=== PATIENT | male | born 1960 | race Caucasian/White ===

== ENCOUNTER → 2017-03-13 | Outpatient (CLI) | payer OTHER ==
[~2017-03-13] MED LIST: ALLO300T2 PO; AMLO-114 PO; ATOR10TA88 PO; METO25TA56 PO
--- NOTE | 2017-03-13 07:21 | DIAGNOSTIC IMAGING REPORT ---
ABD/PELVIS NO IV OR ORAL CONT CLINICAL HISTORY: 56 years-old Male presenting with HERNIA. TECHNIQUE: Multidetector CT of the abdomen and pelvis was performed without the use of intravenous contrast. IV contrast: None. A dose lowering technique was used consistent with the principles of ALARA (as low as reasonably achievable). COMPARISON: 02/22/2016. CT DOSE (mGy.cm): The estimated cumulative dose is 691.60 mGy.cm. FINDINGS: Etl Consultant topogram: Peritoneal dialysis catheter abdominal surgical clips noted. Lung bases: Minimal dependent groundglass opacity, likely atelectasis. Mild multichamber enlargement of the heart. Coronary artery and aortic valve calcification. Trace pericardial effusion. No pleural effusion. Liver: Normal morphology. Normal density. Biliary: No gross evidence of biliary ductal dilatation within the limitations of noncontrast technique. Normal gallbladder. Pancreas: Normal. Spleen: Normal. Adrenal glands: Normal. Kidneys and ureters: Right kidney surgically absent. 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 Suggestion of mild urothelial thickening, new from prior. Mild pelvocaliectasis stable to slightly more prominent in the current exam. No convincing evidence of obstruction. Other than mild urothelial thickening, the left ureter is normal. Gastrointestinal tract: Sigmoid diverticulosis. No bowel obstruction. Peritoneal cavity: Small amount of fluid throughout the abdomen and pelvis likely related to the peritoneal dialysis catheter, which terminates in the right lower quadrant. No focal fluid collection apparent at the terminus. Bladder: Mild circumferential bladder wall thickening. No perivesicular inflammatory change. Pelvic organs: Prostate and seminal vesicles normal. Vasculature: Atherosclerosis of the normal caliber abdominal aorta. Lymph nodes: Few prominent but benign-appearing inguinal lymph nodes, likely reactive. Abdominal wall: Small fluid collection immediately superior to the umbilicus along the paramedian right ventral abdominal wall containing fluid and few small foci of gas. This collection measures 3.4 x 1.5 cm in axial dimensions. No significant surrounding fat stranding. This is not associated with the peritoneal dialysis catheter. Musculoskeletal: Degenerative changes of the spine. IMPRESSION: 1. Small fluid collection in the anterior abdominal wall likely relates to a peritoneal defect. Fluid and gas within the ventral hernia most likely secondary to the presence of the peritoneal dialysis catheter. 2. Mild urothelial thickening in the left urinary collecting system with mild cervical bladder wall thickening suggestive of cystitis with upper tract involvement. Correlate with urinalysis. 3. Postsurgical changes of left nephrectomy. Expected appearance of the peritoneal dialysis catheter. Electronically signed by: Max Penn M.D. 03/13/2017 7:19 AM Dictated Date/Time: 03/13/2017 7:12 AM
== END | disposition home or self-care (01) ==
LOC: C.CTS 06:40
PROVIDERS: ATTEND Surgery
DX: K43.9 Ventral hernia without obstruction or gangrene (principal); Z90.5 Acquired absence of kidney

== ENCOUNTER → 2017-06-22 | Outpatient (CLI) | payer OTHER ==
[~2017-06-22] MED LIST changes: +ATOR10TA82 PO; -ATOR10TA88 PO
--- NOTE | 2017-06-22 08:08 | DIAGNOSTIC IMAGING REPORT ---
(CHEST) THORAX WITHOUT CT DOSE: 538.79 mGycm HISTORY: Preoperative evaluation TRANSPLANT TESTING TECHNIQUE: Multiaxial CT images of the chest were performed without contrast. A dose lowering technique was utilized adhering to the principles of ALARA. COMPARISON: None. FINDINGS: Solitary lung mass in the region of the right major fissure transaxial image 24. This measures 2.2 x 2.1 cm. It is primarily right lower lobe in position although there appears to be involvement of components of the major fissure. Lungs otherwise are clear. No additional nodular changes. There is no significant mediastinal or hilar adenopathy. Several small nodes are present measuring no more than 7 mm. Several small benign shotty appearing nodes of the axillary regions. Limited evaluation the upper abdomen shows the presence of ascites versus dialysate. IMPRESSION: 1. Solitary lung nodule right lower lobe involving the right major fissure 2. This measures 2.2 x 2.1 cm. 3. Neoplastic processes is the diagnosis of exclusion. The above report was generated using voice recognition software. It may contain grammatical, syntax or spelling errors. Electronically signed by: John Juan M.D. 06/22/2017 8:07 AM Dictated Date/Time: 06/22/2017 8:01 AM
== END | disposition home or self-care (01) ==
LOC: C.CTS 07:45
PROVIDERS: ATTEND Internal Medicine Nephrology
DX: Z01.818 Encounter for other preprocedural examination (principal); N18.6 End stage renal disease; R91.1 Solitary pulmonary nodule

== ENCOUNTER 2020-09-26 14:30 | Observation (INO) ==
[2020-09-26] MEDS ORDERED: NITROGLYCERIN SL 0.4 MG/TAB TAB SL STA (14:52)
[2020-09-26] MEDS ORDERED: NITROGLYCERIN SL 0.4 MG/TAB TAB SL PRN (14:52)
[2020-09-26 15:27] LABS: Basophils # (auto) 0.01 K/uL (0-0.2); Basophils % (auto) 0.1 %; Eosinophils # (auto) 0.09 K/uL (0-0.5); Eosinophils % (auto) 0.8 %; Hematocrit (blood only) 37.2 % (42-52); Hemoglobin 12.2 g/dL (14.0-18.0); Immature Granulocytes # (auto) 0.03 K/uL (0.00-0.02); Immature Granulocytes % (auto) 0.3 %; Lymphocytes # (auto) 0.99 K/uL (1.2-3.4); Lymphocytes % (auto) 8.5 %; Mean Corpuscular Hemoglobin 28.2 pg (25-34); Mean Corpuscular Hgb Conc 32.8 g/dL (32-36); Mean Corpuscular Volume 86.1 fL (80-100); Mean Platelet Volume 10.2 fL (7.4-10.4); Monocytes # (auto) 0.96 K/uL (0.11-0.59); Monocytes % (auto) 8.2 %; Neutrophils # (auto) 9.56 K/uL (1.4-6.5); Neutrophils % (auto) 82.1 %; Platelet Count 174 K/uL (130-400); RDW Coefficient of Variation 16.2 % (11.5-14.5); RDW Standard Deviation 51.8 fL (36.4-46.3); Red Blood Count 4.32 M/uL (4.7-6.1); White Blood Count 11.64 K/uL (4.8-10.8)
--- NOTE | 2020-09-26 15:37 | XRay Report ---
SINGLE VIEW CHEST CLINICAL HISTORY: Sepsis. FINDINGS: 2 AP, portable, upright chest radiographs are compared to study dated 11/20/2015. Correlation is made with chest CT dated 04/08/2019. The heart is markedly enlarged noting atherosclerotic calcifi cation of the thoracic aorta. The pulmonary vasculature is noncongested. There is evidence of previou s cardiac valve surgery. Postoperative change and volume loss in the right lung is consistent with pr evious surgical resection. There is pleural fluid at the right lung base. No airspace consolidation i s seen typical for pneumonia. Scarring/atelectasis is noted at both lung bases. No pneumothorax is se en. The skeletal structures are osteopenic. The bony thorax is grossly intact. IMPRESSION: 1. Cardiomegaly without radiographic evidence of congestive failure. 2. There is no airspace consolidation typical for pneumonia. 3. Postoperative change and volume loss is consistent with right-sided pulmonary resection. 4. There is a small volume of pleural fluid at the right lung base. ACT 112: Negative or not required by law. Electronically signed by: Julien Mcdonald M.D. 09/26/2020 3:36 PM
[2020-09-26 15:39] LABS: INR 1.1 (0.9-1.1); Prothrombin Time 10.9 Seconds (9.0-12.0)
[2020-09-26] MEDS ORDERED: ONDANSETRON INJ 2 MG/ML 2 ML VIAL IV STA (15:56)
[2020-09-26] MEDS ORDERED: HYDROmorphone INJ 0.5 MG/0.5 ML SYR IV PRN (15:56)
[2020-09-26 15:59] LABS: RBC Morphology Unremarkable
[2020-09-26 16:00] LABS: Albumin Globulin Ratio 0.7 (0.9-2); Albumin Level 2.9 gm/dl (3.4-5.0); BUN Creatinine Ratio 4.9 (10-20); Bilirubin,Total 0.3 mg/dl (0.2-1); C Reactive Protein 5.26 mg/dl (0-0.29); Calcium 9.1 mg/dl (8.5-10.1); Creatine Kinase MB 4.6 ng/ml (0.5-3.6); Creatinine Clr Calc Pharmacy 4.6 ml/min; Est GFR (African American) 3.4; Est GFR (Non-African American) 2.9; Ferritin 1018.9 ng/ml (8-388); Globulin 4.3 gm/dl (2.5-4.0); Magnesium 2.4 mg/dl (1.8-2.4); Potassium 4.6 mmol/L (3.5-5.1); Total Protein 7.2 gm/dl (6.4-8.2); Troponin I 0.027 ng/ml (0-0.045)
[2020-09-26] MEDS ORDERED: LEVALBUTEROL TARTRATE 15 GM HFA.AER.AD INH STA (16:03)
[2020-09-26] MEDS ORDERED: OPTIRAY 320 125ml IV ONE (17:41)
--- NOTE | 2020-09-26 18:34 | CT Scan Report ---
CT ANGIOGRAM OF THE CHEST CLINICAL HISTORY: Atypical chest pain. Dyspnea. COMPARISON STUDY: Chest x-ray dated 09/26/2020. Chest CT dated 04/08/2019 and 06/22/2017. TECHNIQUE: Following the IV administration of 117 cc of Optiray 320, CT angiogram of the chest was pe rformed from the upper abdomen to the thoracic inlet utilizing the pulmonary embolus protocol. Images are reviewed in the axial, sagittal, and coronal planes. 3-D MIPS images are created and assessed. I V contrast was administered without complication. A dose lowering technique was utilized adhering to the principles of ALARA. CT DOSE: 320.07 mGy.cm FINDINGS: Thyroid: Imaged portions of the thyroid gland are normal in size and attenuation. Thoracic aorta: There is atherosclerotic calcification of the thoracic aorta, which is normal in liv elen and demonstrates standard 3-vessel arch anatomy. No dissection is seen. Pulmonary vasculature: The pulmonary trunk is normal in caliber. There are no filling defects identif ied in main, lobar, or segmental pulmonary branches to suggest pulmonary embolus. Heart: The heart is enlarged and there is a large pericardial effusion. There is evidence of previous aortic valve surgery. The coronary arteries and mitral annulus are densely calcified. Lungs and pleural spaces: There is postoperative change and volume loss from right-sided pulmonary re section, with compensatory hyperinflation of the left lung. A small volume of pleural fluid is again seen at the right lung base, with associated right basilar scarring/atelectasis. No airspace consolid ation is identified typical for pneumonia. The trachea and central airways are clear. Mild diffuse pe ribronchial thickening is observed. A 4 mm nodule in the right upper lung seen on image #182 is new f rom previous and may be inflammatory. Mediastinum: There are numerous subcentimeter mediastinal lymph nodes. These are not pathologically e nlarged by size criteria and have decreased in size from previous. Jazmine: Clear. Axillae: There is no axillary lymphadenopathy. Upper abdomen: Reflux of contrast into the IVC and hepatic veins suggests cardiac dysfunction. There is trace perihepatic ascites. Partially visualized upper abdominal viscera is otherwise grossly unrem arkable. Skeletal structures: The skeletal structures are osteopenic. There is a subacute/healing right anteri or second rib fracture. Mild superior endplate compression deformities in the upper thoracic spine ar e unchanged. No lytic or blastic bony lesions are seen. IMPRESSION: 1. There is no evidence of pulmonary embolus in the main, lobar, or segmental pulmonary arteries. 2. Large pericardial effusion. This has significantly increased in size as compared to the 04/08/2019 examination. 3. Cardiomegaly with evidence of cardiac dysfunction. 4. Again seen is postoperative change and volume loss from right-sided pulmonary resection. 5. There is a small volume of pleural fluid at the right lung base. 6. No airspace consolidation is seen typical for pneumonia. 7. Mild diffuse peribronchial thickening suggests bronchitis/reactive airway disease. 8. A 4 mm nodule in the right upper lung is new from previous and may be on an inflammatory basis. A 3-6 month follow-up chest CT is recommended to document resolution. 9. Trace perihepatic ascites. 10. There is a subacute/healing right anterior second rib fracture. ACT 112: Positive. There are findings on this exam that require communication between the performing entity and the patient following Patient Test Result Information Act ([place] Act 112) guidelines. Electronically signed by: Julien Mcdonald M.D. 09/26/2020 6:33 PM
[2020-09-26] MEDS ORDERED: GI COCKTAIL ED USE PO ONE (18:56)
--- NOTE | 2020-09-26 19:24 | XRay Report ---
KUB CLINICAL HISTORY: Generalized abdominal pain. FINDINGS: 2 AP supine abdominal radiographs are compared to study dated 05/05/2016 and correlated with abdominal CT dated 03/13/2017.There is no bowel obstruction. A peritoneal dialysis catheter is in lisseth ce. The tip is coiled in the pelvis. No evidence of intraperitoneal free air is seen on these supine views. Surgical clips are scattered throughout the abdomen and there are bilateral iliac artery stent s. No abnormal abdominal calcifications are identified. The skeletal structures are osteopenic and ap pear intact. The cardiac silhouette is enlarged and there is evidence of previous cardiac valve surge ry. Pleural fluid is noted at the right lung base. IMPRESSION: Nonobstructed abdominal bowel gas pattern. Electronically signed by: Julien Mcdonald M.D. 09/26/2020 7:22 PM
[2020-09-26] MEDS ORDERED: POLYETHYLENE (MIRALAX) 17 GM PACK PO PRN (20:19)
[2020-09-26] MEDS ORDERED: ACETAMINOPHEN 325 MG TAB PO PRN (20:19)
--- NOTE | 2020-09-26 20:32 | History & Physical Report ---
Date of Service September 26, 2020 Assessment & Plan (1) Pericardial effusion: -Admit to telemetry -Patient presenting from home with reports of substernal/epigastric pain x 3 days -In the ED, CTA chest shows large pericardial effusion -Currently hemodynamically stable, does not appear to be infectious in nature -Case discussed with cardiology by Dr. Leach -start ibuprofen 600 mg 3 times daily, colchicine 0.6 mg twice daily, Bumex 2 mg IV x 1 -Echo (2) Pulmonary nodule: (3) History of lung cancer: -CT chest shows a new 4 mm nodule in the right upper lung -History of non-small cell lung cancer s/p lobectomy -Will need close follow-up (4) Diastolic dysfunction: -Receiving Bumex 2 mg IV x1 as above for pericardial effusion -Resume home dose of furosemide tomorrow (5) ESRD (end stage renal disease) on dialysis: (6) Peritoneal dialysis status: -Nephrology consult (7) PAD (peripheral artery disease): -S/p bilateral common iliac artery stenting -Continue aspirin, Plavix, statin (8) HTN (hypertension): -BP controlled, continue isosorbide, amlodipine, carvedilol (9) Gout: -Continue allopurinol (10) DVT prophylaxis: -SCDs for now Admission and Anticipated Discharge Date Admission Date: September 26, 2020 History of Present Illness Chief Complaint: Chest pain Primary Care Provider: Socrates Saba MD 60-year-old male with PMH gout, non-small cell lung cancer s/p lobectomy, PAD s/p bilateral common iliac artery stenting, ESRD on peritoneal dialysis, history of TAVR, 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 Patient reports that over the past 3 days, he has had a persistent substernal/epigastric pain. Reports pain is worse whenever he is completing his dwells for peritoneal dialysis. Pain is also worse whenever he lies flat. Patient reports associated shortness of breath. No radiation of the pain. He reports nausea this morning however no vomiting. Reports no difficulties with peritoneal dialysis, fluid has been clear. No abdominal pain or diarrhea. Denies fevers and chills. No lightheadedness, dizziness, diaphoresis, syncopal events. Continues to make a small amount of urine, denies dysuria. In the ED, CTA chest is negative for pulmonary embolism however shows large pericardial effusion. Labs show ESR 61, CRP 5.2, otherwise unremarkable/at patient's baseline. Patient was given sublingual nitroglycerin that did not improve his pain. He was also given IV Zofran and IV Dilaudid. Allergies Allergy/AdvReac Type Severity Reaction Status Date / Time mercury (elemental) Allergy Intermediate Rash Verified 09/26/20 16:04 NSAIDS (Non-Steroidal Allergy Intermediate not to Verified 09/26/20 16:04 Anti-Inflamma take d/t Kidney disease lisinopril AdvReac Intermediate COUGH Verified 09/26/20 16:04 Home Medications Medication Instructions Recorded Confirmed Type amlodipine 10 mg tablet 10 mg PO QAM 05/06/19 09/26/20 History dutasteride 0.5 mg capsule 0.5 mg PO QAM 05/06/19 09/26/20 History trazodone 50 mg tablet 50 mg PO HS PRN tab 05/06/19 09/26/20 History calcitriol 0.5 mcg PO QAM 06/11/20 09/26/20 History allopurinol 100 mg PO QAM 06/30/20 09/26/20 History furosemide 80 mg PO QAM 06/30/20 09/26/20 History omeprazole 40 mg PO QAM 06/30/20 09/26/20 History isosorbide mononitrate 30 mg 30 mg PO QAM #30 tab 09/07/20 09/26/20 Rx tablet,extended release 24 hr albuterol sulfate [Ventolin HFA] 2 puff INHALATION Q4 PRN 09/26/20 09/26/20 History aspirin [Aspir-Low] 81 mg PO DAILY 09/26/20 09/26/20 History atorvastatin [Lipitor] 40 mg PO DAILY 09/26/20 09/26/20 History bupropion HCl 150 mg PO DAILY 09/26/20 09/26/20 History carvedilol [Coreg] 25 mg PO BID 09/26/20 09/26/20 History clopidogrel 75 mg PO DAILY 09/26/20 09/26/20 History escitalopram oxalate 20 mg PO DAILY 09/26/20 09/26/20 History oxycodone-acetaminophen [Percocet] 1 tab PO Q8 09/26/20 09/26/20 History ropinirole [Requip] 0.25 mg PO HS 09/26/20 09/26/20 History sucroferric oxyhydroxide [Velphoro] 500 mg PO TIDM 09/26/20 09/26/20 History tamsulosin [Flomax] 0.4 mg PO QPM 09/26/20 09/26/20 History vit B,C-iron kuo-ZB-A2-zinc ox 1 tab PO DAILY 09/26/20 09/26/20 History [ProRenal] Past Med/Surg History Medical History AV fistula "L side " CAD (coronary artery disease) NONOBSTRUCTIVE Cardiac murmur HX OF TAVR SEP 2019 SECONDARY TO SEVERE Carotid artery stenosis RIGHT ICA= <50%; LEFT ICA= 50-69% Chronic kidney disease, stage IV (severe) Dialysis patient X 4 YRS-PERITONEAL DIALYSIS Q HS X 8 HRS Diastolic dysfunction with normal LV systolic function Dyslipidemia Fitting and adjustment of peritoneal dialysis catheter PLACEMENT OF-IN PLACE GERD (gastroesophageal reflux disease) Gout Hiatal hernia History of lung cancer NON SMALL CANCER RLL-07/2019 [facility] [place] HTN (hypertension) Kidney donor PAD (peripheral artery disease) Follows with vascular surgery Peritoneal dialysis status Spinal stenosis NO NECK OR BACK SURGERY Surgical History AV fistula CREATION OF IN LEFT WRIST H/O vascular surgery 04/2020 STENTS PLACED [facility] [place] BILAT LE (BILATERAL COMMON ILIAC ARTERY STENT PLACEMENT) History of colonoscopy History of lung surgery RLL 07/2019 History of nephrectomy, unilateral "Kidney donor "1992 S/P AVR (aortic valve replacement) 09/2019 [facility] [place] F/U DR BOWEN Family History Brother Family history of diabetes mellitus Brother Family history of diabetes mellitus Sister Family history of diabetes mellitus Mother Family history of diabetes mellitus Social History Smoking Status: Former smoker Second Hand Exposure: No; Do You Dip or Chew Tobacco: Yes; Tobacco Cessation Education Requested by Patient: No Hx Alcohol Use: No Hx Substance Use: No Preferred Language: Surinamese Communication Ability: Effective Supervisory Forester Required: No Beliefs That Will Affect Care: None Current Living Situation: Other Other Information That Helps Us Care for You: No Feels Safe at Home: Yes Safety Concerns: Feels Safe At This Time Assistive Devices: Denture - Upper, Denture - Lower and Glasses Review of Systems Review of Systems: ROS per HPI, all other systems reviewed and negative Physical Exam Constitutional: WD/WN, vitals as above Eyes: PERRL, conjunctivae normal, anicteric sclerae ENMT: external ear and nose normal, oropharynx normal Respiratory: normal respiratory effort, lungs clear to auscultation Cardiovascular: Rate/Rhythm: regular rate and regular rhythm Vessels: normal peripheral pulses Extremities: no edema Gastrointestinal (Abdomen): Inspection/Auscultation: normal bowel sounds; abdomen not distended Percussion/Palpation: + abdomen tender (Epigastric) and abdomen soft; no hepatosplenomegaly Peritoneal dialysis catheter in place, no surrounding redness or drainage noted Musculoskeletal: no cyanosis or clubbing, extremities motor strength 5/5 Skin: no rashes, warm and dry Neurologic: PERRL, EOMI, accommodation nl, no face palsy, no dysarthria Psychiatric: A+Ox3, euthymic affect Results & Data Results & Data ([facility]) Vital Signs (Past 12 Hours) Vital Signs Temp Pulse Pulse Resp BP BP Pulse Ox 09/26/20 20:07 36.4 C L 94 H 18 147/88 H 94 09/26/20 19:00 93 H 19 129/109 H 94 09/26/20 18:40 95 H 18 09/26/20 18:30 90 15 139/111 H 98 09/26/20 18:20 90 22 100 09/26/20 18:10 92 H 16 96 09/26/20 18:00 91 H 18 142/96 H 96 09/26/20 17:50 91 H 18 96 09/26/20 17:46 91 H 11 L 09/26/20 17:31 95 H 18 132/81 96 09/26/20 17:30 96 H 22 94 09/26/20 17:20 97 H 17 93 09/26/20 17:10 95 H 16 93 09/26/20 17:00 96 H 19 149/100 H 93 09/26/20 16:50 96 H 26 H 94 09/26/20 16:40 96 H 14 94 09/26/20 16:30 96 H 19 145/93 H 95 09/26/20 16:20 93 H 26 H 94 09/26/20 16:10 95 H 25 H 09/26/20 16:00 96 H 20 117/94 94 09/26/20 15:50 98 H 18 96 09/26/20 15:40 100 H 19 96 09/26/20 15:30 101 H 18 119/91 92 09/26/20 15:23 100 H 23 95 09/26/20 15:20 101 H 19 95 09/26/20 15:13 101 H 21 96 09/26/20 14:33 37.3 C 104 H 20 108/77 96 Laboratory Results Short CBC 09/26/20 Range/Units 15:17 WBC 11.64 H (4.8-10.8) K/uL Hgb 12.2 L (14.0-18.0) g/dL Hct 37.2 L (42-52) % Plt Count 174 (130-400) K/uL BMP 09/26/20 15:17 Sodium 133 L Potassium 4.6 Chloride 97 L Carbon Dioxide 25 BUN 76 H Creatinine 15.70 H* Glucose 92 Calcium 9.1 Cardiac Enzymes 09/26/20 Range/Units 15:17 Total Creatine Kinase 87 (39-308) U/L CK-MB (CK-2) 4.6 H (0.5-3.6) ng/ml Troponin I 0.027 (0-0.045) ng/ml Liver Function 09/26/20 Range/Units 15:17 Total Bilirubin 0.3 (0.2-1) mg/dl AST 12 L (15-37) U/L ALT 25 (12-78) U/L Alkaline Phosphatase 105 (45-117) U/L Albumin 2.9 L (3.4-5.0) gm/dl Diagnostic Findings CTA CHEST IMPRESSION: 1. There is no evidence of pulmonary embolus in the main, lobar, or segmental pulmonary arteries. 2. Large pericardial effusion. This has significantly increased in size as compared to the 04/08/2019 examination. 3. Cardiomegaly with evidence of cardiac dysfunction. 4. Again seen is postoperative change and volume loss from right-sided pulmonary resection. 5. There is a small volume of pleural fluid at the right lung base. 6. No airspace consolidation is seen typical for pneumonia. 7. Mild diffuse peribronchial thickening suggests bronchitis/reactive airway disease. 8. A 4 mm nodule in the right upper lung is new from previous and may be on an inflammatory basis. A 3-6 month follow-up chest CT is recommended to document resolution. 9. Trace perihepatic ascites. 10. There is a subacute/healing right anterior second rib fracture. Code Status & VTE Plan VTE Prophylaxis Plan VTE Prophylaxis will be ordered: Yes Supervising Physician Co-Signing Physician Notes Pt was seen and examined. Agreed with Pebbles SALEEM exam, assessment and plan. 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 Pt said that symptoms has been going on for about 3 days. He said that pain worsening with deep breathing or when lying down. He said that his symptoms worst also during peritoneal Dialysis. Received sublingual nitro with minimal improvement, now he is having a headache. CTA chest PE showed no PE but Large pericardial effusion. This has significantly increased in size as compared to the 04/08/2019 examination. Lab showed showed ESR 61, CRP 5.2. Currently denies any palpitation, dizziness and SOB. cardiology consult. case discussed with cardiology about the large pericardial effusion that recommended Motrin 600mg TID and Colchicine. Will get an echo. Vital currently stable, but will monitor in the PCU for any sign of cardiac tamponade. Will consult nephrology for PD. MD Haylee
[2020-09-26] MEDS ORDERED: TAMSULOSIN HCL 0.4 MG CAP PO SCH (21:00)
[2020-09-26] MEDS ORDERED: rOPINIRole HCL 0.25 MG TABLET PO SCH (21:00)
[2020-09-26] MEDS ORDERED: BUMETANIDE 2 MG in SYRINGE 0 ML IV ONE (21:15)
[2020-09-26] MEDS: IBUPROFEN 600 MG TAB PO SCH (21:32)
[2020-09-26] MEDS: oxyCODONE/ACETAMINOPHEN 5mg/325mg TAB PO PRN (21:32)
[2020-09-26] MEDS: DOCUSATE SODIUM 100 MG CAP PO SCH (21:32)
[2020-09-26] MEDS: COLCHICINE 0.6 MG TAB PO SCH (21:33)
[2020-09-26] MEDS: carvediloL 25 MG TAB PO SCH (21:34)
[2020-09-26] MEDS ORDERED: traMADol HCL 50 MG TABLET PO PRN (23:59)
[2020-09-27] MEDS: HYDROmorphone INJ 0.5 MG/0.5 ML SYR IV PRN ×2 (00:11→11:36)
[2020-09-27 00:43] LABS: Appearance Urine Clear (Clear); Bilirubin Urine Negative (Negative); Blood Urine 1+ (Negative); Color Urine Yellow; Epithelial Cell Urine Auto >30 /lpf (0-5); Glucose Urine UA Negative (Negative); Ketones Urine Negative (Negative); Leukocyte Esterase Urine Negative (Negative); Nitrite Urine Negative (Negative); Protein Urine 3+ (Negative); Specific Gravity Urine 1.022 (1.000-1.030); Urobilinogen Urine Negative (Negative)
[2020-09-27 01:17] LABS: Bacteria Urine Automated 1+ (Negative)
[2020-09-27 01:25] LABS: RBC Urine Automated 0-4 /hpf (0-4)
[2020-09-27] MEDS: IBUPROFEN 600 MG TAB PO SCH (05:25)
[2020-09-27 06:14] LABS: Hematocrit (blood only) 35.8 % (42-52); Hemoglobin 11.7 g/dL (14.0-18.0); Mean Corpuscular Hemoglobin 28.1 pg (25-34); Mean Corpuscular Hgb Conc 32.7 g/dL (32-36); Mean Corpuscular Volume 86.1 fL (80-100); Mean Platelet Volume 10.9 fL (7.4-10.4); Platelet Count 157 K/uL (130-400); RDW Coefficient of Variation 16.4 % (11.5-14.5); RDW Standard Deviation 52.3 fL (36.4-46.3); Red Blood Count 4.16 M/uL (4.7-6.1); White Blood Count 8.38 K/uL (4.8-10.8)
--- NOTE | 2020-09-27 06:38 | Electrocardiogram Report ---
Test Reason : Blood Pressure : / mmHG Vent. Rate : 099 BPM Atrial Rate : 099 BPM P-R Int : 188 ms QRS Dur : 092 ms QT Int : 378 ms P-R-T Axes : 048 010 081 degrees QTc Int : 485 ms Normal sinus rhythm Septal infarct (cited on or before 23-FEB-2018) Cannot rule out Inferior infarct , age undetermined T wave abnormality, consider lateral ischemia Abnormal ECG When compared with ECG of 11-JUN-2020 11:50, Vent. rate has increased BY 35 BPM Nonspecific T wave abnormality now evident in Inferior leads T wave inversion now evident in Lateral leads Confirmed by George Peace ([id number]) on 09/27/2020 6:38:51 AM Referred By: REFERRED SELF Confirmed By:George Peace
[2020-09-27 07:05] LABS: BUN Creatinine Ratio 5.4 (10-20); Calcium 9.5 mg/dl (8.5-10.1); Creatinine Clr Calc Pharmacy 4.1 ml/min; Est GFR (African American) 3.3; Est GFR (Non-African American) 2.8; Potassium 5.6 mmol/L (3.5-5.1)
[2020-09-27] MEDS ORDERED: NON-FORMULARY MEDICATION (Sucroferric Oxyhydroxide [Velphoro] 500 mg tablet,chewable) PO SCH (08:00)
[2020-09-27] MEDS ORDERED: amLODIPine BESYLATE 5 MG TAB PO SCH (09:00)
[2020-09-27] MEDS ORDERED: buPROPion XL 150 MG TABCR PO SCH (09:00)
[2020-09-27] MEDS ORDERED: ESCITALOPRAM OXALATE 20 MG TAB PO SCH (09:00)
[2020-09-27] MEDS ORDERED: ISOSORBIDE MONO EXTENDED REL 30 MG TABCR PO SCH (09:00)
[2020-09-27] MEDS ORDERED: PANTOprazole 40 MG TAB PO SCH (09:00)
[2020-09-27] MEDS ORDERED: CALCITRIOL 0.25 MCG CAPSULE PO SCH (09:00)
[2020-09-27] MEDS ORDERED: allopurinoL 100 MG TAB PO SCH (09:00)
[2020-09-27] MEDS ORDERED: ATORVASTATIN 40 MG TAB PO SCH (09:00)
[2020-09-27] MEDS ORDERED: NEPHROCAPS PO SCH (09:00)
[2020-09-27] MEDS ORDERED: FUROSEMIDE 80 MG TAB PO SCH (09:00)
[2020-09-27] MEDS: COLCHICINE 0.6 MG TAB PO SCH (09:24)
[2020-09-27] MEDS: carvediloL 25 MG TAB PO SCH (09:24)
[2020-09-27] MEDS: DOCUSATE SODIUM 100 MG CAP PO SCH (09:24)
[2020-09-27] MEDS: ASPIRIN 81 MG ECTAB PO SCH ×2 (09:25→10:26)
[2020-09-27] MEDS: CLOPIDOGREL BISULFATE 75 MG TAB PO SCH ×2 (09:28→10:26)
[2020-09-27] MEDS: oxyCODONE/ACETAMINOPHEN 5mg/325mg TAB PO PRN (09:49)
[2020-09-27] MEDS: SODIUM CHLORIDE 0.9% 1000ML 1,000 ML IV SCH ×2 (09:50→10:41)
--- NOTE | 2020-09-27 09:57 | Cardiology Consultation ---
Date of Consultation September 27, 2020 Assessment & Plan (1) Pericardial effusion: (2) Peritoneal dialysis status: (3) ESRD (end stage renal disease) on dialysis: (4) H/O vascular surgery: (5) History of lung cancer: (6) PAD (peripheral artery disease): (7) S/P TAVR (transcatheter aortic valve replacement): (8) Mitral valve mass: Large circumferential pericardial effusion is measured at 1.9 cm in the apical four-chamber view at the apex Echocardiogram does show hemodynamic compromise with compression of the right atrium and possible diastolic compression of the right ventricle. Greater than 50% respiratory variation across the tricuspid valve Luckily, the patient is hemodynamically stable without clinical features of tamponade. I have ordered normal saline wide open to be started now to support preload There is also a possible mass consistent with vegetation on the mitral valve. At this point given the above findings I recommend the patient be emergently transferred to a tertiary care center for higher level of care. I have asked the primary team to arrange transport to [facility] for likely pericardiocentesis I have discussed the above findings and treatment options with the patient at great lengths and he is in agreement with the plan. I will give him a dose of ibuprofen for his discomfort now but would avoid narcotics that may decrease his preload. History of Present Illness Reason for Consultation: Pericardial effusion/chest pain Requesting Physician: Dr. Leach Attending Physician: Yakov Leach MD History of Present Illness Mr. Hung is a very pleasant 60-year-old gentleman who routinely follows with myself as an outpatient. He presented to [facility] emergency department on 09/26/2020 with complaints of chest discomfort. He states that for the last 3 days he has been having this persistent dull achy substernal chest discomfort. He states that the discomfort is constant but worse with laying flat and improved with sitting upright leaning over. He has been completing his peritoneal dialysis as instructed. The pain progressed over the last 3 days and he came in the emergency department. Upon arrival a chest CT was performed which showed a large pericardial effusion and cardiology was consulted. Ec hocardiogram this a.m. shows tamponade physiology and he was started on normal saline solution wide open. Currently states that the chest discomfort is still present and worse with deep inhalation. But he denies any palpitations, lightheadedness or dizziness. Past medical history: 1.Severe aortic stenosisstatus post TAVR with a #26Sapien 3Tvalve 2. Nonobstructive coronary artery disease 3. Diastolic dysfunction with normal LV systolic function 4. End-stage renal failure on peritoneal dialysis 5. History of lung cancer status post lobectomy 6. Hypertension 7. Depression 8. Peripheral arterial diseasestatus post bilateral common iliac artery stent placement Allergies Allergy/AdvReac Type Severity Reaction Status Date / Time mercury (elemental) Allergy Intermediate Rash Verified 09/26/20 16:04 NSAIDS (Non-Steroidal Allergy Intermediate not to Verified 09/26/20 16:04 Anti-Inflamma take d/t Kidney disease lisinopril AdvReac Intermediate COUGH Verified 09/26/20 16:04 Home Medications Medication Instructions Recorded Confirmed Type amlodipine 10 mg tablet 10 mg PO QAM 05/06/19 09/26/20 History dutasteride 0.5 mg capsule 0.5 mg PO QAM 05/06/19 09/26/20 History trazodone 50 mg tablet 50 mg PO HS PRN tab 05/06/19 09/26/20 History calcitriol 0.5 mcg PO QAM 06/11/20 09/26/20 History allopurinol 100 mg PO QAM 06/30/20 09/26/20 History furosemide 80 mg PO QAM 06/30/20 09/26/20 History omeprazole 40 mg PO QAM 06/30/20 09/26/20 History isosorbide mononitrate 30 mg 30 mg PO QAM #30 tab 09/07/20 09/26/20 Rx tablet,extended release 24 hr ProRenal 1 tab PO DAILY 09/26/20 09/26/20 History Velphoro 500 mg PO TIDM 09/26/20 09/26/20 History albuterol sulfate [Ventolin HFA] 2 puff INHALATION Q4 PRN 09/26/20 09/26/20 History aspirin 81 mg PO DAILY 09/26/20 09/26/20 History atorvastatin [Lipitor] 40 mg PO DAILY 09/26/20 09/26/20 History bupropion HCl 150 mg PO DAILY 09/26/20 09/26/20 History carvedilol [Coreg] 25 mg PO BID 09/26/20 09/26/20 History clopidogrel 75 mg PO DAILY 09/26/20 09/26/20 History escitalopram oxalate 20 mg PO DAILY 09/26/20 09/26/20 History oxycodone-acetaminophen [Percocet] 1 tab PO Q8 09/26/20 09/26/20 History ropinirole [Requip] 0.25 mg PO HS 09/26/20 09/26/20 History tamsulosin [Flomax] 0.4 mg PO QPM 09/26/20 09/26/20 History colchicine [Colcrys] 0.6 mg PO BID #30 tab 09/27/20 Rx ibuprofen 600 mg PO Q8 #30 tab 09/27/20 Rx Patient History Medical History AV fistula "L side " CAD (coronary artery disease) NONOBSTRUCTIVE Cardiac murmur HX OF TAVR SEP 2019 SECONDARY TO SEVERE Carotid artery stenosis RIGHT ICA= <50%; LEFT ICA= 50-69% Chronic kidney disease, stage IV (severe) Dialysis patient X 4 YRS-PERITONEAL DIALYSIS Q HS X 8 HRS Diastolic dysfunction with normal LV systolic function Dyslipidemia Fitting and adjustment of peritoneal dialysis catheter PLACEMENT OF-IN PLACE GERD (gastroesophageal reflux disease) Gout Hiatal hernia History of lung cancer NON SMALL CANCER RLL-07/2019 [facility] HTN (hypertension) Kidney donor PAD (peripheral artery disease) Follows with vascular surgery Peritoneal dialysis status Spinal stenosis NO NECK OR BACK SURGERY Surgical History AV fistula CREATION OF IN LEFT WRIST H/O vascular surgery 04/2020 [facility]ENTS PLACED [facility] BILAT LE (BILATERAL COMMON ILIAC ARTERY STENT PLACEMENT) History of colonoscopy History of lung surgery RLL 07/2019 History of nephrectomy, unilateral "Kidney donor "1992 S/P AVR (aortic valve replacement) 09/2019 [facility] F/U DR GILES Family History Brother Family history of diabetes mellitus Brother Family history of diabetes mellitus Sister Family history of diabetes mellitus Mother Family history of diabetes mellitus Social History Smoking Status: Former smoker Second Hand Exposure: No; Hx Alcohol Use: No Hx Substance Use: No Preferred Language: [place] Zealander Communication Ability: Effective Board Worker Required: No Beliefs That Will Affect Care: None Current Living Situation: Other Feels Safe at Home: Yes Assistive Devices: Denture - Upper, Denture - Lower and Glasses Review of Systems Review of Systems: All systems reviewed & are unremarkable except as noted in HPI & below Physical Exam Physical Exam: General: Awake, alert and oriented x 3. No acute distress. HEENT: Normocephalic, atraumatic. Pupils equal, round and reactive to light and accommodation. Extraocular muscles are intact. Anicteric sclera. Moist mucous membranes. Neck: Significant JVD is present up to the angle of his mandible.. No bruit. Cardiovascular: Regular. But distant. Positive S-4. Normal S-1 and S-2. No S-3. 3/6 mid to late systolic ejection murmur, greatest at the right sternal border, second intercostal space with radiation to the bilateral carotids. Systolic pericardial friction rub is present Pulmonary: Clear to auscultation bilaterally. No rales, rhonchi, or wheezing. Abdomen: Bowel sounds x 4, soft. No rebound, guarding or tenderness. No organomegaly. Extremities: No clubbing, cyanosis or edema. +2 pedal pulses bilaterally. Skin: Warm and dry. Results & Data ([facility]) Vital Signs (Past 12 Hours) Vital Signs Temp Pulse Resp BP Pulse Ox 09/27/20 07:52 36.5 C 73 17 127/82 97 09/27/20 04:10 36.5 C 81 16 130/89 96 09/26/20 23:40 36.5 C 77 18 107/73 94 Laboratory Results Laboratory Results - last 24 hr 09/26/20 09/26/20 09/26/20 15:17 15:17 15:17 WBC 11.64 H RBC 4.32 L Hgb 12.2 L Hct 37.2 L MCV 86.1 MCH 28.2 MCHC 32.8 RDW Std Deviation 51.8 H RDW Coeff of Saumya 16.2 H Plt Count 174 MPV 10.2 Immature Gran % (Auto) 0.3 Neut % (Auto) 82.1 Lymph % (Auto) 8.5 Madison % (Auto) 8.2 Eos % (Auto) 0.8 Baso % (Auto) 0.1 Neut # (Auto) 9.56 H Lymph # (Auto) 0.99 L Madison # (Auto) 0.96 H Eos # (Auto) 0.09 Baso # (Auto) 0.01 Immature Gran # (Auto) 0.03 H RBC Morphology Unremarkable ESR 61 H PT 10.9 INR 1.1 APTT 26.0 PTT Ratio 1.0 Sodium Potassium Chloride Carbon Dioxide Anion Gap BUN Creatinine Est Cr Clr Drug Dosing Est GFR ( Amer) Est GFR (Non-Af Amer) BUN/Creatinine Ratio Glucose Lactate Calcium Magnesium Ferritin Total Bilirubin AST ALT Alkaline Phosphatase Lactate Dehydrogenase Total Creatine Kinase CK-MB (CK-2) CK/CKMB % Calc Troponin I C-Reactive Protein Total Protein Albumin Globulin Albumin/Globulin Ratio Lipase Procalcitonin Urine Color Urine Appearance Urine pH Ur Specific [place] Urine Protein Urine Glucose (UA) Urine Ketones Urine Blood Urine Nitrite Urine Bilirubin Urine Urobilinogen Ur Leukocyte Esterase Urine WBC (Auto) Urine RBC (Auto) U Hyaline Cast (Auto) U Epithel Cells (Auto) Urine Bacteria (Auto) Ur Renal Epithelial Cell Granular Casts Nasal Screen MRSA (PCR) COVID-19 Eval Order Hepatitis C Ab Screen SARS-CoV-2, RNA, NAAT Blood Type Antibody Screen 09/26/20 09/26/20 09/26/20 15:17 15:17 15:17 WBC RBC Hgb Hct MCV MCH MCHC RDW Std Deviation RDW Coeff of Saumya Plt Count MPV Immature Gran % (Auto) Neut % (Auto) Lymph % (Auto) Madison % (Auto) Eos % (Auto) Baso % (Auto) Neut # (Auto) Lymph # (Auto) Madison # (Auto) Eos # (Auto) Baso # (Auto) Immature Gran # (Auto) RBC Morphology ESR PT INR APTT PTT Ratio Sodium 133 L Potassium 4.6 Chloride 97 L Carbon Dioxide 25 Anion Gap 11.0 BUN 76 H Creatinine 15.70 H* Est Cr Clr Drug Dosing 4.6 Est GFR ( Amer) 3.4 Est GFR (Non-Af Amer) 2.9 BUN/Creatinine Ratio 4.9 L Glucose 92 Lactate 1.4 Calcium 9.1 Magnesium 2.4 Ferritin 1018.9 H Total Bilirubin 0.3 AST 12 L ALT 25 Alkaline Phosphatase 105 Lactate Dehydrogenase 250 H Total Creatine Kinase 87 CK-MB (CK-2) 4.6 H CK/CKMB % Calc 5.3 H Troponin I 0.027 C-Reactive Protein 5.26 H Total Protein 7.2 Albumin 2.9 L Globulin 4.3 H Albumin/Globulin Ratio 0.7 L Lipase Procalcitonin Urine Color Urine Appearance Urine pH Ur Specific [place] Urine Protein Urine Glucose (UA) Urine Ketones Urine Blood Urine Nitrite Urine Bilirubin Urine Urobilinogen Ur Leukocyte Esterase Urine WBC (Auto) Urine RBC (Auto) U Hyaline Cast (Auto) U Epithel Cells (Auto) Urine Bacteria (Auto) Ur Renal Epithelial Cell Granular Casts Nasal Screen MRSA (PCR) COVID-19 Eval Order Hepatitis C Ab Screen SARS-CoV-2, RNA, NAAT Blood Type Antibody Screen 09/26/20 09/26/20 09/26/20 15:17 15:17 15:17 WBC RBC Hgb Hct MCV MCH MCHC RDW Std Deviation RDW Coeff of Saumya Plt Count MPV Immature Gran % (Auto) Neut % (Auto) Lymph % (Auto) Madison % (Auto) Eos % (Auto) Baso % (Auto) Neut # (Auto) Lymph # (Auto) Madison # (Auto) Eos # (Auto) Baso # (Auto) Immature Gran # (Auto) RBC Morphology ESR PT INR APTT PTT Ratio Sodium Potassium Chloride Carbon Dioxide Anion Gap BUN Creatinine Est Cr Clr Drug Dosing Est GFR ( Amer) Est GFR (Non-Af Amer) BUN/Creatinine Ratio Glucose Lactate Calcium Magnesium Ferritin Total Bilirubin AST ALT Alkaline Phosphatase Lactate Dehydrogenase Total Creatine Kinase CK-MB (CK-2) CK/CKMB % Calc Troponin I C-Reactive Protein Total Protein Albumin Globulin Albumin/Globulin Ratio Lipase 146 Procalcitonin 0.39 Urine Color Urine Appearance Urine pH Ur Specific [place] Urine Protein Urine Glucose (UA) Urine Ketones Urine Blood Urine Nitrite Urine Bilirubin Urine Urobilinogen Ur Leukocyte Esterase Urine WBC (Auto) Urine RBC (Auto) U Hyaline Cast (Auto) U Epithel Cells (Auto) Urine Bacteria (Auto) Ur Renal Epithelial Cell Granular Casts Nasal Screen MRSA (PCR) COVID-19 Eval Order Hepatitis C Ab Screen Pos A SARS-CoV-2, RNA, NAAT Blood Type Antibody Screen 09/26/20 09/26/20 09/26/20 15:20 15:20 15:24 WBC RBC Hgb Hct MCV MCH MCHC RDW Std Deviation RDW Coeff of Saumya Plt Count MPV Immature Gran % (Auto) Neut % (Auto) Lymph % (Auto) Madison % (Auto) Eos % (Auto) Baso % (Auto) Neut # (Auto) Lymph # (Auto) [place] # (Auto) Eos # (Auto) Baso # (Auto) Immature Gran # (Auto) RBC Morphology ESR PT INR APTT PTT Ratio Sodium Potassium Chloride Carbon Dioxide Anion Gap BUN Creatinine Est Cr Clr Drug Dosing Est GFR ( Amer) Est GFR (Non-Af Amer) BUN/Creatinine Ratio Glucose Lactate Calcium Magnesium Ferritin Total Bilirubin AST ALT Alkaline Phosphatase Lactate Dehydrogenase Total Creatine Kinase CK-MB (CK-2) CK/CKMB % Calc Troponin I C-Reactive Protein Total Protein Albumin Globulin Albumin/Globulin Ratio Lipase Procalcitonin Urine Color Urine Appearance Urine pH Ur Specific [place] Urine Protein Urine Glucose (UA) Urine Ketones Urine Blood Urine Nitrite Urine Bilirubin Urine Urobilinogen Ur Leukocyte Esterase Urine WBC (Auto) Urine RBC (Auto) U Hyaline Cast (Auto) U Epithel Cells (Auto) Urine Bacteria (Auto) Ur Renal Epithelial Cell Granular Casts Nasal Screen MRSA (PCR) COVID-19 Eval [facility] Hep[facility] C Ab Screen SARS-CoV-2, RNA, NAAT NEGATIVE Blood Type A Positive Antibody Screen NEGATIVE 09/26/20 09/26/20 09/27/20 21:30 Unknown 00:00 WBC RBC Hgb Hct MCV MCH MCHC RDW Std Deviation RDW Coeff of Saumya Plt Count MPV Immature Gran % (Auto) Neut % (Auto) Lymph % (Auto) [place] % (Auto) Eos % (Auto) Baso % (Auto) Neut # (Auto) Lymph # (Auto) [place] # (Auto) Eos # (Auto) Baso # (Auto) Immature Gran # (Auto) RBC Morphology ESR PT INR APTT PTT Ratio Sodium Potassium Chloride Carbon Dioxide Anion Gap BUN Creatinine Est Cr Clr Drug Dosing Est GFR ( Amer) Est GFR (Non-Af Amer) BUN/Creatinine Ratio Glucose Lactate Calcium Magnesium Ferritin Total Bilirubin AST ALT Alkaline Phosphatase Lactate Dehydrogenase Total Creatine Kinase CK-MB (CK-2) CK/CKMB % Calc Troponin I 0.026 C-Reactive Protein Total Protein Albumin Globulin Albumin/Globulin Ratio Lipase Procalcitonin Urine Color Yellow Urine Appearance Clear Urine pH 6.0 Ur Specific [place] 1.022 Urine Protein 3+ H Urine Glucose (UA) Negative Urine Ketones Negative Urine Blood 1+ H Urine Nitrite Negative Urine Bilirubin Negative Urine Urobilinogen Negative Ur Leukocyte Esterase Negative Urine WBC (Auto) 10-30 H Urine RBC (Auto) 0-4 U Hyaline Cast (Auto) 1-5 U Epithel Cells (Auto) >30 H Urine Bacteria (Auto) 1+ H Ur Renal Epithelial Cell Not Reportable Granular Casts 1-5 H Nasal Screen MRSA (PCR) Negative COVID-19 Eval Order Hepatitis C Ab Screen SARS-CoV-2, RNA, NAAT Blood Type Antibody Screen 09/27/20 09/27/20 09/27/20 03:01 05:20 05:20 WBC 8.38 RBC 4.16 L Hgb 11.7 L Hct 35.8 L MCV 86.1 MCH 28.1 MCHC 32.7 RDW Std Deviation 52.3 H RDW Coeff of Saumya 16.4 H Plt Count 157 MPV 10.9 H Immature Gran % (Auto) Neut % (Auto) Lymph % (Auto) [place] % (Auto) Eos % (Auto) Baso % (Auto) Neut # (Auto) Lymph # (Auto) [place] # (Auto) Eos # (Auto) Baso # (Auto) Immature Gran # (Auto) RBC Morphology ESR PT INR APTT PTT Ratio Sodium 131 L Potassium 5.6 H D Chloride 92 L Carbon Dioxide 25 Anion Gap 13.0 H BUN 86 H Creatinine 16.10 H* D Est Cr Clr Drug Dosing 4.1 Est GFR ( Amer) 3.3 Est GFR (Non-Af Amer) 2.8 BUN/Creatinine Ratio 5.4 L Glucose 90 Lactate Calcium 9.5 Magnesium Ferritin Total Bilirubin AST ALT Alkaline Phosphatase Lactate Dehydrogenase Total Creatine Kinase CK-MB (CK-2) CK/CKMB % Calc Troponin I 0.030 C-Reactive Protein Total Protein Albumin Globulin Albumin/Globulin Ratio Lipase Procalcitonin Urine Color Urine Appearance Urine pH Ur Specific [place] Urine Protein Urine Glucose (UA) Urine Ketones Urine Blood Urine Nitrite Urine Bilirubin Urine Urobilinogen Ur Leukocyte Esterase Urine WBC (Auto) Urine RBC (Auto) U Hyaline Cast (Auto) U Epithel Cells (Auto) Urine Bacteria (Auto) Ur Renal Epithelial Cell Granular Casts Nasal Screen MRSA (PCR) COVID-19 Eval Order Hepatitis C Ab Screen SARS-CoV-2, RNA, NAAT Blood Type Antibody Screen Medications Administered Current Inpatient Medications Acetaminophen (Acetaminophen 325 Mg Tab) 650 mg PO Q4H PRN PRN Reason: Pain or Fever Stop: 10/26/20 20:18 Allopurinol (Allopurinol 100 Mg Tab) 100 mg PO QAM [facility] Stop: 10/27/20 08:59 Last Admin: 09/27/20 09:36 Dose: 100 mg Documented by: Amlodipine Besylate (Amlodipine Besylate 5 Mg Tab) 10 mg PO QAM [facility] Stop: 10/27/20 08:59 Last Admin: 09/27/20 09:25 Dose: 10 mg Documented by: Aspirin (Aspirin 81 Mg Ectab) 81 mg PO DAILY [facility] Stop: 10/27/20 08:59 Atorvastatin Calcium (Atorvastatin 40 Mg Tab) 40 mg PO DAILY [facility] Stop: 10/27/20 08:59 Last Admin: 09/27/20 09:27 Dose: 40 mg Documented by: Bupropion HCl (Bupropion Xl 150 Mg Tabcr) 150 mg PO DAILY [facility] Stop: 10/27/20 08:59 Last Admin: 09/27/20 09:29 Dose: 150 mg Documented by: Calcitriol (Calcitriol 0.25 Mcg Capsule) 0.5 mcg PO QAM [facility] Stop: 10/27/20 08:59 Last Admin: 09/27/20 09:28 Dose: 0.5 mcg Documented by: Carvedilol (Carvedilol 25 Mg Tab) 25 mg PO BID [facility] Stop: 10/26/20 20:59 Last Admin: 09/27/20 09:24 Dose: 25 mg Documented by: Clopidogrel Bisulfate (Clopidogrel Bisulfate 75 Mg Tab) 75 mg PO DAILY [facility] Stop: 10/27/20 08:59 Colchicine (Colchicine 0.6 Mg Tab) 0.6 mg PO BID [facility] Stop: 10/26/20 20:59 Last Admin: 09/27/20 09:24 Dose: 0.6 mg Documented by: Docusate Sodium (Docusate Sodium 100 Mg Cap) 100 mg PO BID [facility] Stop: 10/26/20 20:59 Last Admin: 09/27/20 09:24 Dose: 100 mg Documented by: Escitalopram Oxalate (Escitalopram Oxalate 20 Mg Tab) 20 mg PO DAILY [facility] Stop: 10/27/20 08:59 Last Admin: 09/27/20 09:27 Dose: 20 mg Documented by: Furosemide (Furosemide 80 Mg Tab) 80 mg PO QAM [facility] Stop: 10/27/20 08:59 Last Admin: 09/27/20 09:27 Dose: 80 mg Documented by: Hydromorphone HCl (Hydromorphone Inj 0.5 Mg/0.5 Ml Syr) 0.5 mg IV Q3H PRN PRN Reason: Pain Stop: 10/10/20 23:57 Last Admin: 09/27/20 00:11 Dose: 0.5 mg Documented by: Sodium Chloride (Nss 1000ml) 1,000 mls @ 999 mls/hr IV .Q1H1M [facility] Stop: 09/27/20 11:25 Last Admin: 09/27/20 09:50 Dose: 999 mls/hr Documented by: Ibuprofen (Ibuprofen 600 Mg Tab) 600 mg PO Q8 [facility] Stop: 10/26/20 21:59 Last Admin: 09/27/20 05:25 Dose: 600 mg Documented by: Isosorbide Mononitrate (Isosorbide [place] Extended Rel 30 Mg Tabcr) [facility] Stop: 10/27/20 08:59 Last Admin: 09/27/20 09:26 Dose: 30 mg Documented by: Miscellaneous (Dutasteride 0.5 Mg: Order Awaiting Action) 1 ea N/A QS [facility] Stop: 10/27/20 00:00 Last Admin: 09/27/20 09:50 Dose: Not Given Documented by: Miscellaneous (Sucroferric Oxyhydroxide [Velphoro] 500 Mg Tab,Chew: Order Awaiting Action) 1 ea N/A QS [facility] Stop: 10/27/20 00:00 Last Admin: 09/27/20 09:50 Dose: Not Given Documented by: Oxycodone/Acetaminophen (Oxycodone/Acetaminophen 5mg/325mg Tab) 1 tab PO Q8 PRN PRN Reason: pain Stop: 10/10/20 20:18 Last Admin: 09/27/20 09:49 Dose: 1 tab Documented by: Pantoprazole Sodium (Pantoprazole 40 Mg Tab) [address] [facility] Stop: 10/27/20 08:59 Last Admin: 09/27/20 09:28 Dose: 40 mg Documented by: Polyethylene Glycol (Polyethylene (Miralax) 17 Gm Pack) 17 gm PO DAILY PRN PRN Reason: Constipation Stop: 10/26/20 20:18 Last Admin: 09/27/20 05:31 Dose: 17 gm Documented by: Ropinirole HCl (Ropinirole Hcl 0.25 Mg Tablet) 0.25 mg PO HS [facility] Stop: 10/26/20 20:59 Last Admin: 09/26/20 21:34 Dose: 0.25 mg Documented by: Tamsulosin HCl (Tamsulosin Hcl 0.4 Mg Cap) 0.4 mg PO QPM [facility] Stop: 10/26/20 20:59 Last Admin: 09/26/20 21:34 Dose: 0.4 mg Documented by: Tramadol HCl (Tramadol Hcl 50 Mg Tablet) 25 - 50 mg PO Q4H PRN PRN Reason: Pain Stop: 10/26/20 23:58 Vitamin B Complex/Folic Acid (Nephrocaps) 1 cap PO DAILY [facility] Stop: 10/27/20 08:59 Last Admin: 09/27/20 09:28 Dose: 1 cap Documented by:
[2020-09-27] MEDS ORDERED: ONDANSETRON INJ 2 MG/ML 2 ML VIAL IV ONE (10:06)
--- NOTE | 2020-09-27 10:29 | Discharge Summary ---
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 Patient reports that over the past 3 days, he has had a persistent substernal/epigastric pain. Reports pain is worse whenever he is completing his dwells for peritoneal dialysis. Pain is also worse whenever he lies flat. Patient reports associated shortness of breath. No radiation of the pain. He reports nausea this morning however no vomiting. Reports no difficulties with peritoneal dialysis, fluid has been clear. No abdominal pain or diarrhea. Denies fevers and chills. No lightheadedness, dizziness, diaphoresis, syncopal events. Continues to make a small amount of urine, denies dysuria. In the ED, CTA chest is negative for pulmonary embolism however shows large pericardial effusion. Labs show ESR 61, CRP 5.2, otherwise unremarkable/at patient's baseline. Patient was given sublingual nitroglycerin that did not improve his pain. He was also given IV Zofran and IV Dilaudid. Admission Exam Per Admitting Provider Physical Exam Constitutional: WD/WN, vitals as above Eyes: PERRL, conjunctivae normal, anicteric sclerae ENMT: external ear and nose normal, oropharynx normal Respiratory: normal respiratory effort, lungs clear to auscultation Cardiovascular: Rate/Rhythm: regular rate and regular rhythm Vessels: normal peripheral pulses Extremities: no edema Gastrointestinal (Abdomen): Inspection/Auscultation: normal bowel sounds; abdomen not distended Percussion/Palpation: + abdomen tender (Epigastric) and abdomen soft; no hepatosplenomegaly Peritoneal dialysis catheter in place, no surrounding redness or drainage noted Musculoskeletal: no cyanosis or clubbing, extremities motor strength 5/5 Skin: no rashes, warm and dry Neurologic: PERRL, EOMI, accommodation nl, no face palsy, no dysarthria Psychiatric: A+Ox3, euthymic affect Principal Diagnosis Pericardial effusion with tamponade Discharge Exam Constitutional: well developed; no acute distress Eyes: no scleral abnormality and no corneal abnormality ENMT: Mouth: no oral mucosal abnormality and oral mucous membranes not dry Neck: normal visual inspection and trachea midline Respiratory: normal respiratory effort Auscultation: lungs clear to auscultation bilaterally Cardiovascular: regular rate Heart Sounds: normal S1 and normal S2 Extremities: + AV fistula; no edema Gastrointestinal:PD catheter with clean exit site Extremities: no cyanosis and no clubbing Skin: normal turgor; no lesions Neurologic: Motor/Sensory: no tremor and no asterixis Psychiatric: Orientation: alert and oriented x 3 Discharge Data Allergies Allergy/AdvReac Type Severity Reaction Status Date / Time mercury (elemental) Allergy Intermediate Rash Verified 09/26/20 16:04 NSAIDS (Non-Steroidal Allergy Intermediate not to Verified 09/26/20 16:04 Anti-Inflamma take d/t Kidney disease lisinopril AdvReac Intermediate COUGH Verified 09/26/20 16:04 Consultations Cardiology, Dr. Giles Ordered Studies CTA CHEST IMPRESSION: 1. There is no evidence of pulmonary embolus in the main, lobar, or segmental pulmonary arteries. 2. Large pericardial effusion. This has significantly increased in size as compared to the 04/08/2019 examination. 3. Cardiomegaly with evidence of cardiac dysfunction. 4. Again seen is postoperative change and volume loss from right-sided pulmonary resection. 5. There is a small volume of pleural fluid at the right lung base. 6. No airspace consolidation is seen typical for pneumonia. 7. Mild diffuse peribronchial thickening suggests bronchitis/reactive airway disease. 8. A 4 mm nodule in the right upper lung is new from previous and may be on an inflammatory basis. A 3-6 month follow-up chest CT is recommended to document resolution. 9. Trace perihepatic ascites. 10. There is a subacute/healing right anterior second rib fracture. CXR IMPRESSION: 1. Cardiomegaly without radiographic evidence of congestive failure. 2. There is no airspace consolidation typical for pneumonia. 3. Postoperative change and volume loss is consistent with right-sided pulmonary resection. 4. There is a small volume of pleural fluid at the right lung base. KUB XR IMPRESSION: Nonobstructed abdominal bowel gas pattern. Hospital Course (1) Pericardial effusion: -Patient presenting from home on 09/26 with reports of substernal/epigastric pain x 3 days, worse with laying flat -In the ED, CTA chest shows large pericardial effusion -Started on ibuprofen 600 mg 3 times daily, colchicine 0.6 mg twice daily, Bumex 2 mg IV x1 -echo demonstrated large pericardial effusion with evidence of tamponade and possible mitral valve mass/vegetation -patient remains hemodynamically stable without clinical signs of tamponade -Due to the above findings, cardiology recommending transfer to tertiary care center for further management (2) Pulmonary nodule: (3) History of lung cancer: -CT chest shows a new 4 mm nodule in the right upper lung -History of non-small cell lung cancer s/p lobectomy -Will need close follow-up (4) Diastolic dysfunction: -Receiving Bumex 2 mg IV x1 as above for pericardial effusion -On Lasix 80 mg daily (5) ESRD (end stage renal disease) on dialysis: (6) Peritoneal dialysis status: -Nephrology consult (7) PAD (peripheral artery disease): -S/p bilateral common iliac artery stenting -Continue aspirin, Plavix, statin (8) HTN (hypertension): -BP controlled, continue isosorbide, amlodipine, carvedilol (9) Gout: -Continue allopurinol Total Time Total Time Spent Total Time Spent (In Minutes): 45 Total Time Includes: Examination of the Patient, Discharge Planning, Medication Reconciliation and Communication With Other Providers Discharge Plan Discharge Items Patient Disposition: Transfer Acute Care Hospital Reason For Visit: EPIGASTRIC PAIN Discharge Diagnosis: Pericardial effusion: Cardiac tamponade Pulmonary nodule: History of lung cancer: Diastolic dysfunction: ESRD (end stage renal disease) on dialysis: Activity: Resume your previous activity Non-emergency contact: Primary Care Provider Call non-emergency contact if: you have any medication questions Follow-up/Referrals: Socrates Saba MD [Primary Care Provider] - Diet: Heart Healthy Addtl Attending Provider Instructions: Transfer to [facility] for higher level of care for management of Cardiac Tamponade Accepting Physician cardiology Dr. Teran Continue IVF en route You need to follow with your provider to repeat the CT chest to evaluate the lung nodule Continue peritoneal dialysis Pending Studies at Discharge: No Stand-Alone Forms: My [facility] [employer] Skilled Items Patient informed of condition?: Yes DNR: No Discharge Level of Care: Other Communicable Disease: No Discharge Prognosis: Stable Lines: Peripheral IV Urinary Catheter: No Medications and DC Order Prescriptions: New ibuprofen 600 mg Tablet 600 mg PO Q8 Qty: 30 RF: 0 colchicine [Colcrys] 0.6 mg Tablet 0.6 mg PO BID Qty: 30 RF: 0 Continued dutasteride 0.5 mg capsule 0.5 mg PO QAM RF: 0 amlodipine 10 mg tablet 10 mg PO QAM RF: 0 trazodone 50 mg tablet 50 mg PO HS PRN (Reason: sleep) RF: 0 isosorbide mononitrate 30 mg tablet extended release 24 hr 30 mg PO QAM Qty: 30 RF: 5 atorvastatin [Lipitor] 40 mg tablet 40 mg PO DAILY RF: 0 carvedilol [Coreg] 25 mg tablet 25 mg PO BID RF: 0 aspirin 81 mg Tablet,Delayed Release (Dr/Ec) 81 mg PO DAILY RF: 0 oxycodone-acetaminophen [Percocet] 5-325 mg tablet 1 tab PO Q8 RF: 0 tamsulosin [Flomax] 0.4 mg capsule 0.4 mg PO QPM RF: 0 ropinirole [Requip] 0.25 mg Tablet 0.25 mg PO HS RF: 0 albuterol sulfate [Ventolin HFA] 90 mcg/actuation HFA aerosol inhaler 2 puff INHALATION Q4 PRN (Reason: Shortness Of Breath Or Wheezing) RF: 0 bupropion HCl 150 mg tablet extended release 24 hr 150 mg PO DAILY RF: 0 Velphoro 500 mg tablet,chewable 500 mg PO TIDM RF: 0 escitalopram oxalate 20 mg tablet 20 mg PO DAILY RF: 0 clopidogrel 75 mg tablet 75 mg PO DAILY RF: 0 ProRenal 8 mg iron-800 mcg-1,000 unit Tablet 1 tab PO DAILY RF: 0 calcitriol 0.25 mcg capsule 0.5 mcg PO QAM RF: 0 furosemide 80 mg Tablet 80 mg PO QAM RF: 0 omeprazole 40 mg Capsule,Delayed Release(Dr/Ec) 40 mg PO QAM RF: 0 allopurinol 100 mg Tablet 100 mg PO QAM RF: 0 Discharge Orders: Discharge Order (Routine); Ordered 09/27/20 Ordered By: Yakov Leach Admission Data Admit Date/Time: 09/26/20 18:40 Attending Provider: Yakov Leach Admit Provider: Yakov Leach Primary Care Provider: Socrates Saba Other Providers: Natalio Giles Kevin C. Other Interventions: Discharge Summary Assessment (RN) Last Done: 09/27/20 10:45
--- NOTE | 2020-09-27 10:30 | Hospitalist Progress Note ---
Date of Service September 27, 2020 Assessment & Plan (1) Pericardial effusion: Present on admission with substernal chest discomfort worsening with deep breathing CTA chest showed Large pericardial effusion Echo showed large pericardial effusion that consistent with Indication for cardiac tamponade. Diastolic compression of the right atrium suggestive of cardiac tamponade. abnormal septal wall motion consistent with RV pressure overload ejection fraction 55 to 60%. severe mitral annular calcification, more pronounced on the posterior leaflet cannot exclude superimposed vegetation. cardiology on board Case discussed with Dr. Giles that recommended to transfer to tertiary care for management of the cardiac tamponade Continue Colchicine and Motrin 600mg TID for now Case discussed with cardiology Dr. Teran in [facility] that accepted the patient for transfer (2) Pulmonary nodule: (3) History of lung cancer: CT chest shows a new 4 mm nodule in the right upper lung CT result discussed with patient History of non-small cell lung cancer s/p lobectomy Will need outpatient follow up for lung nodule with repeat CT chest in 3-6 months (4) Diastolic dysfunction: Receiving Bumex 2 mg IV x1 as above for pericardial effusion Resume home dose of furosemide tomorrow (5) ESRD (end stage renal disease) on dialysis: (6) Peritoneal dialysis status: -Nephrology on board Continue PD (7) PAD (peripheral artery disease): -S/p bilateral common iliac artery stenting -Continue aspirin, Plavix, statin (8) HTN (hypertension): -BP controlled, continue isosorbide, amlodipine, carvedilol (9) Gout: -Continue allopurinol (10) DVT prophylaxis: SCDs due to pericardial effusion Disposition Will discharge to [facility] under cardiology Dr. Teran Admission and Anticipated Discharge Date Admission Date: September 26, 2020 Subjective Pt was seen and examined for follow up of chest discomfort Lying in bed with no distress continues to have epigastric discomfort Pt said that deep breath increase the pain he said that he had difficulty to breath last night Currently he said that he feels a little better Review of Systems Review of Systems: All systems reviewed & are unremarkable except as noted in Subjective Physical Exam Physical Exam: General- No acute distress Head- atraumatic Eyes- PERRL, EOMI, ENT- oropharynx clear Neck- supple, no JVD Lungs- clear to auscultation Heart- regular rhythm Abdomen- normal bowel sounds, +mid abdominal tenderness Extremities- no calf tenderness Neuro- alert, oriented x 3; PERRL, EOMI; no facial palsy; no dysarthria Skin- warm & dry Results & Data Results & Data ([facility]) Vital Signs (Past 12 Hours) Vital Signs Temp Pulse Resp BP Pulse Ox 09/27/20 10:14 154/110 H 09/27/20 07:52 36.5 C 73 17 127/82 97 09/27/20 04:10 36.5 C 81 16 130/89 96 09/26/20 23:40 36.5 C 77 18 107/73 94
[2020-09-27] MEDS ORDERED: IBUPROFEN 600 MG TAB PO STA (11:12)
--- NOTE | 2020-09-27 11:35 | Nephrology Consultation ---
Date of Consultation September 27, 2020 Assessment & Plan (1) ESRD (end stage renal disease) on dialysis: NCCP Rx 7 d/wk, 4 exchanges x 2.5 L fill w/ 2 hour dwell. No last fill. 2.5%/1.5% dextrose. John has not been using heparin with treatments recently. He does not have any history of peritonitis. Kt/V was slightly below goal in August and dwell time was increased from 1.5 to 2 hours. No complications with treatment. Recent decline in residual kidney function noted. Overall, tolerating HD well. AVF mature for use but has not been needed. BP and volume status are currently appropriate. Electrolytes controlled. Medications appropriate for kidney function. No adjustments made prior to transfer to [facility]. Please call with questions or concerns regarding dialysis. History of Present Illness Reason for Consultation: ESRD on PD Requesting Physician: Yakov Leach MD Attending Physician: Yakov Leach MD History of Present Illness Mr. John Hung is a 60-year-old male with ESRD managed with chronic maintenance NCCPD. He dialyzes under the care of Dr. Lomeli through the [facility] dialysis unit in [place]. John has been tolerating PD reasonably well. When John was last seen in the HD unit in August, clearance was slightly below goal. Weekly Kt/V had dropped from 2.0 to 1.87. There had been some loss of residual kidney function, 0.57--> 0.25. Rx was adjusted, dwell time increased from 1.5 hours to 2.0 hours. Current Rx: 7 d/wk, 4 exchanges w/ 2.5 L fill and 2 hour dwell time. No last fill. EDW 70 kg. Recent history includes some persistent weight loss and decreased appetite. This has been ongoing for several months. John presented to the hospital yesterday with chest discomfort and increasing shortness of breath. He has been completing dialysis daily but noted that several treatments have been shortened due to incr eased discomfort in his chest when on the cycler. Evaluation notable for large pericardial effusion as well as a possible mass or vegetation involving the mitral valve. Transfer to [facility] has been arranged. I discussed the plan of care with Dr. Leach and Dr. Bowen this AM. Medical history is notable for a solitary left kidney. John donated his left kidney to his sister in 1994. John has hypertension, a history of gout, notable history of chronic NSAID use, hypercholesterolemia, ROSELIA, tobacco abuse, SCCL s/p RUL + [place] [facility]02 @ [facility], hepatitis C s/p 12 weeks of Zepatier (PCR negative 2016), PVD s/pp [employer] iliac artery 05/03 [facility]. LUE RC AVF placed by Dr. Burns 4 years ago has not been used. No history of peritonitis. Allergies Allergy/AdvReac Type Severity Reaction Status Date / Time mercury (elemental) Allergy Intermediate Rash Verified 09/26/20 16:04 NSAIDS (Non-Steroidal Allergy Intermediate not to Verified 09/26/20 16:04 Anti-Inflamma take d/t Kidney disease lisinopril AdvReac Intermediate COUGH Verified 09/26/20 16:04 Home Medications Medication Instructions Recorded Confirmed Type amlodipine 10 mg tablet 10 mg PO QAM 05/06/19 09/26/20 History dutasteride 0.5 mg capsule 0.5 mg PO QAM 05/06/19 09/26/20 History trazodone 50 mg tablet 50 mg PO HS PRN tab 05/06/19 09/26/20 History calcitriol 0.5 mcg PO QAM 06/11/20 09/26/20 History allopurinol 100 mg PO QAM 06/30/20 09/26/20 History furosemide 80 mg PO QAM 06/30/20 09/26/20 History omeprazole 40 mg PO QAM 06/30/20 09/26/20 History isosorbide mononitrate 30 mg 30 mg PO QAM #30 tab 09/07/20 09/26/20 Rx tablet,extended release 24 hr ProRenal 1 tab PO DAILY 09/26/20 09/26/20 History Velphoro 500 mg PO TIDM 09/26/20 09/26/20 History albuterol sulfate [Ventolin HFA] 2 puff INHALATION Q4 PRN 09/26/20 09/26/20 Hi story aspirin 81 mg PO DAILY 09/26/20 09/26/20 History atorvastatin [Lipitor] 40 mg PO DAILY 09/26/20 09/26/20 History bupropion HCl 150 mg PO DAILY 09/26/20 09/26/20 History carvedilol [Coreg] 25 mg PO BID 09/26/20 09/26/20 History clopidogrel 75 mg PO DAILY 09/26/20 09/26/20 History escitalopram oxalate 20 mg PO DAILY 09/26/20 09/26/20 History oxycodone-acetaminophen [Percocet] 1 tab PO Q8 09/26/20 09/26/20 History ropinirole [Requip] 0.25 mg PO HS 09/26/20 09/26/20 History tamsulosin [Flomax] 0.4 mg PO QPM 09/26/20 09/26/20 History colchicine [Colcrys] 0.6 mg PO BID #30 tab 09/27/20 Rx ibuprofen 600 mg PO Q8 #30 tab 09/27/20 Rx Patient History Medical History AV fistula "L side " CAD (coronary artery disease) NONOBSTRUCTIVE Cardiac murmur HX OF TAVR SEP 2019 SECONDARY TO SEVERE Carotid artery stenosis RIGHT ICA= <50%; LEFT ICA= 50-69% Chronic kidney disease, stage IV (severe) Dialysis patient X 4 YRS-PERITONEAL DIALYSIS Q HS X 8 HRS Diastolic dysfunction with normal LV systolic function Dyslipidemia Fitting and adjustment of peritoneal dialysis catheter PLACEMENT OF-IN PLACE GERD (gastroesophageal reflux disease) Gout Hiatal hernia History of lung cancer NON SMALL CANCER [place]LL[place]07[place] [facility] [place]N (hypertension) Kidney donor PAD (peripheral artery disease) Follows with vascular surgery Peritoneal dialysis status Spinal stenosis NO NECK OR BACK SURGERY Surgical History AV fistula CREATION OF IN LEFT WRIST H/O vascular surgery 04/2020 [facility]ENTS PLACED [facility] BILAT LE (BILATERAL COMMON ILIAC ARTERY STENT PLACEMENT) History of colonoscopy History of lung surgery RLL 07/2019 History of nephrectomy, unilateral "Kidney donor "1992 S/P AVR (aortic valve replacement) 09/2019 [facility] F/U DR BOWEN Family History Brother Family history of diabetes mellitus Brother Family history of diabetes mellitus Sister Family history of diabetes mellitus Mother Family history of diabetes mellitus Social History Smoking Status: Former smoker Second Hand Exposure: No; Do You Dip or Chew Tobacco: Yes; Tobacco Cessation Education Requested by Patient: No Hx Alcohol Use: No Hx Substance Use: No Preferred Language: Mauritanian Communication Ability: Effective 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 Beliefs That Will Affect Care: None Current Living Situation: Other Other Information That Helps Us Care for You: No Feels Safe at Home: Yes Safety Concerns: Feels Safe At This Time Assistive Devices: Denture - Upper, Denture - Lower and Glasses Review of Systems Constitutional: + fatigue and + weight loss; no fever and no chills Eyes: no problem reported Ear, Nose, Mouth, Throat: no problem reported Respiratory: + dyspnea and + pain on inspiration; no cough Cardiovascular: + chest pain and + orthopnea; no palpitations, no lightheadedness, no syncope and no edema Gastrointestinal: no problem reported Genitourinary: + decreased urination; no problem reported Musculoskeletal: no problem reported Integumentary: no problem reported Neurologic: no problem reported Psychiatric: no problem reported Hematologic / Lymphatic: no problem reported Physical Exam Constitutional: well developed; no acute distress Eyes: no scleral abnormality and no corneal abnormality ENMT: Mouth: no oral mucosal abnormality and oral mucous membranes not dry Neck: normal visual inspection and trachea midline Respiratory: normal respiratory effort Auscultation: lungs clear to auscultation bilaterally Cardiovascular: Rate/Rhythm: regular rate Heart Sounds: normal S1 and normal S2 Extremities: + AV fistula; no edema Gastrointestinal (Abdomen): PD catheter with clean exit site Musculoskeletal: Extremities: no cyanosis and no clubbing Skin: normal turgor; no lesions Neurologic: Motor/Sensory: no tremor and no asterixis Psychiatric: Orientation: alert and oriented x 3 Results & Data ([facility]) Vital Signs (Past 12 Hours) Vital Signs Temp Pulse Pulse Resp BP Pulse Ox 09/27/20 10:45 36.5 C 73 17 154/110 H 97 09/27/20 10:14 154/110 H 09/27/20 08:00 78 09/27/20 07:52 36.5 C 73 17 127/82 97 09/27/20 04:10 36.5 C 81 16 130/89 96 09/26/20 23:40 36.5 C 77 18 107/73 94 Laboratory Results Laboratory Results - last 24 hr 09/26/20 09/26/20 09/26/20 15:17 15:17 15:17 WBC 11.64 H RBC 4.32 L Hgb 12.2 L Hct 37.2 L MCV 86.1 MCH 28.2 MCHC 32.8 RDW Std Deviation 51.8 H RDW Coeff of Saumya 16.2 H Plt Count 174 MPV 10.2 Immature Gran % (Auto) 0.3 Neut % (Auto) 82.1 Lymph % (Auto) 8.5 [place] % (Auto) 8.2 Eos % (Auto) 0.8 Baso % (Auto) 0.1 Neut # (Auto) 9.56 H Lymph # (Auto) 0.99 L [place] # (Auto) 0.96 H Eos # (Auto) 0.09 Baso # (Auto) 0.01 Immature Gran # (Auto) 0.03 H RBC Morphology Unremarkable ESR 61 H PT 10.9 INR 1.1 APTT 26.0 PTT Ratio 1.0 Sodium Potassium Chloride Carbon Dioxide Anion Gap BUN Creatinine Est Cr Clr Drug Dosing Est GFR ( Amer) Est GFR (Non-Af Amer) BUN/Creatinine Ratio Glucose Lactate Calcium Magnesium Ferritin Total Bilirubin AST ALT Alkaline Phosphatase Lactate Dehydrogenase Total Creatine Kinase CK-MB (CK-2) CK/CKMB % Calc Troponin I C-Reactive Protein Total Protein Albumin Globulin Albumin/Globulin Ratio Lipase Procalcitonin Urine Color Urine Appearance Urine pH Ur Specific [place] Urine Protein Urine Glucose (UA) Urine Ketones Urine Blood Urine Nitrite Urine Bilirubin Urine Urobilinogen Ur Leukocyte Esterase Urine WBC (Auto) Urine RBC (Auto) U Hyaline Cast (Auto) U Epithel Cells (Auto) Urine Bacteria (Auto) Ur Renal Epithelial Cell Granular Casts Nasal Screen MRSA (PCR) COVID-19 Eval Order Hepatitis C Ab Screen SARS-CoV-2, RNA, NAAT Blood Type Antibody Screen 09/26/20 09/26/20 09/26/20 15:17 15:17 15:17 WBC RBC Hgb Hct MCV MCH MCHC RDW Std Deviation RDW Coeff of Saumya Plt Count MPV Immature Gran % (Auto) Neut % (Auto) Lymph % (Auto) [place] % (Auto) Eos % (Auto) Baso % (Auto) Neut # (Auto) Lymph # (Auto) [place] # (Auto) Eos # (Auto) Baso # (Auto) Immature Gran # (Auto) RBC Morphology ESR PT INR APTT PTT Ratio Sodium 133 L Potassium 4.6 Chloride 97 L Carbon Dioxide 25 Anion Gap 11.0 BUN 76 H Creatinine 15.70 H* Est Cr Clr Drug Dosing 4.6 Est GFR ( Amer) 3.4 Est GFR (Non-Af Amer) 2.9 BUN/Creatinine Ratio 4.9 L Glucose 92 Lactate 1.4 Calcium 9.1 Magnesium 2.4 Ferritin 1018.9 H Total Bilirubin 0.3 AST 12 L ALT 25 Alkaline Phosphatase 105 Lactate Dehydrogenase 250 H Total Creatine Kinase 87 CK-MB (CK-2) 4.6 H CK/CKMB % Calc 5.3 H Troponin I 0.027 C-Reactive Protein 5.26 H Total Protein 7.2 Albumin 2.9 L Globulin 4.3 H Albumin/Globulin Ratio 0.7 L Lipase Procalcitonin Urine Color Urine Appearance Urine pH Ur Specific [place] Urine Protein Urine Glucose (UA) Urine Ketones Urine Blood Urine Nitrite Urine Bilirubin Urine Urobilinogen Ur Leukocyte Esterase Urine WBC (Auto) Urine RBC (Auto) U Hyaline Cast (Auto) U Epithel Cells (Auto) Urine Bacteria (Auto) Ur Renal Epithelial Cell Granular Casts Nasal Screen MRSA (PCR) COVID-19 Eval Order Hepatitis C Ab Screen SARS-CoV-2, RNA, NAAT Blood Type Antibody Screen 09/26/20 09/26/20 09/26/20 15:17 15:17 15:17 WBC RBC Hgb Hct MCV MCH MCHC RDW Std Deviation RDW Coeff of Saumya Plt Count MPV Immature Gran % (Auto) Neut % (Auto) Lymph % (Auto) [place] % (Auto) Eos % (Auto) Baso % (Auto) Neut # (Auto) Lymph # (Auto) [place] # (Auto) Eos # (Auto) Baso # (Auto) Immature Gran # (Auto) RBC Morphology ESR PT INR APTT PTT Ratio Sodium Potassium Chloride Carbon Dioxide Anion Gap BUN Creatinine Est Cr Clr Drug Dosing Est GFR ( Amer) Est GFR (Non-Af Amer) BUN/Creatinine Ratio Glucose Lactate Calcium Magnesium Ferritin Total Bilirubin AST ALT Alkaline Phosphatase Lactate Dehydrogenase Total Creatine Kinase CK-MB (CK-2) CK/CKMB % Calc Troponin I C-Reactive Protein Total Protein Albumin Globulin Albumin/Globulin Ratio Lipase 146 Procalcitonin 0.39 Urine Color Urine Appearance Urine pH Ur Specific [place] Urine Protein Urine Glucose (UA) Urine Ketones Urine Blood Urine Nitrite Urine Bilirubin Urine Urobilinogen Ur Leukocyte Esterase Urine WBC (Auto) Urine RBC (Auto) U Hyaline Cast (Auto) U Epithel Cells (Auto) Urine Bacteria (Auto) Ur Renal Epithelial Cell Granular Casts Nasal Screen MRSA (PCR) COVID-19 Eval Order Hepatitis C Ab Screen Pos A SARS-CoV-2, RNA, NAAT Blood Type Antibody Screen 09/26/20 09/26/20 09/26/20 15:20 15:20 15:24 WBC RBC Hgb Hct MCV MCH MCHC RDW Std Deviation RDW Coeff of Saumya Plt Count MPV Immature Gran % (Auto) Neut % (Auto) Lymph % (Auto) [place] % (Auto) Eos % (Auto) Baso % (Auto) Neut # (Auto) Lymph # (Auto) [place] # (Auto) Eos # (Auto) Baso # (Auto) Immature Gran # (Auto) RBC Morphology ESR PT INR APTT PTT Ratio Sodium Potassium Chloride Carbon Dioxide Anion Gap BUN Creatinine Est Cr Clr Drug Dosing Est GFR ( Amer) Est GFR (Non-Af Amer) BUN/Creatinine Ratio Glucose Lactate Calcium Magnesium Ferritin Total Bilirubin AST ALT Alkaline Phosphatase Lactate Dehydrogenase Total Creatine Kinase CK-MB (CK-2) CK/CKMB % Calc Troponin I C-Reactive Protein Total Protein Albumin Globulin Albumin/Globulin Ratio Lipase Procalcitonin Urine Color Urine Appearance Urine pH Ur Specific [place] Urine Protein Urine Glucose (UA) Urine Ketones Urine Blood Urine Nitrite Urine Bilirubin Urine Urobilinogen Ur Leukocyte Esterase Urine WBC (Auto) Urine RBC (Auto) U Hyaline Cast (Auto) U Epithel Cells (Auto) Urine Bacteria (Auto) Ur Renal Epithelial Cell Granular Casts Nasal Screen MRSA (PCR) COVID-19 Eval Order Covid19 [facility] Hepatitis C Ab Screen SARS-CoV-2, RNA, NAAT NEGATIVE Blood Type A Positive Antibody Screen NEGATIVE 09/26/20 09/26/20 09/27/20 21:30 Unknown 00:00 WBC RBC Hgb Hct MCV MCH MCHC RDW Std Deviation RDW Coeff of Saumya Plt Count MPV Immature Gran % (Auto) Neut % (Auto) Lymph % (Auto) [place] % (Auto) Eos % (Auto) Baso % (Auto) Neut # (Auto) Lymph # (Auto) [place] # (Auto) Eos # (Auto) Baso # (Auto) Immature Gran # (Auto) RBC Morphology ESR PT INR APTT PTT Ratio Sodium Potassium Chloride Carbon Dioxide Anion Gap BUN Creatinine Est Cr Clr Drug Dosing Est GFR ( Amer) Est GFR (Non-Af Amer) BUN/Creatinine Ratio Glucose Lactate Calcium Magnesium Ferritin Total Bilirubin AST ALT Alkaline Phosphatase Lactate Dehydrogenase Total Creatine Kinase CK-MB (CK-2) CK/CKMB % Calc Troponin I 0.026 C-Reactive Protein Total Protein Albumin Globulin Albumin/Globulin Ratio Lipase Procalcitonin Urine Color Yellow Urine Appearance Clear Urine pH 6.0 Ur Specific [place] 1.022 Urine Protein 3+ H Urine Glucose (UA) Negative Urine Ketones Negative Urine Blood 1+ H Urine Nitrite Negative Urine Bilirubin Negative Urine Urobilinogen Negative Ur Leukocyte Esterase Negative Urine WBC (Auto) 10-30 H Urine RBC (Auto) 0-4 U Hyaline Cast (Auto) 1-5 U Epithel Cells (Auto) >30 H Urine Bacteria (Auto) 1+ H Ur Renal Epithelial Cell Not Reportable Granular Casts 1-5 H Nasal Screen MRSA (PCR) Negative COVID-19 Eval Order Hepatitis C Ab Screen SARS-CoV-2, RNA, NAAT Blood Type Antibody Screen 09/27/20 09/27/20 09/27/20 03:01 05:20 05:20 WBC 8.38 RBC 4.16 L Hgb 11.7 L Hct 35.8 L MCV 86.1 MCH 28.1 MCHC 32.7 RDW Std Deviation 52.3 H RDW Coeff of Saumya 16.4 H Plt Count 157 MPV 10.9 H Immature Gran % (Auto) Neut % (Auto) Lymph % (Auto) [place] % (Auto) Eos % (Auto) Baso % (Auto) Neut # (Auto) Lymph # (Auto) [place] # (Auto) Eos # (Auto) Baso # (Auto) Immature Gran # (Auto) RBC Morphology ESR PT INR APTT PTT Ratio Sodium 131 L Potassium 5.6 H D Chloride 92 L Carbon Dioxide 25 Anion Gap 13.0 H BUN 86 H Creatinine 16.10 H* D Est Cr Clr Drug Dosing 4.1 Est GFR ( Amer) 3.3 Est GFR (Non-Af Amer) 2.8 BUN/Creatinine Ratio 5.4 L Glucose 90 Lactate Calcium 9.5 Magnesium Ferritin Total Bilirubin AST ALT Alkaline Phosphatase Lactate Dehydrogenase Total Creatine Kinase CK-MB (CK-2) CK/CKMB % Calc Troponin I 0.030 C-Reactive Protein Total Protein Albumin Globulin Albumin/Globulin Ratio Lipase Procalcitonin Urine Color Urine Appearance Urine pH Ur Specific [place] Urine Protein Urine Glucose (UA) Urine Ketones Urine Blood Urine Nitrite Urine Bilirubin Urine Urobilinogen Ur Leukocyte Esterase Urine WBC (Auto) Urine RBC (Auto) U Hyaline Cast (Auto) U Epithel Cells (Auto) Urine Bacteria (Auto) Ur Renal Epithelial Cell Granular Casts Nasal Screen MRSA (PCR) COVID-19 Eval Order Hepatitis C Ab Screen SARS-CoV-2, RNA, NAAT Blood Type Antibody Screen PG Care Time/CCT Total # of Minutes Spent Total Time Spent with Patient: Total time spent is greater than 50% in coordination of care (as documented) at patient's floor/unit and/or counseling patient: Coding Level of Care Code 49080 Inpt Consult Level 3 Diagnoses ESRD (end stage renal disease) on dialysis N18.6; Z99.2
--- NOTE | 2020-09-27 16:58 | Emergency Department Note ---
History of Present Illness General Chief complaint: Shortness of Breath/Dyspnea Stated complaint: SOB & CHEST PAIN Time Seen by Provider: 09/26/20 14:43 Source: patient, RN notes reviewed and old records reviewed Mode of arrival: ambulatory Limitations: no limitations History of Present Illness Provider complaint: chest pressure Onset (ago): day(s) 3 Location: chest Radiation: non-radiation Severity: moderate Pain Consistency: + intermittent Maximum Pain Intensity: 7 Current Pain Intensity: 7 Quality: + aching Relieved By: + none Exacerbated By: + other (breathing) Associated symptoms: no diaphoresis, no fever/chills, no loss of appetite, no nausea/vomiting, no shortness of breath and no weakness Treatments prior to arrival: none This is a 60-year-old male who presents emergency department complaining of chest pressure. The patient reports the chest pressure becomes much worse anytime he takes a deep breath. The patient reports laying backwards also causes the pain to get worse. He he describes the pain as a pressure sensation. Nothing seems to make it better. He denies any fevers or chills. He has not taken anything for the pain prior to arrival. Home Medications Medication Instructions Recorded Confirmed Type amlodipine 10 mg tablet 10 mg PO QAM 05/06/19 09/26/20 History dutasteride 0.5 mg capsule 0.5 mg PO QAM 05/06/19 09/26/20 History trazodone 50 mg tablet 50 mg PO HS PRN tab 05/06/19 09/26/20 History calcitriol 0.5 mcg PO QAM 06/11/20 09/26/20 History allopurinol 100 mg PO QAM 06/30/20 09/26/20 History furosemide 80 mg PO QAM 06/30/20 09/26/20 History omeprazole 40 mg PO QAM 06/30/20 09/26/20 History isosorbide mononitrate 30 mg 30 mg PO QAM #30 tab 09/07/20 09/26/20 Rx tablet,extended release 24 hr ProRenal 1 tab PO DAILY 09/26/20 09/26/20 History Velphoro 500 mg PO TIDM 09/26/20 09/26/20 History albuterol sulfate [Ventolin HFA] 2 puff INHALATION Q4 PRN 09/26/20 09/26/20 History aspirin 81 mg PO DAILY 09/26/20 09/26/20 History atorvastatin [Lipitor] 40 mg PO DAILY 09/26/20 09/26/20 History bupropion HCl 150 mg PO DAILY 09/26/20 09/26/20 History carvedilol [Coreg] 25 mg PO BID 09/26/20 09/26/20 History clopidogrel 75 mg PO DAILY 09/26/20 09/26/20 History escitalopram oxalate 20 mg PO DAILY 09/26/20 09/26/20 History oxycodone-acetaminophen [Percocet] 1 tab PO Q8 09/26/20 09/26/20 History ropinirole [Requip] 0.25 mg PO HS 09/26/20 09/26/20 History tamsulosin [Flomax] 0.4 mg PO QPM 09/26/20 09/26/20 History colchicine [Colcrys] 0.6 mg PO BID #30 tab 09/27/20 Rx ibuprofen 600 mg PO Q8 #30 tab 09/27/20 Rx Allergies Allergy/AdvReac Type Severity Reaction Status Date / Time mercury (elemental) Allergy Intermediate Rash Verified 09/26/20 16:04 NSAIDS (Non-Steroidal Allergy Intermediate not to Verified 09/26/20 16:04 Anti-Inflamma take d/t Kidney disease lisinopril AdvReac Intermediate COUGH Verified 09/26/20 16:04 Past Med/Surg History Medical History AV fistula "L side " CAD (coronary artery disease) NONOBSTRUCTIVE Cardiac murmur HX OF TAVR SEP 2019 SECONDARY TO SEVERE Carotid artery stenosis RIGHT ICA= <50%; LEFT ICA= 50-69% Chronic kidney disease, stage IV (severe) Dialysis patient X 4 YRS-PERITONEAL DIALYSIS Q HS X 8 HRS Diastolic dysfunction with normal LV systolic function Dyslipidemia Fitting and adjustment of peritoneal dialysis catheter PLACEMENT OF-IN PLACE GERD (gastroesophageal reflux disease) Gout Hiatal hernia History of lung cancer NON SMALL CANCER RLL-07/2019 [facility] [place] (hypertension) Kidney donor PAD (peripheral artery disease) Follows with vascular surgery Peritoneal dialysis status Spinal stenosis NO NECK OR BACK SURGERY Surgical History AV fistula CREATION OF IN LEFT WRIST H/O vascular surgery 04/2020 STENTS PLACED [facility] [place] BILAT LE (BILATERAL COMMON ILIAC ARTERY STENT PLACEMENT) History of colonoscopy History of lung surgery RLL 07/2019 History of nephrectomy, unilateral "Kidney donor "1992 S/P AVR (aortic valve replacement) 09/2019 [facility] [place] F/U DR BOWEN Family History Brother Family history of diabetes mellitus Brother Family history of diabetes mellitus Sister Family history of diabetes mellitus Mother Family history of diabetes mellitus Social History Smoking Status: Former smoker Second Hand Exposure: No; Hx Alcohol Use: No Hx Substance Use: No Preferred Language: Vietnamese Communication Ability: Effective Pointer Helper Required: No Beliefs That Will Affect Care: None Current Living Situation: Other Feels Safe at Home: Yes Assistive Devices: Denture - Upper, Denture - Lower and Glasses Review of Systems A total of 10 systems reviewed and were otherwise negative Physical Exam Vital Signs Vital Signs - 24 hr 09/26/20 18:10 09/26/20 18:20 09/26/20 18:30 Pulse Rate 92 H 90 90 Pulse Rate from SpO2 Sensor 93 H 91 H 90 Respiratory Rate 16 22 15 Blood Pressure 139/111 H Blood Pressure Mean 120 Pulse Oximetry 96 100 98 Oxygen Delivery Method Room Air Room Air Room Air VITAL SIGNS - Vital signs and nursing notes were reviewed. GENERAL - 60-year-old male appearing stated age who is in no acute distress. Communicates well with provider and answers questions appropriately. SKIN - Without rashes. HEAD - NC/AT. EYES - PERRL with EOMI bilaterally. Sclera anicteric. Palpebral conjunctiva pink and moist with no injection noted. EARS - No deformities of external structures noted on gross examination bilaterally. NOSE - Midline and without cyanosis. No epistaxis or purulent drainage noted. Septum midline without deviation or septal hematoma noted. MOUTH/OROPHARYNX - Without perioral cyanosis. Buccal mucosa pink and moist and without leukoplakia. Tongue midline with equal elevation of palate bilaterally. No tonsillar hypertrophy, erythema, or exudates noted. dentition noted. NECK - Neck with FROM. Supple to palpation. lymphadenopathy noted. No nuchal rigidity. LUNGS - Chest wall symmetric without accessory muscle use, intercostals retractions, or central cyanosis. Normal vesicular breath sounds CTA B/L. No wheezes, rales, or rhonchi appreciated. CARDIAC - RRR with S1/S2. No murmur, rubs, or gallops appreciated. ABDOMEN - Abdominal contour without pulsations or visible masses. BS normoactive all four quadrants. No tenderness, palpable masses, hepatosplenomegaly, or ascites noted. EXTREMITIES - No clubbing or peripheral cyanosis. No pretibial edema present. +3/5 radial, posterior tibial, and dorsalis pedis pulses palpated throughout. +5/5 strength noted in UE/LE bilaterally. NEUROLOGIC - Cranial nerves II through XII grossly intact. Sensory intact to light touch throughout. Patellar reflexes +2/4. PSYCH - A&Ox3 and cooperates fully with examiner. Pt is very pleasant and interacts well with examiner. Course Administered Medications Discontinued Medications Al Hydrox/Mg Hydrox/Simethicone (Gi Cocktail Ed Use) 1 dose PO ONE ONE Stop: 09/26/20 18:57 Last Admin: 09/26/20 19:30 Dose: 1 dose Documented by: [id number] Allopurinol (Allopurinol 100 Mg Tab) 100 mg PO QAM [facility] Stop: 10/27/20 08:59 Last Admin: 09/27/20 09:36 Dose: 100 mg Documented by: [id number] Amlodipine Besylate (Amlodipine Besylate 5 Mg Tab) 10 mg PO QAM [facility] Stop: 10/27/20 08:59 Last Admin: 09/27/20 09:25 Dose: 10 mg Documented by: [id number] Aspirin (Aspirin 81 Mg Ectab) 81 mg PO DAILY [facility] Stop: 10/27/20 08:59 Last Admin: 09/27/20 10:26 Dose: Not Given Documented by: [id number] Atorvastatin Calcium (Atorvastatin 40 Mg Tab) 40 mg PO DAILY [facility] Stop: 10/27/20 08:59 Last Admin: 09/27/20 09:27 Dose: 40 mg Documented by: [id number] Bupropion HCl (Bupropion Xl 150 Mg Tabcr) 150 mg PO DAILY [facility] Stop: 10/27/20 08:59 Last Admin: 09/27/20 09:29 Dose: 150 mg Documented by: [id number] Calcitriol (Calcitriol 0.25 Mcg Capsule) 0.5 mcg PO QAM [facility] Stop: 10/27/20 08:59 Last Admin: 09/27/20 09:28 Dose: 0.5 mcg Documented by: [id number] Carvedilol (Carvedilol 25 Mg Tab) 25 mg PO BID BENNIE Stop: 10/26/20 20:59 Last Admin: 09/27/20 09:24 Dose: 25 mg Documented by: [id number] Admin: 09/26/20 21:34 Dose: 25 mg Documented by: [id number] Clopidogrel Bisulfate (Clopidogrel Bisulfate 75 Mg Tab) 75 mg PO DAILY BENNIE Stop: 10/27/20 08:59 Last Admin: 09/27/20 10:26 Dose: Not Given Documented by: [id number] Colchicine (Colchicine 0.6 Mg Tab) 0.6 mg PO BID BENNIE Stop: 10/26/20 20:59 Last Admin: 09/27/20 09:24 Dose: 0.6 mg Documented by: [id number] Admin: 09/26/20 21:33 Dose: 0.6 mg Documented by: [id number] Docusate Sodium (Docusate Sodium 100 Mg Cap) 100 mg PO BID BENNIE Stop: 10/26/20 20:59 Last Admin: 09/27/20 09:24 Dose: 100 mg Documented by: [id number] Admin: 09/26/20 21:32 Dose: 100 mg Documented by: [id number] Escitalopram Oxalate (Escitalopram Oxalate 20 Mg Tab) 20 mg PO DAILY BENNIE Stop: 10/27/20 08:59 Last Admin: 09/27/20 09:27 Dose: 20 mg Documented by: [id number] Furosemide (Furosemide 80 Mg Tab) 80 mg PO QAM BENNIE Stop: 10/27/20 08:59 Last Admin: 09/27/20 09:27 Dose: 80 mg Documented by: [id number] Hydromorphone HCl (Hydromorphone Inj 0.5 Mg/0.5 Ml Syr) 0.5 mg IV Q15M PRN PRN Reason: Pain Stop: 10/10/20 15:55 Last Admin: 09/26/20 16:12 Dose: 0.5 mg Documented by: [id number] Hydromorphone HCl (Hydromorphone Inj 0.5 Mg/0.5 Ml Syr) 0.5 mg IV Q3H PRN PRN Reason: Pain Stop: 10/10/20 23:57 Last Admin: 09/27/20 11:36 Dose: 0.5 mg Documented by: [id number] Admin: 09/27/20 00:11 Dose: 0.5 mg Documented by: [id number] Bumetanide 2 mg/ Syringe 8 mls @ 4 mls/min IV ONE ONE Stop: 09/26/20 21:16 Last Admin: 09/26/20 21:32 Dose: 4 mls/min Documented by: [id number] Sodium Chloride (Nss 1000ml) 1,000 mls @ 999 mls/hr IV .Q1H1M BENNIE Stop: 09/27/20 11:25 Last Infusion: 09/27/20 11:58 Dose: 0 mls/hr Documented by: [id number] Admin: 09/27/20 10:41 Dose: 999 mls/hr Documented by: [id number] Infusion: 09/27/20 10:41 Dose: 999 mls/hr Documented by: [id number] Admin: 09/27/20 09:50 Dose: 999 mls/hr Documented by: [id number] Ibuprofen (Ibuprofen 600 Mg Tab) 600 mg PO Q8 BENNIE Stop: 10/26/20 21:59 Last Admin: 09/27/20 05:25 Dose: 600 mg Documented by: [id number] Admin: 09/26/20 21:32 Dose: 600 mg Documented by: [id number] Ibuprofen (Ibuprofen 600 Mg Tab) 600 mg PO NOW STA Stop: 09/27/20 11:13 Last Admin: 09/27/20 11:33 Dose: 600 mg Documented by: [id number] Ioversol (Optiray 320 125ml) 117 ml IV ONCE ONE Stop: 09/26/20 17:42 Last Admin: 09/26/20 17:41 Dose: 117 ml Documented by: [id number] Isosorbide Mononitrate (Isosorbide Barnes Extended Rel 30 Mg Tabcr) 30 mg PO QAM BENNIE Stop: 10/27/20 08:59 Last Admin: 09/27/20 09:26 Dose: 30 mg Documented by: [id number] Levalbuterol HCl (Levalbuterol Tartrate 15 Gm Hfa.Aer.Ad) 2 puffs INH NOW STA Stop: 09/26/20 16:04 Last Admin: 09/26/20 17:31 Dose: 2 puffs Documented by: [id number] Miscellaneous (Dutasteride 0.5 Mg: Order Awaiting Action) 1 ea N/A QS BENNIE Stop: 10/27/20 00:00 Last Admin: 09/27/20 09:50 Dose: Not Given Documented by: [id number] Admin: 09/26/20 23:15 Dose: Not Given Documented by: [id number] Miscellaneous (Sucroferric Oxyhydroxide [Velphoro] 500 Mg Tab,Chew: Order Awaiting Action) 1 ea N/A QS [facility] Stop: 10/27/20 00:00 Last Admin: 09/27/20 09:50 Dose: Not Given Documented by: [id number] Admin: 09/26/20 23:16 Dose: Not Given Documented by: [id number] Nitroglycerin (Nitroglycerin Sl 0.4 Mg/Tab Tab) 0.4 mg SL NOW STA Stop: 09/26/20 14:53 Last Admin: 09/26/20 15:21 Dose: 0.4 mg Documented by: [id number] Ondansetron HCl (Ondansetron Inj 2 Mg/Ml 2 Ml Vial) 4 mg IV NOW STA Stop: 09/26/20 15:57 Last Admin: 09/26/20 16:13 Dose: 4 mg Documented by: [id number] Ondansetron HCl (Ondansetron Inj 2 Mg/Ml 2 Ml Vial) 4 mg IV ONE ONE Stop: 09/27/20 10:07 Last Admin: 09/27/20 10:15 Dose: 4 mg Documented by: [id number] Oxycodone/Acetaminophen (Oxycodone/Acetaminophen 5mg/325mg Tab) 1 tab PO Q8 PRN PRN Reason: pain Stop: 10/10/20 20:18 Last Admin: 09/27/20 09:49 Dose: 1 tab Documented by: [id number] Admin: 09/26/20 21:32 Dose: 1 tab Documented by: [id number] Pantoprazole Sodium (Pantoprazole 40 Mg Tab) 40 mg PO QAM [facility] Stop: 10/27/20 08:59 Last Admin: 09/27/20 09:28 Dose: 40 mg Documented by: [id number] Polyethylene Glycol (Polyethylene (Miralax) 17 Gm Pack) 17 gm PO DAILY PRN PRN Reason: Constipation Stop: 10/26/20 20:18 Last Admin: 09/27/20 05:31 Dose: 17 gm Documented by: [id number] Ropinirole HCl (Ropinirole Hcl 0.25 Mg Tablet) 0.25 mg PO HS [facility] Stop: 10/26/20 20:59 Last Admin: 09/26/20 21:34 Dose: 0.25 mg Documented by: [id number] Tamsulosin HCl (Tamsulosin Hcl 0.4 Mg Cap) 0.4 mg PO QPM BENNIE Stop: 10/26/20 20:59 Last Admin: 09/26/20 21:34 Dose: 0.4 mg Documented by: [id number] Vitamin B Complex/Folic Acid (Nephrocaps) 1 cap PO DAILY BENNIE Stop: 10/27/20 08:59 Last Admin: 09/27/20 09:28 Dose: 1 cap Documented by: [id number] Medical Decision Making Differential Diagnosis Cardiac ischemia, aortic dissection, pulmonary embolism, pneumothorax, pneumonia, pericarditis, myocarditis, esophageal rupture, GERD, cholecystitis, pancreatitis, musculoskeletal, as well as other pathologies. Medical Records Attestation: I reviewed the patient's medical records. Home Medications Current Medication List: was personally reviewed by me Laboratory Data Attestation: I reviewed the patient's lab results. Result diagrams: 09/27/20 05:20 09/27/20 05:20 Lab Results 09/26/20 09/26/20 09/26/20 Range/Units 15:17 15:17 15:17 WBC 11.64 H (4.8-10.8) K/uL RBC 4.32 L (4.7-6.1) M/uL Hgb 12.2 L (14.0-18.0) g/dL Hct 37.2 L (42-52) % MCV 86.1 (80-100) fL MCH 28.2 (25-34) pg MCHC 32.8 (32-36) g/dL RDW Std Deviation 51.8 H (36.4-46.3) fL RDW Coeff of Saumya 16.2 H (11.5-14.5) % Plt Count 174 (130-400) K/uL MPV 10.2 (7.4-10.4) fL Immature Gran % (Auto) 0.3 % Neut % (Auto) 82.1 % Lymph % (Auto) 8.5 % Barnes % (Auto) 8.2 % Eos % (Auto) 0.8 % Baso % (Auto) 0.1 % Neut # (Auto) 9.56 H (1.4-6.5) K/uL Lymph # (Auto) 0.99 L (1.2-3.4) K/uL Barnes # (Auto) 0.96 H (0.11-0.59) K/uL Eos # (Auto) 0.09 (0-0.5) K/uL Baso # (Auto) 0.01 (0-0.2) K/uL Immature Gran # (Auto) 0.03 H (0.00-0.02) K/uL RBC Morphology Unremarkable ESR 61 H (0-14) mm/hr PT 10.9 (9.0-12.0) Seconds INR 1.1 (0.9-1.1) APTT 26.0 (21.0-31.0) Seconds PTT Ratio 1.0 Sodium (136-145) mmol/L Potassium (3.5-5.1) mmol/L Chloride (98-107) mmol/L Carbon Dioxide (21-32) mmol/L Anion Gap (3-11) BUN (7-18) mg/dl Creatinine (0.6-1.4) mg/dl Est Cr Clr Drug Dosing ml/min Est GFR ( Amer) Est GFR (Non-Af Amer) BUN/Creatinine Ratio (10-20) Glucose (70-99) mg/dl Lactate (0.4-2.0) mmol/L Calcium (8.5-10.1) mg/dl Magnesium (1.8-2.4) mg/dl Ferritin (8-388) ng/ml Total Bilirubin (0.2-1) mg/dl AST (15-37) U/L ALT (12-78) U/L Alkaline Phosphatase (45-117) U/L Lactate Dehydrogenase (87-241) U/L Total Creatine Kinase (39-308) U/L CK-MB (CK-2) (0.5-3.6) ng/ml CK/CKMB % Calc (0-3.0) Troponin I (0-0.045) ng/ml C-Reactive Protein (0-0.29) mg/dl Total Protein (6.4-8.2) gm/dl Albumin (3.4-5.0) gm/dl Globulin (2.5-4.0) gm/dl Albumin/Globulin Ratio (0.9-2) Lipase (73-393) U/L Procalcitonin (0-0.5) ng/ml COVID-19 Eval Order Hepatitis C Ab Screen (Neg) SARS-CoV-2, RNA, NAAT (NEGATIVE) Blood Type Antibody Screen 09/26/20 09/26/20 09/26/20 Range/Units 15:17 15:17 15:17 WBC (4.8-10.8) K/uL RBC (4.7-6.1) M/uL Hgb (14.0-18.0) g/dL Hct (42-52) % MCV (80-100) fL MCH (25-34) pg MCHC (32-36) g/dL RDW Std Deviation (36.4-46.3) fL RDW Coeff of Saumya (11.5-14.5) % Plt Count (130-400) K/uL MPV (7.4-10.4) fL Immature Gran % (Auto) % Neut % (Auto) % Lymph % (Auto) % Barnes % (Auto) % Eos % (Auto) % Baso % (Auto) % Neut # (Auto) (1.4-6.5) K/uL Lymph # (Auto) (1.2-3.4) K/uL Barnes # (Auto) (0.11-0.59) K/uL Eos # (Auto) (0-0.5) K/uL Baso # (Auto) (0-0.2) K/uL Immature Gran # (Auto) (0.00-0.02) K/uL RBC Morphology ESR (0-14) mm/hr PT (9.0-12.0) Seconds INR (0.9-1.1) APTT (21.0-31.0) Seconds PTT Ratio Sodium 133 L (136-145) mmol/L Potassium 4.6 (3.5-5.1) mmol/L Chloride 97 L (98-107) mmol/L Carbon Dioxide 25 (21-32) mmol/L Anion Gap 11.0 (3-11) BUN 76 H (7-18) mg/dl Creatinine 15.70 H* (0.6-1.4) mg/dl Est Cr Clr Drug Dosing 4.6 ml/min Est GFR ( Amer) 3.4 Est GFR (Non-Af Amer) 2.9 BUN/Creatinine Ratio 4.9 L (10-20) Glucose 92 (70-99) mg/dl Lactate 1.4 (0.4-2.0) mmol/L Calcium 9.1 (8.5-10.1) mg/dl Magnesium 2.4 (1.8-2.4) mg/dl Ferritin 1018.9 H (8-388) ng/ml Total Bilirubin 0.3 (0.2-1) mg/dl AST 12 L (15-37) U/L ALT 25 (12-78) U/L Alkaline Phosphatase 105 (45-117) U/L Lactate Dehydrogenase 250 H (87-241) U/L Total Creatine Kinase 87 (39-308) U/L CK-MB (CK-2) 4.6 H (0.5-3.6) ng/ml CK/CKMB % Calc 5.3 H (0-3.0) Troponin I 0.027 (0-0.045) ng/ml C-Reactive Protein 5.26 H (0-0.29) mg/dl Total Protein 7.2 (6.4-8.2) gm/dl Albumin 2.9 L (3.4-5.0) gm/dl Globulin 4.3 H (2.5-4.0) gm/dl Albumin/Globulin Ratio 0.7 L (0.9-2) Lipase (73-393) U/L Procalcitonin (0-0.5) ng/ml COVID-19 Eval Order Hepatitis C Ab Screen (Neg) SARS-CoV-2, RNA, NAAT (NEGATIVE) Blood Type Antibody Screen 09/26/20 09/26/20 09/26/20 Range/Units 15:17 15:17 15:17 WBC (4.8-10.8) K/uL RBC (4.7-6.1) M/uL Hgb (14.0-18.0) g/dL Hct (42-52) % MCV (80-100) fL MCH (25-34) pg MCHC (32-36) g/dL RDW Std Deviation (36.4-46.3) fL RDW Coeff of Saumya (11.5-14.5) % Plt Count (130-400) K/uL MPV (7.4-10.4) fL Immature Gran % (Auto) % Neut % (Auto) % Lymph % (Auto) % Barnes % (Auto) % Eos % (Auto) % Baso % (Auto) % Neut # (Auto) (1.4-6.5) K/uL Lymph # (Auto) (1.2-3.4) K/uL Barnes # (Auto) (0.11-0.59) K/uL Eos # (Auto) (0-0.5) K/uL Baso # (Auto) (0-0.2) K/uL Immature Gran # (Auto) (0.00-0.02) K/uL RBC Morphology ESR (0-14) mm/hr PT (9.0-12.0) Seconds INR (0.9-1.1) APTT (21.0-31.0) Seconds PTT Ratio Sodium (136-145) mmol/L Potassium (3.5-5.1) mmol/L Chloride (98-107) mmol/L Carbon Dioxide (21-32) mmol/L Anion Gap (3-11) BUN (7-18) mg/dl Creatinine (0.6-1.4) mg/dl Est Cr Clr Drug Dosing ml/min Est GFR ( Amer) Est GFR (Non-Af Amer) BUN/Creatinine Ratio (10-20) Glucose (70-99) mg/dl Lactate (0.4-2.0) mmol/L Calcium (8.5-10.1) mg/dl Magnesium (1.8-2.4) mg/dl Ferritin (8-388) ng/ml Total Bilirubin (0.2-1) mg/dl AST (15-37) U/L ALT (12-78) U/L Alkaline Phosphatase (45-117) U/L Lactate Dehydrogenase (87-241) U/L Total Creatine Kinase (39-308) U/L CK-MB (CK-2) (0.5-3.6) ng/ml CK/CKMB % Calc (0-3.0) Troponin I (0-0.045) ng/ml C-Reactive Protein (0-0.29) mg/dl Total Protein (6.4-8.2) gm/dl Albumin (3.4-5.0) gm/dl Globulin (2.5-4.0) gm/dl Albumin/Globulin Ratio (0.9-2) Lipase 146 (73-393) U/L Procalcitonin 0.39 (0-0.5) ng/ml COVID-19 Eval Order Hepatitis C Ab Screen Pos A (Neg) SARS-CoV-2, RNA, NAAT (NEGATIVE) Blood Type Antibody Screen 09/26/20 09/26/20 09/26/20 Range/Units 15:20 15:20 15:24 WBC (4.8-10.8) K/uL RBC (4.7-6.1) M/uL Hgb (14.0-18.0) g/dL Hct (42-52) % MCV (80-100) fL MCH (25-34) pg MCHC (32-36) g/dL RDW Std Deviation (36.4-46.3) fL RDW Coeff of Saumya (11.5-14.5) % Plt Count (130-400) K/uL MPV (7.4-10.4) fL Immature Gran % (Auto) % Neut % (Auto) % Lymph % (Auto) % Barnes % (Auto) % Eos % (Auto) % Baso % (Auto) % Neut # (Auto) (1.4-6.5) K/uL Lymph # (Auto) (1.2-3.4) K/uL Barnes # (Auto) (0.11-0.59) K/uL Eos # (Auto) (0-0.5) K/uL Baso # (Auto) (0-0.2) K/uL Immature Gran # (Auto) (0.00-0.02) K/uL RBC Morphology ESR (0-14) mm/hr PT (9.0-12.0) Seconds INR (0.9-1.1) APTT (21.0-31.0) Seconds PTT Ratio Sodium (136-145) mmol/L Potassium (3.5-5.1) mmol/L Chloride (98-107) mmol/L Carbon Dioxide (21-32) mmol/L Anion Gap (3-11) BUN (7-18) mg/dl Creatinine (0.6-1.4) mg/dl Est Cr Clr Drug Dosing ml/min Est GFR ( Amer) Est GFR (Non-Af Amer) BUN/Creatinine Ratio (10-20) Glucose (70-99) mg/dl Lactate (0.4-2.0) mmol/L Calcium (8.5-10.1) mg/dl Magnesium (1.8-2.4) mg/dl Ferritin (8-388) ng/ml Total Bilirubin (0.2-1) mg/dl AST (15-37) U/L ALT (12-78) U/L Alkaline Phosphatase (45-117) U/L Lactate Dehydrogenase (87-241) U/L Total Creatine Kinase (39-308) U/L CK-MB (CK-2) (0.5-3.6) ng/ml CK/CKMB % Calc (0-3.0) Troponin I (0-0.045) ng/ml C-Reactive Protein (0-0.29) mg/dl Total Protein (6.4-8.2) gm/dl Albumin (3.4-5.0) gm/dl Globulin (2.5-4.0) gm/dl Albumin/Globulin Ratio (0.9-2) Lipase (73-393) U/L Procalcitonin (0-0.5) ng/ml COVID-19 Eval [facility] Screen (Neg) SARS-CoV-2, RNA, NAAT NEGATIVE (NEGATIVE) Blood Type A Positive Antibody Screen NEGATIVE Imaging Data Radiologist's Impression: [place] [id number] [phone] CT Scan Report Patient: ANCA MACHADO Date: 09/26/20MR#: [id number]: [id number] VINC[address] SALAZAR RDAcct ID:[id number]: Date: 1960[facility] Zip: [place], [place] [address]Qrb: [id number]: EDSex: MRoom/Bed:Att Phy:Diagnosis: SOB & CHEST PAINPri Phy: Socrates Saba MD(SID)Service Date: 09/26/20Fam Phy:Interpreting Phy: Julien Mcdonald MDAdmit Phy: Ordering Phy: Braulio Mandujano MD cc: ~ CT ANGIOGRAM OF THE CHEST CLINICAL HISTORY: Atypical chest pain. Dyspnea. COMPARISON STUDY: Chest x-ray dated 09/26/2020. Chest CT dated 04/08/2019 and 06/22/2017. TECHNIQUE: Following the IV administration of 117 cc of Optiray 320, CT angiogram of the chest was performed from the upper abdomen to the thoracic inlet utilizing the pulmonary embolus protocol. Images are reviewed in the axial, sagittal, and coronal planes. 3-D MIPS images are created and assessed. IV contrast was administered without complication. A dose lowering technique was utilized adhering to the principles of ALARA. CT DOSE: 320.07 mGy.cm FINDINGS: Thyroid: Imaged portions of the thyroid gland are normal in size and attenuation. Thoracic aorta: There is atherosclerotic calcification of the thoracic aorta, which is normal in caliber and demonstrates standard 3-vessel arch anatomy. No dissection is seen. Pulmonary vasculature: The pulmonary trunk is normal in caliber. There are no filling defects identified in main, lobar, or segmental pulmonary branches to suggest pulmonary embolus. Heart: The heart is enlarged and there is a large pericardial effusion. There is evidence of previous aortic valve surgery. The coronary arteries and mitral annulus are densely calcified. Lungs and pleural spaces: There is postoperative change and volume loss from right-sided pulmonary resection, with compensatory hyperinflation of the left lung. A small volume of pleural fluid is again seen at the right lung base, with associated right basilar scarring/atelectasis. No airspace consolidation is identified typical for pneumonia. The trachea and central airways are clear. Mild diffuse peribronchial thickening is observed. A 4 mm nodule in the right upper lung seen on image #182 is new from previous and may be inflammatory. Mediastinum: There are numerous subcentimeter mediastinal lymph nodes. These are not pathologically enlarged by size criteria and have decreased in size from previous. Jazmine: Clear. Axillae: There is no axillary lymphadenopathy. Upper abdomen: Reflux of contrast into the IVC and hepatic veins suggests cardiac dysfunction. There is trace perihepatic ascites. Partially visualized upper abdominal viscera is otherwise grossly unremarkable. Skeletal structures: The skeletal structures are osteopenic. There is a subacute/healing right anterior second rib fracture. Mild superior endplate compression deformities in the upper thoracic spine are unchanged. No lytic or blastic bony lesions are seen. IMPRESSION: 1. There is no evidence of pulmonary embolus in the main, lobar, or segmental pulmonary arteries. 2. Large pericardial effusion. This has significantly increased in size as compared to the 04/08/2019 examination. 3. Cardiomegaly with evidence of cardiac dysfunction. 4. Again seen is postoperative change and volume loss from right-sided pulmonary resection. 5. There is a small volume of pleural fluid at the right lung base. 6. No airspace consolidation is seen typical for pneumonia. 7. Mild diffuse peribronchial thickening suggests bronchitis/reactive airway disease. 8. A 4 mm nodule in the right upper lung is new from previous and may be on an inflammatory basis. A 3-6 month follow-up chest CT is recommended to document resolution. 9. Trace perihepatic ascites. 10. There is a subacute/healing right anterior second rib fracture. ACT 112: Positive. There are findings on this exam that require communication between the performing entity and the patient following Patient Test Result Information Act ([place] Act 112) guidelines. Electronically signed by: Julien Mcdonald M.D. 09/26/2020 6:33 PM Dictated: 09/26/201822Transcribed: 09/26/201822 [facility], [id number] XRay Report Patient: ANCA MACHADO Date: 09/26/20#: [id number]: [id number] [facility]:[id number]: Date: 1960[facility] Zip: [place], [place] [address]Qcj: [id number]: EDSex: MRoom/Bed:Att Phy:Diagnosis: SOB & CHEST PAINPri Phy: Socrates Saba MD(SID)Service Date: 09/26/20Fa Phy:Interpreting Phy: Julien Mcdonald MDAdmit Phy: Ordering Phy: Braulio Mandujano MD cc: ~ SINGLE VIEW CHEST CLINICAL HISTORY: Sepsis. FINDINGS: 2 AP, portable, upright chest radiographs are compared to study dated 11/20/2015. Correlation is made with chest CT dated 04/08/2019. The heart is markedly enlarged noting atherosclerotic calcification of the thoracic aorta. The pulmonary vasculature is noncongested. There is evidence of previous cardiac valve surgery. Postoperative change and volume loss in the right lung is consistent with previous surgical resection. There is pleural fluid at the right lung base. No airspace consolidation is seen typical for pneumonia. Scar ring/atelectasis is noted at both lung bases. No pneumothorax is seen. The skeletal structures are osteopenic. The bony thorax is grossly intact. IMPRESSION: 1. Cardiomegaly without radiographic evidence of congestive failure. 2. There is no airspace consolidation typical for pneumonia. 3. Postoperative change and volume loss is consistent with right-sided pulmonary resection. 4. There is a small volume of pleural fluid at the right lung base. ACT 112: Negative or not required by law. Electronically signed by: Julien Mcdonald M.D. 09/26/2020 3:36 PM Dictated: 09/26/201533Transcribed: 09/26/201533 ECG Data Attestation: I personally reviewed and interpreted this ECG as follows: Indication: + chest pain Rate (beats per minute): 99 Rhythm: + normal sinus ECG Intervals/blocks: + Normal QT-c (485) ECG [place]: + Normal ECG ST segments: + T-wave inversions (Lateral); no ST depression and no ST elevation ECG Findings: + Q waves (Septal) Comparison ECG Date: from (06/11/2020) Change: the following changes noted (New t wave inversions) MDM Narrative This is a 60-year-old male who presents emergency department complaining of chest pain. Using shared medical decision making with the patient serial EKGs as well as serial troponins were drawn. Nitro did not seem to help the patient's chest pain therefore he was given IV Dilaudid. He was sent for CAT scan of the chest which is concerning for a large pericardial effusion. The patient has no physical signs of tamponade on my physical examination. I did discuss the case with the hospitalist service who did agree to admit the patient. Patient is in agreement the treatment plan. Patient was seen and evaluated as above in room B10. Review was performed of nursing notes and vital signs. I did review pertinent previous visits and patient history. After obtaining a thorough history and physical examination the above work up was performed. An order was placed for continuous cardiac monitoring. The monitor shows a rate of 73 with Normal SInus rhythm. The patient was evaluated during a period of high volume and high acuity while the hospital was at overcapacity during the global COVID-19 pandemic, and that diagnosis was suspected/considered upon their initial presentation. Their evaluation, treatment and testing was consistent with current guidelines for patients who present with complaints or symptoms that may be related to COVID- 19. Impression & Plan Chest pain, ESRD (end stage renal disease) on dialysis, Peritoneal dialysis status, Pericardial effusion Discharge Plan Visit Data Chief Complaint: Shortness of Breath/Dyspnea Stated Complaint: SOB & CHEST PAIN ED Provider: Braulio Mandujano Discharge Problem: Chest pain, ESRD (end stage renal disease) on dialysis, Peritoneal dialysis status, Pericardial effusion Patient Disposition: Admitted As Inpatient Discharge Instructions Interventions: ED Discharge Assessment Last Done: 09/26/20 19:36 Discharge Problem: Chest pain Qualifiers: Chest pain type: unspecified Qualified Code(s): R07.9 - Chest pain, unspecified
== END 2020-09-27 12:32 | disposition short-term general hospital (02) ==
LOC: ED 14:30 → 2S 14:30

== ENCOUNTER 2021-03-25 10:20 | Inpatient (IN) ==
[2021-03-25] MEDS ORDERED: STAT IV Infusion **Titration per Protocol STA (10:52)
[2021-03-25] MEDS ORDERED: GLUCAGON IV ONE (10:54)
[2021-03-25] MEDS ORDERED: STAT IV STA (10:54)
[2021-03-25] MEDS ORDERED: DEXTROSE 5% IV ONE (10:54)
[2021-03-25] MEDS ORDERED: DOPamine / D5W 400 MG/250 ML BAG IV SCH (11:00)
--- NOTE | 2021-03-25 11:00 | XRay Report ---
SINGLE VIEW CHEST CLINICAL HISTORY: Dysrhythmia. FINDINGS: An AP, portable, upright chest radiograph is compared to chest x-ray and chest CT dated 09/14. The patient is status post cardiac valve surgery. The heart is enlarged noting atheroscleroti c calcification of the thoracic aorta. The pulmonary vasculature is noncongested. Emphysematous myers e is noted. There is postoperative change and volume loss consistent with right-sided pulmonary resec tion. Suture material projects within the right midlung. Pleural fluid with right basilar scarring/at electasis is similar to prior studies. There is no evidence of superimposed airspace consolidation to indicate pneumonia. No pneumothorax is seen. The skeletal structures are osteopenic. The bony thorax is grossly intact. IMPRESSION: 1. Cardiomegaly and emphysema with no radiographic evidence of congestive failure. 2. There is postoperative change from right-sided pulmonary resection with chronic pleural fluid at t he right lung base. ACT 112: Negative or not required by law. Electronically signed by: Julien Mcdonald M.D. 03/25/2021 10:59 AM
--- NOTE | 2021-03-25 11:01 | Emergency Department Note ---
History of Present Illness General Chief complaint: Bradycardia Stated complaint: BRADYCARDIA,FATIGUE,CANT BREATH Time Seen by Provider: 03/25/21 10:35 Source: patient History of Present Illness Provider complaint: Fatigue and shortness of breath Onset (ago): day(s) 2 Location: chest Pain Consistency: + constant Quality: + other (Fatigue and shortness of breath) Relieved By: + none Associated symptoms: + weakness; no chest pain, no cough, no fever/chills or no nausea/vomiting This is a 61-year-old male with end-stage renal disease presenting with shortness of breath and fatigue for the past 2 days. He states that he noticed this morning at 9:30 AM his heart rate was 45. His nurse advised him to come in for evaluation. He has had no recent fever or illness, cough or cold symptoms, tick bites, chest pain, abdominal pain, vomiting or diarrhea. He makes very little urine and is on dialysis. He has peritoneal dialysis. He does state that recently he had stents placed in his legs at [facility]. He denies having any pain to his legs. He has had the Covid vaccine. Home Medications Medication Instructions Recorded Confirmed Type amlodipine 10 mg tablet 10 mg PO QAM 05/06/19 03/25/21 History dutasteride 0.5 mg capsule 0.5 mg PO QAM 05/06/19 03/25/21 History trazodone 50 mg tablet 50 mg PO HS PRN tab 05/06/19 03/25/21 History calcitriol 0.25 mcg capsule 0.5 mcg PO QAM 06/11/20 03/25/21 History allopurinol 100 mg tablet 100 mg PO QAM 06/30/20 03/25/21 History furosemide 80 mg tablet 80 mg PO QAM 06/30/20 03/25/21 History omeprazole 40 mg capsule,delayed 40 mg PO BID 06/30/20 03/25/21 History release albuterol sulfate 90 mcg/actuation 2 puff INHALATION Q4 PRN 09/26/20 03/25/21 History aerosol inhaler (Ventolin HFA) aspirin 81 mg tablet,delayed 81 mg PO QAM 09/26/20 03/25/21 History release atorvastatin 40 mg tablet (Lipitor) 40 mg PO QAM 09/26/20 03/25/21 History bupropion HCl 150 mg 24 hr tablet, 150 mg PO QAM 09/26/20 03/25/21 History extended release carvedilol 25 mg tablet (Coreg) 25 mg PO BID 09/26/20 03/25/21 History clopidogrel 75 mg tablet 75 mg PO QAM 09/26/20 03/25/21 History escitalopram oxalate 20 mg tablet 20 mg PO QAM 09/26/20 03/25/21 History oxycodone-acetaminophen 5 mg-325 1 tab PO Q8 PRN 09/26/20 03/25/21 History mg tablet (Percocet) ropinirole 0.25 mg tablet (Requip) 0.25 mg PO HS 09/26/20 03/25/21 History sucroferric oxyhydroxide 500 mg 500 mg PO TIDM 09/26/20 03/25/21 History chewable tablet (Velphoro) vit B complx, C-iron 8 mg-folic 1 tab PO QAM 09/26/20 03/25/21 History acid 800 mcg-D3 1,000 unit-zinc tablet (ProRenal) gentamicin 0.1 % topical cream 1 applic TOPICAL DAILY #30 g 03/10/21 03/25/21 Rx isosorbide mononitrate 30 mg 30 mg PO QAM #30 tab 03/22/21 03/25/21 Rx tablet,extended release 24 hr colchicine 0.6 mg tablet (Colcrys) 0.6 mg PO QAM 03/25/21 03/25/21 History Allergies Allergy/AdvReac Type Severity Reaction Status Date / Time mercury (elemental) Allergy Intermediate Rash Verified 03/25/21 12:06 NSAIDS (Non-Steroidal Allergy Intermediate not to Verified 03/25/21 12:06 Anti-Inflamma take d/t Kidney disease lisinopril AdvReac Intermediate COUGH Verified 03/25/21 12:06 Past Med/Surg History Medical History AV fistula "L side " CAD (coronary artery disease) NONOBSTRUCTIVE Cardiac murmur HX OF TAVR SEP 2019 SECONDARY TO SEVERE Carotid artery stenosis RIGHT ICA= <50%; LEFT ICA= 50-69% Chronic kidney disease, stage IV (severe) Dialysis patient X 4 YRS-PERITONEAL DIALYSIS Q HS X 8 HRS Diastolic dysfunction with normal LV systolic function Dyslipidemia Fitting and adjustment of peritoneal dialysis catheter PLACEMENT OF-IN PLACE GERD (gastroesophageal reflux disease) Gout Hiatal hernia History of lung cancer NON SMALL CANCER [place]LL[place]07/2019 [facility] [place]N (hypertension) Kidney donor PAD (peripheral artery disease) Follows with vascular surgery Pericardial effusion s/p pericardiocentesis Peritoneal dialysis status Spinal stenosis NO NECK OR BACK SURGERY Surgical History AV fistula CREATION OF IN LEFT WRIST H/O vascular surgery 04/2020 STENTS PLACED [facility] [place] BILAT LE (BILATERAL COMMON ILIAC ARTERY STENT PLACEMENT) History of colonoscopy History of lung surgery RLL 07/2019 History of nephrectomy, unilateral "Kidney donor "1992 S/P femoral-popliteal bypass surgery S/P TAVR (transcatheter aortic valve replacement) Family History Brother Family history of diabetes mellitus Brother Family history of diabetes mellitus Sister Family history of diabetes mellitus Mother Family history of diabetes mellitus Social History Smoking Status: Never smoker Tobacco Type: Smokeless Tobacco (Dip or Chew) Second Hand Exposure: No; Hx Alcohol Use: No Hx Substance Use: No Preferred Language: Tajik Communication Ability: Effective Visual Impairment: No Limitations Greenskeeper Head Required: No Beliefs That Will Affect Care: None Current Living Situation: Other Feels Safe at Home: Yes Assistive Devices: Denture - Upper, Denture - Lower and Glasses Review of Systems See HPI for pertinent positives & negatives. and A total of 10 systems reviewed and were otherwise negative Physical Exam Vital Signs Vital Signs - 24 hr 03/25/21 10:26 03/25/21 11:27 03/25/21 11:38 Temperature 36.0 C L Temperature Source Temporal Artery Scan Pulse Rate 38 L 38 L Pulse Rate [Apical] Pulse Rate from SpO2 Sensor 38 L Respiratory Rate 18 18 Respiratory Effort / Characteristics Respiratory Depth Respiratory Pattern Blood Pressure 92/48 L 127/58 L Blood Pressure [Left Arm] Blood Pressure Mean 62 81 Blood Pressure Mean [Left Arm] Blood Pressure Position [Left Arm] Pulse Oximetry 98 98 Oxygen Delivery Method Room Air Room Air Sepsis Recent Fever Within 48 Hours No Sepsis New/Unexplained Change in Mental Status N/A Sepsis Action Taken by Nursing No Action Required 03/25/21 12:01 03/25/21 12:31 03/25/21 13:01 Temperature Temperature Source Pulse Rate 39 L 36 L 49 L Pulse Rate [Apical] Pulse Rate from SpO2 Sensor 40 L 36 L Respiratory Rate 15 12 18 Respiratory Effort / Characteristics Respiratory Depth Respiratory Pattern Blood Pressure 177/72 H 117/36 L 90/47 L Blood Pressure [Left Arm] Blood Pressure Mean 107 63 61 Blood Pressure Mean [Left Arm] Blood Pressure Position [Left Arm] Pulse Oximetry 100 96 95 Oxygen Delivery Method Sepsis Recent Fever Within 48 Hours Sepsis New/Unexplained Change in Mental Status Sepsis Action Taken by Nursing 03/25/21 13:21 03/25/21 13:29 Temperature Temperature Source Pulse Rate 49 L Pulse Rate [Apical] 36 L Pulse Rate from SpO2 Sensor Respiratory Rate 18 20 Respiratory Effort / Characteristics SOB on Exertion Respiratory Depth Normal Respiratory Pattern Regular Blood Pressure 90/47 L Blood Pressure [Left Arm] 145/59 H Blood Pressure Mean Blood Pressure Mean [Left Arm] 87 Blood Pressure Position [Left Arm] Lying Pulse Oximetry 95 100 Oxygen Delivery Method Room Air Room Air Sepsis Recent Fever Within 48 Hours Sepsis New/Unexplained Change in Mental Status Sepsis Action Taken by Nursing Constitutional: Vital signs reviewed. Eyes: Pupils are equal round reactive to light. Conjunctiva are noninjected. ENT: Pharynx is clear without erythema or exudate. Mucous membranes are moist. Neck supple without meningeal signs. Respiratory: Clear to auscultation bilaterally. Breath sounds are equal bilaterally. Cardiovascular: Bradycardia. Heart rate 38. GI: Soft, nondistended and nontender. Bowel sounds are present. Musculoskeletal: No peripheral edema. No lower extremity tenderness. Integumentary: No cyanosis. or jaundice. Neurological: The patient is awake and alert. No focal deficits. Psychiatric: Normal affect. Not anxious appearing. Course Consultations Consultation #1: Dr. Giles Time: 10:51 Administered Medications Discontinued Medications Bupivacaine HCl (Bupivacaine 0.25% 30 Ml Vial) Confirm Administered Dose 30 ml .ROUTE .[employer] ONE Stop: 03/25/21 13:25 Last Admin: 03/25/21 14:19 Dose: 30 ml Documented by: [id number] Cefazolin Sodium (Cefazolin 250 Mg/Ml 1 Gm Vial) Confirm Administered Dose 2,000 mg .ROUTE .[employer] ONE Stop: 03/25/21 13:53 Last Admin: 03/25/21 14:19 Dose: 1,000 mg Documented by: [id number] Fentanyl Citrate (Fentanyl Citrate 100 Mcg/2 Ml Vial) Confirm Administered Dose 100 mcg .ROUTE .STK-MED ONE Stop: 03/25/21 13:53 Last Admin: 03/25/21 14:30 Dose: 100 mcg Documented by: [id number] Dopamine HCl/Dextrose (Dopamine / D5w) 400 mg in 250 mls @ 13.5 mls/hr IV .[id number] [facility]; Protocol Stop: 04/24/21 10:59 Last Admin: 03/25/21 12:10 Dose: Not Given Documented by: [id number] Glucagon 10 mg/ Dextrose 50 mls @ 300 mls/hr IV ONE ONE Stop: 03/25/21 11:03 Last Infusion: 03/25/21 12:10 Dose: 0 mls/hr Documented by: [id number] Admin: 03/25/21 11:47 Dose: 300 mls/hr Documented by: [id number] Sodium Chloride (Nss 1000ml) 500 mls @ 999 mls/hr IV .Q31M ONE Stop: 03/25/21 11:47 Last Infusion: 03/25/21 12:40 Dose: 0 mls/hr Documented by: [id number] Admin: 03/25/21 11:47 Dose: 999 mls/hr Documented by: [id number] Lidocaine HCl (Lidocaine 1% Local 20 Ml Vial) Confirm Administered Dose 20 ml .ROUTE .STK-MED ONE Stop: 03/25/21 13:24 Last Admin: 03/25/21 14:19 Dose: 20 ml Documented by: [id number] Midazolam HCl (Midazolam Hcl 5 Mg/Ml 1 Ml Vial) Confirm Administered Dose 5 mg .ROUTE .STK-MED ONE Stop: 03/25/21 13:53 Last Admin: 03/25/21 14:30 Dose: 5 mg Documented by: [id number] Miscellaneous (Stat Iv Infusion Titration Per Protocol) 1 ea N/A NOW STA Stop: 03/25/21 10:53 Last Admin: 03/25/21 11:47 Dose: Not Given Documented by: [id number] Ondansetron HCl (Ondansetron Inj 2 Mg/Ml 2 Ml Vial) 4 mg IV NOW STA Stop: 03/25/21 11:56 Last Admin: 03/25/21 12:00 Dose: 4 mg Documented by: [id number] Sterile Water (Water, Sterile For Inj 10 Ml Vial) Confirm Administered Dose 10 ml .ROUTE .STK-MED ONE Stop: 03/25/21 13:25 Last Admin: 03/25/21 14:19 Dose: 10 ml Documented by: [id number] Vancomycin HCl (Vancomycin Hcl 1000mg/20ml Vial) Confirm Administered Dose 50 mg .ROUTE .STK-MED ONE Stop: 03/25/21 13:25 Last Admin: 03/25/21 14:19 Dose: 50 mg Documented by: [id number] Critical Care Time Critical Care Time: Yes Total Critical Care Time: 40 I have personally spent approximately 40 minutes of critical care time in the direct management of this patient. This includes bedside care, interpretation of diagnostic studies, and testing, discussion with consultants, patient, and family members, and other required patient management activities. These minutes are in excess of all separately billable procedures. Medical Decision Making Differential Diagnosis Bradycardia, dysrhythmia, third-degree heart block, metabolic derangement, electrolyte abnormality Medical Records Attestation: I reviewed the patient's medical records. I did perform a limited focused review of portions of the patient's old chart on the electronic medical record. The patient was seen here September 27 for shortness of breath. Is found to have a pericardial effusion. He was transferred to [facility] for pericardiocentesis. Home Medications Current Medication List: was personally reviewed by me Laboratory Data Attestation: I reviewed the patient's lab results. Result diagrams: 03/25/21 11:19 03/25/21 11:19 Lab Results 03/25/21 03/25/21 03/25/21 Range/Units 10:30 10:30 11:19 WBC 11.23 H (4.8-10.8) K/uL RBC 4.07 L (4.7-6.1) M/uL Hgb 12.8 L (14.0-18.0) g/dL POC Hgb (14.0-18.0) g/dl Hct 37.9 L (42-52) % POC Hct (42-52) % MCV 93.1 (80-100) fL MCH 31.4 (25-34) pg MCHC 33.8 (32-36) g/dL RDW Std Deviation 49.5 H (36.4-46.3) fL RDW Coeff of Saumya 14.6 H (11.5-14.5) % Plt Count 137 (130-400) K/uL MPV 10.8 H (7.4-10.4) fL Immature Gran % (Auto) 0.4 % Neut % (Auto) 79.3 % Lymph % (Auto) 9.7 % Wake % (Auto) 8.5 % Eos % (Auto) 1.8 % Baso % (Auto) 0.3 % Neut # (Auto) 8.91 H (1.4-6.5) K/uL Lymph # (Auto) 1.09 L (1.2-3.4) K/uL Wake # (Auto) 0.96 H (0.11-0.59) K/uL Eos # (Auto) 0.20 (0-0.5) K/uL Baso # (Auto) 0.03 (0-0.2) K/uL Immature Gran # (Auto) 0.04 H (0.00-0.02) K/uL POC Sodium (135-144) mmol/L Sodium (136-145) mmol/L POC Potassium (3.3-5.0) mmol/L Potassium (3.5-5.1) mmol/L POC Chloride (101-112) mmol/L Chloride (98-107) mmol/L Carbon Dioxide (21-32) mmol/L POC Total CO2 (24-31) mmol/L Anion Gap (3-11) POC Anion Gap (16-25) mmol/L POC BUN (7-18) mg/dl BUN (7-18) mg/dl Creatinine (0.6-1.4) mg/dl POC Creatinine (0.6-1.3) mg/dl Est Cr Clr Drug Dosing ml/min Est GFR ( Amer) ml/min Est GFR (Non-Af Amer) ml/min BUN/Creatinine Ratio (10-20) Glucose (70-99) mg/dl POC Glucose (other) (70-99) mg/dl Calcium (8.5-10.1) mg/dl POC Ioniz Calcium Ludivina (1.12-1.32) mmol/l Magnesium (1.8-2.4) mg/dl Total Bilirubin (0.2-1) mg/dl AST (15-37) U/L ALT (12-78) U/L Alkaline Phosphatase (45-117) U/L Troponin I (0-0.045) ng/ml Total Protein (6.4-8.2) gm/dl Albumin (3.4-5.0) gm/dl Globulin (2.5-4.0) gm/dl Albumin/Globulin Ratio (0.9-2) TSH (0.300-4.500) uIu/ml Free T4 (0.8-1.6) ng/dl Adenovirus (PCR) Not Detected (NotDetected) B. pertussis DNA (PCR) Not Detected (NotDetected) B.parapertussis DNA PCR Not Detected (NotDetected) Lyme Disease IgG Ab (Negative) Lyme Disease IgM Ab (Negative) C. pneumoniae DNA (PCR) Not Detected (NotDetected) Coronavirus OC43 (PCR) Not Detected (NotDetected) Coronavirus HKU1 (PCR) Not Detected (NotDetected) Coronavirus 229E (PCR) Not Detected (NotDetected) COVID-19 Eval Order [facility]PNP at [facility] SARS-CoV-2 (PCR) Not Detected (NotDetected) Coronavirus NL63 (PCR) Not Detected (NotDetected) Human Metapneumovir PCR Not Detected (NotDetected) Influenza Type A (PCR) Not Detected (NotDetected) Influenza Type B (PCR) Not Detected (NotDetected) M. pneumoniae (PCR) Not Detected (NotDetected) Parainfluenza 1 (PCR) Not Detected (NotDetected) Parainfluenza 2 (PCR) Not Detected (NotDetected) Parainfluenza 3 (PCR) Not Detected (NotDetected) Parainfluenza 4 (PCR) Not Detected (NotDetected) RSV (PCR) Not Detected (NotDetected) Entero/Rhino (PCR) Not Detected (NotDetected) 03/25/21 03/25/21 03/25/21 Range/Units 11:19 11:19 11:26 WBC (4.8-10.8) K/uL RBC (4.7-6.1) M/uL Hgb (14.0-18.0) g/dL POC Hgb 12.2 L (14.0-18.0) g/dl Hct (42-52) % POC Hct 36 L (42-52) % MCV (80-100) fL MCH (25-34) pg MCHC (32-36) g/dL RDW Std Deviation (36.4-46.3) fL RDW Coeff of Saumya (11.5-14.5) % Plt Count (130-400) K/uL MPV (7.4-10.4) fL Immature Gran % (Auto) % Neut % (Auto) % Lymph % (Auto) % Wake % (Auto) % Eos % (Auto) % Baso % (Auto) % Neut # (Auto) (1.4-6.5) K/uL Lymph # (Auto) (1.2-3.4) K/uL Wake # (Auto) (0.11-0.59) K/uL Eos # (Auto) (0-0.5) K/uL Baso # (Auto) (0-0.2) K/uL Immature Gran # (Auto) (0.00-0.02) K/uL POC Sodium 135 (135-144) mmol/L Sodium 134 L (136-145) mmol/L POC Potassium 3.6 (3.3-5.0) mmol/L Potassium 3.6 (3.5-5.1) mmol/L POC Chloride 96 L (101-112) mmol/L Chloride 97 L (98-107) mmol/L Carbon Dioxide 22 (21-32) mmol/L POC Total CO2 23 L (24-31) mmol/L Anion Gap 15.0 H (3-11) POC Anion Gap 20.0 (16-25) mmol/L POC BUN 58 H (7-18) mg/dl BUN 62 H (7-18) mg/dl Creatinine 15.60 H* (0.6-1.4) mg/dl POC Creatinine 16.3 H* (0.6-1.3) mg/dl Est Cr Clr Drug Dosing 4.5 ml/min Est GFR ( Amer) 3.4 ml/min Est GFR (Non-Af Amer) 2.9 ml/min BUN/Creatinine Ratio 4.0 L (10-20) Glucose 99 (70-99) mg/dl POC Glucose (other) 98 (70-99) mg/dl Calcium 9.0 (8.5-10.1) mg/dl POC Ioniz Calcium Ludivina 1.13 (1.12-1.32) mmol/l Magnesium 2.3 (1.8-2.4) mg/dl Total Bilirubin 0.3 (0.2-1) mg/dl AST 19 (15-37) U/L ALT 18 (12-78) U/L Alkaline Phosphatase 141 H (45-117) U/L Troponin I 0.031 (0-0.045) ng/ml Total Protein 7.6 (6.4-8.2) gm/dl Albumin 3.0 L (3.4-5.0) gm/dl Globulin 4.6 H (2.5-4.0) gm/dl Albumin/Globulin Ratio 0.7 L (0.9-2) TSH 6.450 H (0.300-4.500) uIu/ml Free T4 0.81 (0.8-1.6) ng/dl Adenovirus (PCR) (NotDetected) B. pertussis DNA (PCR) (NotDetected) B.parapertussis DNA PCR (NotDetected) Lyme Disease IgG Ab Negative (Negative) Lyme Disease IgM Ab Negative (Negative) C. pneumoniae DNA (PCR) (NotDetected) Coronavirus OC43 (PCR) (NotDetected) Coronavirus HKU1 (PCR) (NotDetected) Coronavirus 229E (PCR) (NotDetected) COVID-19 Eval Order SARS-CoV-2 (PCR) (NotDetected) Coronavirus NL63 (PCR) (NotDetected) Human Metapneumovir PCR (NotDetected) Influenza Type A (PCR) (NotDetected) Influenza Type B (PCR) (NotDetected) M. pneumoniae (PCR) (NotDetected) Parainfluenza 1 (PCR) (NotDetected) Parainfluenza 2 (PCR) (NotDetected) Parainfluenza 3 (PCR) (NotDetected) Parainfluenza 4 (PCR) (NotDetected) RSV (PCR) (NotDetected) Entero/Rhino (PCR) (NotDetected) Imaging Data Radiologist's Impression: Chest X-Ray 08/12/21 10:41 SINGLE VIEW CHEST CLINICAL HISTORY: Dysrhythmia. FINDINGS: An AP, portable, upright chest radiograph is compared to chest x-ray and chest CT dated 09/26/2020. The patient is status post cardiac valve surgery. The heart is enlarged noting atherosclerotic calcification of the thoracic aorta. The pulmonary vasculature is noncongested. Emphysematous change is noted. There is postoperative change and volume loss consistent with right-sided pulmonary resection. Suture material projects within the right midlung. Pleural fluid with right basilar scarring/atelectasis is similar to prior studies. There is no evidence of superimposed airspace consolidation to indicate pneumonia. No pneumothorax is seen. The skeletal structures are osteopenic. The bony thorax is grossly intact. IMPRESSION: 1. Cardiomegaly and emphysema with no radiographic evidence of congestive failure. 2. 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 ACT 112: Negative or not required by law. Electronically signed by: Julien Mcdonald M.D. 03/25/2021 10:59 AM ECG Data Attestation: I personally reviewed and interpreted this ECG as follows: Indication: + SOB/dyspnea Rate (beats per minute): 38 ECG Intervals/blocks: + Complete heart block ECG [place]: + Normal ECG Findings: + LVH MDM Narrative I did evaluate the patient as noted above. He is presenting with shortness of breath and fatigue for the past 2 days. His heart rate was 45 this morning and it is now 38. Initially his blood pressure was 92/48 but recheck showed a blood pressure of 123/60. IV access was established. I did place an order for continuous cardiac monitoring. The monitor showed complete heart block with a heart rate of 38. I did order and personally review the patient's 12-lead EKG as described above. He has a third-degree heart block with LVH. Heart rate is 38. I did call Dr. Giles who is his breaker machine tender. He recommended treating him with dopamine IV and he will arrange for pacemaker placement. I did order a dopamine drip at 5. I did order and personally reviewed the images of the patient's chest x-ray as described above. There is no acute cardiopulmonary process. I did order and review the patient's blood work as noted in the electronic medical record. His white blood cell count is 11.2. Hemoglobin is 12.8. Platelet count is 137. Electrolytes are unremarkable. Creatinine is elevated 15.6. He does have end-stage renal disease. Troponin is negative. Magnesium is unremarkable. TSH is elevated but free T4 is within normal limits. Dr. Giles did come see the patient in the emergency department. A stat echo was performed. He canceled the dopamine and order glucagon instead. I did discuss the case with the hospitalist and caseworker protective services. The patient was taken to the [facility] emergently for pacemaker placement. Impression & Plan Complete heart block, ESRD (end stage renal disease) on dialysis, Bradycardia Discharge Plan Visit Data Chief Complaint: Bradycardia Stated Complaint: BRADYCARDIA,FATIGUE,CANT BREATH ED Provider: Marcial Hampton Discharge Problem: Complete heart block, ESRD (end stage renal disease) on dialysis, Bradycardia Patient Disposition: Admitted As Inpatient Discharge Instructions Interventions: ED Discharge Assessment Last Done: 03/25/21 13:21
[2021-03-25] MEDS ORDERED: SODIUM CHLORIDE 0.9% 1000ML 500 ML IV ONE (11:17)
--- NOTE | 2021-03-25 11:27 | Cardiology Consultation ---
Date of Consultation March 25, 2021 Assessment & Plan (1) Complete heart block: (2) S/P TAVR (transcatheter aortic valve replacement): (3) Diastolic dysfunction: (4) PAD (peripheral artery disease): (5) Peritoneal dialysis status: (6) ESRD (end stage renal disease) on dialysis: (7) H/O vascular surgery: (8) History of lung cancer: (9) HTN (hypertension): The patient presents in symptomatic third-degree heart block presumably for 2 days given his symptoms. The pathophysiology and treatment options for which were discussed with him and his significant other is at great lengths. He is on high-dose carvedilol but did not take his medication this morning, I will give him a bolus of glucagon for beta-tanna reversal to be on the safe side. Stat labs will also be drawn including a Lyme titer and rapid Covid test. Should no reversible cause become apparent then will proceed with dual-chamber permanent pacemaker placement and the patient is in agreement with this plan. We will give 500 mL of normal saline bolus now and continue drip May start dopamine drip if necessary to maintain blood pressure or should he become symptomatic. History of Present Illness Reason for Consultation: 3rd degree heart block Requesting Physician: Dr. Hampton Attending Physician: [facility] History of Present Illness Mr. Hung is a very pleasant yet medically complex 61-year-old gentleman who routinely follows with myself as an outpatient. He presented to [facility] emergency department on 03/25/2021 with complaints of lightheadedness, fatigue and near syncope. He states that for the last 2 days he has been feeling well. He has been significantly rundown which is unusual for him. He has been having spells of lightheadedness and while he has not lost consciousness he states he has felt close a few times. He is also been getting winded with any significant activity but denies chest pain or palpitations. He has been compliant with his medications and his nocturnal peritoneal dialysis. He spoke to his slide fasteners inspector this morning who told him not to take his a.m. meds. Upon arrival to the emergency department he was found to be in third- degree heart block initially somewhat hypotensive but his blood pressure normalized. I was notified by Dr. Hampton and I saw the patient urgently at the bedside along with his significant other. He denies any recent tick bites but does live in the [facility]. Otherwise, has been feeling well as of late. PAST MEDICAL HISTORY: 1.Severe aortic stenosisstatus post TAVR with a #26Sapien 3Tvalve 2. Nonobstructive coronary artery disease 3. Diastolic dysfunction with normal LV systolic function 4. End-stage renal failure on peritoneal dialysis 5. History of lung cancer status post lobectomy 6. Hypertension 7. Depression 8. Peripheral arterial diseasestatus post bilateral common iliac artery stent placement 9. Pericardial effusion with tamponade physiology status post pericardiocentesis September 2020 Allergies Allergy/AdvReac Type Severity Reaction Status Date / Time mercury (elemental) Allergy Intermediate Rash Verified 09/26/20 16:04 NSAIDS (Non-Steroidal Allergy Intermediate not to Verified 09/26/20 16:04 Anti-Inflamma take d/t Kidney disease lisinopril AdvReac Intermediate COUGH Verified 09/26/20 16:04 Home Medications Medication Instructions Recorded Confirmed Type amlodipine 10 mg tablet 10 mg PO QAM 05/06/19 09/26/20 History dutasteride 0.5 mg capsule 0.5 mg PO QAM 05/06/19 09/26/20 History trazodone 50 mg tablet 50 mg PO HS PRN tab 05/06/19 09/26/20 History calcitriol 0.25 mcg capsule 0.5 mcg PO QAM 06/11/20 09/26/20 History allopurinol 100 mg tablet 100 mg PO QAM 06/30/20 09/26/20 History furosemide 80 mg tablet 80 mg PO QAM 06/30/20 09/26/20 History omeprazole 40 mg capsule,delayed 40 mg PO QAM 06/30/20 09/26/20 History release albuterol sulfate 90 mcg/actuation 2 puff INHALATION Q4 PRN 09/26/20 09/26/20 History aerosol inhaler (Ventolin HFA) aspirin 81 mg tablet,delayed 81 mg PO DAILY 09/26/20 09/26/20 History release atorvastatin 40 mg tablet (Lipitor) 40 mg PO DAILY 09/26/20 09/26/20 History bupropion HCl 150 mg 24 hr tablet, 150 mg PO DAILY 09/26/20 09/26/20 History extended release carvedilol 25 mg tablet (Coreg) 25 mg PO BID 09/26/20 09/26/20 History clopidogrel 75 mg tablet 75 mg PO DAILY 09/26/20 09/26/20 History escitalopram oxalate 20 mg tablet 20 mg PO DAILY 09/26/20 09/26/20 History oxycodone-acetaminophen 5 mg-325 1 tab PO Q8 09/26/20 09/26/20 History mg tablet (Percocet) ropinirole 0.25 mg tablet (Requip) 0.25 mg PO HS 09/26/20 09/26/20 History sucroferric oxyhydroxide 500 mg 500 mg PO TIDM 09/26/20 09/26/20 History chewable tablet (Velphoro) tamsulosin 0.4 mg capsule (Flomax) 0.4 mg PO QPM 09/26/20 09/26/20 History vit B complx, C-iron 8 mg-folic 1 tab PO DAILY 09/26/20 09/26/20 History acid 800 mcg-D3 1,000 unit-zinc tablet (ProRenal) colchicine 0.6 mg tablet (Colcrys) 0.6 mg PO BID #30 tab 09/27/20 Rx ibuprofen 600 mg tablet 600 mg PO Q8 #30 tab 09/27/20 Rx gentamicin 0.1 % topical cream 1 applic TOPICAL DAILY #30 g 03/10/21 Rx isosorbide mononitrate 30 mg 30 mg PO QAM #30 tab 03/22/21 Rx tablet,extended release 24 hr Patient History Medical History (Updated 03/25/21 @ 11:31 by Natalio Giles DO) AV fistula "L side " CAD (coronary artery disease) NONOBSTRUCTIVE Cardiac murmur HX OF TAVR SEP 2019 SECONDARY TO SEVERE Carotid artery stenosis RIGHT ICA= <50%; LEFT ICA= 50-69% Chronic kidney disease, stage IV (severe) Dialysis patient X 4 YRS-PERITONEAL DIALYSIS Q HS X 8 HRS Diastolic dysfunction with normal LV systolic function Dyslipidemia Fitting and adjustment of peritoneal dialysis catheter PLACEMENT OF-IN PLACE GERD (gastroesophageal reflux disease) Gout Hiatal hernia History of lung cancer NON SMALL CANCER RLL-07/2019 [facility] [place] HTN (hypertension) Kidney donor PAD (peripheral artery disease) Follows with vascular surgery Peritoneal dialysis status Spinal stenosis NO NECK OR BACK SURGERY Surgical History AV fistula CREATION OF IN LEFT WRIST H/O vascular surgery 04/2020 ST[facility] PLACED [facility] BILAT LE (BILATERAL COMMON ILIAC ARTERY STENT PLACEMENT) History of colonoscopy History of lung surgery RLL 07/2019 History of nephrectomy, unilateral "Kidney donor "1992 S/P AVR (aortic valve replacement) 09/2019 [facility] [place]U DR GILES Family History Brother Family history of diabetes mellitus Brother Family history of diabetes mellitus Sister Family history of diabetes mellitus Mother Family history of diabetes mellitus Social History Smoking Status: Never smoker Tobacco Type: Smokeless Tobacco (Dip or Chew) Second Hand Exposure: No; Hx Alcohol Use: No Hx Substance Use: No Preferred Language: Citizen Of [place] Communication Ability: Effective Visual Impairment: No Limitations Farmworker Dairy Required: No Beliefs That Will Affect Care: None Current Living Situation: Other Feels Safe at Home: Yes Assistive Devices: Denture - Upper, Denture - Lower and Glasses Review of Systems Review of Systems: All systems reviewed & are unremarkable except as noted in HPI & below Physical Exam Physical Exam: General: Awake, alert and oriented x 3. No acute distress. HEENT: Normocephalic, atraumatic. Pupils equal, round and reactive to light and accommodation. Extraocular muscles are intact. Anicteric sclera. Moist mucous membranes. Neck: No JVD. No bruit. Cardiovascular: Regular. Positive S-4. Normal S-1 and S-2. No S-3. 3/6 mid to late systolic ejection murmur, greatest at the right sternal border, second intercostal space with radiation to the bilateral carotids. No rubs. Pulmonary: Clear to auscultation bilaterally. No rales, rhonchi, or wheezing. Abdomen: Bowel sounds x 4, soft. No rebound, guarding or tenderness. No organomegaly. Extremities: No clubbing, cyanosis or edema. +2 pedal pulses bilaterally. Skin: Warm and dry. Results & Data ([facility]) Vital Signs (Past 12 Hours) Vital Signs Temp Pulse Resp BP Pulse Ox 03/25/21 10:26 36.0 C L 38 L 18 92/48 L 98
[2021-03-25 11:33] LABS: Basophils # (auto) 0.03 K/uL (0-0.2); Basophils % (auto) 0.3 %; Eosinophils % (auto) 1.8 %; Hematocrit (blood only) 37.9 % (42-52); Hemoglobin 12.8 g/dL (14.0-18.0); Immature Granulocytes # (auto) 0.04 K/uL (0.00-0.02); Immature Granulocytes % (auto) 0.4 %; Lymphocytes # (auto) 1.09 K/uL (1.2-3.4); Lymphocytes % (auto) 9.7 %; Mean Corpuscular Hemoglobin 31.4 pg (25-34); Mean Corpuscular Hgb Conc 33.8 g/dL (32-36); Mean Corpuscular Volume 93.1 fL (80-100); Mean Platelet Volume 10.8 fL (7.4-10.4); Monocytes # (auto) 0.96 K/uL (0.11-0.59); Monocytes % (auto) 8.5 %; Neutrophils # (auto) 8.91 K/uL (1.4-6.5); Neutrophils % (auto) 79.3 %; Platelet Count 137 K/uL (130-400); RDW Coefficient of Variation 14.6 % (11.5-14.5); RDW Standard Deviation 49.5 fL (36.4-46.3); Red Blood Count 4.07 M/uL (4.7-6.1); White Blood Count 11.23 K/uL (4.8-10.8)
[2021-03-25 11:45] LABS: iSTAT Creatinine 16.3 mg/dl (0.6-1.3); iSTAT Hemoglobin 12.2 g/dl (14.0-18.0); iSTAT Ionized Calcium 1.13 mmol/l (1.12-1.32); iSTAT Potassium 3.6 mmol/L (3.3-5.0)
[2021-03-25] MEDS ORDERED: ONDANSETRON INJ 2 MG/ML 2 ML VIAL IV STA (11:55)
[2021-03-25 12:07] LABS: Adenovirus PCR Not Detected (NotDetected); Bordetella parapertussis PCR Not Detected (NotDetected); Bordetella pertussis PCR Not Detected (NotDetected); Chlamydia pneumoniae PCR Not Detected (NotDetected); Coronavirus 229E PCR Not Detected (NotDetected); Coronavirus CoV-2 (COVID19)PCR Not Detected (NotDetected); Coronavirus HKU1 PCR Not Detected (NotDetected); Coronavirus NL63 PCR Not Detected (NotDetected); Coronavirus OC43PCR Not Detected (NotDetected); Human Metapneumovirus PCR Not Detected (NotDetected); Influenza A PCR Not Detected (NotDetected); Influenza B PCR Not Detected (NotDetected); Mycoplasma pneumoniae PCR Not Detected (NotDetected); Parainfluenza Virus 1 PCR Not Detected (NotDetected); Parainfluenza Virus 2 PCR Not Detected (NotDetected); Parainfluenza Virus 3 PCR Not Detected (NotDetected); Parainfluenza Virus 4 PCR Not Detected (NotDetected); Respiratory Syncytial VirusPCR Not Detected (NotDetected); Rhinovirus/Enterovirus PCR Not Detected (NotDetected)
[2021-03-25 12:08] LABS: Albumin Globulin Ratio 0.7 (0.9-2); Bilirubin,Total 0.3 mg/dl (0.2-1); Creatinine Clr Calc Pharmacy 4.5 ml/min; Est GFR (African American) 3.4 ml/min; Est GFR (Non-African American) 2.9 ml/min; Globulin 4.6 gm/dl (2.5-4.0); Magnesium 2.3 mg/dl (1.8-2.4); Potassium 3.6 mmol/L (3.5-5.1); Thyroid Stimulating Hormone 6.45 uIu/ml (0.300-4.500); Total Protein 7.6 gm/dl (6.4-8.2); Troponin I 0.031 ng/ml (0-0.045)
--- NOTE | 2021-03-25 12:20 | History & Physical Report ---
Date of Service March 25, 2021 Assessment & Plan (1) Complete heart block: Plan: -Admit to ICU -Evaluated by cardiology in the ED -Initially borderline hypotensive which improved after IVF -Initiate dopamine if patient becomes more unstable -Received IV glucagon by cardiology for beta-tanna reversal -Plan for pacemaker if no reversible cause identified, Lyme pending (2) CAD (coronary artery disease): Plan: -Nonobstructive -Continue aspirin, Plavix, statin -Hold nitrate, beta-tanna for now (3) Diastolic dysfunction: Plan: -Hold home furosemide for now (4) HTN (hypertension): Plan: -Hold amlodipine, carvedilol, isosorbide for now (5) PAD (peripheral artery disease): Plan: -Continue aspirin, Plavix, statin (6) Peritoneal dialysis status: (7) ESRD (end stage renal disease) on dialysis: Plan: -Performs nocturnal peritoneal dialysis at home -Nephrology consult ([facility]) (8) DVT prophylaxis: Plan: -SCDs History of Present Illness Chief Complaint: Fatigue, shortness of breath Primary Care Provider: Sundar Ruiz, 61-year-old male with PMH chronic diastolic CHF, history of aortic stenosis s/p TAVR, PAD with history of bilateral common iliac artery stenting and femoropopliteal bypass, ESRD on peritoneal dialysis, history of pericardial effusion s/p pericardiocentesis, history of lung cancer s/p lobectomy, chronic diastolic CHF, and other problems listed below who presents to the ED for evaluation of fatigue and shortness of breath. Patient reports he has not been feeling well for the past 2 days. Reports increasing fatigue and shortness of breath. Has had lightheadedness and dizziness however no syncopal event. Denies chest pain and palpitations. No other recent illnesses, fevers, chills. Denies abdominal pain, nausea, vomiting, diarrhea. No urinary symptoms. Reports compliance with home peritoneal dialysis and medications. In the ED, patient is found to be in third-degree heart block. Initially was hypotensive however BP improved after IVF. Cardiology was consulted and evaluated the patient in the ED. Pending labs, patient will proceed for pacemaker placement today. Allergies Allergy/AdvReac Type Severity Reaction Status Date / Time mercury (elemental) Allergy Intermediate Rash Verified 03/25/21 12:06 NSAIDS (Non-Steroidal Allergy Intermediate not to Verified 03/25/21 12:06 Anti-Inflamma take d/t Kidney disease lisinopril AdvReac Intermediate COUGH Verified 03/25/21 12:06 Home Medications Medication Instructions Recorded Confirmed Type amlodipine 10 mg tablet 10 mg PO QAM 05/06/19 03/25/21 History dutasteride 0.5 mg capsule 0.5 mg PO QAM 05/06/19 03/25/21 History trazodone 50 mg tablet 50 mg PO HS PRN tab 05/06/19 03/25/21 History calcitriol 0.25 mcg capsule 0.5 mcg PO QAM 06/11/20 03/25/21 History allopurinol 100 mg tablet 100 mg PO QAM 06/30/20 03/25/21 History furosemide 80 mg tablet 80 mg PO QAM 06/30/20 03/25/21 History omeprazole 40 mg capsule,delayed 40 mg PO BID 06/30/20 03/25/21 History release albuterol sulfate 90 mcg/actuation 2 puff INHALATION Q4 PRN 09/26/20 03/25/21 History aerosol inhaler (Ventolin HFA) aspirin 81 mg tablet,delayed 81 mg PO QAM 09/26/20 03/25/21 History release atorvastatin 40 mg tablet (Lipitor) 40 mg PO QAM 09/26/20 03/25/21 History bupropion HCl 150 mg 24 hr tablet, 150 mg PO QAM 09/26/20 03/25/21 History extended release carvedilol 25 mg tablet (Coreg) 25 mg PO BID 09/26/20 03/25/21 History clopidogrel 75 mg tablet 75 mg PO QAM 09/26/20 03/25/21 History escitalopram oxalate 20 mg tablet 20 mg PO QAM 09/26/20 03/25/21 History oxycodone-acetaminophen 5 mg-325 1 tab PO Q8 PRN 09/26/20 03/25/21 History mg tablet (Percocet) ropinirole 0.25 mg tablet (Requip) 0.25 mg PO HS 09/26/20 03/25/21 History sucroferric oxyhydroxide 500 mg 500 mg PO TIDM 09/26/20 03/25/21 History chewable tablet (Velphoro) vit B complx, C-iron 8 mg-folic 1 tab PO QAM 09/26/20 03/25/21 History acid 800 mcg-D3 1,000 unit-zinc tablet (ProRenal) gentamicin 0.1 % topical cream 1 applic TOPICAL DAILY #30 g 03/10/21 03/25/21 Rx isosorbide mononitrate 30 mg 30 mg PO QAM #30 tab 03/22/21 03/25/21 Rx tablet,extended release 24 hr colchicine 0.6 mg tablet (Colcrys) 0.6 mg PO QAM 03/25/21 03/25/21 History Past Med/Surg History Medical History AV fistula "L side " CAD (coronary artery disease) NONOBSTRUCTIVE Cardiac murmur HX OF TAVR SEP 2019 SECONDARY TO SEVERE Carotid artery stenosis RIGHT ICA= <50%; LEFT ICA= 50-69% Chronic kidney disease, stage IV (severe) Dialysis patient X 4 YRS-PERITONEAL DIALYSIS Q HS X 8 HRS Diastolic dysfunction with normal LV systolic function Dyslipidemia Fitting and adjustment of peritoneal dialysis catheter PLACEMENT OF-IN PLACE GERD (gastroesophageal reflux disease) Gout Hiatal hernia History of lung cancer NON SMALL CANCER RLL-07/2019 [facility] [place] HTN (hypertension) Kidney donor PAD (peripheral artery disease) Follows with vascular surgery Pericardial effusion s/p pericardiocentesis Peritoneal dialysis status Spinal stenosis NO NECK OR BACK SURGERY Surgical History AV fistula CREATION OF IN LEFT WRIST H/O vascular surgery 04/2020 STENTS PL[place] [facility] [place]BILATERAL COMMON ILIAC ARTERY STENT PLACEMENT) History of colonoscopy History of lung surgery RLL 07/2019 History of nephrectomy, unilateral "Kidney donor "1992 S/P femoral-popliteal bypass surgery S/P TAVR (transcatheter aortic valve replacement) Family History Brother Family history of diabetes mellitus Brother Family history of diabetes mellitus Sister Family history of diabetes mellitus Mother Family history of diabetes mellitus Social History Smoking Status: Never smoker Tobacco Type: Smokeless Tobacco (Dip or Chew) Second Hand Exposure: No; Hx Alcohol Use: No Hx Substance Use: No Preferred Language: Italian Communication Ability: Effective Visual Impairment: No Limitations Driller Machine Required: No Beliefs That Will Affect Care: None Current Living Situation: Other Feels Safe at Home: Yes Assistive Devices: Denture - Upper, Denture - Lower and Glasses Review of Systems Review of Systems: ROS per HPI, all other systems reviewed and negative Physical Exam Constitutional: WD/WN, vitals as above Eyes: PERRL, conjunctivae normal, anicteric sclerae ENMT: external ear and nose normal, oropharynx normal Respiratory: normal respiratory effort, lungs clear to auscultation Cardiovascular: Rate/Rhythm: regular rhythm and + bradycardic Heart Sounds: + murmur (Grade 3/6 systolic) Extremities: no edema Gastrointestinal (Abdomen): normal bowel sounds, soft, nontender, no hepatosplenomegaly Musculoskeletal: no cyanosis or clubbing, extremities motor strength 5/5 Skin: no rashes, warm and dry Neurologic: PERRL, EOMI, accommodation nl, no face palsy, no dysarthria Psychiatric: A+Ox3, euthymic affect Results & Data Results & Data ([facility]) Vital Signs (Past 12 Hours) Vital Signs Temp Pulse Resp BP Pulse Ox 03/25/21 11:38 38 L 18 127/58 L 98 03/25/21 10:26 36.0 C L 38 L 18 92/48 L 98 Laboratory Results Short CBC 03/25/21 Range/Units 11:19 WBC 11.23 H (4.8-10.8) K/uL Hgb 12.8 L (14.0-18.0) g/dL Hct 37.9 L (42-52) % Plt Count 137 (130-400) K/uL BMP 03/25/21 11:19 Sodium 134 L Potassium 3.6 Chloride 97 L Carbon Dioxide 22 BUN 62 H Creatinine 15.60 H* Glucose 99 Calcium 9.0 Cardiac Enzymes 03/25/21 Range/Units 11:19 Troponin I 0.031 (0-0.045) ng/ml Liver Function 03/25/21 Range/Units 11:19 Total Bilirubin 0.3 (0.2-1) mg/dl AST 19 (15-37) U/L ALT 18 (12-78) U/L Alkaline Phosphatase 141 H (45-117) U/L Albumin 3.0 L (3.4-5.0) gm/dl Diagnostic Findings Chest X-Ray 03/25/21 10:41 SINGLE VIEW CHEST CLINICAL HISTORY: Dysrhythmia. FINDINGS: An AP, portable, upright chest radiograph is compared to chest x-ray and chest CT dated 09/26/2020. The patient is status post cardiac valve surgery. The heart is enlarged noting atherosclerotic calcification of the thoracic aorta. The pulmonary vasculature is noncongested. Emphysematous change is noted. There is postoperative change and volume loss consistent with right-sided pulmonary resection. Suture material projects within the right midlung. Pleural fluid with right basilar scarring/atelectasis is similar to prior studies. There is no evidence of superimposed airspace consolidation to indicate pneumonia. No pneumothorax is seen. The skeletal structures are osteopenic. The bony thorax is grossly intact. IMPRESSION: 1. Cardiomegaly and emphysema with no radiographic evidence of congestive failure. 2. There is postoperative change from right-sided pulmonary resection with chronic pleural fluid at the right lung base. ACT 112: Negative or not required by law. Electronically signed by: Julien Mcdonald M.D. 03/25/2021 10:59 AM Code Status & VTE Plan VTE Prophylaxis Plan VTE Prophylaxis will be ordered: Yes Supervising Physician Co-Signing Physician Notes I saw this patient with the Nurse Practitioner, I participated in the history, physical, review of systems, and physical exam. I reviewed the medications with the patient and the Nurse Practitioner and helped reconcile the medications. I helped take a detailed family and social history as well. I formulated the assessment and plan personally with the Nurse Practitioner went over it with the patient. Physical Exam Gen-AAO x 3, NAD, Afebrile Head-NCAT, EOMI, PERRLA, Anicteric Sclera, No Posterior Pharyngeal Erythema Neck-Supple, No JVD, No Thyromegaly, No Masses, No LAD, No Bruits Lungs-Clear to Auscultation Bilaterally, No Rales, No Rhonchi, No Wheezing, No Crepitus Chest-Bradycardic c 2/6 AKANKSHA, No S4, +S1, +S2, No S3, No Rubs, No Gallops Abdomen-Soft, Bowel Sounds Present, Non Tender, Non Distended, No Hepatomegaly, No Splenomegaly, No Palpable Masses, No Rebound, No Rigidity, No Guarding Musculoskeletal-Full Range of Motion Bilaterally, No CVAT Extremities-No Cyanosis, No Clubbing, No Edema Nuero-Cranial Nerves II-XII grossly intact, Motor WNL, DTRs WNL, Strength WNL, Non Focal Psych-Normal Mood
[2021-03-25 12:21] LABS: Lyme Ab IgG w/WB Rflx Negative (Negative); Lyme Ab IgM w/WB Rflx Negative (Negative)
[2021-03-25 12:31] LABS: T4 Free Thyroxine 0.81 ng/dl (0.8-1.6)
[2021-03-25] MEDS ORDERED: LIDOCAINE 1% LOCAL 20 ML VIAL ONE (13:23)
[2021-03-25] MEDS ORDERED: WATER, STERILE FOR INJ 10 ML VIAL ONE (13:24)
[2021-03-25] MEDS ORDERED: VANCOMYCIN HCL 1000MG/20ML VIAL ONE (13:24)
[2021-03-25] MEDS ORDERED: BUPIVACAINE 0.25% 30 ML VIAL ONE (13:24)
--- NOTE | 2021-03-25 13:26 | Electrocardiogram Report ---
Test Reason : Blood Pressure : / mmHG Vent. Rate : 038 BPM Atrial Rate : 038 BPM P-R Int : 000 ms QRS Dur : 128 ms QT Int : 654 ms P-R-T Axes : 058 016 094 degrees QTc Int : 519 ms Sinus rhythm with 2:1 AV conduction Left ventricular hypertrophy with QRS widening and repolarization abnormality Abnormal ECG When compared with ECG of 26-SEP-2020 15:05, QRS duration has increased Borderline criteria for Inferior infarct are no longer Present Confirmed by Ty Thomas ([id number]) on 03/25/2021 1:25:35 PM Referred By: REFERRED SELF Confirmed By:Hieu Thomas
--- NOTE | 2021-03-25 13:46 | Pre Anesthesia Assessment ---
Date of Service March 25, 2021 Pre Sedation Assessment Vital Signs Temp Pulse Pulse Resp BP BP Pulse Ox 03/25/21 13:29 36 L 20 145/59 H 100 03/25/21 13:21 49 L 18 90/47 L 95 03/25/21 13:01 49 L 18 90/47 L 95 03/25/21 12:31 36 L 12 117/36 L 96 03/25/21 12:01 39 L 15 177/72 H 100 03/25/21 11:38 38 L 18 127/58 L 98 03/25/21 10:26 36.0 C L 38 L 18 92/48 L 98 Cardiovascular + bradycardic Respiratory + respiratory effort normal Pre-Sedation Airway Assessment Smoking Status: Never smoker Hx Sleep Apnea: No Hx Difficult Intubation: No Short, Thick Neck: No Thyromental Distance: > or= 3.5 Finger Breadths Oral Cavity: + Dentures Mallampati Class: I ASA: ASA3 NPO Status Date of Last Intake of Fluids: 03/25/21 Time of Last Intake of Fluids: 07:00 Date of Last Intake of Solid Food: 03/24/21 Time of Last Intake of Solid Foods: 18:00 Procedure Planning Contraindications for Sedation: none Current Medications Reviewed: Yes Notes The planned sedation has been discussed with the patient. Informed Consent was obtained. I have identified the patient, determined the appropriateness of se dation and have assessed the patient immediately prior to the procedure. All medicine(s) and interventions are by my order.
[2021-03-25] MEDS ORDERED: fentaNYL citrate 100 MCG/2 ML VIAL ONE (13:52)
[2021-03-25] MEDS ORDERED: MIDAZOLAM HCL 5 MG/ML 1 ML VIAL ONE (13:52)
[2021-03-25] MEDS ORDERED: ACETAMINOPHEN 325 MG TAB PO PRN (14:50)
--- NOTE | 2021-03-25 14:50 | Electrophysiology Report ---
Date of Service March 25, 2021 Electrophysiology Procedure Electrophysiology Procedure Report Procedure performed: Implantation of dual-chamber permanent pacemaker Staff community outreach advocate: Ty Thomas MD Indication: The patient is a 61-year-old gentleman with a history of cardiac d isease having previously undergone a transaortic valve replacement. He presented today with symptoms of exercise intolerance and fatigue and was discovered to have third-degree heart block. He was felt be a good candidate for a dual-chamber pacemaker due to symptomatic nonreversible AV node dysfunction. Dual-chamber device was selected as he is currently in sinus rhythm and wished to maintain AV synchrony. Procedure in detail: The patient was informed of the risks benefits and alternatives to the intended procedure and she wished to proceed. He was taken to the electrophysiology suite in a fasting state. A preoperative antibiotic had been administered. The patient was monitored electrocardiographically throughout today's procedure and conscious sedation was administered per protocol. The right upper pectoral area is prepped and draped in usual sterile fashion. This area was anesthetized using subcutaneous administration of a xylocaine solution. An incision was made at this site and carried down to the prepectoralis fascia using sharp dissection. Electrocautery was also employed for dissection as well as for hemostasis. A device pocket was fashioned tissues above the pectoralis muscle. Subsequent to this maneuver the left axillary vein was accessed using modified Seldinger technique. Sheaths were placed over guidewires at this site and used to facilitate passage of the pacing leads to the respective chambers under fluoroscopic guidance. This included right atrial and right ventricular leads. Adequate sensing and threshold parameters were obtained prior to Active fixation of the leads to the endocardial surface. The proximal portion leads were then sutured the prepectoral fascia using nonabsorbable suture. The device pocket was irrigated with antibiotic solution. The leads were then attached to the device. The device and leads were then placed in the pocket and pocket was closed in 3 layers of absorbable suture. Steri-Strips and sterile dressing were applied. The device was tested noninvasively prior to conclusion the procedure. The patient tolerated procedure well there no immediate complications. Equipment used: New pulse generator: [employer]. Model number: [id number] serial number [id number] Right atrial lead: [employer]. Model number: 5076 serial number [id number] Right ventricular lead: [employer]. Model number: 5076 serial number [id number] Measured data: Right atrial lead: P waves measure 1.3 mV. Pacing threshold was 0.7 V at 0.4 ms with a pacing impedance of 380 ohms Right ventricular lead: No intrinsic R waves are measured. Pacing threshold was 0.7 V at 0.4 ms with a pacing impedance of 741 ohms Impression: Successful implantation of right sided dual-chamber pacemaker MNPG Electrophysiology codes Pacing Procedure 1: Pacin Insert/Replace Pacer A & V PG Moderate Sedation Codes Moderate Sedation Codes Procedure 1: Sedation/Anesthesia: 92776 Mod Sedation by the same physician;Init15 Min Child Age 5 & Up Procedure 2: Sedation/Anesthesia: 12894 Mod Sedation by the same physician; Ea [id number] Minutes
--- NOTE | 2021-03-25 16:01 | Nephrology Consultation ---
Date of Consultation March 25, 2021 Assessment & Plan (1) ESRD (end stage renal disease) on dialysis: * Will provide PD tonight according to chronic outpatient orders. Orders have been entered into EMR and PD RN notified * Recommend HD diet * Continue nephrovite one daily * Post sign to protect L arm AVF (2) Complete heart block: * s/p pacemaker 03/25/21 (3) S/P TAVR (transcatheter aortic valve replacement): (4) PAD (peripheral artery disease): (5) History of lung cancer: History of Present Illness Reason for Consultation: ESRD Attending Physician: HARPER Santoyo History of Present Illness Mr. Hung is a 61 year old white male [facility] Medical records in the EMR were reviewed today and are summarized as follows: Mr. Hung has ESRD due to hypertensive nephrosclerosis. In 1994 he donated his R kidney to his sister. In 12/27 he progressed to ESRD and was started on NCCPD. His current dialysis regimen consists of NCCPD 5 exchanges/night, 2.5L fill volume, 1.5% dextrose, 90 min dwell. LBO 2L fill, 4 hour dwell. EDW is 70kg. This morning Mr. Hung felt fatigued. He noted that his resting HR was only 45 bpm. EMD evaluation revealed 3rd degree heart block. Beta tanna therapy was not affected by glucagon. Mr. Hung required emergency pacemaker placement. He is now evaluated in the post cath recovery room. He reports that his breathing is improved. He denies fever, angina or uremic symptoms. 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 Presumed viral # PVD - bilateral iliac artery stenosis s/p OUTREACH REP 05/03 [facility] [place] # Lyme disease 05/31 # Hep C s/p 12 weeks Zepatier therapy. Post treatment PCR negative 2016 # HTN # Gout # ROSELIA # RLS Allergies Allergy/AdvReac Type Severity Reaction Status Date / Time mercury (elemental) Allergy Intermediate Rash Verified 03/25/21 12:06 NSAIDS (Non-Steroidal Allergy Intermediate not to Verified 03/25/21 12:06 Anti-Inflamma take d/t Kidney disease lisinopril AdvReac Intermediate COUGH Verified 03/25/21 12:06 Home Medications Medication Instructions Recorded Confirmed Type amlodipine 10 mg tablet 10 mg PO QAM 05/06/19 03/25/21 History dutasteride 0.5 mg capsule 0.5 mg PO QAM 05/06/19 03/25/21 History trazodone 50 mg tablet 50 mg PO HS PRN tab 05/06/19 03/25/21 History calcitriol 0.25 mcg capsule 0.5 mcg PO QAM 06/11/20 03/25/21 History allopurinol 100 mg tablet 100 mg PO QAM 06/30/20 03/25/21 History furosemide 80 mg tablet 80 mg PO QAM 06/30/20 03/25/21 History omeprazole 40 mg capsule,delayed 40 mg PO BID 06/30/20 03/25/21 History release albuterol sulfate 90 mcg/actuation 2 puff INHALATION Q4 PRN 09/26/20 03/25/21 History aerosol inhaler (Ventolin HFA) aspirin 81 mg tablet,delayed 81 mg PO QAM 09/26/20 03/25/21 History release atorvastatin 40 mg tablet (Lipitor) 40 mg PO QAM 09/26/20 03/25/21 History bupropion HCl 150 mg 24 hr tablet, 150 mg PO QAM 09/26/20 03/25/21 History extended release carvedilol 25 mg tablet (Coreg) 25 mg PO BID 09/26/20 03/25/21 History clopidogrel 75 mg tablet 75 mg PO QAM 09/26/20 03/25/21 History escitalopram oxalate 20 mg tablet 20 mg PO QAM 09/26/20 03/25/21 History oxycodone-acetaminophen 5 mg-325 1 tab PO Q8 PRN 09/26/20 03/25/21 History mg tablet (Percocet) ropinirole 0.25 mg tablet (Requip) 0.25 mg PO HS 09/26/20 03/25/21 History sucroferric oxyhydroxide 500 mg 500 mg PO TIDM 09/26/20 03/25/21 History chewable tablet (Velphoro) vit B complx, C-iron 8 mg-folic 1 tab PO QAM 09/26/20 03/25/21 History acid 800 mcg-D3 1,000 unit-zinc tablet (ProRenal) gentamicin 0.1 % topical cream 1 applic TOPICAL DAILY #30 g 03/10/21 03/25/21 Rx isosorbide mononitrate 30 mg 30 mg PO QAM #30 tab 03/22/21 03/25/21 Rx tablet,extended release 24 hr colchicine 0.6 mg tablet (Colcrys) 0.6 mg PO QAM 03/25/21 03/25/21 History Patient History Medical History AV fistula "L side " CAD (coronary artery disease) NONOBSTRUCTIVE Cardiac murmur HX OF TAVR SEP 2019 SECONDARY TO SEVERE Carotid artery stenosis RIGHT ICA= <50%; LEFT ICA= 50-69% Chronic kidney disease, stage IV (severe) Dialysis patient X 4 YRS-PERITONEAL DIALYSIS Q HS X 8 HRS Diastolic dysfunction with normal LV systolic function Dyslipidemia Fitting and adjustment of peritoneal dialysis catheter PLACEMENT OF-IN PLACE GERD (gastroesophageal reflux disease) Gout Hiatal hernia History of lung cancer NON SMALL CANCER RLL-07/2019 [facility] [place] HTN (hypertension) Kidney donor PAD (peripheral artery disease) Follows with vascular surgery Pericardial effusion s/p pericardiocentesis Peritoneal dialysis status Spinal stenosis NO NECK OR BACK SURGERY Surgical History AV fistula CREATION OF IN LEFT WRIST H/O vascular surgery 04/2020 STENTS PLACED [facility] [place] BILAT LE (BILATERAL COMMON ILIAC ARTERY STENT PLACEMENT) History of colonoscopy History of lung surgery [facility] 07/2019 History of nephrectomy, unilateral "Kidney donor "1992 S/P femoral-popliteal bypass surgery S/P TAVR (transcatheter aortic valve replacement) Family History Brother Family history of diabetes mellitus Brother Family history of diabetes mellitus Sister Family history of diabetes mellitus Mother Family history of diabetes mellitus Social History Smoking Status: Never smoker Tobacco Type: Smokeless Tobacco (Dip or Chew) Second Hand Exposure: No; Hx Alcohol Use: No Hx Substance Use: No Preferred Language: [place] Communication Ability: Effective Visual Impairment: No Limitations Box Storage Worker Required: No Beliefs That Will Affect Care: None Current Living Situation: Other Feels Safe at Home: Yes Assistive Devices: Denture - Upper, Denture - Lower and Glasses Review of Systems Constitutional: + weakness; no fever Eyes: no problem reported Ear, Nose, Mouth, Throat: no problem reported Respiratory: no cough and no dyspnea Cardiovascular: no chest pain, no palpitations and no edema Gastrointestinal: no abdominal pain, no nausea, no vomiting and no diarrhea/loose stools Genitourinary: no dysuria, no urinary hesitancy or no hematuria Musculoskeletal: no back pain Integumentary: no rash Neurologic: no falls, no dizziness and no confusion Physical Exam Physical Exam: Telemetry reveals paced rhythm Constitutional: not in distress Eyes: PERRL, conjunctivae normal, anicteric sclerae ENMT: external ear and nose normal, oropharynx normal Neck: trachea midline, no thyromegaly Respiratory: normal respiratory effort, lungs clear to auscultation Cardiovascular: Rate/Rhythm: regular rate Heart Sounds: + murmur Gastrointestinal (Abdomen): normal bowel sounds, soft, nontender, no hepatosplenomegaly PD catheter exit site without erythema or drainage Neurologic: awake (oriented x3, follows commands) Results & Data ([facility]) Vital Signs (Past 12 Hours) Vital Signs Temp Pulse Pulse Resp BP BP Pulse Ox 03/25/21 15:30 62 16 110/61 96 03/25/21 15:00 65 16 112/62 96 03/25/21 14:50 65 16 116/66 96 03/25/21 13:29 36 L 20 145/59 H 100 03/25/21 13:21 49 L 18 90/47 L 95 03/25/21 13:01 49 L 18 90/47 L 95 03/25/21 12:31 36 L 12 117/36 L 96 03/25/21 12:01 39 L 15 177/72 H 100 03/25/21 11:38 38 L 18 127/58 L 98 03/25/21 10:26 36.0 C L 38 L 18 92/48 L 98 Laboratory Results Laboratory Results - last 24 hr 03/25/21 03/25/21 03/25/21 10:30 10:30 11:19 WBC 11.23 H RBC 4.07 L Hgb 12.8 L POC Hgb Hct 37.9 L POC Hct MCV 93.1 MCH 31.4 MCHC 33.8 RDW Std Deviation 49.5 H RDW Coeff of Saumya 14.6 H Plt Count 137 MPV 10.8 H Immature Gran % (Auto) 0.4 Neut % (Auto) 79.3 Lymph % (Auto) 9.7 Radford % (Auto) 8.5 Eos % (Auto) 1.8 Baso % (Auto) 0.3 Neut # (Auto) 8.91 H Lymph # (Auto) 1.09 L Radford # (Auto) 0.96 H Eos # (Auto) 0.20 Baso # (Auto) 0.03 Immature Gran # (Auto) 0.04 H POC Sodium Sodium POC Potassium Potassium POC Chloride Chloride Carbon Dioxide POC Total CO2 Anion Gap POC Anion Gap POC BUN BUN Creatinine POC Creatinine Est Cr Clr Drug Dosing Est GFR ( Amer) Est GFR (Non-Af Amer) BUN/Creatinine Ratio Glucose POC Glucose (other) Calcium POC Ioniz Calcium Ludivina Magnesium Total Bilirubin AST ALT Alkaline Phosphatase Troponin I Total Protein Albumin Globulin Albumin/Globulin Ratio TSH Free T4 Adenovirus (PCR) Not Detected B. pertussis DNA (PCR) Not Detected B.parapertussis DNA PCR Not Detected Lyme Disease IgG Ab Lyme Disease IgM Ab C. pneumoniae DNA (PCR) Not Detected Coronavirus OC43 (PCR) Not Detected Coronavirus HKU1 (PCR) Not Detected Coronavirus 229E (PCR) Not Detected COVID-19 Eval Order RESPNP at [facility] SARS-CoV-2 (PCR) Not Detected Coronavirus NL63 (PCR) Not Detected Human Metapneumovir PCR Not Detected Influenza Type A (PCR) Not Detected Influenza Type B (PCR) Not Detected M. pneumoniae (PCR) Not Detected Parainfluenza 1 (PCR) Not Detected Parainfluenza 2 (PCR) Not Detected Parainfluenza 3 (PCR) Not Detected Parainfluenza 4 (PCR) Not Detected RSV (PCR) Not Detected Entero/Rhino (PCR) Not Detected 03/25/21 03/25/21 03/25/21 11:19 11:19 11:26 WBC RBC Hgb POC Hgb 12.2 L Hct POC Hct 36 L MCV MCH MCHC RDW Std Deviation RDW Coeff of Saumya Plt Count MPV Immature Gran % (Auto) Neut % (Auto) Lymph % (Auto) [place] % (Auto) Eos % (Auto) Baso % (Auto) Neut # (Auto) Lymph # (Auto) [place] # (Auto) Eos # (Auto) Baso # (Auto) Immature Gran # (Auto) POC Sodium 135 Sodium 134 L POC Potassium 3.6 Potassium 3.6 POC Chloride 96 L Chloride 97 L Carbon Dioxide 22 POC Total CO2 23 L Anion Gap 15.0 H POC Anion Gap 20.0 POC BUN 58 H BUN 62 H Creatinine 15.60 H* POC Creatinine 16.3 H* Est Cr Clr Drug Dosing 4.5 Est GFR ( Amer) 3.4 Est GFR (Non-Af Amer) 2.9 BUN/Creatinine Ratio 4.0 L Glucose 99 POC Glucose (other) 98 Calcium 9.0 POC Ioniz Calcium Ludivina 1.13 Magnesium 2.3 Total Bilirubin 0.3 AST 19 ALT 18 Alkaline Phosphatase 141 H Troponin I 0.031 Total Protein 7.6 Albumin 3.0 L Globulin 4.6 H Albumin/Globulin Ratio 0.7 L TSH 6.450 H Free T4 0.81 Adenovirus (PCR) B. pertussis DNA (PCR) B.parapertussis DNA PCR Lyme Disease IgG Ab Negative Lyme Disease IgM Ab Negative C. pneumoniae DNA (PCR) Coronavirus OC43 (PCR) Coronavirus HKU1 (PCR) Coronavirus 229E (PCR) COVID-19 Eval Order SARS-CoV-2 (PCR) Coronavirus NL63 (PCR) Human Metapneumovir PCR Influenza Type A (PCR) Influenza Type B (PCR) M. pneumoniae (PCR) Parainfluenza 1 (PCR) Parainfluenza 2 (PCR) Parainfluenza 3 (PCR) Parainfluenza 4 (PCR) RSV (PCR) Entero/Rhino (PCR) PG Care Time/CCT Total # of Minutes Spent Total Time Spent with Patient: Total time spent is greater than 50% in coordination of care (as documented) at patient's floor/unit and/or counseling patient: Coding Level of Care Code 46782 Inpt Consult Level 5 Diagnoses ESRD (end stage renal disease) on dialysis N18.6; Z99.2 Complete heart block I44.2 S/P TAVR (transcatheter aortic valve replacement) Z95.2 PAD (peripheral artery disease) I73.9 History of lung cancer Z85.118
[2021-03-25] MEDS ORDERED: ICU PROTOCOL FOR HYPERGLYCEMIA PRN (16:10)
[2021-03-25] MEDS: oxyCODONE HCL IR 5 MG TAB (IMMEDIATE RELEASE) PO PRN ×2 (16:11→20:57)
[2021-03-25] MEDS: PANTOprazole 40 MG TAB PO SCH (19:33)
[2021-03-25] MEDS: rOPINIRole HCL 0.25 MG TABLET PO SCH (19:33)
[2021-03-25] MEDS: TAMSULOSIN HCL 0.4 MG CAP PO SCH (19:34)
[2021-03-25] MEDS: oxyCODONE/ACETAMINOPHEN 5mg/325mg TAB PO PRN (19:34)
[2021-03-25] MEDS: traZODone HCL 50 MG TAB PO PRN (20:53)
[2021-03-26] MEDS ORDERED: ceFAZolin 1000MG 1,000 MG/7.5 ML SYR IV ONE (02:00)
[2021-03-26] MEDS: oxyCODONE HCL IR 5 MG TAB (IMMEDIATE RELEASE) PO PRN ×5 (02:43→22:35)
[2021-03-26 07:00] LABS: Hematocrit (blood only) 32.2 % (42-52); Hemoglobin 10.8 g/dL (14.0-18.0); Mean Corpuscular Hemoglobin 30.9 pg (25-34); Mean Corpuscular Hgb Conc 33.5 g/dL (32-36); Mean Corpuscular Volume 92.3 fL (80-100); Mean Platelet Volume 10.4 fL (7.4-10.4); Platelet Count 131 K/uL (130-400); RDW Coefficient of Variation 14.5 % (11.5-14.5); Red Blood Count 3.49 M/uL (4.7-6.1); White Blood Count 9.26 K/uL (4.8-10.8)
[2021-03-26] MEDS: ATORVASTATIN 40 MG TAB PO SCH (07:58)
[2021-03-26] MEDS: PANTOprazole 40 MG TAB PO SCH ×2 (07:58→20:29)
[2021-03-26] MEDS: buPROPion XL 150 MG TABCR PO SCH (07:59)
[2021-03-26] MEDS: ESCITALOPRAM OXALATE 20 MG TAB PO SCH (07:59)
[2021-03-26] MEDS: NEPHROCAPS PO SCH (07:59)
[2021-03-26] MEDS: CALCITRIOL 0.25 MCG CAPSULE PO SCH (07:59)
[2021-03-26] MEDS: allopurinoL 100 MG TAB PO SCH (07:59)
[2021-03-26] MEDS: ASPIRIN 81 MG ECTAB PO SCH (07:59)
[2021-03-26] MEDS: CLOPIDOGREL BISULFATE 75 MG TAB PO SCH (07:59)
[2021-03-26] MEDS: COLCHICINE 0.6 MG TAB PO SCH (07:59)
[2021-03-26 08:11] LABS: BUN Creatinine Ratio 4.2 (10-20); Creatinine Clr Calc Pharmacy 4.5 ml/min; Est GFR (African American) 3.4 ml/min; Est GFR (Non-African American) 2.9 ml/min; Magnesium 2.2 mg/dl (1.8-2.4)
[2021-03-26 09:09] LABS: Hepatitis B Surface Ab Quant 250.87 mIU/mL (>or=10mIU/mL Immune); Hepatitis B Surface Antibody Immune
[2021-03-26 09:20] LABS: Hepatitis B Surf Ag Rflx Conf Neg (Neg)
[2021-03-26] MEDS ORDERED: WATER, STERILE FOR INJ 10 ML VIAL ONE (09:27)
[2021-03-26] MEDS ORDERED: LIDOCAINE 1% LOCAL 20 ML VIAL ONE (09:27)
[2021-03-26] MEDS ORDERED: VANCOMYCIN HCL 1000MG/20ML VIAL ONE (09:28)
[2021-03-26] MEDS ORDERED: BUPIVACAINE 0.25% 30 ML VIAL ONE (09:28)
[2021-03-26] MEDS ORDERED: MIDAZOLAM HCL 5 MG/ML 1 ML VIAL ONE (09:53)
[2021-03-26] MEDS ORDERED: fentaNYL citrate 100 MCG/2 ML VIAL ONE (09:53)
--- NOTE | 2021-03-26 10:35 | XRay Report ---
XR chest 1V portable CLINICAL HISTORY: post pacer placement COMPARISON STUDY: March 25, 2021 FINDINGS: No pneumothorax. No pleural effusion. Hazy opacity at the right lower lung are again seen . Volume loss and postsurgical changes within th e right lung are again seen. Mild interval prominence of diffuse reticular opacities, mostly on the left. Cardiomediastinal silhouette is stable. Pulmonary vasculature is poorly seen.. Previously seen prosthetic cardiac valve is not visualized whi ch could be due to underpenetration. Osseous structures: Visualized osseous structures are unremarkable. Vertebral bodies are not seen. Interval placement of right-sided dual-lead cardiac pacemaker with battery pack partially obscuring r ight lung parenchyma. IMPRESSION: 1. Interval placement of right-sided dual-lead pacemaker with battery pack partially obscuring right lung parenchyma. No evidence of pneumothorax. 2. Stable opacities at the right lower lung. 3. Possible pulmonary edema. ACT 112: Negative or not required by law. The above report was generated using voice recognition software. It may contain grammatical, syntax o r spelling errors. Electronically signed by: Layla Narayan DO 03/26/2021 10:34 AM
--- NOTE | 2021-03-26 10:46 | Electrophysiology Report ---
Date of Service March 26, 2021 Electrophysiology Procedure Electrophysiology Procedure Report Procedure performed: Lead revision for dual-chamber permanent pacemaker Staff shipwright helper: Ty Thomas MD Indication: The patient is a 61-year-old gentleman who underwent implantation of a dual-chamber permanent pacemaker yesterday for evidence of complete heart block and symptomatic bradycardia. Overnight there was some evidence of noncapture on the ventricular lead and the patient was brought back to the electrophysiology suite for evaluation. Procedure in detail: The patient was informed of the risks benefits and alternatives to the intended procedure and he wished to proceed. He was taken to the electrophysiology suite in a fasting state. A preoperative antibiotic had been administered. The patient was monitored electrocardiographically throughout today's procedure and conscious sedation was administered per protocol. The left upper pectoral area is prepped and draped in usual sterile fashion. The area over the previously implanted device was anesthetized using subcutaneous ministration of a lidocaine solution. An incision was made at the site and carried down to the previously implanted device using sharp dissection. Electrocautery was also used for dissection as well as for hemostasis. The previously implanted device and leads were then removed from the pocket. The leads were detached from the pulse generator. The right ventricular lead was repositioned. Adequate sensing and threshold parameters were obtained prior to active-fixation of this lead to the endocardial surface. The proximal portion of lead was then sutured to the prepectoral spot using nonabsorbable suture. Additional redundancy was added to the right atrial lead. The pocket was irrigated with an antibiotic solution. The leads were then attached to the device. An antibiotic impregnated mesh was added to the pocket around the device. The device and leads were then placed in the pocket and pocket was closed in 3 layers of absorbable suture. Steri-Strips and sterile dressing were applied. The device was tested noninvasively prior to conclusion the procedure. The patient tolerated procedure well there no immediate complications. Equipment used: Retained pulse generator: Mail Processing Equipment Mechanic [employer]. Model number: [id number] serial number [id number] Right atrial lead: Mail Processing Equipment Mechanic [employer]. Model number: 5076 serial number [id number] Right ventricular lead: Mail Processing Equipment Mechanic [employer]. Model number: 5076 serial number [id number] Measured data: Right atrial lead: P waves measure 1.3 mV. Pacing threshold 1.5 V at 0.4 ms with a pacing impedance of 380 ohms Right ventricular lead: R waves measured 10.5 mV. Pacing threshold was 0.5 V 0.4 ms with a pacing impedance of 551 ohms Impression: Successful revision of right ventricular pacing lead for dual-chamber permanent pacemaker MNPG Electrophysiology codes Pacing Procedure 1: Pacin Reposition Pacer/ICD electrode PG Moderate Sedation Codes Moderate Sedation Codes Procedure 2: Sedation/Anesthesia: 91101 Mod Sedation by the same physician; Ea [id number] Minutes Procedure 1: Sedation/Anesthesia: 72144 Mod Sedation by the same physician;Init15 Min Child Age 5 & Up
--- NOTE | 2021-03-26 10:46 | Pre Anesthesia Assessment ---
Date of Service March 26, 2021 Pre Sedation Assessment Vital Signs Temp Pulse Pulse Resp BP BP BP 03/26/21 09:28 74 20 179/76 H 03/26/21 08:45 36.9 C 71 18 03/26/21 04:59 36.9 C 69 20 03/25/21 23:55 36.8 C 58 L 16 03/25/21 19:41 36.7 C 57 L 16 03/25/21 19:16 36.8 C 78 18 134/74 03/25/21 17:05 78 18 153/89 H 03/25/21 16:45 77 18 160/93 H 03/25/21 16:18 66 03/25/21 16:15 72 18 162/86 H 03/25/21 16:00 36.8 C 65 16 154/91 H 03/25/21 15:30 62 16 110/61 03/25/21 15:00 65 16 112/62 03/25/21 14:50 65 16 116/66 03/25/21 13:29 36 L 20 145/59 H 03/25/21 13:21 49 L 18 90/47 L 03/25/21 13:01 49 L 18 90/47 L 03/25/21 12:31 36 L 12 117/36 L 03/25/21 12:01 39 L 15 177/72 H 03/25/21 11:38 38 L 18 127/58 L BP Pulse Ox 03/26/21 09:28 96 03/26/21 08:45 03/26/21 04:59 126/69 96 03/25/21 23:55 127/72 96 03/25/21 19:41 158/92 H 98 03/25/21 19:16 03/25/21 17:05 91 03/25/21 16:45 98 03/25/21 16:18 03/25/21 16:15 97 03/25/21 16:00 96 03/25/21 15:30 96 03/25/21 15:00 96 03/25/21 14:50 96 03/25/21 13:29 100 03/25/21 13:21 95 03/25/21 13:01 95 03/25/21 12:31 96 03/25/21 12:01 100 03/25/21 11:38 98 Cardiovascular + regular rate Respiratory + respiratory effort normal Pre-Sedation Airway Assessment Smoking Status: Former smoker Hx Sleep Apnea: No Hx Difficult Intubation: No Short, Thick Neck: No Thyromental Distance: > or= 3.5 Finger Breadths Oral Cavity: + Dentures Mallampati Class: II ASA: ASA3 NPO Status Date of Last Intake of Fluids: 03/26/21 Time of Last Intake of Fluids: 08:00 Date of Last Intake of Solid Food: 03/25/21 Time of Last Intake of Solid Foods: 18:00 Procedure Planning Contraindications for Sedation: none Current Medications Reviewed: Yes Notes The planned sedation has been discussed with the patient. Informed Consent was obtained. I have identified the patient, determined the appropriateness of sedation and have assessed the patient immediately prior to the procedure. All medicine(s) and interventions are by my order.
--- NOTE | 2021-03-26 11:40 | Post Anesthesia Assessment ---
Date of Service March 26, 2021 Post Sedation Assessment Vital Signs Temp Pulse Pulse Resp BP BP BP 03/26/21 11:23 36.5 C 69 17 03/26/21 11:05 68 20 121/69 03/26/21 10:50 71 20 122/87 03/26/21 09:28 74 20 179/76 H 03/26/21 08:45 36.9 C 71 18 03/26/21 04:59 36.9 C 69 20 03/25/21 23:55 36.8 C 58 L 16 03/25/21 19:41 36.7 C 57 L 16 03/25/21 19:16 36.8 C 78 18 134/74 03/25/21 17:05 78 18 153/89 H 03/25/21 16:45 77 18 160/93 H 03/25/21 16:18 66 03/25/21 16:15 72 18 162/86 H 03/25/21 16:00 36.8 C 65 16 154/91 H 03/25/21 15:30 62 16 110/61 03/25/21 15:00 65 16 112/62 03/25/21 14:50 65 16 116/66 03/25/21 13:29 36 L 20 145/59 H 03/25/21 13:21 49 L 18 90/47 L 03/25/21 13:01 49 L 18 90/47 L 03/25/21 12:31 36 L 12 117/36 L 03/25/21 12:01 39 L 15 177/72 H BP Pulse Ox 03/26/21 11:23 128/77 95 03/26/21 11:05 94 03/26/21 10:50 96 03/26/21 09:28 96 03/26/21 08:45 03/26/21 04:59 126/69 96 03/25/21 23:55 127/72 96 03/25/21 19:41 158/92 H 98 03/25/21 19:16 03/25/21 17:05 91 03/25/21 16:45 98 03/25/21 16:18 03/25/21 16:15 97 03/25/21 16:00 96 03/25/21 15:30 96 03/25/21 15:00 96 03/25/21 14:50 96 03/25/21 13:29 100 03/25/21 13:21 95 03/25/21 13:01 95 03/25/21 12:31 96 03/25/21 12:01 100 Recovery Score Activity: Moves 4 extremities Respiration: Deep Breath/Cough Circulation: +/-20% PreAnes Value Consciousness: Fully Awake Oxygen Saturation: > 92% On Room Air Post Anesthesia Score: 10 Discharge Sedation Level of Care: Fast Track Phase II Post Sedation Plan On clinical assessment, the patient appears to have tolerated the sedation without complications. Patient is recovering as anticipated. Patient will continue to be monitored by nursing and may be discharged when sedation discharge criteria are met per below protocol. Upon Completions of procedure up to 15 minutes continue every 5 minute vital signs and the P.A.R. score; then discharge to a Phase I or Fast Track to Phase II per the following guidelines: * Discharge Patient to appropriate Phase II area if PAR is 8 or greater or return to pre- procedure baseline. The post - procedure orders will be as directed. * If PAR score is less than 8 or not return to pre-procedure baseline then patient will follow Phase I monitoring till PAR is reached for Phase II. The Phase I may be done in procedure room or may call to secure a Phase I area. * If naloxone or flumazenil are used for reversal, hold in Phase I for continued monitoring from when last reversal dose was given for a minimum of 60 minutes or longer pending the nurse and/or physician discretion of patient condition before discharge to Phase II. Please call the Sedation Physician to re-evaluate and complete post-note for discharge to Phase II area. Do NOT discharge from procedure sedation or Phase 1 until post- sedation evaluation note is complete by procedure /sedation MD Sedation Discharge Instructions to be given to the patient at discharge to home.
--- NOTE | 2021-03-26 11:55 | Nephrology Progress Note ---
Date of Service March 26, 2021 Assessment & Plan (1) ESRD (end stage renal disease) on dialysis: Plan: * NCCPD 7 nights/week: 4 exchanges/night, 10 min fill/90 min dwell/20 min drain, 1.5% Delflex, 2.5L fill volume + LBO with 2L fill, dwell 4 hours. EDW is 70 kg. * Will provide PD tonight according to chronic outpatient orders. Orders have been entered into EMR and PD RN notified * Recommend HD diet * Continue Nephrovite one daily * Post sign to protect L arm AVF (2) Complete heart block: Plan: * s/p pacemaker 03/25/21 (3) S/P TAVR (transcatheter aortic valve replacement): (4) PAD (peripheral artery disease): (5) History of lung cancer: Admission and Anticipated Discharge Date Admission Date: March 25, 2021 Subjective Mr. Hung was seen & examined in the PCU this morning. Pacemaker did not reliably capture overnight w/ HR dipping into the 30's. He has just returned from lead revision. He currently denies angina, dyspnea or uremic symptoms. NCCPD was performed last evening without complication. 600 cc UF obtained. Review of Systems Constitutional: + weakness; no fever Eyes: no problem reported Ear, Nose, Mouth, Throat: no problem reported Respiratory: no cough and no dyspnea Cardiovascular: no chest pain, no palpitations and no edema Gastrointestinal: no abdominal pain, no nausea, no vomiting and no diarrhea/loose stools Genitourinary: no dysuria, no urinary hesitancy or no hematuria Musculoskeletal: no back pain Integumentary: no rash Neurologic: no falls, no dizziness and no confusion Physical Exam Physical Exam: Telemetry reveals paced rhythm Constitutional: not in distress Eyes: PERRL, conjunctivae normal, anicteric sclerae ENMT: external ear and nose normal, oropharynx normal Neck: trachea midline, no thyromegaly Respiratory: normal respiratory effort, lungs clear to auscultation Cardiovascular: Rate/Rhythm: regular rate Heart Sounds: + murmur L arm AVF + bruit Gastrointestinal (Abdomen): normal bowel sounds, soft, nontender, no hepatosplenomegaly PD exit site without erythema or drainage Neurologic: awake (oriented x3, follows commands) Results & Data ([facility]) Vital Signs (Past 12 Hours) Vital Signs Temp Pulse Resp BP BP Pulse Ox 08/13/21 11:23 36.5 C 69 17 128/77 95 03/26/21 11:05 68 20 121/69 94 03/26/21 10:50 71 20 122/87 96 03/26/21 09:28 74 20 179/76 H 96 03/26/21 08:45 36.9 C 71 18 03/26/21 04:59 36.9 C 69 20 126/69 96 03/25/21 23:55 36.8 C 58 L 16 127/72 96 Laboratory Results Laboratory Tests 03/26/21 03/26/21 06:44 06:44 WBC 9.26 Hgb 10.8 L Hct 32.2 L Plt Count 131 Sodium 131 L Potassium 4.0 Chloride 95 L Carbon Dioxide 23 BUN 66 H Creatinine 15.60 H* Glucose 94 Calcium 9.0 Magnesium 2.2 PG Care Time/CCT Total # of Minutes Spent Total Time Spent with Patient: Total time spent is greater than 50% in coordination of care (as documented) at patient's floor/unit and/or counseling patient: Coding Level of Care Code 87827 Subseq Hosp Care Lvl 3 Diagnoses ESRD (end stage renal disease) on dialysis N18.6; Z99.2 Complete heart block I44.2 S/P TAVR (transcatheter aortic valve replacement) Z95.2 PAD (peripheral artery disease) I73.9 History of lung cancer Z85.118
[2021-03-26] MEDS: bisacodyL 5 MG TABEC PO PRN ×2 (15:03→20:29)
[2021-03-26] MEDS: oxyCODONE/ACETAMINOPHEN 5mg/325mg TAB PO PRN (15:03)
--- NOTE | 2021-03-26 16:01 | Cardiology Progress Note ---
Date of Service March 26, 2021 Assessment & Plan (1) Complete heart block: (2) S/P TAVR (transcatheter aortic valve replacement): (3) Diastolic dysfunction: (4) PAD (peripheral artery disease): (5) Peritoneal dialysis status: (6) ESRD (end stage renal disease) on dialysis: (7) H/O vascular surgery: (8) History of lung cancer: (9) HTN (hypertension): Plan: s/p dual chamber placement that, unfortunately, lost capture lead repositioned feels well will likely d/c in AM cont outpatient medical regimen Admission and Anticipated Discharge Date Admission Date: March 25, 2021 Subjective Pt seen and examined, chart reviewed. Unfortunately, device lost capture this AM. Lead already repositioned, functioning well now. A little sore at pocket site but otherwise he states he feels much, much better. Review of Systems Review of Systems: All systems reviewed & are unremarkable except as noted in HPI & below Physical Exam Physical Exam: General: Awake, alert and oriented x 3. No acute distress. HEENT: Normocephalic, atraumatic. Pupils equal, round and reactive to light and accommodation. Extraocular muscles are intact. Anicteric sclera. Moist mucous membranes. Neck: No JVD. No bruit. Cardiovascular: Regular. Positive S-4. Normal S-1 and S-2. No S-3. 3/6 mid to late systolic ejection murmur, greatest at the right sternal border, second intercostal space with radiation to the bilateral carotids. No rubs. Pulmonary: Clear to auscultation bilaterally. No rales, rhonchi, or wheezing. Abdomen: Bowel sounds x 4, soft. No rebound, guarding or tenderness. No organomegaly. Extremities: No clubbing, cyanosis or edema. +2 pedal pulses bilaterally. Skin: Warm and dry. Results & Data ([facility]) Vital Signs (Past 12 Hours) Vital Signs Temp Pulse Resp BP BP BP Pulse Ox 03/26/21 12:12 36.8 C 67 18 136/78 96 03/26/21 11:42 37.0 C 82 16 126/79 99 03/26/21 11:27 36.9 C 67 18 130/72 96 03/26/21 11:23 36.5 C 69 17 128/77 95 03/26/21 11:12 36.8 C 68 18 126/76 96 03/26/21 11:05 68 20 121/69 94 03/26/21 10:57 36.9 C 67 18 134/68 98 03/26/21 10:50 71 20 122/87 96 03/26/21 09:28 74 20 179/76 H 96 03/26/21 08:45 36.9 C 71 18 03/26/21 04:59 36.9 C 69 20 126/69 96
--- NOTE | 2021-03-26 17:40 | Electrocardiogram Report ---
Test Reason : Blood Pressure : / mmHG Vent. Rate : 069 BPM Atrial Rate : 069 BPM P-R Int : 198 ms QRS Dur : 220 ms QT Int : 554 ms P-R-T Axes : 047 -54 101 degrees QTc Int : 593 ms Atrial-sensed ventricular-paced rhythm Abnormal ECG When compared with ECG of 25-MAR-2021 10:39, There is now ventricular pacing Confirmed by Ty Thomas ([id number] on 03/26/2021 5:39:50 PM Referred By: REFERRED SELF Confirmed By:Hieu Thomas
[2021-03-26] MEDS: ceFAZolin 1000MG 1,000 MG/7.5 ML SYR IV SCH (18:06)
[2021-03-26] MEDS: TAMSULOSIN HCL 0.4 MG CAP PO SCH (20:29)
[2021-03-26] MEDS: traZODone HCL 50 MG TAB PO PRN (20:29)
[2021-03-26] MEDS: rOPINIRole HCL 0.25 MG TABLET PO SCH (20:29)
--- NOTE | 2021-03-26 20:53 | Hospitalist Progress Note ---
Date of Service March 26, 2021 Assessment & Plan (1) Complete heart block: Plan: Present on admission with fatigue, shortness of breath and lightheadedness EKG showed complete third-degree AV block Lyme titer negative Received IV glucagon by cardiology for beta-tanna reversal on admission Status post successful right-sided dual-chamber permanent pacemaker placement placed on 03/26 Pacemaker did not function properly, lost capture and lead repositioned this mo rning Cardiology on board Patient improved significantly Continue monitor closely possible discharge in a.m if Stable (2) CAD (coronary artery disease): Plan: Nonobstructive Continue aspirin, Plavix, statin Stable (3) Diastolic dysfunction: Plan: Continue to hold home furosemide for now (4) HTN (hypertension): Plan: BP stable Will resume amlodipine continue to hold carvedilol and isosorbide continue monitor BP (5) PAD (peripheral artery disease): Plan: Continue aspirin, Plavix, statin (6) Peritoneal dialysis status: (7) ESRD (end stage renal disease) on dialysis: Plan: Performs nocturnal peritoneal dialysis at home Nephrology on board Last hemodialysis was done last night (8) DVT prophylaxis: Plan: -SCDs Admission and Anticipated Discharge Date Admission Date: March 25, 2021 Subjective Patient was seen and evaluated for follow-up of shortness of breath, fatigue and lightheadedness Lying in bed with no acute distress He had a pacemaker placed last night for complete He said that he is feeling better today Denies any chest pain, palpitation, dizziness, shortness of breath. Physical Exam Physical Exam: General- No acute distress Head- atraumatic Eyes- PERRL, EOMI, ENT- oropharynx clear Neck- supple, no JVD Lungs- clear to auscultation Heart- regular rhythm; +systolic murmur Abdomen- normal bowel sounds, soft, nontender Extremities- no calf tenderness Neuro- alert, oriented x 3; PERRL, EOMI; no facial palsy; no dysarthria Skin- warm & dry Results & Data Results & Data ([facility]) Vital Signs (Past 12 Hours) Vital Signs Temp Pulse Resp BP BP BP Pulse Ox 03/26/21 19:51 37.0 C 76 16 178/103 H 97 03/26/21 19:00 36.5 C 66 16 126/80 03/26/21 18:21 36.6 C 67 18 120/76 98 03/26/21 12:12 36.8 C 67 18 136/78 96 03/26/21 11:42 37.0 C 82 16 126/79 99 03/26/21 11:27 36.9 C 67 18 130/72 96 03/26/21 11:23 36.5 C 69 17 128/77 95 03/26/21 11:12 36.8 C 68 18 126/76 96 03/26/21 11:05 68 20 121/69 94 03/26/21 10:57 36.9 C 67 18 134/68 98 03/26/21 10:50 71 20 122/87 96 03/26/21 09:28 74 20 179/76 H 96
[2021-03-26] MEDS ORDERED: oxyCODONE HCL IR 5 MG TAB (IMMEDIATE RELEASE) PO PRN (23:45)
[2021-03-27] MEDS: HYDROmorphone INJ 0.5 MG/0.5 ML SYR IV PRN ×3 (00:14→08:32)
[2021-03-27] MEDS: ceFAZolin 1000MG 1,000 MG/7.5 ML SYR IV SCH ×2 (02:04→09:47)
[2021-03-27 06:25] LABS: Hematocrit (blood only) 32.9 % (42-52); Hemoglobin 11.1 g/dL (14.0-18.0); Mean Corpuscular Hemoglobin 30.7 pg (25-34); Mean Corpuscular Hgb Conc 33.7 g/dL (32-36); Mean Corpuscular Volume 90.9 fL (80-100); Mean Platelet Volume 10.5 fL (7.4-10.4); Platelet Count 124 K/uL (130-400); RDW Coefficient of Variation 14.1 % (11.5-14.5); RDW Standard Deviation 46.7 fL (36.4-46.3); Red Blood Count 3.62 M/uL (4.7-6.1); White Blood Count 9.79 K/uL (4.8-10.8)
[2021-03-27 07:13] LABS: Albumin Level 2.7 gm/dl (3.4-5.0); BUN Creatinine Ratio 4.4 (10-20); Calcium 8.8 mg/dl (8.5-10.1); Creatinine Clr Calc Pharmacy 4.5 ml/min; Est GFR (African American) 3.4 ml/min; Est GFR (Non-African American) 2.9 ml/min; Potassium 3.8 mmol/L (3.5-5.1)
--- NOTE | 2021-03-27 08:17 | Cardiology Progress Note ---
Date of Service March 27, 2021 Assessment & Plan (1) Complete heart block: Plan: Pacemaker appears to be working properly. Unfortunately, he has significant discomfort at the implant site which is probably a function of going through 2 procedures in the past 2 days. There is no current evidence of infection at the implant site. He has received several doses of antibiotics over the past 48 hours and has an antibiotic impregnated pouch around the device itself. I think he is safe for discharge. I did prescribe him some narcotics for home use. He should monitor himself for worsening pain, swelling at the implant site or fevers. The main concern would be infection. He should refrain from lifting the right arm above the shoulder or behind the neck for 6 weeks and he needs to keep the wound itself dry in the [employer] intact until he can be seen by a nurse To check the wound in the [facility] next week. Admission and Anticipated Discharge Date Admission Date: March 25, 2021 Subjective this morning the patient complains of significant discomfort at the device implant site. He stated that this pain was quite severe over the course of the evening. Attempts and pain control have been unsuccessful. Physical Exam Physical Exam: Evaluation of the implant site reveals ecchymosis but no hematoma or erythema. It is tender to palpation. Results & Data ([facility]) Vital Signs (Past 12 Hours) Vital Signs Temp Pulse Resp BP Pulse Ox 03/27/21 04:22 36.6 C 85 18 155/86 H 96 03/26/21 23:39 36.9 C 78 18 166/98 H 98 Diagnostic Findings Device interrogation revealed good function on both the atrial and ventricular leads.
[2021-03-27] MEDS: CLOPIDOGREL BISULFATE 75 MG TAB PO SCH (08:26)
[2021-03-27] MEDS: buPROPion XL 150 MG TABCR PO SCH (08:26)
[2021-03-27] MEDS: ASPIRIN 81 MG ECTAB PO SCH (08:26)
[2021-03-27] MEDS: COLCHICINE 0.6 MG TAB PO SCH (08:26)
[2021-03-27] MEDS: NEPHROCAPS PO SCH (08:27)
[2021-03-27] MEDS: PANTOprazole 40 MG TAB PO SCH (08:27)
[2021-03-27] MEDS: ESCITALOPRAM OXALATE 20 MG TAB PO SCH (08:27)
[2021-03-27] MEDS: ATORVASTATIN 40 MG TAB PO SCH (08:27)
[2021-03-27] MEDS: CALCITRIOL 0.25 MCG CAPSULE PO SCH (08:27)
[2021-03-27] MEDS: allopurinoL 100 MG TAB PO SCH (08:27)
[2021-03-27] MEDS: bisacodyL 5 MG TABEC PO PRN (08:40)
--- NOTE | 2021-03-27 09:54 | XRay Report ---
XR chest 2V PA/lateral HISTORY: Pacemaker placement. Follow-up. COMPARISON: Chest 03/26/2021. FINDINGS: There is again noted a right-sided dual-chamber pacemaker. The leads appear intact. No pneu mothorax. No change in the volume loss, trace right pleural effusion, and right basilar scarlike dens ities. An aortic valve stent is noted. The left lung is clear. The heart remains mildly enlarged. IMPRESSION: Stable chronic changes within the right lung with a trace right pleural effusion. No pneumothorax. ACT 112: Negative or not required by law. Electronically signed by: Mesfin Deluca M.D. 03/27/2021 9:53 AM
--- NOTE | 2021-03-27 11:57 | Electrocardiogram Report ---
Test Reason : Blood Pressure : / mmHG Vent. Rate : 090 BPM Atrial Rate : 090 BPM P-R Int : 174 ms QRS Dur : 194 ms QT Int : 476 ms P-R-T Axes : 023 -69 094 degrees QTc Int : 582 ms Atrial-sensed ventricular-paced rhythm Abnormal ECG When compared with ECG of 26-MAR-2021 06:18, Vent. rate has increased BY 21 BPM Confirmed by Arthur Cordero ([id number] on 03/27/2021 11:57:27 AM Referred By: REFERRED SELF Confirmed By:Arthur Cordero
--- NOTE | 2021-03-27 12:28 | Nephrology Progress Note ---
Date of Service March 27, 2021 Assessment & Plan (1) ESRD (end stage renal disease) on dialysis: Plan: ESRD on peritoneal dialysis admitted to the hospital with symptomatic bradycardia and eventually turned into complete heart block, status post pacemaker placement on 04/04/2021. Currently otherwise doing well except to have pain at the pacemaker site. has been doing PD with his regular home prescription, uneventful. -- Okay to be discharged from Nephrology standpoint, he can continue his regular prescription when at home. However, with his significant pain in right upper chest and shoulder, it would be advisable to have someone drive him home. Will follow while in patient. (2) Complete heart block: Plan: * s/p pacemaker 03/25/21 Admission and Anticipated Discharge Date Admission Date: March 25, 2021 Subjective John has been having pain in right shoulder and chest area where pacemaker was placed. Otherwise has been feeling well, had peritoneal dialysis last night, uneventful, had 700 cc of UF. electrolyte has been acceptable. He is eagerly waiting to go home. Review of Systems Review of Systems: Detailed review of system was otherwise unremarkable. Physical Exam Constitutional: well developed and well nourished; no acute distress Respiratory: normal respiratory effort, lungs clear to auscultation Cardiovascular: RRR, no murmur, no edema Chest (Breasts): Additional Comments: Right upper chest area swollen, tender Neurologic: moves all extremities and awake; not confused Psychiatric: A+Ox3, euthymic affect Results & Data ([facility]) Vital Signs (Past 12 Hours) Vital Signs Temp Pulse Resp BP Pulse Ox 03/27/21 09:00 36.8 C 86 16 03/27/21 08:00 36.8 C 86 16 145/96 H 98 03/27/21 04:22 36.6 C 85 18 155/86 H 96 PG Care Time/CCT Total # of Minutes Spent Total Time Spent with Patient: Total time spent is greater than 50% in coordination of care (as documented) at patient's floor/unit and/or counseling patient: Coding Level of Care Code 89414 Subseq Hosp Care Lvl 2 Diagnoses ESRD (end stage renal disease) on dialysis N18.6; Z99.2 Complete heart block I44.2
--- NOTE | 2021-03-27 13:02 | Cardiology Progress Note ---
Date of Service March 27, 2021 Assessment & Plan (1) Complete heart block: (2) S/P TAVR (transcatheter aortic valve replacement): (3) Diastolic dysfunction: (4) PAD (peripheral artery disease): (5) Peritoneal dialysis status: (6) ESRD (end stage renal disease) on dialysis: (7) H/O vascular surgery: (8) History of lung cancer: (9) HTN (hypertension): Plan: s/p dual chamber placement that, unfortunately, lost capture lead repositioned feels well other than pocket discomfort I believe this pain is understandable given the need for lead repositioning, he will be provided with pain control meds upon discharge. Continue outpatient medical regimen. Okay to DC to home. My office will call to arrange pocket site evaluation and establish with our device clinic this week. Admission and Anticipated Discharge Date Admission Date: March 25, 2021 Subjective Patient seen and examined, chart reviewed. States he is having a significant amount of pain at the pocket site but otherwise feels well. Denies shortness of breath, palpitations, lightheadedness, dizziness or syncope. Telemetry reviewed: AV sequential pacing Review of Systems Review of Systems: All systems reviewed & are unremarkable except as noted in HPI & below Physical Exam Physical Exam: General: Awake, alert and oriented x 3. No acute distress. HEENT: Normocephalic, atraumatic. Pupils equal, round and reactive to light and accommodation. Extraocular muscles are intact. Anicteric sclera. Moist mucous membranes. Neck: No JVD. No bruit. Cardiovascular: Regular. Positive S-4. Normal S-1 and S-2. No S-3. 3/6 mid to late systolic ejection murmur, greatest at the right sternal border, second intercostal space with radiation to the bilateral carotids. No rubs. Pulmonary: Clear to auscultation bilaterally. No rales, rhonchi, or wheezing. Abdomen: Bowel sounds x 4, soft. No rebound, guarding or tenderness. No organomegaly. Extremities: No clubbing, cyanosis or edema. +2 pedal pulses bilaterally. Skin: Warm and dry. Large hematoma at right pocket site without erythema. Tender to palpation. Results & Data ([facility]) Vital Signs (Past 12 Hours) Vital Signs Temp Pulse Resp BP Pulse Ox 03/27/21 09:00 36.8 C 86 16 03/27/21 08:00 36.8 C 104 H 18 163/90 H 97 03/27/21 04:22 36.6 C 85 18 155/86 H 96
--- NOTE | 2021-03-27 13:23 | Hospitalist Progress Note ---
Date of Service March 27, 2021 Assessment & Plan (1) Complete heart block: Plan: Present on admission with fatigue, shortness of breath and lightheadedness EKG showed complete third-degree AV block Lyme titer negative Received IV glucagon by cardiology for beta-tanna reversal on admission Status post successful right-sided dual-chamber permanent pacemaker placement placed on 03/25 Pacemaker did not function properly, lost capture and lead repositioned on 03/26 Cardiology on board Case discussed with cardiology that recommended to resume metoprolol and the isosorbide mononitrate Pacemaker appears to be working properly as per cardiology Continue pain control Pt was advised to monitor for sign of infection such as fever, worsening pain and redness to look for medical attention Follow up with cardiology office next week to check pacemaker site wound Ok from cardiology standpoint to discharge home (2) CAD (coronary artery disease): Plan: Nonobstructive Continue aspirin, Plavix, statin Metoprolol and Isosorbide nitrate resume on discharge Stable (3) Diastolic dysfunction: Plan: Home Lasix resumed (4) HTN (hypertension): Plan: BP stable Will resume Continue carvedilol and isosorbide continue monitor BP (5) PAD (peripheral artery disease): Plan: Continue aspirin, Plavix, statin (6) Peritoneal dialysis status: (7) ESRD (end stage renal disease) on dialysis: Plan: Performs nocturnal peritoneal dialysis at home Nephrology on board Last hemodialysis was done last night (8) DVT prophylaxis: Plan: -SCDs Admission and Anticipated Discharge Date Admission Date: March 25, 2021 Subjective Pt was seen and examined for follow up of of pacemaker placement Lying in bed with no distress. Pt said that he feels fine He said that he is sore in his right shoulder from the surgery x2 He said that he is ready to go home and he is planning to resume HD tonight Denies any chest pain, palpitation, dizziness and SOB Physical Exam Physical Exam: General- No acute distress Head- atraumatic Eyes- PERRL, EOMI, ENT- oropharynx clear Neck- supple, no JVD Lungs- clear to auscultation Heart- regular rhythm; +systolic murmur Abdomen- normal bowel sounds, soft, nontender Extremities- no calf tenderness, right shoulder pain Neuro- alert, oriented x 3; PERRL, EOMI; no facial palsy; no dysarthria Skin- warm & dry, ecchymosis around the pacemaker area implant but no hematoma or erythema Results & Data Results & Data ([facility]) Vital Signs (Past 12 Hours) Vital Signs Temp Pulse Resp BP Pulse Ox 03/27/21 09:00 36.8 C 86 16 03/27/21 08:00 36.8 C 104 H 18 163/90 H 97 03/27/21 04:22 36.6 C 85 18 155/86 H 96
--- NOTE | 2021-03-27 13:50 | Discharge Summary ---
Date of Service March 27, 2021 Admission HPI Per Admitting Provider 61-year-old male with PMH chronic diastolic CHF, history of aortic stenosis s/p TAVR, PAD with history of bilateral common iliac artery stenting and femoropopliteal bypass, ESRD on peritoneal dialysis, history of pericardial effusion s/p pericardiocentesis, history of lung cancer s/p lobectomy, chronic diastolic CHF, and other problems listed below who presents to the ED for evaluation of fatigue and shortness of breath. Patient reports he has not been feeling well for the past 2 days. Reports increasing fatigue and shortness of breath. Has had lightheadedness and dizziness however no syncopal event. Denies chest pain and palpitations. No other recent illnesses, fevers, chills. Denies abdominal pain, nausea, vomiting, diarrhea. No urinary symptoms. Reports compliance with home peritoneal dialysis and medications. In the ED, patient is found to be in third-degree heart block. Initially was hypotensive however BP improved after IVF. Cardiology was consulted and evaluated the patient in the ED. Pending labs, patient will proceed for pacemaker placement today. Admission Exam Per Admitting Provider Constitutional: WD/WN, vitals as above Eyes: PERRL, conjunctivae normal, anicteric sclerae ENMT: external ear and nose normal, oropharynx normal Respiratory: normal respiratory effort, lungs clear to auscultation Cardiovascular: regular rhythm and + bradycardic Heart Sounds: + murmur (Grade 3/6 systolic) Extremities: no edema Gastrointestinal:normal bowel sounds, soft, nontender, no hepatosplenomegaly Musculoskeletal: no cyanosis or clubbing, extremities motor strength 5/5 Skin: no rashes, warm and dry Neurologic: PERRL, EOMI, accommodation nl, no face palsy, no dysarthria Psychiatric: A+Ox3, euthymic affect Principal Diagnosis Complete heart block: CAD (coronary artery disease): Diastolic dysfunction: HTN (hypertension): PAD (peripheral artery disease): ESRD on Peritoneal dialysis status: Discharge Exam General- No acute distress Head- atraumatic Eyes- PERRL, EOMI, ENT- oropharynx clear Neck- supple, no JVD Lungs- clear to auscultation Heart- regular rhythm; +systolic murmur Abdomen- normal bowel sounds, soft, nontender Extremities- no calf tenderness, right shoulder pain Neuro- alert, oriented x 3; PERRL, EOMI; no facial palsy; no dysarthria Skin- warm & dry, ecchymosis around the pacemaker area implant but no hematoma or erythema Discharge Data Allergies Allergy/AdvReac Type Severity Reaction Status Date / Time mercury (elemental) Allergy Intermediate Rash Verified 03/28/21 17:02 NSAIDS (Non-Steroidal Allergy Intermediate not to Verified 03/28/21 17:02 Anti-Inflamma take d/t Kidney disease lisinopril AdvReac Intermediate COUGH Verified 03/28/21 17:02 Consultations 03/25/21 11:18 ED Decision to Admit Stat 03/25/21 11:47 Consult Cardiology Routine 03/25/21 16:10 Consult Nephrology Routine Procedures Performed Operation Date: 03/25/21 13:10 Actual Procedures p Pacer with A/V Leads (Dual) - Kishore Thomas MD Operation Date: 03/26/21 09:30 Actual Procedures p Lead Reposition RA/RV - Kishore Thomas MD Ordered Studies 03/25/21 13:34 CL Cath Imgs for PACS use only Stat 03/26/21 10:00 EP Lab Images for PACS ONCE XR chest 2V PA/lateral HISTORY: Pacemaker placement. Follow-up. COMPARISON: Chest 03/26/2021. FINDINGS: There is again noted a right-sided dual-chamber pacemaker. The leads appear intact. No pneumothorax. No change in the volume loss, trace right pleural effusion, and right basilar scarlike densities. An aortic valve stent is noted. The left lung is clear. The heart remains mildly enlarged. IMPRESSION: Stable chronic changes within the right lung with a trace right pleural effusion. No pneumothorax. ACT 112: Negative or not required by law. Electronically signed by: Mesfin Deluca M.D. 03/27/2021 9:53 AM Dictated: 03/27/21 0950Transcribed: 03/27/21 0950 XR chest 1V portable CLINICAL HISTORY: post pacer placement COMPARISON STUDY: March 25, 2021 FINDINGS: No pneumothorax. No pleural effusion. Hazy opacity at the right lower lung are again seen . Volume loss and postsurgical changes within the right lung are again seen. Mild interval prominence of diffuse reticular opacities, mostly on the left. Cardiomediastinal silhouette is stable. Pulmonary vasculature is poorly seen.. Previously seen prosthetic cardiac valve is not visualized which could be due to underpenetration. Osseous structures: Visualized osseous structures are unremarkable. Vertebral bodies are not seen. Interval placement of right-sided dual-lead cardiac pacemaker with battery pack partially obscuring right lung parenchyma. IMPRESSION: 1. Interval placement of right-sided dual-lead pacemaker with battery pack partially obscuring right lung parenchyma. No evidence of pneumothorax. 2. Stable opacities at the right lower lung. 3. Possible pulmonary edema. ACT 112: Negative or not required by law. The above report was generated using voice recognition software. It may contain grammatical, syntax or spelling errors. Electronically signed by: Layla Narayan DO 03/26/2021 10:34 AM Dictated: 03/26/21 1028Transcribed: 03/26/21 1028 SINGLE VIEW CHEST CLINICAL HISTORY: Dysrhythmia. FINDINGS: An AP, portable, upright chest radiograph is compared to chest x-ray and chest CT dated 09/26/2020. The patient is status post cardiac valve surgery. The heart is enlarged noting atherosclerotic calcification of the thoracic aorta. The pulmonary vasculature is noncongested. Emphysematous change is noted. There is postoperative change and volume loss consistent with right-sided pulmonary resection. Suture material projects within the right midlung. Pleural fluid with right basilar scarring/atelectasis is similar to prior studies. There is no evidence of superimposed airspace consolidation to indicate pneumonia. No pneumothorax is seen. The skeletal structures are osteopenic. The bony thorax is grossly intact. IMPRESSION: 1. Cardiomegaly and emphysema with no radiographic evidence of congestive failure. 2. There is postoperative change from right-sided pulmonary resection with chronic pleural fluid at the right lung base. ACT 112: Negative or not required by law. Electronically signed by: Julien Mcdonald M.D. 03/25/2021 10:59 AM Dictated: 03/25/21 1057Transcribed: 03/25/21 1057 Hospital Course (1) Complete heart block: Present on admission with fatigue, shortness of breath and lightheadedness EKG showed complete third-degree AV block Lyme titer negative Received IV glucagon by cardiology for beta-tanna reversal on admission Status post successful right-sided dual-chamber permanent pacemaker placement placed on 03/25 Pacemaker did not function properly, lost capture and lead repositioned on 03/26 Cardiology on board Case discussed with cardiology that recommended to resume metoprolol and the isosorbide mononitrate Pacemaker appears to be working properly as per cardiology Continue pain control Pt was advised to monitor for sign of infection such as fever, worsening pain and redness to look for medical attention Follow up with cardiology office next week to check pacemaker site wound Ok from cardiology standpoint to discharge home (2) CAD (coronary artery disease): Nonobstructive Continue aspirin, Plavix, statin Metoprolol and Isosorbide nitrate resume on discharge Stable (3) Diastolic dysfunction: Home Lasix resumed (4) HTN (hypertension): BP stable Will resume Continue carvedilol and isosorbide continue monitor BP (5) PAD (peripheral artery disease): Continue aspirin, Plavix, statin (6) Peritoneal dialysis status: (7) ESRD (end stage renal disease) on dialysis: Performs nocturnal peritoneal dialysis at home Nephrology on board Last hemodialysis was done last night (8) DVT prophylaxis: -SCDs Total Time Total Time Spent Total Time Spent (In Minutes): 40 minutes Discharge Plan Discharge Items Patient Disposition: Home - Self-Care Reason For Visit: BRADYCARDIA,FATIGUE,CANT BREATH Discharge Diagnosis: Complete heart block CAD (coronary artery disease) Diastolic dysfunction Activity: Resume your previous activity Non-emergency contact: Primary Care Provider and Panel[employer]ater Call non-emergency contact if: you have any medication questions Follow-up/Referrals: Sundar Ruiz DO [Primary Care Provider] - (Date & Time 04/05/2021 11:00 AM Provider Sundar Ruiz DO Department [facility] [place] ) Diet: Dialysis Renal and Heart Healthy Addtl Attending Provider Instructions: Follow up with your primary care provider Dr. Ruiz on 04/05/2021 at 11:00 AM at the [facility] [place] Follow up with cardiology office for pacemaker wound check resume your dialysis tonight Fall precaution Seek medical attention if you develop any fever, chills. Do not drive or operate any machine after taking Oxycodone due to drowsiness Please hold next dose of Oxycodone if you become drowsy and lethargy Don't drive until your doctor says it's OK. OK to shower tomorrow Do not lift the right elbow over the right shoulder for 6 weeks (or right arm above the shoulder or behind the neck) Do not lift no more than 10 lbs for 1 week Do not stretch your arm behind your back for as long as directed by your doctor. Keep incision area clean and dry Check your incision area for signs of infection (redness, swelling, drainage, or warmth). Before you receive any treatment, tell all healthcare providers (including your dentist) that you have a pacemaker. Keep your cell phone away from your pacemaker. Don't carry the phone in your shirt pocket overlying the pacemaker, even when it's turned off. Avoid strong magnets If you order for an MRI in the future, please inform that you have a pacemaker Pending Studies at Discharge: No Stand-Alone Forms: My [facility], Smoking Cessation Medications and DC Order Prescriptions: New bisacodyl [Gentle Laxative (bisacodyl)] 5 mg Tablet,Delayed Release (Dr/Ec) 5 mg PO DAILY PRN (Reason: constipation) Qty: 30 RF: 0 oxycodone-acetaminophen 5-325 mg tablet 1 tab PO Q8H PRN (Reason: pain) Qty: 12 RF: 0 Continued dutasteride 0.5 mg capsule 0.5 mg PO QAM RF: 0 amlodipine 10 mg tablet 10 mg PO QAM RF: 0 trazodone 50 mg tablet 100 mg PO HS PRN (Reason: sleep) RF: 0 gentamicin 0.1 % cream 1 applic topical DAILY Qty: 30 RF: 1 isosorbide mononitrate 30 mg tablet extended release 24 hr 30 mg PO QAM Qty: 30 RF: 11 atorvastatin [Lipitor] 40 mg tablet 40 mg PO QAM RF: 0 carvedilol [Coreg] 25 mg tablet 25 mg PO BID RF: 0 aspirin 81 mg Tablet,Delayed Release (Dr/Ec) 81 mg PO QAM RF: 0 ropinirole [Requip] 0.25 mg Tablet 0.25 mg PO HS RF: 0 albuterol sulfate [Ventolin HFA] 90 mcg/actuation HFA aerosol inhaler 2 puff INHALATION Q4 PRN (Reason: Shortness Of Breath Or Wheezing) RF: 0 bupropion HCl 150 mg tablet extended release 24 hr 150 mg PO QAM RF: 0 Velphoro 500 mg tablet,chewable 1,000 mg PO TIDM RF: 0 escitalopram oxalate 20 mg tablet 20 mg PO QAM RF: 0 clopidogrel 75 mg tablet 75 mg PO QAM RF: 0 ProRenal 8 mg iron-800 mcg-1,000 unit Tablet 1 tab PO QAM RF: 0 calcitriol 0.25 mcg capsule 0.5 mcg PO QAM RF: 0 furosemide 80 mg Tablet 80 mg PO QAM RF: 0 omeprazole 40 mg Capsule,Delayed Release(Dr/Ec) 40 mg PO BID RF: 0 allopurinol 100 mg Tablet 100 mg PO QAM RF: 0 Discontinued oxycodone-acetaminophen [Percocet] 5-325 mg tablet 1 tab PO Q8 PRN (Reason: Pain) RF: 0 No Action tamsulosin 0.4 mg capsule 0.4 mg PO DAILY RF: 0 Discharge Orders: Discharge Order (Routine); Ordered 03/27/21 Ordered By: Yakov Harrington/Other Patient Handouts: Living with a Pacemaker, Discharge Instructions for ... Admission Data Admit Date/Time: 03/25/21 11:40 Attending Provider: Yakov Leach Admit Provider: Tomi Caballero Primary Care Provider: Sundar Ruiz Other Providers: Natalio Giles ; Tomi Caballero ; Anibal Lomeli Other Interventions: Discharge Summary Assessment (RN) Last Done: 03/27/21 13:24
== END 2021-03-27 14:10 | disposition home or self-care (01) | DRG 242 ==
LOC: ED 10:20 → CC 13:36 → 2E 13:37 → SUATTDRO 13:37

== ENCOUNTER 2021-03-28 16:05 | Observation (INO) ==
--- NOTE | 2021-03-28 16:20 | Emergency Department Note ---
History of Present Illness General Chief complaint: Dizziness Time Seen by Provider: 03/28/21 16:11 History of Present Illness Provider complaint: Dizziness Onset (ago): day(s) 1 Maximum Pain Intensity: 7 Current Pain Intensity: 0 Relieved By: + none Exacerbated By: + none Associated symptoms: + weakness; no confusion, no chest pain, no cough, no headaches, no nausea/vomiting, no seizure, no shortness of breath or no syncope 7-year-old male presents emergency department dizziness. Patient states his symptoms began today. Patient states he checked his blood pressure and his blood pressure was 70/30. He states he called EMS. He stated EMS gave him IV fluids which made him feel better. Patient denies any fall. Denies any head trauma. Denies any chest pain or difficulty breathing. Denies any hemoptysis. Patient is on peritoneal dialysis and did state that he did a full session last night. Patient recently discharged from the hospital after pacemaker placement. Home Medications Medication Instructions Recorded Confirmed Type amlodipine 10 mg tablet 10 mg PO QAM 05/06/19 03/28/21 History dutasteride 0.5 mg capsule 0.5 mg PO QAM 05/06/19 03/28/21 History trazodone 50 mg tablet 100 mg PO HS PRN tab 05/06/19 03/28/21 History calcitriol 0.25 mcg capsule 0.5 mcg PO QAM 06/11/20 03/28/21 History allopurinol 100 mg tablet 100 mg PO QAM 06/30/20 03/28/21 History furosemide 80 mg tablet 80 mg PO QAM 06/30/20 03/28/21 History omeprazole 40 mg capsule,delayed 40 mg PO BID 06/30/20 03/28/21 History release albuterol sulfate 90 mcg/actuation 2 puff INHALATION Q4 PRN 09/26/20 03/28/21 History aerosol inhaler (Ventolin HFA) aspirin 81 mg tablet,delayed 81 mg PO QAM 09/26/20 03/28/21 History release atorvastatin 40 mg tablet (Lipitor) 40 mg PO QAM 09/26/20 03/28/21 History bupropion HCl 150 mg 24 hr tablet, 150 mg PO QAM 09/26/20 03/28/21 History extended release carvedilol 25 mg tablet (Coreg) 25 mg PO BID 09/26/20 03/28/21 History clopidogrel 75 mg tablet 75 mg PO QAM 09/26/20 03/28/21 History escitalopram oxalate 20 mg tablet 20 mg PO QAM 09/26/20 03/28/21 History ropinirole 0.25 mg tablet (Requip) 0.25 mg PO HS 09/26/20 03/28/21 History sucroferric oxyhydroxide 500 mg 1,000 mg PO TIDM 09/26/20 03/28/21 History chewable tablet (Velphoro) vit B complx, C-iron 8 mg-folic 1 tab PO QAM 09/26/20 03/28/21 History acid 800 mcg-D3 1,000 unit-zinc tablet (ProRenal) gentamicin 0.1 % topical cream 1 applic TOPICAL DAILY #30 g 03/10/21 03/28/21 Rx isosorbide mononitrate 30 mg 30 mg PO QAM #30 tab 03/22/21 03/28/21 Rx tablet,extended release 24 hr bisacodyl 5 mg tablet,delayed 5 mg PO DAILY PRN #30 tab 03/27/21 03/28/21 Rx release (Gentle Laxative (bisacodyl)) oxycodone-acetaminophen 5 mg-325 1 tab PO Q8H PRN #12 tab 03/27/21 03/28/21 Rx mg tablet tamsulosin 0.4 mg capsule 0.4 mg PO DAILY 03/28/21 03/28/21 History Allergies Allergy/AdvReac Type Severity Reaction Status Date / Time mercury (elemental) Allergy Intermediate Rash Verified 03/28/21 17:02 NSAIDS (Non-Steroidal Allergy Intermediate not to Verified 03/28/21 17:02 Anti-Inflamma take d/t Kidney disease lisinopril AdvReac Intermediate COUGH Verified 03/28/21 17:02 Past Med/Surg History Medical History AV fistula "L side " Bradycardia Cardiac murmur HX OF TAVR SEP 2019 SECONDARY TO SEVERE Carotid artery stenosis RIGHT ICA= <50%; LEFT ICA= 50-69% Chronic kidney disease, stage IV (severe) Complete heart block Dialysis patient X 4 YRS-PERITONEAL DIALYSIS Q HS X 8 HRS Dyslipidemia ESRD (end stage renal disease) on dialysis Fitting and adjustment of peritoneal dialysis catheter PLACEMENT OF-IN PLACE GERD (gastroesophageal reflux disease) Gout Hiatal hernia History of lung cancer NON SMALL CANCER [place] [facility] [place] ([place]ension) Kidney donor Pericardial effusion s/p pericardiocentesis Peritoneal dialysis status Spinal stenosis NO NECK OR BACK SURGERY Surgical History AV fistula CREATION OF IN LEFT WRIST History of colonoscopy History of lung surgery RLL 07/2019 History of nephrectomy, unilateral "Kidney donor "1992 S/P femoral-popliteal bypass surgery S/P TAVR (transcatheter aortic valve replacement) Family History Brother Family history of diabetes mellitus Brother Family history of diabetes mellitus Sister Family history of diabetes mellitus Mother Family history of diabetes mellitus Social History Smoking Status: Never smoker Tobacco Type: Smokeless Tobacco (Dip or Chew) Second Hand Exposure: No; Hx Alcohol Use: No Hx Substance Use: Yes Last Used Substance: Days (ago) Preferred Language: Hebrew Communication Ability: Effective Visual Impairment: No Limitations Postdoctoral Research Fellow Required: No Beliefs That Will Affect Care: None Current Living Situation: Significant Other Feels Safe at Home: Yes Assistive Devices: None Review of Systems A total of 10 systems reviewed and were otherwise negative Physical Exam Vital Signs Vital Signs - 24 hr 03/28/21 16:08 03/28/21 16:14 03/28/21 16:30 Temperature 36.8 C Temperature Source Oral Pulse Rate 80 78 76 Pulse Rate from SpO2 Sensor 80 76 Respiratory Rate 21 18 15 Blood Pressure 116/72 116/72 114/69 Blood Pressure Mean 86 86 84 Pulse Oximetry 99 97 97 Oxygen Delivery Method Room Air Sepsis Recent Fever Within 48 Hours No Sepsis New/Unexplained Change in Mental Status No Sepsis Action Taken by Nursing No Action Required 03/28/21 17:00 03/28/21 17:30 03/28/21 18:00 Temperature Temperature Source Pulse Rate 72 78 Pulse Rate from SpO2 Sensor 75 71 77 Respiratory Rate 18 20 Blood Pressure 140/79 120/81 134/84 Blood Pressure Mean 99 94 100 Pulse Oximetry 96 97 97 Oxygen Delivery Method Sepsis Recent Fever Within 48 Hours Sepsis New/Unexplained Change in Mental Status Sepsis Action Taken by Nursing 03/28/21 18:39 03/28/21 19:00 Temperature Temperature Source Pulse Rate 75 76 Pulse Rate from SpO2 Sensor 75 Respiratory Rate 21 14 Blood Pressure 138/83 127/79 Blood Pressure Mean 101 95 Pulse Oximetry 97 Oxygen Delivery Method Sepsis Recent Fever Within 48 Hours Sepsis New/Unexplained Change in Mental Status Sepsis Action Taken by Nursing Physical Exam GENERAL: He is oriented to person, place, and time. He appears well-developed and well-nourished. He does not appear distressed. HENT: Exam performed. - Head: Normocephalic and atraumatic. - Right Ear: External ear normal. No mastoid tenderness. - Left Ear: External ear normal. No mastoid tenderness. - Mouth/Throat: The oropharynx is clear and moist. No trismus in the jaw. No dental abscesses or uvula swelling. No oropharyngeal exudate or tonsillar abscesses. EYES: Conjunctivae and EOM are normal. Pupils are equal, round, and reactive to light. Right eye exhibits no discharge. Left eye exhibits no discharge. No scleral icterus. NECK: Normal range of motion. Neck supple. No JVD present. No spinous process tenderness present. No carotid bruit present. No rigidity. No tracheal deviation and normal range of motion present. No Brudzinski's sign and no Kernig's sign noted. CV: Normal rate, regular rhythm, normal heart sounds and intact distal pulses. There is no peripheral edema. Palpable radial pulses bue. PULM/CHEST: Effort normal and breath sounds normal. No respiratory distress. No stridor. He has no wheezes. He has no rales. - Chest Wall: Ecchymosis over the right chest. No discharge or bleeding from place maker insertion site. ABD: The abdomen is soft. No tenderness to palpation. Peritoneal dialysis cath eter in place with no surrounding erythema or discharge. MUSC/SKEL: Normal range of motion. There is no peripheral edema, tenderness or deformity. LYMPH: No cervical adenopathy. NEURO: He is alert and oriented to person, place, and time. He has normal strength. No cranial nerve deficit or sensory deficit. GCS eye subscore is 4. GCS verbal subscore is 5. GCS motor subscore is 6. Cerebellar tests wnl. PSYCH: He has a normal mood and affect. Behavior is normal. Judgment and thought content normal. Course Course 1611: The patient was evaluated in room C1. A complete history and physical exam was performed Cardiac monitoring: An order was placed for continuous cardiac monitoring. The monitor shows a rate of 80 with paced rhythm EMR reviewed. Patient was admitted to the hospital from March 25 to March 27, 2021, he was discharged yesterday. On March 25, 2021 the patient was admitted for 1/3 degree heart block. Patient had a pacemaker placed. Initially the pacemaker was working however then it failed to capture. Leads were readjusted and then the pacemaker started capturing again.Patient was cleared by cardiology yesterday prior to discharge.Per note by Dr. Cline the patient had no signs of infection around his pacemaker yesterday and he does have an antibiotic impregnated pouch around the device itself and he was cleared for discharge.Patient was cleared for discharge by nephrology yesterday also. Patient had an echo done which showed no pericardial effusion on March 25, 2021, 3 days ago. His ejection fraction was 65 to 70%. 1720: From [place] came interrogate the patient's pacemaker. He states pacemaker is working. He states he increase the threshold 0.5. He states patient was having similar episodes what happened to him the other night when his pacemaker is failed to capture. He states he increased the output on his right ventricle also. Awaiting labs and imaging. 1899: CTA of the head and neck are within normal limits. CT of the head does show 1.5 cm hyperdense lesion in the roof of the third ventricle consistent with a colloid cyst. Radiology did recommend an urgent neurosurgical consultation. No hydrocephalus. I did call [facility] and spoke with Dr. Jeff bobby who stated there is no need for urgent or emergent neurosurgical intervention and that the patient should follow-up outpatient for the colloid cyst. 1908: Vital signs stable. Labs within normal limits with the exception of a troponin of 0.08. Creatinine at baseline of 16.5. Spoke with Dr. Chan baum who is very familiar with the patient's case. He recommends that the patient be admitted to telemetry overnight and he will evaluate the patient in the morning. He recommends cutting the patient's carvedilol dose in half. 1926: [facility]. Administered Medications Discontinued Medications Ioversol (Optiray 320 125ml) 119 ml IV ONCE ONE Stop: 03/28/21 16:50 Last Admin: 03/28/21 16:49 Dose: 119 ml Documented by: [id number] Medical Decision Making Laboratory Data Result diagrams: 03/28/21 16:20 03/28/21 17:54 Lab Results 03/28/21 03/28/21 03/28/21 Range/Units 16:20 16:20 16:20 WBC 9.23 (4.8-10.8) K/uL RBC 3.07 L (4.7-6.1) M/uL Hgb 9.6 L (14.0-18.0) g/dL POC Hgb (14.0-18.0) g/dl Hct 28.0 L (42-52) % POC Hct (42-52) % MCV 91.2 (80-100) fL MCH 31.3 (25-34) pg MCHC 34.3 (32-36) g/dL RDW Std Deviation 47.3 H (36.4-46.3) fL RDW Coeff of Saum[place] 14.3 (11.5-14.5) % Plt Count 141 (130-400) K/uL MPV 11.1 H (7.4-10.4) fL Immature Gran % (Auto) 0.2 % Neut % (Auto) 77.2 % Lymph % (Auto) 7.6 % [place] % (Auto) 13.2 % Eos % (Auto) 1.7 % Baso % (Auto) 0.1 % Neut # (Auto) 7.12 H (1.4-6.5) K/uL Lymph # (Auto) 0.70 L (1.2-3.4) K/uL [place] # (Auto) 1.22 H (0.11-0.59) K/uL Eos # (Auto) 0.16 (0-0.5) K/uL Baso # (Auto) 0.01 (0-0.2) K/uL Immature Gran # (Auto) 0.02 (0.00-0.02) K/uL PT 11.1 (9.0-12.0) Seconds INR 1.1 (0.9-1.1) APTT 26.2 (21.0-31.0) Seconds PTT Ratio 1.0 POC Sodium (135-144) mmol/L Sodium 135 L (136-145) mmol/L POC Potassium (3.3-5.0) mmol/L Potassium (3.5-5.1) mmol/L POC Chloride (101-112) mmol/L Chloride 99 (98-107) mmol/L Carbon Dioxide 21 (21-32) mmol/L POC Total CO2 (24-31) mmol/L Anion Gap 14.0 H (3-11) POC Anion Gap (16-25) mmol/L POC BUN (7-18) mg/dl BUN 79 H (7-18) mg/dl Creatinine 16.50 H* D (0.6-1.4) mg/dl POC Creatinine (0.6-1.3) mg/dl Est Cr Clr Drug Dosing 4.4 ml/min Est GFR ( Amer) 3.2 ml/min Est GFR (Non-Af Amer) 2.7 ml/min BUN/Creatinine Ratio 4.8 L (10-20) Glucose 99 (70-99) mg/dl POC Glucose (other) (70-99) mg/dl Calcium 8.7 (8.5-10.1) mg/dl POC Ioniz Calcium Ludivina (1.12-1.32) mmol/l Magnesium (1.8-2.4) mg/dl Troponin I 0.080 H* (0-0.045) ng/ml 03/28/21 03/28/21 Range/Units 16:25 17:54 WBC (4.8-10.8) K/uL RBC (4.7-6.1) M/uL Hgb (14.0-18.0) g/dL POC Hgb 8.8 L (14.0-18.0) g/dl Hct (42-52) % POC Hct 26 L (42-52) % MCV (80-100) fL MCH (25-34) pg MCHC (32-36) g/dL RDW Std Deviation (36.4-46.3) fL RDW Coeff of Saumya (11.5-14.5) % Plt Count (130-400) K/uL MPV (7.4-10.4) fL Immature Gran % (Auto) % Neut % (Auto) % Lymph % (Auto) % Ro[place] % (Auto) % Eos % (Auto) % Baso % (Auto) % Neut # (Auto) (1.4-6.5) K/uL Lymph # (Auto) (1.2-3.4) K/uL Roane # (Auto) (0.11-0.59) K/uL Eos # (Auto) (0-0.5) K/uL Baso # (Auto) (0-0.2) K/uL Immature Gran # (Auto) (0.00-0.02) K/uL PT (9.0-12.0) Seconds INR (0.9-1.1) APTT (21.0-31.0) Seconds PTT Ratio POC Sodium 134 L (135-144) mmol/L Sodium (136-145) mmol/L POC Potassium 4.4 (3.3-5.0) mmol/L Potassium 4.2 (3.5-5.1) mmol/L POC Chloride 97 L (101-112) mmol/L Chloride (98-107) mmol/L Carbon Dioxide (21-32) mmol/L POC Total CO2 25 (24-31) mmol/L Anion Gap (3-11) POC Anion Gap 18.0 (16-25) mmol/L POC BUN 90 H (7-18) mg/dl BUN (7-18) mg/dl Creatinine (0.6-1.4) mg/dl POC Creatinine 17.4 H* (0.6-1.3) mg/dl Est Cr Clr Drug Dosing ml/min Est GFR ( Amer) ml/min Est GFR (Non-Af Amer) ml/min BUN/Creatinine Ratio (10-20) Glucose (70-99) mg/dl POC Glucose (other) 97 (70-99) mg/dl Calcium (8.5-10.1) mg/dl POC Ioniz Calcium Ludivina 1.11 L (1.12-1.32) mmol/l Magnesium 2.6 H (1.8-2.4) mg/dl Troponin I (0-0.045) ng/ml Imaging Data Radiologist's Impression: Chest X-Ray 03/28/21 16:11 XR chest 1V portable HISTORY: dizziness COMPARISON: Chest 03/27/2021. FINDINGS: The cardiac silhouette is mildly enlarged. A cardiac valve stent is again noted. There is a right-sided dual-chamber pacemaker. There is progressive interstitial/vascular thickening suggestive of mild pulmonary vascular congestion. Right basilar scarlike densities and a trace right pleural effusion persists. No pneumothorax. IMPRESSION: Mild pulmonary vascular congestion without overt edema. A trace right pleural effusion persists. ACT 112: Negative or not required by law. Electronically signed by: Mesfin Deluca M.D. 03/28/2021 7:28 PM Head CTA 03/28/21 16:18 HEAD & NECK CTA HISTORY: dizziness TECHNIQUE: Multiaxial CT images of the head were performed following the intravenous administration of contrast to evaluate the major cerebral vessels. Multiaxial CT images of the neck were also performed following the intravenous administration of contrast to evaluate the major cervical vessels. Maximum intensity projection images were also obtained. A dose lowering technique was ut ilized adhering to the principles of ALARA. COMPARISON: None. FINDINGS: Redemonstration of the 1.5 cm hyperdense lesion within the third ventricle consistent with a colloid cyst. Mild calcified plaque within the bilateral carotid siphons within the distal vertebral arteries. This results in mild focal narrowing within the distal right vertebral artery as well as the cavernous segment of the right internal carotid artery. The basilar artery is widely patent. There is no significant stenosis, occlusion, or aneurysm seen within the bilateral ACAs, MCAs, or messenger office. The major dural venous sinuses appear patent. The aortic arch and proximal great vessels are widely patent. The bilateral common carotid arteries and vertebral arteries are widely patent. There is moderate right and mild left carotid bifurcation calcification. There is mild narrowing of approximately 30% within the proximal bilateral internal carotid arteries. No dissection or aneurysm identified. IMPRESSION: 1. No significant stenosis, occlusion, or aneurysm within the [place]. 2. No significant stenosis, occlusion, or dissection identified within the bila teral common carotid or cervical vertebral arteries. There is mild narrowing within the cavernous portion of the right internal carotid artery and intracranial portion of the distal right vertebral artery. 3. There is mild stenosis within the proximal bilateral internal carotid arteries due to the calcified plaque. 4. Redemonstration of the 1.5 cm hyperdense lesion within the third ventricle consistent with a colloid cyst. ACT 112: Negative or not required by law. Electronically signed by: Mesfin Deluca M.D. 03/28/2021 5:50 PM Neck CTA 03/28/21 16:18 HEAD & NECK CTA HISTORY: dizziness TECHNIQUE: Multiaxial CT images of the head were performed following the intravenous administration of contrast to evaluate the major cerebral vessels. Multiaxial CT images of the neck were also performed following the intravenous administration of contrast to evaluate the major cervical vessels. Maximum intensity projection images were also obtained. A dose lowering technique was utilized adhering to the principles of ALARA. COMPARISON: None. FINDINGS: Redemonstration of the 1.5 cm hyperdense lesion within the third ventricle consistent with a colloid cyst. Mild calcified plaque within the bilateral carotid siphons within the distal vertebral arteries. This results in mild focal narrowing within the distal right vertebral artery as well as the cavernous segment of the right internal carotid artery. The basilar artery is widely patent. There is no significant stenosis, occlusion, or aneurysm seen within the bilateral ACAs, MCAs, or messenger office. The major dural venous sinuses appear patent. The aortic arch and proximal great vessels are widely patent. The bilateral common carotid arteries and vertebral arteries are widely patent. There is moderate right and mild left carotid bifurcation calcification. There is mild narrowing of approximately 30% within the proximal bilateral internal carotid arteries. No dissection or aneurysm identified. IMPRESSION: 1. No significant stenosis, occlusion, or aneurysm within the [place]. 2. No significant stenosis, occlusion, or dissection identified within the bilateral common carotid or cervical vertebral arteries. There is mild narrowing within the cavernous portion of the right internal carotid artery and intracranial portion of the distal right vertebral artery. 3. There is mild stenosis within the proximal bilateral internal carotid arteries due to the calcified plaque. 4. Redemonstration of the 1.5 cm hyperdense lesion within the third ventricle consistent with a colloid cyst. ACT 112: Negative or not required by law. Electronically signed by: Mesfin Deluca M.D. 03/28/2021 5:[address] 03/28/21 16:[address] DOSE: 1140.96 mGy.cm HISTORY: dizziness TECHNIQUE: Multiaxial CT images of the head were performed without the use of intravenous contrast. Automated exposure control was utilized for this study. A dose lowering technique was utilized adhering to the principles of ALARA. Comparison: None. Findings: The paranasal sinuses and mastoid air cells are clear. The calvarium and skull base are intact. Peritoneal White matter hypodensity is nonspecific but favors mild microvascular ischemic change. There is no hematoma, midline shift, acute infarct. There is 1.5 cm hyperdense lesion at the roof of the third ventricle. This is consistent with a colloid cyst. No evidence for hydrocephalus at this time. Impression: 1. No acute infarct or intracranial hemorrhage. 2. A 1.5 cm hyperdense lesion within the roof of the third ventricle. This is consistent with a colloid cyst. There is no hydrocephalus at this time. However, urgent neurosurgical consultation recommended. ACT 112: Negative or not required by law. Electronically signed by: Mesfin Deluca M.D. 03/28/2021 5:43 PM ECG Data Additional Comments: Paced rhythm with a rate of 76. AL 192 QRS 192 QTC 603. MDM Narrative 1611: The patient was evaluated in room C1. A complete history and physical exam was performed Cardiac monitoring: An order was placed for continuous cardiac monitoring. The monitor shows a rate of 80 with paced rhythm EMR reviewed. Patient was admitted to the hospital from March 25 to March 27, 2021, he was discharged yesterday. On March 25, 2021 the patient was admitted for 1/3 degree heart block. Patient had a pacemaker placed. Initially the pacemaker was working however then it failed to capture. Leads were readjusted and then the pacemaker started capturing again.Patient was cleared by cardiology yesterday prior to discharge.Per note by Dr. Cline the patient had no signs of infection around his pacemaker yesterday and he does have an antibiotic impregnated pouch around the device itself and he was cleared for discharge.Patient was cleared for discharge by nephrology yesterday also. Patient had an echo done which showed no pericardial effusion on March 25, 2021, 3 days ago. His ejection fraction was 65 to 70%. 1721: From [place] came interrogate the patient's pacemaker. He states pacemaker is working. He states he increase the threshold 0.5. He states patient was having similar episodes what happened to him the other night when his pacemaker is failed to capture. He states he increased the output on his right ventricle also. Awaiting labs and imaging. 1900: CTA of the head and neck are within normal limits. CT of the head does show 1.5 cm hyperdense lesion in the roof of the third ventricle consistent with a colloid cyst. Radiology did recommend an urgent neurosurgical consultation. No hydrocephalus. I did call [facility] and spoke with Dr. Jeff bobby who stated there is no need for urgent or emergent neurosurgical intervention and that the patient should follow-up outpatient for the colloid cyst. 190: Vital signs stable. Labs within normal limits with the exception of a troponin of 0.08. Creatinine at baseline of 16.5. Spoke with Dr. Giles cardiology who is very familiar with the patient's case. He recommends that the patient be admitted to telemetry overnight and he will evaluate the patient in the morning. He recommends cutting the patient's carvedilol dose in half. 1926: Discussed case with Dr. Ana Caruso hospitalist who admit the patient to his service. Impression & Plan Near syncope, Elevated troponin Discharge Plan Visit Data Chief Complaint: Dizziness ED Provider: Marcel Donohue Discharge Problem: Near syncope, Elevated troponin Patient Disposition: Admitted As Inpatient Forms Stand Alone Forms: [facility] Prescriptions Prescriptions: No Action dutasteride 0.5 mg capsule 0.5 mg PO QAM RF: 0 amlodipine 10 mg tablet 10 mg PO QAM RF: 0 trazodone 50 mg tablet 100 mg PO HS PRN (Reason: sleep) RF: 0 gentamicin 0.1 % cream 1 applic topical DAILY Qty: 30 RF: 1 isosorbide mononitrate 30 mg tablet extended release 24 hr 30 mg PO QAM Qty: 30 RF: 11 atorvastatin [Lipitor] 40 mg tablet 40 mg PO QAM RF: 0 carvedilol [Coreg] 25 mg tablet 25 mg PO BID RF: 0 aspirin 81 mg Tablet,Delayed Release (Dr/Ec) 81 mg PO QAM RF: 0 ropinirole [Requip] 0.25 mg Tablet 0.25 mg PO HS RF: 0 albuterol sulfate [Ventolin HFA] 90 mcg/actuation HFA aerosol inhaler 2 puff INHALATION Q4 PRN (Reason: Shortness Of Breath Or Wheezing) RF: 0 bupropion HCl 150 mg tablet extended release 24 hr 150 mg PO QAM RF: 0 Velphoro 500 mg tablet,chewable 1,000 mg PO TIDM RF: 0 escitalopram oxalate 20 mg tablet 20 mg PO QAM RF: 0 clopidogrel 75 mg tablet 75 mg PO QAM RF: 0 ProRenal 8 mg iron-800 mcg-1,000 unit Tablet 1 tab PO QAM RF: 0 calcitriol 0.25 mcg capsule 0.5 mcg PO QAM RF: 0 furosemide 80 mg Tablet 80 mg PO QAM RF: 0 omeprazole 40 mg Capsule,Delayed Release(Dr/Ec) 40 mg PO BID RF: 0 allopurinol 100 mg Tablet 100 mg PO QAM RF: 0 bisacodyl [Gentle Laxative (bisacodyl)] 5 mg Tablet,Delayed Release (Dr/Ec) 5 mg PO DAILY PRN (Reason: constipation) Qty: 30 RF: 0 oxycodone-acetaminophen 5-325 mg tablet 1 tab PO Q8H PRN (Reason: pain) Qty: 12 RF: 0 tamsulosin 0.4 mg capsule 0.4 mg PO DAILY RF: 0 Referrals Referrals: Sundar Ruiz DO [Primary Care Provider] -
[2021-03-28 16:29] LABS: Basophils # (auto) 0.01 K/uL (0-0.2); Basophils % (auto) 0.1 %; Eosinophils # (auto) 0.16 K/uL (0-0.5); Eosinophils % (auto) 1.7 %; Hemoglobin 9.6 g/dL (14.0-18.0); Immature Granulocytes # (auto) 0.02 K/uL (0.00-0.02); Immature Granulocytes % (auto) 0.2 %; Lymphocytes % (auto) 7.6 %; Mean Corpuscular Hemoglobin 31.3 pg (25-34); Mean Corpuscular Hgb Conc 34.3 g/dL (32-36); Mean Corpuscular Volume 91.2 fL (80-100); Mean Platelet Volume 11.1 fL (7.4-10.4); Monocytes # (auto) 1.22 K/uL (0.11-0.59); Monocytes % (auto) 13.2 %; Neutrophils # (auto) 7.12 K/uL (1.4-6.5); Neutrophils % (auto) 77.2 %; Platelet Count 141 K/uL (130-400); RDW Coefficient of Variation 14.3 % (11.5-14.5); RDW Standard Deviation 47.3 fL (36.4-46.3); Red Blood Count 3.07 M/uL (4.7-6.1); White Blood Count 9.23 K/uL (4.8-10.8)
[2021-03-28 16:40] LABS: iSTAT Creatinine 17.4 mg/dl (0.6-1.3); iSTAT Hemoglobin 8.8 g/dl (14.0-18.0); iSTAT Ionized Calcium 1.11 mmol/l (1.12-1.32); iSTAT Potassium 4.4 mmol/L (3.3-5.0)
[2021-03-28] MEDS ORDERED: OPTIRAY 320 125ml IV ONE (16:49)
[2021-03-28 16:55] LABS: INR 1.1 (0.9-1.1); Partial Thromboplastin Time 26.2 Seconds (21.0-31.0); Prothrombin Time 11.1 Seconds (9.0-12.0)
--- NOTE | 2021-03-28 17:44 | CT Scan Report ---
HEAD CT NONCONTRAST CT DOSE: 1140.96 mGy.cm HISTORY: dizziness TECHNIQUE: Multiaxial CT images of the head were performed without the use of intravenous contrast. A utomated exposure control was utilized for this study. A dose lowering technique was utilized adheri ng to the principles of ALARA. Comparison: None. Findings: The paranasal sinuses and mastoid air cells are clear. The calvarium and skull base are int act. Peritoneal White matter hypodensity is nonspecific but favors mild microvascular ischemic change . There is no hematoma, midline shift, acute infarct. There is 1.5 cm hyperdense lesion at the roof o f the third ventricle. This is consistent with a colloid cyst. No evidence for hydrocephalus at this time. Impression: 1. No acute infarct or intracranial hemorrhage. 2. A 1.5 cm hyperdense lesion within the roof of the third ventricle. This is consistent with a collo id cyst. There is no hydrocephalus at this time. However, urgent neurosurgical consultation recommend ed. ACT 112: Negative or not required by law. Electronically signed by: Mesfin Deluca M.D. 03/28/2021 5:43 PM
[2021-03-28 17:47] LABS: BUN Creatinine Ratio 4.8 (10-20); Calcium 8.7 mg/dl (8.5-10.1); Creatinine Clr Calc Pharmacy 4.4 ml/min; Est GFR (African American) 3.2 ml/min; Est GFR (Non-African American) 2.7 ml/min
[2021-03-28 17:49] LABS: Troponin I 0.08 ng/ml (0-0.045)
[2021-03-28 18:18] LABS: Potassium 4.2 mmol/L (3.5-5.1)
[2021-03-28 18:19] LABS: Magnesium 2.6 mg/dl (1.8-2.4)
--- NOTE | 2021-03-28 18:44 | CT Scan Report ---
HEAD & NECK CTA HISTORY: dizziness TECHNIQUE: Multiaxial CT images of the head were performed following the intravenous administration o f contrast to evaluate the major cerebral vessels. Multiaxial CT images of the neck were also perform ed following the intravenous administration of contrast to evaluate the major cervical vessels. Maxim um intensity projection images were also obtained. A dose lowering technique was utilized adhering to the principles of ALARA. COMPARISON: None. FINDINGS: Redemonstration of the 1.5 cm hyperdense lesion within the third ventricle consistent with a colloid cyst. Mild calcified plaque within the bilateral carotid siphons within the distal vertebral arteries . This results in mild focal narrowing within the distal right vertebral artery as well as the cavern ous segment of the right internal carotid artery. The basilar artery is widely patent. There is no si gnificant stenosis, occlusion, or aneurysm seen within the bilateral ACAs, MCAs, or suspender maker. The major d ural venous sinuses appear patent. The aortic arch and proximal great vessels are widely patent. The bilateral common carotid arteries and vertebral arteries are widely patent. There is moderate right and mild left carotid bifurcation calcification. There is mild narrowing of approximately 30% within the proximal bilateral internal ca rotid arteries. No dissection or aneurysm identified. IMPRESSION: 1. No significant stenosis, occlusion, or aneurysm within the [place] of [place]. 2. No significant stenosis, occlusion, or dissection identified within the bilateral common carotid o r cervical vertebral arteries. There is mild narrowing within the cavernous portion of the right inte rnal carotid artery and intracranial portion of the distal right vertebral artery. 3. There is mild stenosis within the proximal bilateral internal carotid arteries due to the calcifie d plaque. 4. Redemonstration of the 1.5 cm hyperdense lesion within the third ventricle consistent with a collo id cyst. ACT 112: Negative or not required by law. Electronically signed by: Mesfin Deluca M.D. 03/28/2021 5:50 PM
--- NOTE | 2021-03-28 18:44 | CT Scan Report ---
HEAD & NECK CTA HISTORY: dizziness TECHNIQUE: Multiaxial CT images of the head were performed following the intravenous administration o f contrast to evaluate the major cerebral vessels. Multiaxial CT images of the neck were also perform ed following the intravenous administration of contrast to evaluate the major cervical vessels. Maxim um intensity projection images were also obtained. A dose lowering technique was utilized adhering to the principles of ALARA. COMPARISON: None. FINDINGS: Redemonstration of the 1.5 cm hyperdense lesion within the third ventricle consistent with a colloid cyst. Mild calcified plaque within the bilateral carotid siphons within the distal vertebral arteries . This results in mild focal narrowing within the distal right vertebral artery as well as the cavern ous segment of the right internal carotid artery. The basilar artery is widely patent. There is no si gnificant stenosis, occlusion, or aneurysm seen within the bilateral ACAs, MCAs, or land appraiser. The major d ural venous sinuses appear patent. The aortic arch and proximal great vessels are widely patent. The bilateral common carotid arteries and vertebral arteries are widely patent. There is moderate right and mild left carotid bifurcation calcification. There is mild narrowing of approximately 30% within the proximal bilateral internal ca rotid arteries. No dissection or aneurysm identified. IMPRESSION: 1. No significant stenosis, occlusion, or aneurysm within the [place]. 2. No significant stenosis, occlusion, or dissection identified within the bilateral common carotid o r cervical vertebral arteries. There is mild narrowing within the cavernous portion of the right inte rnal carotid artery and intracranial portion of the distal right vertebral artery. 3. There is mild stenosis within the proximal bilateral internal carotid arteries due to the calcifie d plaque. 4. Redemonstration of the 1.5 cm hyperdense lesion within the third ventricle consistent with a collo id cyst. ACT 112: Negative or not required by law. Electronically signed by: Mesfin Deluca M.D. 03/28/2021 5:50 PM
--- NOTE | 2021-03-28 19:30 | XRay Report ---
XR chest 1V portable HISTORY: dizziness COMPARISON: Chest 03/27/2021. FINDINGS: The cardiac silhouette is mildly enlarged. A cardiac valve stent is again noted. There is a right-sided dual-chamber pacemaker. There is progressive interstitial/vascular thickening suggestive of mild pulmonary vascular congestion. Right basilar scarlike densities and a trace right pleural ef fusion persists. No pneumothorax. IMPRESSION: Mild pulmonary vascular congestion without overt edema. A trace right pleural effusion persists. ACT 112: Negative or not required by law. Electronically signed by: Mesfin Deluca M.D. 03/28/2021 7:28 PM
[2021-03-28 19:56] LABS: Hematocrit (blood only) 29.2 % (42-52); Hemoglobin 10.1 g/dL (14.0-18.0); Reticulocyte % 1.4 % (0.5-2.0); Reticulocytes # 0.04 10^6/uL (0.02-0.10)
[2021-03-28 20:32] LABS: Ferritin 1269.8 ng/ml (8-388); Troponin I 0.078 ng/ml (0-0.045)
[2021-03-28] MEDS ORDERED: oxyCODONE HCL IR 5 MG TAB (IMMEDIATE RELEASE) PO STA (20:35)
--- NOTE | 2021-03-28 20:36 | History & Physical Report ---
Date of Service March 28, 2021 Assessment & Plan (1) Dizziness, nonspecific: Plan: Possibly from multiple BP medications Rule out pacemaker dysfunction, recent PPM placement for complete heart block Rule out orthostasis/hypovolemia from progressive hemoglobin drop since PPM placement with note of right chest wall ecchymosis chronic diastolic heart failure (EF 65 to 70%, TTE 2020), euvolemic with some congestion on x-ray hx aortic stenosis status post TAVR history nonobstructive CAD/ PAD status post surgery hypertension, BP stable at the ER hyperlipidemia on statin Rx ESRD on PD NSCLC status post surgery Incidental finding of intracranial colloid cyst past tobacco abuse OBS PCU Cardiology consult Re: Dizziness, recent PPM placement (ER provider already in touch with Dr. Giles who recommends pacemaker interrogation and halving current Coreg dose at 25 mg twice daily) Check orthostatic vitals Trend H&H, anemia work-up, transfuse PRBC if hemoglobin less than 8 and or for symptomatic anemia May need to hold antiplatelet Rx if with progressive hemoglobin drop. Nephrology consult Re: Dialysis management Outpatient Neurosurgical consultation for incidental finding of intracranial colloid cyst as per [facility] specialist recommendation as per discussion with ER provider. DVT prophylaxis. TEDS RE right chest wall ecchymosis, SCDs contraindicated with history PAD Full code Text document was generated using [email or web address] voice recognition software. It may contain grammatical or spelling errors. Kindly contact undersigned for clarification of any documentation item in question. History of Present Illness Chief Complaint: Dizziness Primary Care Provider: Sundar Ruiz, History obtained from patient, family, and records. Medical history is significant for chronic diastolic heart failure (EF 65 to 70%, TTE 2020), bicuspid aortic valve, aortic stenosis status post TAVR, complete heart block status post recent PPM, history nonobstructive CAD, PAD status post surgery, hypertension, hyperlipidemia, ESRD on PD, NSCLC status post surgery, chronic anemia (baseline hemoglobin of 12), past tobacco abuse. Recent confinement March 25-2020 for complete heart block status post PPM. Patient was washing dishes at home today when he noted dizziness described as lightheadedness. No headache, no S OB. Usual achy chest pain/bruising from right pacemaker site. [place] like he was going to pass out. SBP noted to be 70/30 at home. Patient compliant with home medications. Thinks he "may have taken out more water than he should have" during peritoneal dialysis session at home last night. Patient brought to the ER for evaluation. MEDICAL HISTORY: As above. SURGICAL HISTORY: PPM, nephrectomy for donor renal transplant, vascular procedures, liver biopsy, TAVR, peritoneal dialysis catheter placement, lipoma removal left neck FAMILY HISTORY: Diabetes, hypertension. PERSONAL AND SOCIAL HISTORY: Past tobacco use. No chronic intake of alcoholic beverages. Prior road construction work. Allergies Allergy/AdvReac Type Severity Reaction Status Date / Time mercury (elemental) Allergy Intermediate Rash Verified 03/28/21 17:02 NSAIDS (Non-Steroidal Allergy Intermediate not to Verified 03/28/21 17:02 Anti-Inflamma take d/t Kidney disease lisinopril AdvReac Intermediate COUGH Verified 03/28/21 17:02 Home Medications Medication Instructions Recorded Confirmed Type amlodipine 10 mg tablet 10 mg PO QAM 05/06/19 03/28/21 History dutasteride 0.5 mg capsule 0.5 mg PO QAM 05/06/19 03/28/21 History trazodone 50 mg tablet 100 mg PO HS PRN tab 05/06/19 03/28/21 History calcitriol 0.25 mcg capsule 0.5 mcg PO QAM 06/11/20 03/28/21 History allopurinol 100 mg tablet 100 mg PO QAM 06/30/20 03/28/21 History furosemide 80 mg tablet 80 mg PO QAM 06/30/20 03/28/21 History omeprazole 40 mg capsule,delayed 40 mg PO BID 06/30/20 03/28/21 History release albuterol sulfate 90 mcg/actuation 2 puff INHALATION Q4 PRN 09/26/20 03/28/21 History aerosol inhaler (Ventolin HFA) aspirin 81 mg tablet,delayed 81 mg PO QAM 09/26/20 03/28/21 History release atorvastatin 40 mg tablet (Lipitor) 40 mg PO QAM 09/26/20 03/28/21 History bupropion HCl 150 mg 24 hr tablet, 150 mg PO QAM 09/26/20 03/28/21 History extended release carvedilol 25 mg tablet (Coreg) 25 mg PO BID 09/26/20 03/28/21 History clopidogrel 75 mg tablet 75 mg PO QAM 09/26/20 03/28/21 History escitalopram oxalate 20 mg tablet 20 mg PO QAM 09/26/20 03/28/21 History ropinirole 0.25 mg tablet (Requip) 0.25 mg PO HS 09/26/20 03/28/21 History sucroferric oxyhydroxide 500 mg 1,000 mg PO TIDM 09/26/20 03/28/21 History chewable tablet (Velphoro) vit B complx, C-iron 8 mg-folic 1 tab PO QAM 09/26/20 03/28/21 History acid 800 mcg-D3 1,000 unit-zinc tablet (ProRenal) gentamicin 0.1 % topical cream 1 applic TOPICAL DAILY #30 g 03/10/21 03/28/21 Rx isosorbide mononitrate 30 mg 30 mg PO QAM #30 tab 03/22/21 03/28/21 Rx tablet,extended release 24 hr bisacodyl 5 mg tablet,delayed 5 mg PO DAILY PRN #30 tab 03/27/21 03/28/21 Rx release (Gentle Laxative (bisacodyl)) oxycodone-acetaminophen 5 mg-325 1 tab PO Q8H PRN #12 tab 03/27/21 03/28/21 Rx mg tablet tamsulosin 0.4 mg capsule 0.4 mg PO DAILY 03/28/21 03/28/21 History Past Med/Surg History Medical History AV fistula "L side " Bradycardia Cardiac murmur HX OF TAVR SEP 2019 SECONDARY TO SEVERE Carotid artery stenosis RIGHT ICA= <50%; LEFT ICA= 50-69% Chronic kidney disease, stage IV (severe) Complete heart block Dialysis patient X 4 YRS-PERITONEAL DIALYSIS Q HS X 8 HRS Dyslipidemia ESRD (end stage renal disease) on dialysis Fitting and adjustment of peritoneal dialysis catheter PLACEMENT OF-IN PLACE GERD (gastroesophageal reflux disease) Gout Hiatal hernia History of lung cancer NON SMALL CANCER RLL-07/2019 [facility] HTN (hypertension) Kidney donor Pericardial effusion s/p pericardiocentesis Peritoneal dialysis status Spinal stenosis NO NECK OR BACK SURGERY Surgical History AV fistula CREATION OF IN LEFT WRIST History of colonoscopy History of lung surgery RLL 07/2019 History of nephrectomy, unilateral "Kidney donor "1992 S/P femoral-popliteal bypass surgery S/P TAVR (transcatheter aortic valve replacement) Family History Brother Family history of diabetes mellitus Brother Family history of diabetes mellitus Sister Family history of diabetes mellitus Mother Family history of diabetes mellitus Social History Smoking Status: Former smoker Tobacco Type: Smokeless Tobacco (Dip or Chew) Smoking End Date: 2018; Second Hand Exposure: No; Do You Dip or Chew Tobacco: Yes; Hx Alcohol Use: No Hx Substance Use: Yes Last Used Substance: Days (ago) Preferred Language: [place] Communication Ability: Effective Visual Impairment: No Limitations Visitor Services Technician Required: No Beliefs That Will Affect Care: None Current Living Situation: Significant Other Other Information That Helps Us Care for You: No Feels Safe at Home: Yes Safety Concerns: Feels Safe At This Time Assistive Devices: None Review of Systems Review of Systems: As per HPI, all 10 systems reviewed, all other ROS negative Physical Exam Physical Exam: GENERAL: Slightly uncomfortable, pleasant, no respiratory distress SKIN: Pallor , warm HEENT: Alopecia, pale palpebral conjunctivae, no ptosis, moist buccal mucosa NECK : Supple, no tenderness CHEST : Decreased breath sounds, tender ecchymosis over right anterior chest HEART : RRR, no obvious murmurs ABDOMEN: Some distention, nontender RECTAL : Intact sphincter, brown stool (FOBT negative) EXTREMITIES : No LE swelling/tenderness, no other conspicuous deformities noted NEUROLOGIC : Coherent, no facial asymmetry, no other gross focality Results & Data Results & Data ([facility]) Vital Signs (Past 12 Hours) Vital Signs Temp Pulse Resp BP Pulse Ox 03/28/21 19:00 76 14 127/79 97 03/28/21 18:39 75 21 138/83 03/28/21 18:00 78 20 134/84 97 03/28/21 17:30 72 18 120/81 97 03/28/21 17:00 140/79 96 03/28/21 16:30 76 15 114/69 97 03/28/21 16:14 36.8 C 78 18 116/72 97 03/28/21 16:08 80 21 116/72 99 Laboratory Results Laboratory Results WBC 9.23 K/uL (4.8-10.8) 03/28/21 16:20 RBC 3.07 M/uL (4.7-6.1) L 03/28/21 16:20 Hgb 10.1 g/dL (14.0-18.0) L 03/28/21 19:47 POC Hgb 8.8 g/dl (14.0-18.0) L 03/28/21 16:25 Hct 29.2 % (42-52) L 03/28/21 19:47 POC Hct 26 % (42-52) L 03/28/21 16:25 MCV 91.2 fL (80-100) 03/28/21 16:20 MCH 31.3 pg (25-34) 03/28/21 16:20 MCHC 34.3 g/dL (32-36) 03/28/21 16:20 RDW Std Deviation 47.3 fL (36.4-46.3) H 03/28/21 16:20 RDW Coeff of [place] 14.3 % (11.5-14.5) 03/28/21 16:20 Plt Count 141 K/uL (130-400) 03/28/21 16:20 MPV 11.1 fL (7.4-10.4) H 03/28/21 16:20 Immature Gran % (Auto) 0.2 % 03/28/21 16:20 Neut % (Auto) 77.2 % 03/28/21 16:20 Lymph % (Auto) 7.6 % 03/28/21 16:20 [place] % (Auto) 13.2 % 03/28/21 16:20 Eos % (Auto) 1.7 % 03/28/21 16:20 Baso % (Auto) 0.1 % 03/28/21 16:20 Reticulocyte % (Auto) 1.4 % (0.5-2.0) 03/28/21 19:47 Neut # (Auto) 7.12 K/uL (1.4-6.5) H 03/28/21 16:20 Lymph # (Auto) 0.70 K/uL (1.2-3.4) L 03/28/21 16:20 [place] # (Auto) 1.22 K/uL (0.11-0.59) H 03/28/21 16:20 Eos # (Auto) 0.16 K/uL (0-0.5) 03/28/21 16:20 Baso # (Auto) 0.01 K/uL (0-0.2) 03/28/21 16:20 Reticulocyte # 0.04 10^6/uL (0.02-0.10) 03/28/21 19:47 Immature Gran # (Auto) 0.02 K/uL (0.00-0.02) 03/28/21 16:20 PT 11.1 Seconds (9.0-12.0) 03/28/21 16:20 INR 1.1 (0.9-1.1) 03/28/21 16:20 APTT 26.2 Seconds (21.0-31.0) 03/28/21 16:20 PTT Ratio 1.0 03/28/21 16:20 POC Sodium 134 mmol/L (135-144) L 03/28/21 16:25 Sodium 135 mmol/L (136-145) L 03/28/21 16:20 POC Potassium 4.4 mmol/L (3.3-5.0) 03/28/21 16:25 Potassium 4.2 mmol/L (3.5-5.1) 03/28/21 17:54 POC Chloride 97 mmol/L (101-112) L 03/28/21 16:25 Chloride 99 mmol/L (98-107) 03/28/21 16:20 Carbon Dioxide 21 mmol/L (21-32) 03/28/21 16:20 POC Total CO2 25 mmol/L (24-31) 03/28/21 16:25 Anion Gap 14.0 (3-11) H 03/28/21 16:20 POC Anion Gap 18.0 mmol/L (16-25) 03/28/21 16:25 POC BUN 90 mg/dl (7-18) H 03/28/21 16:25 BUN 79 mg/dl (7-18) H 03/28/21 16:20 Creatinine 16.50 mg/dl (0.6-1.4) H* D 03/28/21 16:20 POC Creatinine 17.4 mg/dl (0.6-1.3) H* 03/28/21 16:25 Est Cr Clr Drug Dosing 4.4 ml/min 03/28/21 16:20 Est GFR ( Amer) 3.2 ml/min 03/28/21 16:20 Est GFR (Non-Af Amer) 2.7 ml/min 03/28/21 16:20 BUN/Creatinine Ratio 4.8 (10-20) L 03/28/21 16:20 Glucose 99 mg/dl (70-99) 03/28/21 16:20 POC Glucose (other) 97 mg/dl (70-99) 03/28/21 16:25 Calcium 8.7 mg/dl (8.5-10.1) 03/28/21 16:20 POC Ioniz Calcium [place] 1.11 mmol/l (1.12-1.32) L 03/28/21 16:25 Magnesium 2.6 mg/dl (1.8-2.4) H 03/28/21 17:54 Iron 97 mcg/dl (35-175) 03/28/21 19:47 TIBC 289 mcg/dl (250-450) 03/28/21 19:47 Transferrin 166 mg/dl (200-360) L 03/28/21 19:47 Ferritin 1269.8 ng/ml (8-388) H 03/28/21 19:47 Troponin I 0.078 ng/ml (0-0.045) H* 03/28/21 19:47 COVID-19 Eval Order Covid19 at [facility] 03/28/21 19:30 SARS-CoV-2 (PCR) NEGATIVE (Negative) 03/28/21 19:30 Impressions Chest X-Ray 03/28/21 16:11 XR chest 1V portable HISTORY: dizziness COMPARISON: Chest 03/27/2021. FINDINGS: The cardiac silhouette is mildly enlarged. A cardiac valve stent is again noted. There is a right-sided dual-chamber pacemaker. There is progressive interstitial/vascular thickening suggestive of mild pulmonary vascular congestion. Right basilar scarlike densities and a trace right pleural effusion persists. No pneumothorax. IMPRESSION: Mild pulmonary vascular congestion without overt edema. A trace right pleural effusion persists. ACT 112: Negative or not required by law. Electronically signed by: Mesfin Deluca M.D. 03/28/2021 7:28 PM Head CTA 03/28/21 16:18 HEAD & NECK CTA HISTORY: dizziness TECHNIQUE: Multiaxial CT images of the head were performed following the intravenous administration of contrast to evaluate the major cerebral vessels. Multiaxial CT images of the neck were also performed following the intravenous administration of contrast to evaluate the major cervical vessels. Maximum intensity projection images were also obtained. A dose lowering technique was utilized adhering to the principles of ALARA. COMPARISON: None. FINDINGS: Redemonstration of the 1.5 cm hyperdense lesion within the third ventricle consistent with a colloid cyst. Mild calcified plaque within the bilateral carotid siphons within the distal vertebral arteries. This results in mild focal narrowing within the distal right vertebral artery as well as the cavernous segment of the right internal carotid artery. The basilar artery is widely patent. There is no significant stenosis, occlusion, or aneurysm seen within the bilateral ACAs, MCAs, or buttonhole maker. The major dural venous sinuses appear patent. The aortic arch and proximal great vessels are widely patent. The bilateral common carotid arteries and vertebral arteries are widely patent. There is moderate right and mild left carotid bifurcation calcification. There is mild narrowing of approximately 30% within the proximal bilateral internal carotid arteries. No dissection or aneurysm identified. IMPRESSION: 1. No significant stenosis, occlusion, or aneurysm within the [place] of [place]. 2. No significant stenosis, occlusion, or dissection identified within the bilateral common carotid or cervical vertebral arteries. There is mild narrowing within the cavernous portion of the right internal carotid artery and intracranial portion of the distal right vertebral artery. 3. There is mild stenosis within the proximal bilateral internal carotid arteries due to the calcified plaque. 4. Redemonstration of the 1.5 cm hyperdense lesion within the third ventricle consistent with a colloid cyst. ACT 112: Negative or not required by law. Electronically signed by: Mesfin Deluca M.D. 03/28/2021 5:50 PM Neck CTA 03/28/21 16:18 HEAD & NECK CTA HISTORY: dizziness TECHNIQUE: Multiaxial CT images of the head were performed following the intravenous administration of contrast to evaluate the major cerebral vessels. Multiaxial CT images of the neck were also performed following the intravenous administration of contrast to evaluate the major cervical vessels. Maximum intensity projection images were also obtained. A dose lowering technique was utilized adhering to the principles of ALARA. COMPARISON: None. FINDINGS: Redemonstration of the 1.5 cm hyperdense lesion within the third ventricle consistent with a colloid cyst. Mild calcified plaque within the bilateral carotid siphons within the distal vertebral arteries. This results in mild focal narrowing within the distal right vertebral artery as well as the cavernous segment of the right internal carotid artery. The basilar artery is widely patent. There is no significant stenosis, occlusion, or aneurysm seen within the bilateral ACAs, MCAs, or buttonhole maker. The major dural venous sinuses appear patent. The aortic arch and proximal great vessels are widely patent. The bilateral common carotid arteries and vertebral arteries are widely patent. There is moderate right and mild left carotid bifurcation calcification. There is mild narrowing of approximately 30% within the proximal bilateral internal carotid arteries. No dissection or aneurysm identified. IMPRESSION: 1. No significant stenosis, occlusion, or aneurysm within the [place] of [place]. 2. No significant stenosis, occlusion, or dissection identified within the bilateral common carotid or cervical vertebral arteries. There is mild narrowing within the cavernous portion of the right internal carotid artery and intracranial portion of the distal right vertebral artery. 3. There is mild stenosis within the proximal bilateral internal carotid arteries due to the calcified plaque. 4. Redemonstration of the 1.5 cm hyperdense lesion within the third ventricle consistent with a colloid cyst. ACT 112: Negative or not required by law. Electronically signed by: Mesfin Deluca M.D. 03/28/2021 5:[address] 03/28/21 16:[address] DOSE: 1140.96 mGy.cm HISTORY: dizziness TECHNIQUE: Multiaxial CT images of the head were performed without the use of intravenous contrast. Automated exposure control was utilized for this study. A dose lowering technique was utilized adhering to the principles of ALARA. Comparison: None. Findings: The paranasal sinuses and mastoid air cells are clear. The calvarium and skull base are intact. Peritoneal White matter hypodensity is nonspecific but favors mild microvascular ischemic change. There is no hematoma, midline shift, acute infarct. There is 1.5 cm hyperdense lesion at the roof of the third ventricle. This is consistent with a colloid cyst. No evidence for hydrocephalus at this time. Impression: 1. No acute infarct or intracranial hemorrhage. 2. A 1.5 cm hyperdense lesion within the roof of the third ventricle. This is consistent with a colloid cyst. There is no hydrocephalus at this time. However, urgent neurosurgical consultation recommended. ACT 112: Negative or not required by law. Electronically signed by: Mesfin Deluca M.D. 03/28/2021 5:43 PM Diagnostic Findings EKG as per my interpretation: Rate 75, paced rhythm
[2021-03-28] MEDS ORDERED: PROMETHAZINE HCL 12.5 MG in SODIUM CHLORIDE 0.9% 50 ML IV PRN (20:42)
[2021-03-28] MEDS ORDERED: ACETAMINOPHEN 325 MG TAB PO PRN (20:42)
[2021-03-28] MEDS ORDERED: HYDROmorphone INJ 0.5 MG/0.5 ML SYR IV PRN (20:42)
[2021-03-28 21:26] LABS: Folate (Folic Acid) > 20.00 ng/ml (>5.38); Vitamin B12 1190 pg/ml (193-986)
[2021-03-28] MEDS ORDERED: traZODone HCL 100 MG TAB PO PRN (23:50)
[2021-03-28] MEDS ORDERED: bisacodyL 5 MG TABEC PO PRN (23:50)
[2021-03-28] MEDS ORDERED: NITROGLYCERIN SL 0.4 MG/TAB TAB SL PRN (23:50)
[2021-03-29] MEDS: oxyCODONE HCL IR 5 MG TAB (IMMEDIATE RELEASE) PO PRN ×2 (01:45→08:44)
[2021-03-29 06:27] LABS: Basophils # (auto) 0.01 K/uL (0-0.2); Basophils % (auto) 0.1 %; Eosinophils # (auto) 0.26 K/uL (0-0.5); Eosinophils % (auto) 2.9 %; Hematocrit (blood only) 28.6 % (42-52); Hemoglobin 9.7 g/dL (14.0-18.0); Immature Granulocytes # (auto) 0.02 K/uL (0.00-0.02); Immature Granulocytes % (auto) 0.2 %; Lymphocytes # (auto) 1.16 K/uL (1.2-3.4); Mean Corpuscular Hemoglobin 30.8 pg (25-34); Mean Corpuscular Hgb Conc 33.9 g/dL (32-36); Mean Corpuscular Volume 90.8 fL (80-100); Mean Platelet Volume 10.4 fL (7.4-10.4); Monocytes # (auto) 1.45 K/uL (0.11-0.59); Monocytes % (auto) 16.3 %; Neutrophils # (auto) 6.01 K/uL (1.4-6.5); Neutrophils % (auto) 67.5 %; Platelet Count 116 K/uL (130-400); RDW Coefficient of Variation 14.6 % (11.5-14.5); Red Blood Count 3.15 M/uL (4.7-6.1); White Blood Count 8.91 K/uL (4.8-10.8)
[2021-03-29 07:12] LABS: Calcium 8.8 mg/dl (8.5-10.1); Creatinine Clr Calc Pharmacy 4.1 ml/min; Est GFR (Non-African American) 2.6 ml/min; Potassium 3.9 mmol/L (3.5-5.1)
[2021-03-29] MEDS ORDERED: TAMSULOSIN HCL 0.4 MG CAP PO SCH (09:00)
[2021-03-29] MEDS ORDERED: PANTOprazole 40 MG TAB PO SCH (09:00)
[2021-03-29] MEDS ORDERED: ISOSORBIDE MONO EXTENDED REL 30 MG TABCR PO SCH (09:00)
[2021-03-29] MEDS ORDERED: NEPHROCAPS PO SCH (09:00)
[2021-03-29] MEDS ORDERED: allopurinoL 100 MG TAB PO SCH (09:00)
[2021-03-29] MEDS ORDERED: amLODIPine BESYLATE 5 MG TAB PO SCH (09:00)
[2021-03-29] MEDS ORDERED: ASPIRIN 81 MG ECTAB PO SCH (09:00)
[2021-03-29] MEDS ORDERED: CALCITRIOL 0.25 MCG CAPSULE PO SCH (09:00)
[2021-03-29] MEDS ORDERED: carvediloL 12.5 MG TAB PO SCH (09:00)
[2021-03-29] MEDS ORDERED: ATORVASTATIN 40 MG TAB PO SCH (09:00)
[2021-03-29] MEDS ORDERED: FUROSEMIDE 80 MG TAB PO SCH (09:00)
[2021-03-29] MEDS ORDERED: ESCITALOPRAM OXALATE 20 MG TAB PO SCH (09:00)
[2021-03-29] MEDS ORDERED: buPROPion XL 150 MG TABCR PO SCH (09:00)
[2021-03-29] MEDS ORDERED: CLOPIDOGREL BISULFATE 75 MG TAB PO SCH (09:00)
--- NOTE | 2021-03-29 09:53 | CT Scan Report ---
CT chest diagnostic wo con CT DOSE: 434.31 mGy.cm CLINICAL HISTORY: 61 years-old Male with R chest wall bruising, anemia. Acute chest pain with chest wall bruising TECHNIQUE: Multiaxial CT images of the chest were performed without contrast. A dose lowering techni que was utilized adhering to the principles of ALARA. COMPARISON: CTA chest 09/26/2020, chest radiographs 03/27/2021 FINDINGS: Unremarkable thyroid. Moderate cardiomegaly. There is mild diffuse pericardial thickening w ith resolution of the previously described large effusion. Trace residual effusion on today's study. Aortic valvular endograft. Battery pack of the right chest wall. Infiltration with trace fluid and sm all amount of air surrounds the battery pack with subcutaneous emphysema extending along the right pe ctoralis musculature. The visualized pacer leads appear intact. Extensive atherosclerosis of the thoracic aorta with unchanged mild dilation of the ascending segment measuring 4.0 x 4.0 cm. Subcarinal adenopathy measures up to 2.2 x 1.5 cm. Right paratracheal adenop athy measures up to 1.2 cm in short axis, unchanged. Chronic volume loss with prior pulmonary resection of the right lung. Unchanged small right pleural e ffusion with right-sided pleural thickening. Unchanged 4 mm solid nodule within the right upper lobe on image 71 series 4. There is mild bilateral intralobular septal thickening. No pneumothorax. There are several scattered solid nodules within the left greater than right lungs measuring up to 5 mm (pl ease see bookmarks). Several of these are new from comparison. Small volume pneumoperitoneum. No acute fracture. Mild upper and midthoracic compression deformities are unchanged. IMPRESSION: 1. Small volume of pneumoperitoneum. Correlate with patient history to exclude recent abdominal surge ry versus perforated viscus. 2. Status post placement of a right subclavian pacer. There is infiltration of the right chest wall w ith small amount of fluid and deep tissue air surrounding the battery pack and adjacent soft tissues of the chest wall which may be an expected post procedural finding. Findings should be correlated cli nically to exclude superimposed infection. 3. No pneumothorax. 4. Chronic postoperative changes of the right lung with unchanged small right pleural effusion and pl eural thickening. 5. Cardiomegaly with mild diffuse pericardial thickening. Findings should be correlated clinically to exclude pericarditis. 6. Mild intralobular septal thickening suspicious for pulmonary edema. 7. Low suspicion scattered bilateral solid pulmonary nodules measure up to 5 mm. Follow-up guidelines provided below. Please refer to below summary of Fleischner criteria recommendations for follow-up of incidental CT n odules (Leonie Burris, Guidelines for management of small pulmonary nodules detected on CT scans: A sta tement from the Fleischner Society, Radiology 237: [id number].) SOLID NODULES Multiple nodules size: <6 mm * Low risk patients: no routine follow-up * high risk patients: optional CT at 12 months Note: newly detected indeterminate nodule in persons 35 years of age or older. * Low risk patients: minimal or absent history of smoking and/or other known risk factors * high risk patients: history of smoking or of other known risk factors (e.g. first degree relative with lung cancer, or exposure to asbestos, radon, uranium) * if a nodule up to 8 mm is partly solid or is ground glass further follow-up is required after 24 m onths to exclude possible slow growing adenocarcinoma (DARIEN) ACT 112: Negative or not required by law. Electronically signed by: Bryson Duarte M.D. 03/29/2021 9:52 AM
--- NOTE | 2021-03-29 10:44 | Nephrology Consultation ---
Date of Consultation March 29, 2021 Assessment & Plan (1) Dizziness, nonspecific: Symptoms improved. Repeat orthostatic vitals. Plan of care reviewed with cardiology. Suspect some degree of volume depletion due to dialysis. (2) ESRD (end stage renal disease) on dialysis: CCPD nightly. Rx 5 exchanges x 2.5 L with 90 min dwell. Last fill 2 L. 1.5% dextrose to be used. Volume status acceptable. Rx reviewed with home dialysis nurse. Clearance acceptable. Electrolytes controlled. If discharged home, resume home Rx as discussed with patient this AM. (3) Anemia: Chronic, relatively stable. Slightly lower. Maintained on Micera as outpatient. Iron stores acceptable. History of Present Illness Reason for Consultation: ESRD on PD Requesting Physician: Yakov Leach MD Attending Physician: Yakov Leach MD History of Present Illness Mr. Hung is a 61 year male with ESRD due to hypertensive nephrosclerosis. In 1994 he donated his R kidney to his sister. In 12/27 he progressed to ESRD and was started on NCCPD. His current dialysis regimen consists of NCCPD 5 exchanges/night, 2.5L fill volume, 90 min dwell. LBO 2L fill, 4 hour dwell. EDW is 70kg. Mr. Hung was recently admitted to [facility] with heart block requiring pacemaker placement. He was discharged home and returned to the hospital with dizziness. Pacemaker interrogated. I discussed the plan of care with Dr. Weinstein this AM. John's symptoms have improved. He feels that he may have developed orthostasis due to aggressive UF with HD. No PD performed overnight last night. Note that in February amlodipine was reduced by Dr. Lomeli due to hypotension. 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 Presumed viral # PVD - bilateral iliac artery stenosis s/p CARTOGRAPHIC DRAFTER 05/03 [facility] [place] # Lyme disease 05/31 # Hep C s/p 12 weeks Zepatier therapy. Post treatment PCR negative 2016 # HTN # Gout # ROSELIA # RLS Allergies Allergy/AdvReac Type Severity Reaction Status Date / Time mercury (elemental) Allergy Intermediate Rash Verified 03/28/21 17:02 NSAIDS (Non-Steroidal Allergy Intermediate not to Verified 03/28/21 17:02 Anti-Inflamma take d/t Kidney disease lisinopril AdvReac Intermediate COUGH Verified 03/28/21 17:02 Home Medications Medication Instructions Recorded Confirmed Type amlodipine 10 mg tablet 10 mg PO QAM 05/06/19 03/28/21 History dutasteride 0.5 mg capsule 0.5 mg PO QAM 05/06/19 03/28/21 History trazodone 50 mg tablet 100 mg PO HS PRN tab 05/06/19 03/28/21 History calcitriol 0.25 mcg capsule 0.5 mcg PO QAM 06/11/20 03/28/21 History allopurinol 100 mg tablet 100 mg PO QAM 06/30/20 03/28/21 History furosemide 80 mg tablet 80 mg PO QAM 06/30/20 03/28/21 History omeprazole 40 mg capsule,delayed 40 mg PO BID 06/30/20 03/28/21 History release albuterol sulfate 90 mcg/actuation 2 puff INHALATION Q4 PRN 09/26/20 03/28/21 History aerosol inhaler (Ventolin HFA) aspirin 81 mg tablet,delayed 81 mg PO QAM 09/26/20 03/28/21 History release atorvastatin 40 mg tablet (Lipitor) 40 mg PO QAM 09/26/20 03/28/21 History bupropion HCl 150 mg 24 hr tablet, 150 mg PO QAM 09/26/20 03/28/21 History extended release carvedilol 25 mg tablet (Coreg) 25 mg PO BID 09/26/20 03/28/21 History clopidogrel 75 mg tablet 75 mg PO QAM 09/26/20 03/28/21 History escitalopram oxalate 20 mg tablet 20 mg PO QAM 09/26/20 03/28/21 History ropinirole 0.25 mg tablet (Requip) 0.25 mg PO HS 09/26/20 03/28/21 History sucroferric oxyhydroxide 500 mg 1,000 mg PO TIDM 09/26/20 03/28/21 History chewable tablet (Velphoro) vit B complx, C-iron 8 mg-folic 1 tab PO QAM 09/26/20 03/28/21 History acid 800 mcg-D3 1,000 unit-zinc tablet (ProRenal) gentamicin 0.1 % topical cream 1 applic TOPICAL DAILY #30 g 03/10/21 03/28/21 Rx isosorbide mononitrate 30 mg 30 mg PO QAM #30 tab 03/22/21 03/28/21 Rx tablet,extended release 24 hr bisacodyl 5 mg tablet,delayed 5 mg PO DAILY PRN #30 tab 03/27/21 03/28/21 Rx release (Gentle Laxative (bisacodyl)) oxycodone-acetaminophen 5 mg-325 1 tab PO Q8H PRN #12 tab 03/27/21 03/28/21 Rx mg tablet tamsulosin 0.4 mg capsule 0.4 mg PO DAILY 03/28/21 03/28/21 History Patient History Medical History AV fistula "L side " Bradycardia Cardiac murmur HX OF TAVR SEP 2019 SECONDARY TO SEVERE Carotid artery stenosis RIGHT ICA= <50%; LEFT ICA= 50-69% Chronic kidney disease, stage IV (severe) Complete heart block Dialysis patient X 4 YRS-PERITONEAL DIALYSIS Q HS X 8 HRS Dyslipidemia ESRD (end stage renal disease) on dialysis Fitting and adjustment of peritoneal dialysis catheter PLACEMENT OF-IN PLACE GERD (gastroesophageal reflux disease) Gout Hiatal hernia History of lung cancer NON SMALL CANCER RLL-07/2019 [facility] [place] HTN (hypertension) Kidney donor Pericardial effusion s/p pericardiocentesis Peritoneal dialysis status Spinal stenosis NO NECK OR BACK SURGERY Surgical History AV fistula CREATION OF IN LEFT WRIST History of colonoscopy History of lung surgery RLL 07/2019 History of nephrectomy, unilateral "Kidney donor "1992 S/P femoral-popliteal bypass surgery S/P TAVR (transcatheter aortic valve replacement) Family History Brother Family history of diabetes mellitus Brother Family history of diabetes mellitus Sister Family history of diabetes mellitus Mother Family history of diabetes mellitus Social History Smoking Status: Former smoker Tobacco Type: Smokeless Tobacco (Dip or Chew) Smoking End Date: 2018; Second Hand Exposure: No; Do You Dip or Chew Tobacco: Yes; Hx Alcohol Use: No Hx Substance Use: Yes Last Used Substance: Days (ago) Preferred Language: Macedonian Communication Ability: Effective Visual Impairment: No Limitations Fire Alarm Operator Required: No Beliefs That Will Affect Care: None Current Living Situation: Significant Other Other Information That Helps Us Care for You: No Feels Safe at Home: Yes Safety Concerns: Feels Safe At This Time Assistive Devices: None Review of Systems Constitutional: no weight loss, no weight gain and no problem reported Eyes: no problem reported Ear, Nose, Mouth, Throat: no problem reported Respiratory: no problem reported Cardiovascular: no problem reported Gastrointestinal: no problem reported Musculoskeletal: no problem reported Integumentary: no problem reported Neurologic: no problem reported Psychiatric: no problem reported Endocrine: no problem reported Hematologic / Lymphatic: no problem reported Physical Exam Constitutional: well developed; no acute distress Eyes: no scleral abnormality and no corneal abnormality ENMT: Mouth: no oral mucosal abnormality and oral mucous membranes not dry Neck: normal visual inspection and trachea midline Respiratory: normal respiratory effort Auscultation: lungs clear to auscultation bilaterally Cardiovascular: Rate/Rhythm: regular rate Heart Sounds: normal S1, normal S2 and + murmur Extremities: + AV fistula; no edema Chest (Breasts): Additional Comments: Pacemaker with some bruising and hematoma. Incusion CDI Gastrointestinal (Abdomen): Inspection/Auscultation: + abdomen distended PD catheter with clean exit site Musculoskeletal: Extremities: no cyanosis and no clubbing Skin: normal turgor; no lesions Neurologic: Motor/Sensory: no tremor and no asterixis Psychiatric: Orientation: alert and oriented x 3 Results & Data ([facility]) Vital Signs (Past 12 Hours) Vital Signs Temp Pulse Pulse Resp BP BP BP 03/29/21 08:54 36.5 C 75 18 137/76 03/29/21 03:11 36.6 C 79 18 150/77 H 03/28/21 23:50 36.5 C 78 16 146/72 H 03/28/21 23:00 78 17 127/70 Pulse Ox 03/29/21 08:54 97 03/29/21 03:11 93 03/28/21 23:50 96 03/28/21 23:00 97 Laboratory Results Laboratory Results - last 24 hr 03/28/21 03/28/21 03/28/21 16:20 16:20 16:20 WBC 9.23 RBC 3.07 L Hgb 9.6 L POC Hgb Hct 28.0 L POC Hct MCV 91.2 MCH 31.3 MCHC 34.3 RDW Std Deviation 47.3 H RDW Coeff of Saumya 14.3 Plt Count 141 MPV 11.1 H Immature Gran % (Auto) 0.2 Neut % (Auto) 77.2 Lymph % (Auto) 7.6 [place] % (Auto) 13.2 Eos % (Auto) 1.7 Baso % (Auto) 0.1 Reticulocyte % (Auto) Neut # (Auto) 7.12 H Lymph # (Auto) 0.70 L [place] # (Auto) 1.22 H Eos # (Auto) 0.16 Baso # (Auto) 0.01 Reticulocyte # Immature Gran # (Auto) 0.02 PT 11.1 INR 1.1 APTT 26.2 PTT Ratio 1.0 POC Sodium Sodium 135 L POC Potassium Potassium POC Chloride Chloride 99 Carbon Dioxide 21 POC Total CO2 Anion Gap 14.0 H POC Anion Gap POC BUN BUN 79 H Creatinine 16.50 H* D POC Creatinine Est Cr Clr Drug Dosing 4.4 Est GFR ( Amer) 3.2 Est GFR (Non-Af Amer) 2.7 BUN/Creatinine Ratio 4.8 L Glucose 99 POC Glucose (other) Calcium 8.7 POC Ioniz Calcium Ludivina Magnesium Iron TIBC Transferrin Ferritin Troponin I 0.080 H* Vitamin B12 Folate Nasal Screen MRSA (PCR) COVID-19 Eval Order SARS-CoV-2 (PCR) Blood Type Antibody Screen 03/28/21 03/28/21 03/28/21 16:25 17:54 19:30 WBC RBC Hgb POC Hgb 8.8 L Hct POC Hct 26 L MCV MCH MCHC RDW Std Deviation RDW Coeff of Saumya Plt Count MPV Immature Gran % (Auto) Neut % (Auto) Lymph % (Auto) [place] % (Auto) Eos % (Auto) Baso % (Auto) Reticulocyte % (Auto) Neut # (Auto) Lymph # (Auto) [place] # (Auto) Eos # (Auto) Baso # (Auto) Reticulocyte # Immature Gran # (Auto) PT INR APTT PTT Ratio POC Sodium 134 L Sodium POC Potassium 4.4 Potassium 4.2 POC Chloride 97 L Chloride Carbon Dioxide POC Total CO2 25 Anion Gap POC Anion Gap 18.0 POC BUN 90 H BUN Creatinine POC Creatinine 17.4 H* Est Cr Clr Drug Dosing Est GFR ( Amer) Est GFR (Non-Af Amer) BUN/Creatinine Ratio Glucose POC Glucose (other) 97 Calcium POC Ioniz Calcium Ludivina 1.11 L Magnesium 2.6 H Iron TIBC Transferrin Ferritin Troponin I Vitamin B12 Folate Nasal Screen MRSA (PCR) COVID-19 Eval Order Covid19 at [facility] SARS-CoV-2 (PCR) Blood Type Antibody Screen 03/28/21 03/28/21 03/28/21 19:30 19:47 19:47 WBC RBC Hgb 10.1 L POC Hgb Hct 29.2 L POC Hct MCV MCH MCHC RDW Std Deviation RDW Coeff of Saumya Plt Count MPV Immature Gran % (Auto) Neut % (Auto) Lymph % (Auto) [place] % (Auto) Eos % (Auto) Baso % (Auto) Reticulocyte % (Auto) 1.4 Neut # (Auto) Lymph # (Auto) [place] # (Auto) Eos # (Auto) Baso # (Auto) Reticulocyte # 0.04 Immature Gran # (Auto) PT INR APTT PTT Ratio POC Sodium Sodium POC Potassium Potassium POC Chloride Chloride Carbon Dioxide POC Total CO2 Anion Gap POC Anion Gap POC BUN BUN Creatinine POC Creatinine Est Cr Clr Drug Dosing Est GFR ( Amer) Est GFR (Non-Af Amer) BUN/Creatinine Ratio Glucose POC Glucose (other) Calcium POC Ioniz Calcium Ludivina Magnesium Iron TIBC Transferrin Ferritin Troponin I Vitamin B12 Folate Nasal Screen MRSA (PCR) COVID-19 Eval Order SARS-CoV-2 (PCR) NEGATIVE Blood Type A Positive Antibody Screen NEGATIVE 03/28/21 03/28/21 03/29/21 19:47 19:57 00:00 WBC RBC Hgb POC Hgb Hct POC Hct MCV MCH MCHC RDW Std Deviation RDW Coeff of Saumya Plt Count MPV Immature Gran % (Auto) Neut % (Auto) Lymph % (Auto) [place] % (Auto) Eos % (Auto) Baso % (Auto) Reticulocyte % (Auto) Neut # (Auto) Lymph # (Auto) [place] # (Auto) Eos # (Auto) Baso # (Auto) Reticulocyte # Immature Gran # (Auto) PT INR APTT PTT Ratio POC Sodium Sodium POC Potassium Potassium POC Chloride Chloride Carbon Dioxide POC Total CO2 Anion Gap POC Anion Gap POC BUN BUN Creatinine POC Creatinine Est Cr Clr Drug Dosing Est GFR ( Amer) Est GFR (Non-Af Amer) BUN/Creatinine Ratio Glucose POC Glucose (other) Calcium POC Ioniz Calcium Ludivina Magnesium Iron 97 TIBC 289 Transferrin 166 L Ferritin 1269.8 H Troponin I 0.078 H* Vitamin B12 1190 H Folate > 20.00 Nasal Screen MRSA (PCR) Negative COVID-19 Eval Order SARS-CoV-2 (PCR) Blood Type Antibody Screen 03/29/21 03/29/21 06:09 06:09 WBC 8.91 RBC 3.15 L Hgb 9.7 L POC Hgb Hct 28.6 L POC Hct MCV 90.8 MCH 30.8 MCHC 33.9 RDW Std Deviation 48.0 H RDW Coeff of Saumya 14.6 H Plt Count 116 L MPV 10.4 Immature Gran % (Auto) 0.2 Neut % (Auto) 67.5 Lymph % (Auto) 13.0 [place] % (Auto) 16.3 Eos % (Auto) 2.9 Baso % (Auto) 0.1 Reticulocyte % (Auto) Neut # (Auto) 6.01 Lymph # (Auto) 1.16 L [place] # (Auto) 1.45 H Eos # (Auto) 0.26 Baso # (Auto) 0.01 Reticulocyte # Immature Gran # (Auto) 0.02 PT INR APTT PTT Ratio POC Sodium Sodium 132 L POC Potassium Potassium 3.9 POC Chloride Chloride 99 Carbon Dioxide 21 POC Total CO2 Anion Gap 12.0 H POC Anion Gap POC BUN BUN 85 H Creatinine 17.20 H* D POC Creatinine Est Cr Clr Drug Dosing 4.1 Est GFR ( Amer) 3.0 Est GFR (Non-Af Amer) 2.6 BUN/Creatinine Ratio 5.0 L Glucose 87 POC Glucose (other) Calcium 8.8 POC Ioniz Calcium Ludivina Magnesium Iron TIBC Transferrin Ferritin Troponin I Vitamin B12 Folate Nasal Screen MRSA (PCR) COVID-19 Eval Order SARS-CoV-2 (PCR) Blood Type Antibody Screen PG Care Time/CCT Total # of Minutes Spent Total Time Spent with Patient: Total time spent is greater than 50% in coordination of care (as documented) at patient's floor/unit and/or counseling patient: Coding Level of Care Code 64483 Inpt Consult Level 4 Diagnoses Dizziness, nonspecific R42 Anemia D64.9 ESRD (end stage renal disease) on dialysis N18.6; Z99.2
--- NOTE | 2021-03-29 11:01 | Cardiology Consultation ---
Date of Consultation March 29, 2021 Assessment & Plan (1) Near syncope: 61-year-old male with past medical history as outlined including past TAVR, end-stage renal disease with solitary kidney, for which he performs home hemodialysis, presents with near syncope having recently undergone permanent pacemaker for findings of symptomatic third-degree AV block, which required right ventricular lead revision. Blood pressure is stable. Pacemaker has been interrogated upon his arrival to the emergency room last night with normal function. No events on telemetry noted last night. The right ventricular lead output was increased for the purpose of completeness, and will be followed as an outpatient. A transthoracic echocardiogram was performed excluding post procedure pericardial effusion this morning, with normal biventricular systolic function. Physical exam and CT of the chest findings consistent with mild pocket hematoma, which had been noted on the most recent EP follow-up notes, it was felt to be due to mild post procedure operative changes after having had both procedures and a short course of time with underlying treatment including aspirin and clopidogrel. Patient does have an antibiotic pouch in his pacemaker pocket as well and completed necessary post procedure course of antibiotics. No clinical findings to suggest pacemaker pocket infection at present. Patient states that the pocket actually looks better than what it did several days ago. Not certain if his transient dizziness was in part vasovagal due to ongoing mild discomfort at his pocket site, perhaps a little volume depletion, and related to his antihypertensive treatment therapy. He has not had any symptoms suggestive of orthostasis overnight, and his blood pressures are well controlled with most recent measurements of 150/77 and 137/76 having received his typical blood pressure medications with noted reduction in his carvedilol dose from 25 mg twice daily to 12.5 mg twice daily. Per cardiology perspective, I would resume his aspirin and clopidogrel. Reduce carvedilol to 12.5 mg twice daily. Keep device clinic appointment as outpatient as scheduled: 04/05/2021 1:00 PM [facility] With regards to the pneumoperitoneum finding on CT of the chest, I will discuss this with the hospitalist team. Patient has no abdominal symptoms. Has not had recent abdominal surgery. History of Present Illness Attending Physician: Yakov Leach MD History of Present Illness Mr Hung is a 61 year old male seen in cardiology consultation per the request of Dr. Landa for the evaluation of dizziness and near syncope. The patient had recently been admitted from 03/25/2021 until 03/27/2021 having presented with symptomatic third-degree AV block. He underwent implantation of a dual-chamber permanent pacemaker the afternoon of 03/25/2021. That night however there was an intermittent problem with capture of the right ventricular leadThis prompted lead revision as performed by Dr Thomas on 03/26/2021. He was discharged the next day, 03/27. Patient went home and had some transient lightheadedness. Reportedly took his blood pressure at home with his home cuff with measurement of 70/30 mm Hg, however during his time in the hospital, his blood pressure has been normal to mildly elevated. Patient states he feels well with the exception of mild ongoing tenderness over his pocket site. AST MEDICAL HISTORY: 1. Severe aortic stenosis status post TAVR with a #26 Brian 3T valve 2. Nonobstructive coronary artery disease 3. Diastolic dysfunction with normal LV systolic function 4. End-stage renal failure on peritoneal dialysis (history of solitary kidney having donated a kidney to his sister) 5. History of lung cancer status post lobectomy 6. Hypertension 7. Depression 8. Peripheral arterial disease status post bilateral common iliac artery stent placement 9. Pericardial effusion with tamponade physiology status post pericardiocentesis September 2020 10. Symptomatic third-degree AV block, status post dual-chamber [employer] permanent pacemaker 03/25/2021, RV lead revision 03/26/2021. Allergies Allergy/AdvReac Type Severity Reaction Status Date / Time mercury (elemental) Allergy Intermediate Rash Verified 03/28/21 17:02 NSAIDS (Non-Steroidal Allergy Intermediate not to Verified 03/28/21 17:02 Anti-Inflamma take d/t Kidney disease lisinopril AdvReac Intermediate COUGH Verified 03/28/21 17:02 Home Medications Medication Instructions Recorded Confirmed Type amlodipine 10 mg tablet 10 mg PO QAM 05/06/19 03/28/21 History dutasteride 0.5 mg capsule 0.5 mg PO QAM 05/06/19 03/28/21 History trazodone 50 mg tablet 100 mg PO HS PRN tab 05/06/19 03/28/21 History calcitriol 0.25 mcg capsule 0.5 mcg PO QAM 06/11/20 03/28/21 History allopurinol 100 mg tablet 100 mg PO QAM 06/30/20 03/28/21 History furosemide 80 mg tablet 80 mg PO QAM 06/30/20 03/28/21 History omeprazole 40 mg capsule,delayed 40 mg PO BID 06/30/20 03/28/21 History release albuterol sulfate 90 mcg/actuation 2 puff INHALATION Q4 PRN 09/26/20 03/28/21 History aerosol inhaler (Ventolin HFA) aspirin 81 mg tablet,delayed 81 mg PO QAM 09/26/20 03/28/21 History release atorvastatin 40 mg tablet (Lipitor) 40 mg PO QAM 09/26/20 03/28/21 History bupropion HCl 150 mg 24 hr tablet, 150 mg PO QAM 09/26/20 03/28/21 History extended release carvedilol 25 mg tablet (Coreg) 25 mg PO BID 09/26/20 03/28/21 History clopidogrel 75 mg tablet 75 mg PO QAM 09/26/20 03/28/21 History escitalopram oxalate 20 mg tablet 20 mg PO QAM 09/26/20 03/28/21 History ropinirole 0.25 mg tablet (Requip) 0.25 mg PO HS 09/26/20 03/28/21 History sucroferric oxyhydroxide 500 mg 1,000 mg PO TIDM 09/26/20 03/28/21 History chewable tablet (Velphoro) vit B complx, C-iron 8 mg-folic 1 tab PO QAM 09/26/20 03/28/21 History acid 800 mcg-D3 1,000 unit-zinc tablet (ProRenal) gentamicin 0.1 % topical cream 1 applic TOPICAL DAILY #30 g 03/10/21 03/28/21 Rx isosorbide mononitrate 30 mg 30 mg PO QAM #30 tab 03/22/21 03/28/21 Rx tablet,extended release 24 hr bisacodyl 5 mg tablet,delayed 5 mg PO DAILY PRN #30 tab 03/27/21 03/28/21 Rx release (Gentle Laxative (bisacodyl)) oxycodone-acetaminophen 5 mg-325 1 tab PO Q8H PRN #12 tab 03/27/21 03/28/21 Rx mg tablet tamsulosin 0.4 mg capsule 0.4 mg PO DAILY 03/28/21 03/28/21 History Patient History Medical History AV fistula "L side " Bradycardia Cardiac murmur HX OF TAVR SEP 2019 SECONDARY TO SEVERE Carotid artery stenosis RIGHT ICA= <50%; LEFT ICA= 50-69% Chronic kidney disease, stage IV (severe) Complete heart block Dialysis patient X 4 YRS-PERITONEAL DIALYSIS Q HS X 8 HRS Dyslipidemia ESRD (end stage renal disease) on dialysis Fitting and adjustment of peritoneal dialysis catheter PLACEMENT OF-IN PLACE GERD (gastroesophageal reflux disease) Gout Hiatal hernia History of lung cancer NON SMALL CANCER RLL-07/2019 [facility] [place] HTN (hypertension) Kidney donor Pericardial effusion s/p pericardiocentesis Peritoneal dialysis status Spinal stenosis NO NECK OR BACK SURGERY Surgical History AV fistula CREATION OF IN LEFT WRIST History of colonoscopy History of lung surgery RLL 07/2019 History of nephrectomy, unilateral "Kidney donor "1992 S/P femoral-popliteal bypass surgery S/P TAVR (transcatheter aortic valve replacement) Family History Brother Family history of diabetes mellitus Brother Family history of diabetes mellitus Sister Family history of diabetes mellitus Mother Family history of diabetes mellitus Social History Smoking Status: Former smoker Tobacco Type: Smokeless Tobacco (Dip or Chew) Smoking End Date: 2018; Second Hand Exposure: No; Do You Dip or Chew Tobacco: Yes; Hx Alcohol Use: No Hx Substance Use: Yes Last Used Substance: Days (ago) Preferred Language: Faroese Communication Ability: Effective Visual Impairment: No Limitations Barrel Bander Required: No Beliefs That Will Affect Care: None Current Living Situation: Significant Other Other Information That Helps Us Care for You: No Feels Safe at Home: Yes Safety Concerns: Feels Safe At This Time Assistive Devices: None Review of Systems Review of Systems: All systems reviewed & are unremarkable except as noted in HPI & below Physical Exam Physical Exam: Temp Pulse Resp BP Pulse Ox 36.5 C 75 18 137/76 97 03/29/21 08:54 03/29/21 08:54 03/29/21 08:54 03/29/21 08:54 03/29/21 08:54 Constitutional: WD/WN, vitals as above Respiratory: normal respiratory effort, lungs clear to auscultation Cardiovascular: RRR, no murmur, no edema Chest (Breasts): Additional Comments: Right infraclavicular pacemaker pocket with noted Steri-Strip, mild ecchymosis, mild hematoma, patient states the peripocket hematoma size has improved compared to 2 days ago. Gastrointestinal (Abdomen): normal bowel sounds, soft, nontender, no hepatosplenomegaly Neurologic: PERRL, EOMI, accommodation nl, no face palsy, no dysarthria Results & Data ([facility]) Vital Signs (Past 12 Hours) Vital Signs Temp Pulse Pulse Resp BP BP BP 03/29/21 08:54 36.5 C 75 18 137/76 03/29/21 03:11 36.6 C 79 18 150/77 H 03/28/21 23:50 36.5 C 78 16 146/72 H 03/28/21 23:00 78 17 127/70 Pulse Ox 03/29/21 08:54 97 03/29/21 03:11 93 03/28/21 23:50 96 03/28/21 23:00 97 Laboratory Results Cardiac Enzymes 03/28/21 03/28/21 Range/Units 16:20 19:47 Troponin I 0.080 H* 0.078 H* (0-0.045) ng/ml Coagulation 03/28/21 Range/Units 16:20 PT 11.1 (9.0-12.0) Seconds APTT 26.2 (21.0-31.0) Seconds CBC 03/28/21 03/28/21 03/29/21 Range/Units 16:20 19:47 06:09 WBC 9.23 8.91 (4.8-10.8) K/uL RBC 3.07 L 3.15 L (4.7-6.1) M/uL Hgb 9.6 L 10.1 L 9.7 L (14.0-18.0) g/dL Hct 28.0 L 29.2 L 28.6 L (42-52) % Plt Count 141 116 L (130-400) K/uL Neut # (Auto) 7.12 H 6.01 (1.4-6.5) K/uL Lymph # (Auto) 0.70 L 1.16 L (1.2-3.4) K/uL [place] # (Auto) 1.22 H 1.45 H (0.11-0.59) K/uL Eos # (Auto) 0.16 0.26 (0-0.5) K/uL Baso # (Auto) 0.01 0.01 (0-0.2) K/uL Comprehensive Metabolic Panel 03/28/21 03/28/21 03/29/21 Range/Units 16:20 17:54 06:09 Sodium 135 L 132 L (136-145) mmol/L Potassium 4.2 3.9 (3.5-5.1) mmol/L Chloride 99 99 (98-107) mmol/L Carbon Dioxide 21 21 (21-32) mmol/L BUN 79 H 85 H (7-18) mg/dl Creatinine 16.50 H* D 17.20 H* D (0.6-1.4) mg/dl Glucose 99 87 (70-99) mg/dl Calcium 8.7 8.8 (8.5-10.1) mg/dl Intake and Output 03/28/21 03/29/21 03/29/21 22:59 06:59 14:59 Intake Total 100 / 100 Balance 100 / 100 Intake: IV 100 / 100 Right Antecubital 100 / 100 Other: # Unmeasured Voids 1 Weight 74.5 kg 71.8 kg Weight Measurement Method Standing Scale Diagnostic Findings EKG performed 03/28/2021 revealed sinus rhythm with atrial pacing and ventricular paced QRS complexes. CT of the chest with noted findings of peripocket fluid consistent with hematoma. Small volume pneumoperitoneum noted, significance uncertain.
--- NOTE | 2021-03-29 13:54 | Discharge Summary ---
Date of Service March 29, 2021 Admission HPI Per Admitting Provider History obtained from patient, family, and records. Medical history is significant for chronic diastolic heart failure (EF 65 to 70%, TTE 2020), bicuspid aortic valve, aortic stenosis status post TAVR, complete heart block status post recent PPM, history nonobstructive CAD, PAD status post surgery, hypertension, hyperlipidemia, ESRD on PD, NSCLC status post surgery, chronic anemia (baseline hemoglobin of 12), past tobacco abuse. Recent confinement March 25-2020 for complete heart block status post PPM. Patient was washing dishes at home today when he noted dizziness described as lightheadedness. No headache, no S OB. Usual achy chest pain/bruising from right pacemaker site. Lewis like he was going to pass out. SBP noted to be 70/30 at home. Patient compliant with home medications. Thinks he "may have taken out more water than he should have" during peritoneal dialysis session at home last night. Patient brought to the ER for evaluation. MEDICAL HISTORY: As above. SURGICAL HISTORY: PPM, nephrectomy for donor renal transplant, vascular procedures, liver biopsy, TAVR, peritoneal dialysis catheter placement, lipoma removal left neck FAMILY HISTORY: Diabetes, hypertension. PERSONAL AND SOCIAL HISTORY: Past tobacco use. No chronic intake of alcoholic beverages. Prior road construction work. Principal Diagnosis Dizziness Complete heart block: CAD (coronary artery disease): Diastolic dysfunction: HTN (hypertension): PAD (peripheral artery disease): ESRD on Peritoneal dialysis status: Discharge Exam General- No acute distress Head- atraumatic Eyes- PERRL, EOMI, ENT- oropharynx clear Neck- supple, no JVD Lungs- clear to auscultation Heart- regular rhythm; +systolic murmur Abdomen- normal bowel sounds, soft, nontender Extremities- no calf tenderness, right shoulder pain Neuro- alert, oriented x 3; PERRL, EOMI; no facial palsy; no dysarthria Skin- warm & dry, ecchymosis around the pacemaker area implant, +tender Discharge Data Allergies Allergy/AdvReac Type Severity Reaction Status Date / Time mercury (elemental) Allergy Intermediate Rash Verified 03/31/21 15:04 NSAIDS (Non-Steroidal Allergy Intermediate not to Verified 03/31/21 15:04 Anti-Inflamma take d/t Kidney disease lisinopril AdvReac Intermediate COUGH Verified 08/18/21 15:04 Consultations 03/28/21 19:11 ED Decision to Admit Stat 03/28/21 23:50 Consult Cardiology Routine Consult Nephrology Routine Ordered Studies 03/28/21 16:18 CT angio head w con Stat CT angio neck with con Stat 03/28/21 16:19 CT head/brain wo con Stat 03/28/21 20:36 CT chest diagnostic wo con Stat CT chest diagnostic wo con CT DOSE: 434.31 mGy.cm CLINICAL HISTORY: 61 years-old Male with R chest wall bruising, anemia. Acute chest pain with chest wall bruising TECHNIQUE: Multiaxial CT images of the chest were performed without contrast. A dose lowering technique was utilized adhering to the principles of ALARA. COMPARISON: CTA chest 09/26/2020, chest radiographs 03/27/2021 FINDINGS: Unremarkable thyroid. Moderate cardiomegaly. There is mild diffuse pericardial thickening with resolution of the previously described large effusion. Trace residual effusion on today's study. Aortic valvular endograft. Battery pack of the right chest wall. Infiltration with trace fluid and small amount of air surrounds the battery pack with subcutaneous emphysema extending along the right pectoralis musculature. The visualized pacer leads appear intact. Extensive atherosclerosis of the thoracic aorta with unchanged mild dilation of the ascending segment measuring 4.0 x 4.0 cm. Subcarinal adenopathy measures up to 2.2 x 1.5 cm. Right paratracheal adenopathy measures up to 1.2 cm in short axis, unchanged. Chronic volume loss with prior pulmonary resection of the right lung. Unchanged small right pleural effusion with right-sided pleural thickening. Unchanged 4 mm solid nodule within the right upper lobe on image 71 series 4. There is mild bilateral intralobular septal thickening. No pneumothorax. There are several scattered solid nodules within the left greater than right lungs measuring up to 5 mm (please see bookmarks). Several of these are new from comparison. Small volume pneumoperitoneum. No acute fracture. Mild upper and midthoracic compression deformities are unchanged. IMPRESSION: 1. Small volume of pneumoperitoneum. Correlate with patient history to exclude recent abdominal surgery versus perforated viscus. 2. Status post placement of a right subclavian pacer. There is infiltration of the right chest wall with small amount of fluid and deep tissue air surrounding the battery pack and adjacent soft tissues of the chest wall which may be an expected post procedural finding. Findings should be correlated clinically to exclude superimposed infection. 3. No pneumothorax. 4. Chronic postoperative changes of the right lung with unchanged small right pleural effusion and pleural thickening. 5. Cardiomegaly with mild diffuse pericardial thickening. Findings should be correlated clinically to exclude pericarditis. 6. Mild intralobular septal thickening suspicious for pulmonary edema. 7. Low suspicion scattered bilateral solid pulmonary nodules measure up to 5 mm. Follow-up guidelines provided below. Please refer to below summary of Fleischner criteria recommendations for follow- up of incidental CT nodules (Leonie Burris, Guidelines for management of small pulmonary nodules detected on CT scans: A statement from the Fleischner Society, Radiology 237: [phone].) SOLID NODULES Multiple nodules size: <6 mm * Low risk patients: no routine follow-up * high risk patients: optional CT at 12 months Note: newly detected indeterminate nodule in persons 35 years of age or older. * Low risk patients: minimal or absent history of smoking and/or other known risk factors * high risk patients: history of smoking or of other known risk factors (e.g. first degree relative with lung cancer, or exposure to asbestos, radon, uranium) * if a nodule up to 8 mm is partly solid or is ground glass further follow-up is required after 24 months to exclude possible slow growing adenocarcinoma (DARIEN) ACT 112: Negative or not required by law. Electronically signed by: Bryson Duarte M.D. 03/29/2021 9:52 AM Dictated: 03/29/21 0939Transcribed: 03/29/[address]CONTRAST CT DOSE: 1140.96 mGy.cm HISTORY: dizziness TECHNIQUE: Multiaxial CT images of the head were performed without the use of intravenous contrast. Automated exposure control was utilized for this study. A dose lowering technique was utilized adhering to the principles of ALARA. Comparison: None. Findings: The paranasal sinuses and mastoid air cells are clear. The calvarium and skull base are intact. Peritoneal White matter hypodensity is nonspecific but favors mild microvascular ischemic change. There is no hematoma, midline shift, acute infarct. There is 1.5 cm hyperdense lesion at the roof of the third ventricle. This is consistent with a colloid cyst. No evidence for hydrocephalus at this time. Impression: 1. No acute infarct or intracranial hemorrhage. 2. A 1.5 cm hyperdense lesion within the roof of the third ventricle. This is consistent with a colloid cyst. There is no hydrocephalus at this time. However, urgent neurosurgical consultation recommended. ACT 112: Negative or not required by law. Electronically signed by: Mesfin Deluca M.D. 03/28/2021 5:43 PM Dictated: 03/28/211739Transcribed: 03/28/211739 HEAD & NECK CTA HISTORY: dizziness TECHNIQUE: Multiaxial CT images of the head were performed following the intravenous administration of contrast to evaluate the major cerebral vessels. Multiaxial CT images of the neck were also performed following the intravenous administration of contrast to evaluate the major cervical vessels. Maximum intensity projection images were also obtained. A dose lowering technique was utilized adhering to the principles of ALARA. COMPARISON: None. FINDINGS: Redemonstration of the 1.5 cm hyperdense lesion within the third ventricle consistent with a colloid cyst. Mild calcified plaque within the bilateral carotid siphons within the distal vertebral arteries. This results in mild focal narrowing within the distal right vertebral artery as well as the cavernous segment of the right internal carotid artery. The basilar artery is widely patent. There is no significant stenosis, occlusion, or aneurysm seen within the bilateral ACAs, MCAs, or red hat open stack administrator. The major dural venous sinuses appear patent. The aortic arch and proximal great vessels are widely patent. The bilateral common carotid arteries and vertebral arteries are widely patent. There is moderate right and mild left carotid bifurcation calcification. There is mild narrowing of approximately 30% within the proximal bilateral internal carotid arteries. No dissection or aneurysm identified. IMPRESSION: 1. No significant stenosis, occlusion, or aneurysm within the eagle of [place]. 2. No significant stenosis, occlusion, or dissection identified within the bilateral common carotid or cervical vertebral arteries. There is mild narrowing within the cavernous portion of the right internal carotid artery and intracranial portion of the distal right vertebral artery. 3. There is mild stenosis within the proximal bilateral internal carotid arteries due to the calcified plaque. 4. Redemonstration of the 1.5 cm hyperdense lesion within the third ventricle consistent with a colloid cyst. ACT 112: Negative or not required by law. Electronically signed by: Mesfin Deluca M.D. 03/28/2021 5:50 PM Dictated: 03/28/211742Transcribed: 03/28/211745 HEAD & NECK CTA HISTORY: dizziness TECHNIQUE: Multiaxial CT images of the head were performed following the intravenous administration of contrast to evaluate the major cerebral vessels. Multiaxial CT images of the neck were also performed following the intravenous administration of contrast to evaluate the major cervical vessels. Maximum intensity projection images were also obtained. A dose lowering technique was utilized adhering to the principles of ALARA. COMPARISON: None. FINDINGS: Redemonstration of the 1.5 cm hyperdense lesion within the third ventricle consistent with a colloid cyst. Mild calcified plaque within the bilateral carotid siphons within the distal vertebral arteries. This results in mild focal narrowing within the distal right vertebral artery as well as the cavernous segment of the right internal carotid artery. The basilar artery is widely patent. There is no significant stenosis, occlusion, or aneurysm seen within the bilateral ACAs, MCAs, or red hat open stack administrator. The major dural venous sinuses appear patent. The aortic arch and proximal great vessels are widely patent. The bilateral common carotid arteries and vertebral arteries are widely patent. There is moderate right and mild left carotid bifurcation calcification. There is mild narrowing of approximately 30% within the proximal bilateral internal carotid arteries. No dissection or aneurysm identified. IMPRESSION: 1. No significant stenosis, occlusion, or aneurysm within the eagle of [place]. 2. No significant stenosis, occlusion, or dissection identified within the bilateral common carotid or cervical vertebral arteries. There is mild narrowing within the cavernous portion of the right internal carotid artery and intracranial portion of the distal right vertebral artery. 3. There is mild stenosis within the proximal bilateral internal carotid arteries due to the calcified plaque. 4. Redemonstration of the 1.5 cm hyperdense lesion within the third ventricle consistent with a colloid cyst. ACT 112: Negative or not required by law. Electronically signed by: Mesfin Deluca M.D. 03/28/2021 5:50 PM Dictated: 03/28/211742Transcribed: 03/28/211745 XR chest 1V portable HISTORY: dizziness COMPARISON: Chest 03/27/2021. FINDINGS: The cardiac silhouette is mildly enlarged. A cardiac valve stent is again noted. There is a right-sided dual-chamber pacemaker. There is progressive interstitial/vascular thickening suggestive of mild pulmonary vascular congestion. Right basilar scarlike densities and a trace right pleural effusion persists. No pneumothorax. IMPRESSION: Mild pulmonary vascular congestion without overt edema. A trace right pleural effusion persists. ACT 112: Negative or not required by law. Electronically signed by: Mesfin Deluca M.D. 03/28/2021 7:28 PM Dictated: 03/28/211923Transcribed: 03/28/211923 Hospital Course (1) Dizziness, nonspecific: Recently discharged after pacemaker placement for complete heart block Possibly from related to BP med vs hypovolemia from PD Cardiology on board Pacemaker has been interrogated upon his arrival to the emergency room last night with normal function. No arrhythmia on telemonitor Limited Echo showed showed no pericardial effusion with EF 60-65 % CT chest showed 2 s/p placement of a right subclavian pacer. There is infiltration of the right chest wall with small amount of fluid and deep tissue air surrounding the battery pack and adjacent soft tissues of the chest wall which may be an expected post procedural finding. Case discussed with cardiology an ok to continue Aspirin and plavix on discharge Metoprolol decreased by half as per cardiology Ok from cardiology standpoint to discharge home Complete heart block: Status post successful right-sided dual-chamber permanent pacemaker placement placed on 03/25 Pacemaker did not function properly, lost capture and lead repositioned on 03/26 Pacemaker appears to be working properly as per cardiology Continue pain control Pt was advised to monitor for sign of infection such as fever, worsening pain and redness to look for medical attention Follow up with cardiology office next week to check pacemaker site wound Pneumoperitoneum Asymptomatic Incidental finding on CT, Small volume of pneumoperitoneum. Imaging reviewed with radiology that said that this is new compare to the CT back in September Case discussed with surgery team dr. Esquivel (No official consult placed) that said nothing to do since pt is asymptomatic Pt got upset and furious because he thought that i was tried to get him to have surgery He said that he came to the hospital for dizziness and low BP, and now that i am saying that i need to talk to surgery to review the image I tried to explain it to him that I wanted to review the imaging with surgery team to make sure there is nothing Pt put his clothes on and said that he does not want to see me again in this hospital. He said that if I don't discharge him now, that he would walk out. CAD (coronary artery disease): Nonobstructive Continue aspirin, Plavix, statin Metoprolol decreased to half BID and Isosorbide nitrate Diastolic dysfunction: Home Lasix resumed HTN (hypertension): BP stable PAD (peripheral artery disease): Continue aspirin, Plavix, statin Peritoneal dialysis status: ESRD (end stage renal disease) on dialysis: Performs nocturnal peritoneal dialysis at home Nephrology on board Last hemodialysis was done last night DVT prophylaxis: SCDs Total Time Total Time Spent Total Time Spent (In Minutes): 35 minutes Discharge Plan Discharge Items Patient Disposition: Home - Self-Care Reason For Visit: DIZZINESS Discharge Diagnosis: Dizziness Activity: Resume your previous activity Non-emergency contact: Primary Care Provider and Director Patient Call non-emergency contact if: you have any medication questions Follow-up/Referrals: Sundar Ruiz, [Primary Care Provider] - Diet: Dialysis Renal Addtl Attending Provider Instructions: Follow up with your primary care provider Dr. Ruiz on 04/05/2021 at 11:00 AM at the [facility] Follow up with cardiology office for pacemaker wound check resume your dialysis tonight Fall precaution Seek medical attention if you develop any fever, chills. Keep device clinic appointment as outpatient as scheduled: 04/05/2021 1:00 PM Pacer Clinic [facility] Pending Studies at Discharge: No Stand-Alone Forms: My [facility] get2play, Smoking Cessation Medications and DC Order Prescriptions: New carvedilol 12.5 mg Tablet 12.5 mg PO BID 30 Days Qty: 60 RF: 0 Continued amlodipine 10 mg tablet 10 mg PO QAM RF: 0 trazodone 50 mg tablet 100 mg PO HS PRN (Reason: sleep) RF: 0 gentamicin 0.1 % cream 1 applic topical DAILY Qty: 30 RF: 1 isosorbide mononitrate 30 mg tablet extended release 24 hr 30 mg PO QAM Qty: 30 RF: 11 atorvastatin [Lipitor] 40 mg tablet 40 mg PO QAM RF: 0 aspirin 81 mg Tablet,Delayed Release (Dr/Ec) 81 mg PO QAM RF: 0 albuterol sulfate [Ventolin HFA] 90 mcg/actuation HFA aerosol inhaler 2 puff INHALATION Q4 PRN (Reason: Shortness Of Breath Or Wheezing) RF: 0 bupropion HCl 150 mg tablet extended release 24 hr 150 mg PO QAM RF: 0 escitalopram oxalate 20 mg tablet 20 mg PO QAM RF: 0 clopidogrel 75 mg tablet 75 mg PO QAM RF: 0 ProRenal 8 mg iron-800 mcg-1,000 unit Tablet 1 tab PO QAM RF: 0 calcitriol 0.25 mcg capsule 0.5 mcg PO QAM RF: 0 furosemide 80 mg Tablet 80 mg PO QAM RF: 0 omeprazole 40 mg Capsule,Delayed Release(Dr/Ec) 40 mg PO BID RF: 0 allopurinol 100 mg Tablet 100 mg PO QAM RF: 0 bisacodyl [Gentle Laxative (bisacodyl)] 5 mg Tablet,Delayed Release (Dr/Ec) 5 mg PO DAILY PRN (Reason: constipation) Qty: 30 RF: 0 oxycodone-acetaminophen 5-325 mg tablet 1 tab PO Q8H PRN (Reason: pain) Qty: 12 RF: 0 tamsulosin 0.4 mg capsule 0.4 mg PO DAILY RF: 0 Discontinued carvedilol [Coreg] 25 mg tablet 25 mg PO BID RF: 0 No Action ropinirole 0.25 mg tablet 0.25 mg PO HS RF: 0 Discharge Orders: Discharge Order (Routine); Ordered 03/29/21 Ordered By: Yakov Leach Admission Data Admit Date/Time: 03/28/21 22:35 Attending Provider: Yakov Leach Admit Provider: Eduardo Landa Primary Care Provider: Sundar Ruiz Other Providers: Zack Weinstein Kevin C. Other Interventions: Discharge Summary Assessment (RN) Last Done: 03/29/21 13:51
--- NOTE | 2021-03-29 16:13 | Electrocardiogram Report ---
Test Reason : Blood Pressure : / mmHG Vent. Rate : 076 BPM Atrial Rate : 076 BPM P-R Int : 192 ms QRS Dur : 192 ms QT Int : 536 ms P-R-T Axes : 032 -70 093 degrees QTc Int : 603 ms Atrial-sensed ventricular-paced rhythm Abnormal ECG When compared with ECG of 27-MAR-2021 05:36, Vent. rate has decreased BY 14 BPM Confirmed by Addy Ang ([id number]) on 03/29/2021 4:13:09 PM Referred By: REFERRED SELF Confirmed By:Addy Ang
[2021-03-29] MEDS ORDERED: rOPINIRole HCL 0.25 MG TABLET PO SCH (21:00)
== END 2021-03-29 14:13 | disposition home or self-care (01) ==
LOC: 2S 16:05 → ED 16:05 → 2S 23:07

== ENCOUNTER 2021-03-31 12:39 | Inpatient (IN) ==
[2021-03-31 13:46] LABS: Basophils # (auto) 0.02 K/uL (0-0.2); Basophils % (auto) 0.1 %; Eosinophils # (auto) 0.02 K/uL (0-0.5); Eosinophils % (auto) 0.1 %; Hematocrit (blood only) 26.6 % (42-52); Hemoglobin 9.1 g/dL (14.0-18.0); Immature Granulocytes # (auto) 0.06 K/uL (0.00-0.02); Immature Granulocytes % (auto) 0.4 %; Lymphocytes # (auto) 0.89 K/uL (1.2-3.4); Mean Corpuscular Hemoglobin 30.6 pg (25-34); Mean Corpuscular Hgb Conc 34.2 g/dL (32-36); Mean Corpuscular Volume 89.6 fL (80-100); Mean Platelet Volume 11.6 fL (7.4-10.4); Monocytes # (auto) 1.04 K/uL (0.11-0.59); Neutrophils # (auto) 12.89 K/uL (1.4-6.5); Neutrophils % (auto) 86.4 %; Platelet Count 129 K/uL (130-400); RDW Coefficient of Variation 14.8 % (11.5-14.5); RDW Standard Deviation 48.7 fL (36.4-46.3); Red Blood Count 2.97 M/uL (4.7-6.1); White Blood Count 14.92 K/uL (4.8-10.8)
--- NOTE | 2021-03-31 13:46 | Emergency Department Note ---
History of Present Illness General Chief complaint: Shortness of Breath/Dyspnea Stated complaint: Hypoxia Time Seen by Provider: 03/31/21 13:24 Source: patient History of Present Illness Provider complaint: Shortness of breath Onset (ago): day(s) 2 Location: chest Pain Consistency: + constant Quality: + other (Short of breath) Relieved By: + other (Oxygen) Associated symptoms: + chest pain, + cough and + shortness of breath; no f ever/chills, no headaches or no nausea/vomiting This is a 61-year-old male with a history of end-stage renal disease on peritoneal dialysis with recent pacemaker placement for complete heart block presenting with hypoxia. The patient was seen at his doctor's office today and sent here by ambulance due to an O2 saturation in the 60s on room air. He did improve significantly with oxygen. He states he has been short of breath since he was discharged from the hospital 2 days ago. He is admitted for lightheadedness and hypotension. He states his chest does not hurt but his lungs are hurting him. He describes it as a constant burning sensation throughout his lungs. He is not on oxygen normally. He states his shortness of breath feels better now that he is on oxygen. He has been coughing since yesterday which is nonproductive. He did have 2 recent negative Covid tests. He denies any fever, abdominal pain, vomiting, diarrhea or change in his urination. He states his legs feel somewhat swollen as he has not had a full dialysis treatment since Monday although he did dialyze himself 1 bag this morning. He states he was short of breath and did not want to fill his abdomen with fluid. He denies any leg pain. He denies any history of PE or DVT. He does state that he has not really eaten or drank anything yesterday or much the day before. Home Medications Medication Instructions Recorded Confirmed Type amlodipine 10 mg tablet 10 mg PO QAM 05/06/19 03/31/21 History trazodone 50 mg tablet 100 mg PO HS PRN tab 05/06/19 03/31/21 History calcitriol 0.25 mcg capsule 0.5 mcg PO QAM 06/11/20 03/31/21 History allopurinol 100 mg tablet 100 mg PO QAM 06/30/20 03/31/21 History furosemide 80 mg tablet 80 mg PO QAM 06/30/20 03/31/21 History omeprazole 40 mg capsule,delayed 40 mg PO BID 06/30/20 03/31/21 History release albuterol sulfate 90 mcg/actuation 2 puff INHALATION Q4 PRN 09/26/20 03/31/21 History aerosol inhaler (Ventolin HFA) aspirin 81 mg tablet,delayed 81 mg PO QAM 09/26/20 03/31/21 History release atorvastatin 40 mg tablet (Lipitor) 40 mg PO QAM 09/26/20 03/31/21 History bupropion HCl 150 mg 24 hr tablet, 150 mg PO QAM 09/26/20 03/31/21 History extended release clopidogrel 75 mg tablet 75 mg PO QAM 09/26/20 03/31/21 History escitalopram oxalate 20 mg tablet 20 mg PO QAM 09/26/20 03/31/21 History vit B complx, C-iron 8 mg-folic 1 tab PO QAM 09/26/20 03/31/21 History acid 800 mcg-D3 1,000 unit-zinc tablet (ProRenal) gentamicin 0.1 % topical cream 1 applic TOPICAL DAILY #30 g 03/10/21 03/31/21 Rx isosorbide mononitrate 30 mg 30 mg PO QAM #30 tab 03/22/21 03/31/21 Rx tablet,extended release 24 hr bisacodyl 5 mg tablet,delayed 5 mg PO DAILY PRN #30 tab 03/27/21 03/31/21 Rx release (Gentle Laxative (bisacodyl)) oxycodone-acetaminophen 5 mg-325 1 tab PO Q8H PRN #12 tab 03/27/21 03/31/21 Rx mg tablet tamsulosin 0.4 mg capsule 0.4 mg PO DAILY 03/28/21 03/31/21 History carvedilol 12.5 mg tablet 12.5 mg PO BID 30 Days #60 tab 03/29/21 03/31/21 Rx ropinirole 0.25 mg tablet 0.25 mg PO HS 03/31/21 03/31/21 History Allergies Allergy/AdvReac Type Severity Reaction Status Date / Time mercury (elemental) Allergy Intermediate Rash Verified 03/31/21 15:04 NSAIDS (Non-Steroidal Allergy Intermediate not to Verified 03/31/21 15:04 Anti-Inflamma take d/t Kidney disease lisinopril AdvReac Intermediate COUGH Verified 03/31/21 15:04 Past Med/Surg History Medical History (Updated 03/31/21 @ 19:14 by Marcial Hampton MD) Anemia AV fistula "L side " Bradycardia Cardiac murmur HX OF TAVR SEP 2019 SECONDARY TO SEVERE Carotid artery stenosis RIGHT ICA= <50%; LEFT ICA= 50-69% Complete heart block Dialysis patient X 4 YRS-PERITONEAL DIALYSIS Q HS X 8 HRS Dyslipidemia Elevated troponin ESRD (end stage renal disease) on dialysis Fitting and adjustment of peritoneal dialysis catheter PLACEMENT OF-IN PLACE GERD (gastroesophageal reflux disease) Gout Hiatal hernia History of lung cancer NON SMALL CANC[place] [facility] [place]) Kidney donor Near syncope Pericardial effusion s/p pericardiocentesis Peritoneal dialysis status Spinal stenosis NO NECK OR BACK SURGERY Surgical History AV fistula CREATION OF IN LEFT WRIST History of colonoscopy History of lung surgery RLL 07/2019 History of nephrectomy, unilateral "Kidney donor "1992 S/P femoral-popliteal bypass surgery S/P TAVR (transcatheter aortic valve replacement) Family History Brother Family history of diabetes mellitus Brother Family history of diabetes mellitus Sister Family history of diabetes mellitus Mother Family history of diabetes mellitus Social History Smoking Status: Former smoker Tobacco Type: Smokeless Tobacco (Dip or Chew) Second Hand Exposure: No; Hx Alcohol Use: No Hx Substance Use: Yes Last Used Substance: Days (ago) Preferred Language: Vincentian Communication Ability: Effective Visual Impairment: No Limitations Undercollar Baster Required: No Beliefs That Will Affect Care: None Current Living Situation: Significant Other Feels Safe at Home: Yes Assistive Devices: Denture - Upper, Denture - Lower and Glasses Review of Systems See HPI for pertinent positives & negatives. and A total of 10 systems reviewed and were otherwise negative Physical Exam Vital Signs Vital Signs - 24 hr 03/31/21 12:50 03/31/21 13:20 03/31/21 13:30 Temperature 36.8 C Temperature Source Oral Pulse Rate 89 90 88 Pulse Rate from SpO2 Sensor 89 89 Respiratory Rate 23 26 H 33 H Respiratory Effort / Characteristics Non-Labored Respiratory Depth Normal Blood Pressure 123/68 123/68 108/70 Blood Pressure Mean 86 86 82 Blood Pressure Position Lying Pulse Oximetry 88 L 89 L Oxygen Delivery Method Fraction of Inspired Oxygen Sepsis Recent Fever Within 48 Hours No Sepsis New/Unexplained Change in Mental Status N/A Sepsis Action Taken by Nursing No Action Required Fraction of Inspired Oxygen - Titration Pulse Oximetry Post Tiitration 03/31/21 14:00 03/31/21 14:21 03/31/21 14:30 Temperature Temperature Source Pulse Rate 88 87 89 Pulse Rate from SpO2 Sensor 93 H 89 Respiratory Rate 21 23 24 Respiratory Effort / Characteristics Spontaneous Labored Respiratory Depth Blood Pressure 108/69 128/80 Blood Pressure Mean 82 96 Blood Pressure Position Pulse Oximetry 86 L 99 92 Oxygen Delivery Method Fraction of Inspired Oxygen 50 Sepsis Recent Fever Within 48 Hours Sepsis New/Unexplained Change in Mental Status Sepsis Action Taken by Nursing Fraction of Inspired Oxygen - Titration Pulse Oximetry Post Tiitration 03/31/21 15:00 03/31/21 15:01 03/31/21 15:11 Temperature Temperature Source Pulse Rate 88 Pulse Rate from SpO2 Sensor 94 H Respiratory Rate 24 Respiratory Effort / Characteristics Respiratory Depth Blood Pressure 126/76 Blood Pressure Mean 92 Blood Pressure Position Pulse Oximetry 88 L 95 Oxygen Delivery Method Oxymask Fraction of Inspired Oxygen 40 Sepsis Recent Fever Within 48 Hours Sepsis New/Unexplained Change in Mental Status Sepsis Action Taken by Nursing Fraction of Inspired Oxygen - Titration 50 Pulse Oximetry Post Tiitration 94 03/31/21 15:20 Temperature Temperature Source Pulse Rate 89 Pulse Rate from SpO2 Sensor Respiratory Rate Respiratory Effort / Characteristics Respiratory Depth Blood Pressure Blood Pressure Mean Blood Pressure Position Pulse Oximetry 96 Oxygen Delivery Method Fraction of Inspired Oxygen 50 Sepsis Recent Fever Within 48 Hours Sepsis New/Unexplained Change in Mental Status Sepsis Action Taken by Nursing Fraction of Inspired Oxygen - Titration Pulse Oximetry Post Tiitration Constitutional: Vital signs reviewed. Hypoxic. Eyes: Pupils are equal round reactive to light. Conjunctiva are noninjected. ENT: Pharynx is clear without erythema or exudate. Mucous membranes are dry. Neck supple without meningeal signs. Respiratory: Crackles throughout both lung fischer. Breath sounds are equal bilaterally. Cardiovascular: Regular rate and rhythm. No rubs or gallops. GI: Soft, nondistended and nontender. Bowel sounds are present. Peritoneal dialysis catheter left lower abdomen. No drainage. No evidence of infection to stoma. Musculoskeletal: No peripheral edema. No lower extremity tenderness. Integumentary: No cyanosis. or jaundice. Neurological: The patient is awake and alert. No focal deficits. Psychiatric: Normal affect. Not anxious appearing. Course Administered Medications Discontinued Medications Furosemide (Furosemide 40 Mg/4 Ml Vial) 40 mg IV NOW STA Stop: 03/31/21 15:23 Last Admin: 03/31/21 16:12 Dose: 40 mg Documented by: [id number] Piperacillin Sod/Tazobactam Sod (Zosyn) 4.5 gm in 120 mls @ 240 mls/hr IV NOW ONE Stop: 03/31/21 14:37 Last Infusion: 03/31/21 16:45 Dose: 0 mls/hr Documented by: [id number] Admin: 03/31/21 15:31 Dose: 240 mls/hr Documented by: [id number] Ondansetron HCl (Ondansetron Inj 2 Mg/Ml 2 Ml Vial) Confirm Administered Dose 4 mg .ROUTE .STK-MED ONE Stop: 03/31/21 18:26 Last Admin: 03/31/21 18:29 Dose: 4 mg Documented by: [id number] Critical Care Time Critical Care Time: Yes Total Critical Care Time: 45 I have personally spent approximately 45 minutes of critical care time in the direct management of this patient. This includes bedside care, interpretation of diagnostic studies, and testing, discussion with consultants, patient, and family members, and other required patient management activities. These minutes are in excess of all separately billable procedures. Medical Decision Making Differential Diagnosis Pneumonia, pleural effusion, pulmonary edema, pulmonary embolism, heart failure, electrolyte abnormality Medical Records Attestation: I reviewed the patient's medical records. I did perform a limited focused review of portions of the patient's old chart on the electronic medical record. The patient was just discharged from the hospital 2 days ago. He is admitted for lightheadedness and an episode of hypotension. He has had noncontrast CT of his chest which showed thickening of the pericardium without pericardial effusion. He had a right pleural effusion. He had evidence of pulmonary edema. Home Medications Current Medication List: was personally reviewed by me Laboratory Data Attestation: I reviewed the patient's lab results. Result diagrams: 03/31/21 13:00 03/31/21 13:00 Lab Results 03/31/21 03/31/21 03/31/21 Range/Units 13:00 13:00 13:00 WBC 14.92 H (4.8-10.8) K/uL RBC 2.97 L (4.7-6.1) M/uL Hgb 9.1 L (14.0-18.0) g/dL POC Hgb (14.0-18.0) g/dl Hct 26.6 L (42-52) % POC Hct (42-52) % MCV 89.6 (80-100) fL MCH 30.6 (25-34) pg MCHC 34.2 (32-36) g/dL RDW Std Deviation 48.7 H (36.4-46.3) fL RDW Coeff of Saumya 14.8 H (11.5-14.5) % Plt Count 129 L (130-400) K/uL MPV 11.6 H (7.4-10.4) fL Immature Gran % (Auto) 0.4 % Neut % (Auto) 86.4 % Lymph % (Auto) 6.0 % Dorado % (Auto) 7.0 % Eos % (Auto) 0.1 % Baso % (Auto) 0.1 % Neut # (Auto) 12.89 H (1.4-6.5) K/uL Lymph # (Auto) 0.89 L (1.2-3.4) K/uL [place] # (Auto) 1.04 H (0.11-0.59) K/uL Eos # (Auto) 0.02 (0-0.5) K/uL Baso # (Auto) 0.02 (0-0.2) K/uL Immature Gran # (Auto) 0.06 H (0.00-0.02) K/uL D-Dimer 1270 H* (0-500) ug/L FEU ABG pH ABG pCO2 ABG pO2 ABG HCO3 ABG O2 Saturation ABG Base Excess Guille Test Barometric Pressure Oxygen Given POC Sodium (135-144) mmol/L Sodium 129 L (136-145) mmol/L POC Potassium (3.3-5.0) mmol/L Potassium 4.3 (3.5-5.1) mmol/L POC Chloride (101-112) mmol/L Chloride 96 L (98-107) mmol/L Carbon Dioxide 22 (21-32) mmol/L POC Total CO2 (24-31) mmol/L Anion Gap 11.0 (3-11) POC Anion Gap (16-25) mmol/L POC BUN (7-18) mg/dl BUN 100 H (7-18) mg/dl Creatinine 17.10 H* (0.6-1.4) mg/dl POC Creatinine (0.6-1.3) mg/dl Est Cr Clr Drug Dosing 3.8 ml/min Est GFR ( Amer) 3.0 ml/min Est GFR (Non-Af Amer) 2.6 ml/min BUN/Creatinine Ratio 5.8 L (10-20) Glucose 76 (70-99) mg/dl POC Glucose (other) (70-99) mg/dl Lactate (0.4-2.0) mmol/L Calcium 9.0 (8.5-10.1) mg/dl POC Ioniz Calcium Ludivina (1.12-1.32) mmol/l Total Bilirubin 0.5 (0.2-1) mg/dl AST 22 (15-37) U/L ALT < 6 L (12-78) U/L Alkaline Phosphatase 126 H (45-117) U/L Troponin I (0-0.045) ng/ml C-Reactive Protein (0-0.29) mg/dl NT-Pro-B Natriuret Pep > 01760 H (0-900) pg/ml Total Protein 6.7 (6.4-8.2) gm/dl Albumin 2.5 L (3.4-5.0) gm/dl Globulin 4.2 H (2.5-4.0) gm/dl Albumin/Globulin Ratio 0.6 L (0.9-2) Adenovirus (PCR) (NotDetected) B. pertussis DNA (PCR) (NotDetected) B.parapertussis DNA PCR (NotDetected) C. pneumoniae DNA (PCR) (NotDetected) Coronavirus OC43 (PCR) (NotDetected) Coronavirus HKU1 (PCR) (NotDetected) Coronavirus 229E (PCR) (NotDetected) COVID-19 Eval Order SARS-CoV-2 (PCR) (NotDetected) Coronavirus NL63 (PCR) (NotDetected) Human Metapneumovir PCR (NotDetected) Influenza Type A (PCR) (NotDetected) Influenza Type B (PCR) (NotDetected) M. pneumoniae (PCR) (NotDetected) Parainfluenza 1 (PCR) (NotDetected) Parainfluenza 2 (PCR) (NotDetected) Parainfluenza 3 (PCR) (NotDetected) Parainfluenza 4 (PCR) (NotDetected) RSV (PCR) (NotDetected) Entero/Rhino (PCR) (NotDetected) 03/31/21 03/31/21 03/31/21 Range/Units 13:00 13:56 14:08 WBC (4.8-10.8) K/uL RBC (4.7-6.1) M/uL Hgb (14.0-18.0) g/dL POC Hgb 8.5 L (14.0-18.0) g/dl Hct (42-52) % POC Hct 25 L (42-52) % MCV (80-100) fL MCH (25-34) pg MCHC (32-36) g/dL RDW Std Deviation (36.4-46.3) fL RDW Coeff of Saumya (11.5-14.5) % Plt Count (130-400) K/uL MPV (7.4-10.4) fL Immature Gran % (Auto) % Neut % (Auto) % Lymph % (Auto) % Dorado % (Auto) % Eos % (Auto) % Baso % (Auto) % Neut # (Auto) (1.4-6.5) K/uL Lymph # (Auto) (1.2-3.4) K/uL Dorado # (Auto) (0.11-0.59) K/uL Eos # (Auto) (0-0.5) K/uL Baso # (Auto) (0-0.2) K/uL Immature Gran # (Auto) (0.00-0.02) K/uL D-Dimer (0-500) ug/L FEU ABG pH Cancelled ABG pCO2 Cancelled ABG pO2 Cancelled ABG HCO3 Cancelled ABG O2 Saturation Cancelled ABG Base Excess Cancelled Guille Test Cancelled Barometric Pressure Cancelled Oxygen Given Cancelled POC Sodium 131 L (135-144) mmol/L Sodium (136-145) mmol/L POC Potassium 4.4 (3.3-5.0) mmol/L Potassium (3.5-5.1) mmol/L POC Chloride 95 L (101-112) mmol/L Chloride (98-107) mmol/L Carbon Dioxide (21-32) mmol/L POC Total CO2 22 L (24-31) mmol/L Anion Gap (3-11) POC Anion Gap 19.0 (16-25) mmol/L POC BUN 116 H* (7-18) mg/dl BUN (7-18) mg/dl Creatinine (0.6-1.4) mg/dl POC Creatinine 19.8 H* (0.6-1.3) mg/dl Est Cr Clr Drug Dosing ml/min Est GFR ( Amer) ml/min Est GFR (Non-Af Amer) ml/min BUN/Creatinine Ratio (10-20) Glucose (70-99) mg/dl POC Glucose (other) 67 L* (70-99) mg/dl Lactate (0.4-2.0) mmol/L Calcium (8.5-10.1) mg/dl POC Ioniz Calcium Ludivina 1.13 (1.12-1.32) mmol/l Total Bilirubin (0.2-1) mg/dl AST (15-37) U/L ALT (12-78) U/L Alkaline Phosphatase (45-117) U/L Troponin I 0.101 H* (0-0.045) ng/ml C-Reactive Protein 22.60 H (0-0.29) mg/dl NT-Pro-B Natriuret Pep (0-900) pg/ml Total Protein (6.4-8.2) gm/dl Albumin (3.4-5.0) gm/dl Globulin (2.5-4.0) gm/dl Albumin/Globulin Ratio (0.9-2) Adenovirus (PCR) (NotDetected) B. pertussis DNA (PCR) (NotDetected) B.parapertussis DNA PCR (NotDetected) C. pneumoniae DNA (PCR) (NotDetected) Coronavirus OC43 (PCR) (NotDetected) Coronavirus HKU1 (PCR) (NotDetected) Coronavirus 229E (PCR) (NotDetected) COVID-19 Eval Order SARS-CoV-2 (PCR) (NotDetected) Coronavirus NL63 (PCR) (NotDetected) Human Metapneumovir PCR (NotDetected) Influenza Type A (PCR) (NotDetected) Influenza Type B (PCR) (NotDetected) M. pneumoniae (PCR) (NotDetected) Parainfluenza 1 (PCR) (NotDetected) Parainfluenza 2 (PCR) (NotDetected) Parainfluenza 3 (PCR) (NotDetected) Parainfluenza 4 (PCR) (NotDetected) RSV (PCR) (NotDetected) Entero/Rhino (PCR) (NotDetected) 03/31/21 03/31/21 03/31/21 Range/Units 14:16 14:59 14:59 WBC (4.8-10.8) K/uL RBC (4.7-6.1) M/uL Hgb (14.0-18.0) g/dL POC Hgb (14.0-18.0) g/dl Hct (42-52) % POC Hct (42-52) % MCV (80-100) fL MCH (25-34) pg MCHC (32-36) g/dL RDW Std Deviation (36.4-46.3) fL RDW Coeff of Saumya (11.5-14.5) % Plt Count (130-400) K/uL MPV (7.4-10.4) fL Immature Gran % (Auto) % Neut % (Auto) % Lymph % (Auto) % Dorado % (Auto) % Eos % (Auto) % Baso % (Auto) % Neut # (Auto) (1.4-6.5) K/uL Lymph # (Auto) (1.2-3.4) K/uL Dorado # (Auto) (0.11-0.59) K/uL Eos # (Auto) (0-0.5) K/uL Baso # (Auto) (0-0.2) K/uL Immature Gran # (Auto) (0.00-0.02) K/uL D-Dimer (0-500) ug/L FEU ABG pH ABG pCO2 ABG pO2 ABG HCO3 ABG O2 Saturation ABG Base Excess Guille Test Barometric Pressure Oxygen Given POC Sodium (135-144) mmol/L Sodium (136-145) mmol/L POC Potassium (3.3-5.0) mmol/L Potassium (3.5-5.1) mmol/L POC Chloride (101-112) mmol/L Chloride (98-107) mmol/L Carbon Dioxide (21-32) mmol/L POC Total CO2 (24-31) mmol/L Anion Gap (3-11) POC Anion Gap (16-25) mmol/L POC BUN (7-18) mg/dl BUN (7-18) mg/dl Creatinine (0.6-1.4) mg/dl POC Creatinine (0.6-1.3) mg/dl Est Cr Clr Drug Dosing ml/min Est GFR ( Amer) ml/min Est GFR (Non-Af Amer) ml/min BUN/Creatinine Ratio (10-20) Glucose (70-99) mg/dl POC Glucose (other) (70-99) mg/dl Lactate 1.0 (0.4-2.0) mmol/L Calcium (8.5-10.1) mg/dl POC Ioniz Calcium Ludivina (1.12-1.32) mmol/l Total Bilirubin (0.2-1) mg/dl AST (15-37) U/L ALT (12-78) U/L Alkaline Phosphatase (45-117) U/L Troponin I (0-0.045) ng/ml C-Reactive Protein (0-0.29) mg/dl NT-Pro-B Natriuret Pep (0-900) pg/ml Total Protein (6.4-8.2) gm/dl Albumin (3.4-5.0) gm/dl Globulin (2.5-4.0) gm/dl Albumin/Globulin Ratio (0.9-2) Adenovirus (PCR) Not Detected (NotDetected) B. pertussis DNA (PCR) Not Detected (NotDetected) B.parapertussis DNA PCR Not Detected (NotDetected) C. pneumoniae DNA (PCR) Not Detected (NotDetected) Coronavirus OC43 (PCR) Not Detected (NotDetected) Coronavirus HKU1 (PCR) Not Detected (NotDetected) Coronavirus 229E (PCR) Not Detected (NotDetected) COVID-19 Eval Order RESPNP at [facility], [place] SARS-CoV-2 (PCR) Not Detected (NotDetected) Coronavirus NL63 (PCR) Not Detected (NotDetected) Human Metapneumovir PCR Not Detected (NotDetected) Influenza Type A (PCR) Not Detected (NotDetected) Influenza Type B (PCR) Not Detected (NotDetected) M. pneumoniae (PCR) Not Detected (NotDetected) Parainfluenza 1 (PCR) Not Detected (NotDetected) Parainfluenza 2 (PCR) Not Detected (NotDetected) Parainfluenza 3 (PCR) Not Detected (NotDetected) Parainfluenza 4 (PCR) Not Detected (NotDetected) RSV (PCR) Not Detected (NotDetected) Entero/Rhino (PCR) Not Detected (NotDetected) Imaging Data Radiologist's Impression: Chest X-Ray 03/31/21 13:35 XR chest 1V portable CLINICAL HISTORY: Dyspnea COMPARISON STUDY: March 28, 2021 FINDINGS: No pneumothorax. Redemonstration of minimal right pleural effusion. Interval worsening of diffuse bilateral reticular opacities with interval development of prominent airspace component mostly affecting left lung region likely representing multifocal pneumonia or/and pulmonary edema. Cardiomediastinal silhouette is mildly enlarged. Aorta is calcified. Vasculature is obscured.. Osseous structures: unremarkable vertebral bodies are not well seen. Stable position of right-sided dual-lead pacemaker with battery pack seen at the anatomical region of the right axilla. Prosthetic aortic valve seen. IMPRESSION: 1. Interval worsening of opacities throughout bilateral lungs likely representing multifocal pneumonia or/and pulmonary edema. 2. Redemonstration of mild cardiomegaly and minimal right pleural effusion. ACT 112: Negative or not required by law. The above report was generated using voice recognition software. It may contain grammatical, syntax or spelling errors. Electronically signed by: Layla Narayan DO 03/31/2021 2:07 PM ECG Data Attestation: I personally reviewed and interpreted this ECG as follows: Indication: + chest pain and + SOB/dyspnea Rate (beats per minute): 88 Rhythm: + other (Atrial sensed ventricular paced rhythm) ECG Findings: + Other (QRS 1 9 4 ms); no PACs or no PVCs Comparison ECG Date: from (March 28, 2021) Change: no significant change MDM Narrative I did evaluate the patient as noted above. The patient is presenting with shortness of breath over the past 2 days. He also developed a cough yesterday. He denies any fevers. He had a negative Covid test twice over the past week. He is fully vaccinated. IV access was established. He is hypoxemic and was placed on supplemental oxygen via oxygen mask. I did place an order for continuous cardiac monitoring. The monitor showed a paced rhythm at a rate of 88 bpm. I did order and personally review the patient's 12-lead EKG as described above. He has a paced rhythm without ectopy. I did order and personally reviewed the images of the patient's chest x-ray as described above. Chest x-ray shows pulmonary edema with a multifocal pneumonia. Blood cultures were obtained. I did treat the patient with Zosyn IV. He was placed in respiratory isolation and a bio Naytev Covid test was obtained. This came back negative. His breathing was not improving and so I did place him on BiPAP. ABG demonstrated a pH of 7.36. PaCO2 was 36.2 and PaO2 was 72. I did order a urine analysis. I did order and review the patient's blood work as noted in the electronic medical record. His white blood cell count is 15,000. Hemoglobin is 9. Platelet count is 129. His D-dimer is elevated at 1200. Sodium is 129 with a chloride of 96. Creatinine is elevated at 17. He states he has not been doing his dialysis regularly at home. Troponin is elevated at 0.101. C- reactive protein is 22.6. I did reassess the patient multiple times. His breathing is much improved and he feels better subjectively. I did recommend hospitalization. I did order Doppler ultrasounds of the lower extremities to evaluate for DVT given his hypoxia and recent hospitalization. He denies having any leg pain and has no swelling on exam. Given his x-ray he does have a good reason to be hypoxic. Given his COVID-19 test is negative I did defer to medicine as to whether or not they wanted to do a CT angiogram of the chest. I did talk to Dr. Kilgore of nephrology who stated that we could do so if indicated. Medicine did wish to hold off at this moment on the CT angiogram. Impression & Plan Acute hypoxemic respiratory failure, ESRD (end stage renal disease) on dialysis, Multifocal pneumonia, Acute pulmonary edema, Hyponatremia, Anemia, Thrombocytopenia Discharge Plan Visit Data Chief Complaint: Shortness of Breath/Dyspnea Stated Complaint: Hypoxia ED Provider: Marcial Hampton Discharge Problem: Acute hypoxemic respiratory failure, ESRD (end stage renal disease) on dial ysis, Multifocal pneumonia, Acute pulmonary edema, Hyponatremia, Anemia, Thrombocytopenia Patient Disposition: Admitted As Inpatient Discharge Instructions Interventions: ED Discharge Assessment Last Done: 03/31/21 18:42
[2021-03-31 14:04] LABS: D Dimer 1270 ug/L FEU (0-500)
[2021-03-31] MEDS ORDERED: PIPERACILLIN/TAZOBACTAM 4.5 GM/120 ML BAG IV ONE (14:08)
[2021-03-31] MEDS ORDERED: PIPERACILL/TAZOBAC CONSULT ACTIVE PRN (14:08)
--- NOTE | 2021-03-31 14:08 | XRay Report ---
XR chest 1V portable CLINICAL HISTORY: Dyspnea COMPARISON STUDY: March 28, 2021 FINDINGS: No pneumothorax. Redemonstration of minimal right pleural effusion. Interval worsening of diffuse bilateral reticular opacities with interval development of prominent ai rspace component mostly affecting left lung region likely representing multifocal pneumonia or/and pu lmonary edema. Cardiomediastinal silhouette is mildly enlarged. Aorta is calcified. Vasculature is obscured.. Osseous structures: unremarkable vertebral bodies are not well seen. Stable position of right-sided dual-lead pacemaker with battery pack seen at the anatomical region of the right axilla. Prosthetic aortic valve seen. IMPRESSION: 1. Interval worsening of opacities throughout bilateral lungs likely representing multifocal pneumon ia or/and pulmonary edema. 2. Redemonstration of mild cardiomegaly and minimal right pleural effusion. ACT 112: Negative or not required by law. The above report was generated using voice recognition software. It may contain grammatical, syntax o r spelling errors. Electronically signed by: Layla Narayan DO 03/31/2021 2:07 PM
[2021-03-31 14:10] LABS: Alanine Aminotransferase < 6 U/L (12-78); Albumin Globulin Ratio 0.6 (0.9-2); Albumin Level 2.5 gm/dl (3.4-5.0); Alkaline Phosphatase 126 U/L (45-117); Aspartate Aminotransferase 22 U/L (15-37); BUN Creatinine Ratio 5.8 (10-20); Bilirubin,Total 0.5 mg/dl (0.2-1); Blood Urea Nitrogen 100 mg/dl (7-18); Carbon Dioxide 22 mmol/L (21-32); Chloride 96 mmol/L (98-107); Creatinine Clr Calc Pharmacy 3.8 ml/min; Est GFR (Non-African American) 2.6 ml/min; Globulin 4.2 gm/dl (2.5-4.0); Glucose 76 mg/dl (70-99); NT Pro B Type Natriuretic Pept > 35000 pg/ml (0-900); Potassium 4.3 mmol/L (3.5-5.1); Sodium 129 mmol/L (136-145); Total Protein 6.7 gm/dl (6.4-8.2)
--- NOTE | 2021-03-31 14:40 | History & Physical Report ---
Date of Service March 31, 2021 Assessment & Plan (1) Volume overload: Plan: -Admit to PCU -Consult nephrology, Dr. Kilgore, for assistance with diuresis -Give Lasix 40 mg IV now, insert Hdz for strict I's and O's, continue peritoneal dialysis per nephrology -CXR reviewed showing diffuse pulmonary edema with possible multifocal pneumonia -possible infectious source with multifocal pneumonia --given IV Zosyn in ER, checking procalcitonin and if elevated and/or develops sputum production/other infectious symptoms, then will continue on IV antibiotics. -Follow blood cultures, urine culture (2) Multifocal pneumonia: Plan: - Possible in the setting of multiple hospitalizations recently, HCAP ? - Follow lactate and procal, sputum culture if pt begins to produce sputum however currently has dry cough which is likely more so due to volume overload. - CXR reviewed - Continue IV zosyn for now - Requiring Bipap but does not require supplemental O2 at baseline (3) ESRD (end stage renal disease) on dialysis: Plan: -History of solitary kidney s/p kidney donor in 1992, on peritoneal dialysis x5 years, routinely performs PD at home nightly with 2500 mL out. Missed session last night due to increased fatigue and lethargy, but completed 2000 mL PD this morning. -Nephrology consulted as above -IV diuresis as above (4) Complete heart block: Plan: -History of such, status post pacemaker insertion for third-degree AV block which required right ventricular lead revision. -EKG reviewed, does not appear to have pacemaker malfunction, previously followed with Dr. Da Silva here in the hospital -Last echo completed on 03/25 showing preserved EF, as well as excluded post procedure pericardial effusion and normal biventricular systolic function. CT of the chest consistent with mild pocket hematoma-on aspirin and Plavix. Completed postprocedural course of antibiotics. -Continue carvedilol 12.5 twice daily -Next device follow-up on 04/05 at [facility] -Consider cardiology consult if no improvement with diuresis and next 24 hours. (5) Hx of cardiac pacemaker: Plan: -As above (6) Dyslipidemia: Plan: -Continue statin therapy (7) History of nephrectomy, unilateral: Plan: -As above DVT PPx: - teds, scds, Plavix and aspirin CODE: DNR/DNI Dispo: From home, likely to remain in the hospital x 1-2 days History of Present Illness Primary Care Provider: Sundar Ruiz, This is a 61 yo M with PMHx of chronic diastolic heart failure (EF 65 to 70%, TTE 2020), bicuspid aortic valve, aortic stenosis status post TAVR, complete heart block status post recent PPM, history nonobstructive CAD, PAD status post surgery, hypertension, hyperlipidemia, ESRD on PD with solitary kidney, NSCLC status post surgery 2 years ago, chronic anemia (baseline hemoglobin of 12), past tobacco abuse. He was recently admitted here from March 252020 for complete heart block status post PPM, then again from March 28 for lightheaded and dizziness for orthostasis due to volume depletion from peritoneal dialsysis, and suspected over medication with antihypertensive medications. Coreg was reduced in half from 25 mg BID. Pt represents today with worsening shortness of breath which started yesterday. He typically does his own peritoneal dialysis at night with 2500 mL bags, but was unable to do this last night due to worsening fatigue, generalized malaise. This morning he felt worse and completed PD with 2000 mL off. He went to see his PCP, during this visit found to be hypoxic with O2 sats in the 62 to 65%. Patient was placed on 2 L in the ER with sats improved into the high 80s and sent to the ER. Here in ER with sats in the 90s, BiPAP has been ordered by ER provider and pt is much improved on this. He is awake and alert and able to answer all my questions, follow commands, sitting up at the side of bed. He is tolerating BiPAP without any difficulty. He lives at home with significant other, and grandson. Chest x-ray is concerning for volume overload and possible multifocal pneumonia. BNP = 3500, D-dimer elevated 1270, WBC = 14.92, lactate is pending and will add on a procalcitonin. Creatinine of 17.1, BUN of 100, will consult nephrology for recommendations. Allergies Allergy/AdvReac Type Severity Reaction Status Date / Time mercury (elemental) Allergy Intermediate Rash Verified 03/31/21 15:04 NSAIDS (Non-Steroidal Allergy Intermediate not to Verified 03/31/21 15:04 Anti-Inflamma take d/t Kidney disease lisinopril AdvReac Intermediate COUGH Verified 03/31/21 15:04 Home Medications Medication Instructions Recorded Confirmed Type amlodipine 10 mg tablet 10 mg PO QAM 05/06/19 03/31/21 History trazodone 50 mg tablet 100 mg PO HS PRN tab 05/06/19 03/31/21 History calcitriol 0.25 mcg capsule 0.5 mcg PO QAM 06/11/20 03/31/21 History allopurinol 100 mg tablet 100 mg PO QAM 06/30/20 03/31/21 History furosemide 80 mg tablet 80 mg PO QAM 06/30/20 03/31/21 History omeprazole 40 mg capsule,delayed 40 mg PO BID 06/30/20 03/31/21 History release albuterol sulfate 90 mcg/actuation 2 puff INHALATION Q4 PRN 09/26/20 03/31/21 History aerosol inhaler (Ventolin HFA) aspirin 81 mg tablet,delayed 81 mg PO QAM 09/26/20 03/31/21 History release atorvastatin 40 mg tablet (Lipitor) 40 mg PO QAM 09/26/20 03/31/21 History bupropion HCl 150 mg 24 hr tablet, 150 mg PO QAM 09/26/20 03/31/21 History extended release clopidogrel 75 mg tablet 75 mg PO QAM 09/26/20 03/31/21 History escitalopram oxalate 20 mg tablet 20 mg PO QAM 09/26/20 03/31/21 History vit B complx, C-iron 8 mg-folic 1 tab PO QAM 09/26/20 03/31/21 History acid 800 mcg-D3 1,000 unit-zinc tablet (ProRenal) gentamicin 0.1 % topical cream 1 applic TOPICAL DAILY #30 g 03/10/21 03/31/21 Rx isosorbide mononitrate 30 mg 30 mg PO QAM #30 tab 03/22/21 03/31/21 Rx tablet,extended release 24 hr bisacodyl 5 mg tablet,delayed 5 mg PO DAILY PRN #30 tab 03/27/21 03/31/21 Rx release (Gentle Laxative (bisacodyl)) oxycodone-acetaminophen 5 mg-325 1 tab PO Q8H PRN #12 tab 03/27/21 03/31/21 Rx mg tablet tamsulosin 0.4 mg capsule 0.4 mg PO DAILY 03/28/21 03/31/21 History carvedilol 12.5 mg tablet 12.5 mg PO BID 30 Days #60 tab 03/29/21 03/31/21 Rx ropinirole 0.25 mg tablet 0.25 mg PO HS 03/31/21 03/31/21 History Past Med/Surg History Medical History (Updated 03/31/21 @ 19:14 by Marcial Hampton MD) Anemia AV fistula "L side " Bradycardia Cardiac murmur HX OF TAVR SEP 2019 SECONDARY TO SEVERE Carotid artery stenosis RIGHT ICA= <50%; LEFT ICA= 50-69% Complete heart block Dialysis patient X 4 YRS-PERITONEAL DIALYSIS Q HS X 8 HRS Dyslipidemia Elevated troponin ESRD (end stage renal disease) on dialysis Fitting and adjustment of peritoneal dialysis catheter PLACEMENT OF-IN PLACE GERD (gastroesophageal reflux disease) Gout Hiatal hernia History of lung cancer NON SMALL CANCER RLL-07/2019 [facility] [place] HTN (hypertension) Kidney donor Near syncope Pericardial effusion s/p pericardiocentesis Peritoneal dialysis status Spinal stenosis NO NECK OR BACK SURGERY Surgical History AV fistula CREATION OF IN LEFT WRIST History of colonoscopy History of lung surgery RLL 07/2019 History of nephrectomy, unilateral "Kidney donor "1992 S/P femoral-popliteal bypass surgery S/P TAVR (transcatheter aortic valve replacement) Family History Brother Family history of diabetes mellitus Brother Family history of diabetes mellitus Sister Family history of diabetes mellitus Mother Family history of diabetes mellitus Social History Smoking Status: Former smoker Tobacco Type: Smokeless Tobacco (Dip or Chew) Second Hand Exposure: No; Hx Alcohol Use: No Hx Substance Use: Yes Last Used Substance: Days (ago) Preferred Language: Croatian Communication Ability: Effective Visual Impairment: No Limitations Rn Dermatology Required: No Beliefs That Will Affect Care: None Current Living Situation: Significant Other Feels Safe at Home: Yes Assistive Devices: Denture - Upper, Denture - Lower and Glasses Review of Systems Review of Systems: Constitutional: No fever, sweats or chills Eyes: No diplopia, no worsening or blurred vision ENT: normal hearing, no trouble swallowing Respiratory: + Shortness of breath, + nonproductive cough, dyspnea at rest and on exertion, currently requiring BiPAP Cardiovascular: + Burning chest pain with deep breaths, no substernal pain, no radiation, no pain surrounding previous pacemaker insertion site in the right chest wall, no tightness or palpitations Abdomen: No pain, nausea, vomiting, diarrhea or constipation Musculoskeletal: No joint pain, calf pain, swelling Neurologic: No weakness, numbness/tingling, or balance problems Psychiatric: No anxiety or depression Skin: No rash or itch Physical Exam Physical Exam: General: awake, alert, appears ill but tolerating BiPAP without difficulty, sitting up at side of the bed. Head: Normocephalic, atraumatic ENT: PERRL, EOMI, no pharyngeal exudate, mucous membranes moist Chest:Diminished breath sounds throughout, +crackles, on bipap, + dry cough with deep breaths, no wheeze or rales Cardiac: Regular rate and rhythm, + paced on monitor, no murmur, no JVD, normal peripheral pulses, good capillary refill Abdominal: NABS x 4 quadrants, soft, + PD catheter present, no surrounding erythema, nondistended, nontender to palpation, no rebound or guarding Extremities: Normal inspection, no peripheral edema or erythema, calfs nontender to palpation Psych: Normal mood and affect Neuro: AAO x 3, strength intact bilaterally and rated 5/5, no motor deficits, speech is clear, no peripheral sensory deficits Results & Data Results & Data ([facility]) Vital Signs (Past 12 Hours) Vital Signs Temp Pulse Resp BP Pulse Ox 03/31/21 14:21 87 23 99 03/31/21 13:20 36.8 C 90 26 H 123/68 Diagnostic Findings Chest X-Ray 03/31/21 13:35 XR chest 1V portable CLINICAL HISTORY: Dyspnea COMPARISON STUDY: March 28, 2021 FINDINGS: No pneumothorax. Redemonstration of minimal right pleural effusion. Interval worsening of diffuse bilateral reticular opacities with interval development of prominent airspace component mostly affecting left lung region likely representing multifocal pneumonia or/and pulmonary edema. Cardiomediastinal silhouette is mildly enlarged. Aorta is calcified. Vasculature is obscured.. Osseous structures: unremarkable vertebral bodies are not well seen. Stable position of right-sided dual-lead pacemaker with battery pack seen at the anatomical region of the right axilla. Prosthetic aortic valve seen. IMPRESSION: 1. Interval worsening of opacities throughout bilateral lungs likely representing multifocal pneumonia or/and pulmonary edema. 2. Redemonstration of mild cardiomegaly and minimal right pleural effusion. ACT 112: Negative or not required by law. The above report was generated using voice recognition software. It may contain grammatical, syntax or spelling errors. Electronically signed by: Layla Narayan DO 03/31/2021 2:07 PM ECG Additional Comments: 31-MAR-2021 13:47:20 [facility]-EDSTAT ROUTINE RETRIEVAL Atrial-sensed ventricular-paced rhythm Abnormal ECG When compared with ECG of 28-MAR-2021 16:23, Vent. rate has increased BY 12 BPM 25mm/s 10mm/mV 150Hz 9.0.9 12SL 241 CARMELLA: 16 Referred by: REFERRED SELF Unconfirmed Vent. rate 88 BPM OH interval 176 ms QRS duration 194 ms QT/QTc 474/573 ms Code Status & VTE Plan Code Status DNR/DNI - discussed with the patient at bedside Supervising Physician Co-Signing Physician Notes I have seen and examined the patient and have discussed the case with the provider above. I agree with the assessment and plan as stated with the following exceptions. Mr Hung is a dialysis-dependent patient who presents with acute respiratory failure. Workup reveals pulmonary edema vs multifocal pneumonia with a possible developing sepsis picture. He was on BIPAP in the ER when examined and was feeling well, however, when he was taken off BIPAP 10/5 at 50% he dropped within 2-3 minutes to 77%. He responds very well to BIPAP therapy and is fine with intubation if needed for treatment of respiratory failure. He recently had issues with home PD as above, which may be contributing to fluid overload. HE doesn't make much urine per his report. I spoke with his rampman, and it is unclear how effective his PD is at this point. He is being set up for hemodialysis tonight with UF goal of 2-3L off. He received Lasix 40mg IV in the ER without any urine output for 4 hours. Zosyn started for empiric sepsis coverage and treatment of ?CAP. PE also considered but currently he is too unstable to go to CT and needs urgent dialysis which he is getting. ICU was consulted to evaluate with his current tenuous respiratory status. I contacted his girlfriend-selfdescribed mPOAIzabel, and updated her on his status. She verbalized understanding and appreciates any updates as things evolve. On exam he is tachypneic with BIPAP mask in place 10/5 at 100% FiO2. Lungs are relatively clear to auscultation with some good airflow. Cardiac auscultation reveals S1/2 wo m/g/r. Abdomen is soft, NTND and PD cath site looks good-no d rainage or erythema. No peripheral edema noted and he is mentating clearly. Agree with plan above for urgent HD with goal UF 2-3 L off . Lasix with consideration for more per nephro guidance. Also consider CTA to rule out PE. Currently too unstable to send but ok with nephro to give needed contrast in order to diagnose. Also of note, he did have CTA studies just a couple of days ago. This may be contributing to his worsened renal failure. Cont Zosyn for possible pneumonia. Although procalcitonin elevated, he may have a developing sepsis or pneumonia, however, a false positive also possible in renal disease. Cont other therapies as above. DO Sebastien
[2021-03-31 15:18] LABS: C Reactive Protein 22.6 mg/dl (0-0.29); Troponin I 0.101 ng/ml (0-0.045)
[2021-03-31] MEDS ORDERED: FUROSEMIDE 40 MG/4 ML VIAL IV STA (15:22)
[2021-03-31 15:57] LABS: Adenovirus PCR Not Detected (NotDetected); Bordetella parapertussis PCR Not Detected (NotDetected); Bordetella pertussis PCR Not Detected (NotDetected); Chlamydia pneumoniae PCR Not Detected (NotDetected); Coronavirus 229E PCR Not Detected (NotDetected); Coronavirus CoV-2 (COVID19)PCR Not Detected (NotDetected); Coronavirus HKU1 PCR Not Detected (NotDetected); Coronavirus NL63 PCR Not Detected (NotDetected); Coronavirus OC43PCR Not Detected (NotDetected); Human Metapneumovirus PCR Not Detected (NotDetected); Influenza A PCR Not Detected (NotDetected); Influenza B PCR Not Detected (NotDetected); Mycoplasma pneumoniae PCR Not Detected (NotDetected); Parainfluenza Virus 1 PCR Not Detected (NotDetected); Parainfluenza Virus 2 PCR Not Detected (NotDetected); Parainfluenza Virus 3 PCR Not Detected (NotDetected); Parainfluenza Virus 4 PCR Not Detected (NotDetected); Respiratory Syncytial VirusPCR Not Detected (NotDetected); Rhinovirus/Enterovirus PCR Not Detected (NotDetected)
--- NOTE | 2021-03-31 17:09 | Electrocardiogram Report ---
Test Reason : Blood Pressure : / mmHG Vent. Rate : 088 BPM Atrial Rate : 088 BPM P-R Int : 176 ms QRS Dur : 194 ms QT Int : 474 ms P-R-T Axes : 025 -68 106 degrees QTc Int : 573 ms Atrial-sensed ventricular-paced rhythm Abnormal ECG When compared with ECG of 28-MAR-2021 16:23, Vent. rate has increased BY 12 BPM Confirmed by Addy Ang ([id number]) on 03/31/2021 5:09:00 PM Referred By: REFERRED SELF Confirmed By:Addy Ang
[2021-03-31 17:30] LABS: iSTAT Creatinine 19.8 mg/dl (0.6-1.3); iSTAT Hemoglobin 8.5 g/dl (14.0-18.0); iSTAT Ionized Calcium 1.13 mmol/l (1.12-1.32); iSTAT Potassium 4.4 mmol/L (3.3-5.0)
--- NOTE | 2021-03-31 18:09 | Nephrology Consultation ---
Date of Consultation March 31, 2021 Assessment & Plan (1) ESRD (end stage renal disease) on dialysis: John was seen and evaluated emergently in the ER this evening. He is oxygenating at ~90% on BIPAP FIO2 50%. RR elevated. Interstitial edema noted. Diuretics provided in the ED to encourage urine output. I discussed options for dialysis with John. He was not 100% confident that he would be able to tolerate PD. Emergent HD was coordinated. I discussed the plan of care with the ER team and hospitalist service. The patient was seen with the hemodialysis nurse and orders were reviewed. AVF mature for use with good thrill and bruit but never used previously for HD. Will provide 2 hours of HD tonight with a UF goal of 2 L. Qb 300 goal. 16 g needles. Repeat labs tomorrow AM. Document I/O's. Medications are appropriately dosed for kidney function. (2) Multifocal pneumonia: Management per primary team. COVID negative. Zosyn renally dosed. (3) Volume overload: Furosemide 40 mg IV provided. Emergent HD coordinated. (4) Anemia: Chronic, stable. Maintained on Micera and venofer as outpatient. History of Present Illness Reason for Consultation: ESRD on dialysis History of Present Illness Mr. John Hung presented to the ER today with dyspnea and fatigue. Symptoms started fairly suddenly last evening. John presented to the ER at [facility] today with noted progressive worsening. He did not perform PD last night because he could not tolerate a fill or dwell. He did a single 2 L exchange this AM with 1.5% dextrose but did not measure UF. John was found to be notably hypoxic in the ER. COVID negative. CXR demonstrating Interval worsening of opacities throughout bilateral lungs likely representing multifocal pneumonia or/and pulmonary edema. John completed his scheduled dialysis treatment on Monday evening after being discharged home from the hospital. Minimal UF reported with 1.5% dextrose. John is a 61 year male with ESRD due to hypertensive nephrosclerosis. In 1994 he donated his R kidney to his sister. In 12/27 he progressed to ESRD and was started on NCCPD. His current dialysis regimen consists of NCCPD 5 exchanges/night, 2.5L fill volume, 90 min dwell. LBO 2L fill, 4 hour dwell. EDW is 70kg. Mr. Hung was recently admitted to [facility] with heart block requiring pacemaker placement. He was discharged home and returned to the hospital with dizziness. Pacemaker interrogated. The device was functioning well. John was found to be slightly volume depleted. He feels that he may have developed orthostasis due to aggressive UF with HD. John had been admitted March 25- with symptomatic third-degree AV block. Dual-chamber permanent pacemaker was placed on March 25. There was an intermittent problem with capture of the right ventricular lead which prompted lead revision in POD #1. He was discharged the next day, 03/27. Within 24 hours of returning home, he experienced transient lightheadedness. John found his BP to be notably low at 70/30 mm Hg. However during his subsequent admission, blood pressure was normal. A limited echocardiogram was obtained demonstrating normal LV size and function and no pericardial effusion. CT chest showed a small hematoma in the pacer pocket. A small pneumoperitoneum was appreciated. John was discharged within 24 hours at his request after cardiology consultation. 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 Presumed viral # PVD - bilateral iliac artery stenosis s/p CRACKER SPRAYER 05/03 [facility] [place] # Lyme disease 05/31 # Hep C s/p 12 weeks Zepatier therapy. Post treatment PCR negative 2016 # HTN # Gout # ROSELIA # RLS Allergies Allergy/AdvReac Type Severity Reaction Status Date / Time mercury (elemental) Allergy Intermediate Rash Verified 03/31/21 15:04 NSAIDS (Non-Steroidal Allergy Intermediate not to Verified 03/31/21 15:04 Anti-Inflamma take d/t Kidney disease lisinopril AdvReac Intermediate COUGH Verified 03/31/21 15:04 Home Medications Medication Instructions Recorded Confirmed Type amlodipine 10 mg tablet 10 mg PO QAM 05/06/19 03/31/21 History trazodone 50 mg tablet 100 mg PO HS PRN tab 05/06/19 03/31/21 History calcitriol 0.25 mcg capsule 0.5 mcg PO QAM 06/11/20 03/31/21 History allopurinol 100 mg tablet 100 mg PO QAM 06/30/20 03/31/21 History furosemide 80 mg tablet 80 mg PO QAM 06/30/20 03/31/21 History omeprazole 40 mg capsule,delayed 40 mg PO BID 06/30/20 03/31/21 History release albuterol sulfate 90 mcg/actuation 2 puff INHALATION Q4 PRN 09/26/20 03/31/21 History aerosol inhaler (Ventolin HFA) aspirin 81 mg tablet,delayed 81 mg PO QAM 09/26/20 03/31/21 History release atorvastatin 40 mg tablet (Lipitor) 40 mg PO QAM 09/26/20 03/31/21 History bupropion HCl 150 mg 24 hr tablet, 150 mg PO QAM 09/26/20 03/31/21 History extended release clopidogrel 75 mg tablet 75 mg PO QAM 09/26/20 03/31/21 History escitalopram oxalate 20 mg tablet 20 mg PO QAM 09/26/20 03/31/21 History vit B complx, C-iron 8 mg-folic 1 tab PO QAM 09/26/20 03/31/21 History acid 800 mcg-D3 1,000 unit-zinc tablet (ProRenal) gentamicin 0.1 % topical cream 1 applic TOPICAL DAILY #30 g 03/10/21 03/31/21 Rx isosorbide mononitrate 30 mg 30 mg PO QAM #30 tab 03/22/21 03/31/21 Rx tablet,extended release 24 hr bisacodyl 5 mg tablet,delayed 5 mg PO DAILY PRN #30 tab 03/27/21 03/31/21 Rx release (Gentle Laxative (bisacodyl)) oxycodone-acetaminophen 5 mg-325 1 tab PO Q8H PRN #12 tab 03/27/21 03/31/21 Rx mg tablet tamsulosin 0.4 mg capsule 0.4 mg PO DAILY 03/28/21 03/31/21 History carvedilol 12.5 mg tablet 12.5 mg PO BID 30 Days #60 tab 03/29/21 03/31/21 Rx ropinirole 0.25 mg tablet 0.25 mg PO HS 03/31/21 03/31/21 History Patient History Medical History (Updated 03/31/21 @ 18:38 by Braulio Kilgore DO) Anemia AV fistula "L side " Bradycardia Cardiac murmur HX OF TAVR SEP 2019 SECONDARY TO SEVERE Carotid artery stenosis RIGHT ICA= <50%; LEFT ICA= 50-69% Complete heart block Dialysis patient X 4 YRS-PERITONEAL DIALYSIS Q HS X 8 HRS Dyslipidemia Elevated troponin ESRD (end stage renal disease) on dialysis Fitting and adjustment of peritoneal dialysis catheter PLACEMENT OF-IN PLACE GERD (gastroesophageal reflux disease) Gout Hiatal hernia History of lung cancer NON SMALL CANCER RLL-07/2019 [facility] [place] HTN (hypertension) Kidney donor Near syncope Pericardial effusion s/p pericardiocentesis Peritoneal dialysis status Spinal stenosis NO NECK OR BACK SURGERY Surgical History AV fistula CREATION OF IN LEFT WRIST History of colonoscopy History of lung surgery RLL 07/2019 History of nephrectomy, unilateral "Kidney donor "1992 S/P femoral-popliteal bypass surgery S/P TAVR (transcatheter aortic valve replacement) Family History Brother Family history of diabetes mellitus Brother Family history of diabetes mellitus Sister Family history of diabetes mellitus Mother Family history of diabetes mellitus Social History Smoking Status: Unknown if ever smoked Tobacco Type: Smokeless Tobacco (Dip or Chew) Second Hand Exposure: No; Hx Alcohol Use: No Hx Substance Use: Yes Last Used Substance: Days (ago) Preferred Language: Macanese Communication Ability: Effective Visual Impairment: No Limitations Auto Crane Driver Required: No Beliefs That Will Affect Care: None Current Living Situation: Significant Other Feels Safe at Home: Yes Assistive Devices: None Review of Systems Constitutional: no problem reported Eyes: no problem reported Ear, Nose, Mouth, Throat: no problem reported Respiratory: no problem reported Cardiovascular: no problem reported Gastrointestinal: no problem reported Musculoskeletal: no problem reported Integumentary: no problem reported Neurologic: no problem reported Psychiatric: no problem reported Endocrine: no problem reported Hematologic / Lymphatic: no problem reported Physical Exam Constitutional: well developed and + ill appearing; no acute distress Eyes: no scleral abnormality and no corneal abnormality ENMT: NIPPV Neck: normal visual inspection and trachea midline Respiratory: + respiratory distress; no audible wheezes Auscultation: + rales and + rhonchi Cardiovascular: Rate/Rhythm: regular rate Heart Sounds: normal S1, normal S2 and + murmur Extremities: + AV fistula; no edema Gastrointestinal (Abdomen): Inspection/Auscultation: + abdomen distended Percussion/Palpation: abdomen soft; abdomen nontender PD cathter with clean exit site Musculoskeletal: Extremities: no cyanosis and no clubbing Skin: normal turgor; no lesions Neurologic: Motor/Sensory: no tremor and no asterixis Psychiatric: Orientation: alert and oriented x 3 Results & Data ([facility]) Vital Signs (Past 12 Hours) Vital Signs Temp Pulse Resp BP Pulse Ox 03/31/21 18:00 82 22 114/73 96 03/31/21 17:41 85 36 H 91 03/31/21 17:31 86 24 103/61 92 03/31/21 17:00 81 23 99/64 L 91 03/31/21 16:30 82 24 111/70 94 03/31/21 16:00 83 24 114/74 91 03/31/21 15:54 92 03/31/21 15:53 78 L 03/31/21 15:34 86 22 122/61 98 03/31/21 15:20 89 96 03/31/21 15:01 88 24 126/76 95 03/31/21 15:00 88 L 03/31/21 14:30 89 24 128/80 92 03/31/21 14:21 87 23 99 03/31/21 14:00 88 21 108/69 86 L 03/31/21 13:30 88 33 H 108/70 89 L 03/31/21 13:20 36.8 C 90 26 H 123/68 03/31/21 12:50 89 23 123/68 88 L Laboratory Results Laboratory Results - last 24 hr 03/31/21 03/31/21 03/31/21 13:00 13:00 13:00 WBC 14.92 H RBC 2.97 L Hgb 9.1 L POC Hgb Hct 26.6 L POC Hct MCV 89.6 MCH 30.6 MCHC 34.2 RDW Std Deviation 48.7 H RDW Coeff of Saumya 14.8 H Plt Count 129 L MPV 11.6 H Immature Gran % (Auto) 0.4 Neut % (Auto) 86.4 Lymph % (Auto) 6.0 [place] % (Auto) 7.0 Eos % (Auto) 0.1 Baso % (Auto) 0.1 Neut # (Auto) 12.89 H Lymph # (Auto) 0.89 L [place] # (Auto) 1.04 H Eos # (Auto) 0.02 Baso # (Auto) 0.02 Immature Gran # (Auto) 0.06 H D-Dimer 1270 H* ABG pH ABG pCO2 ABG pO2 ABG HCO3 ABG O2 Saturation ABG Base Excess Guille Test Barometric Pressure Oxygen Given POC Sodium Sodium 129 L POC Potassium Potassium 4.3 POC Chloride Chloride 96 L Carbon Dioxide 22 POC Total CO2 Anion Gap 11.0 POC Anion Gap POC BUN BUN 100 H Creatinine 17.10 H* POC Creatinine Est Cr Clr Drug Dosing 3.8 Est GFR ( Amer) 3.0 Est GFR (Non-Af Amer) 2.6 BUN/Creatinine Ratio 5.8 L Glucose 76 POC Glucose (other) Lactate Calcium 9.0 POC Ioniz Calcium Ludivina Total Bilirubin 0.5 AST 22 ALT < 6 L Alkaline Phosphatase 126 H Troponin I C-Reactive Protein NT-Pro-B Natriuret Pep > 72796 H Total Protein 6.7 Albumin 2.5 L Globulin 4.2 H Albumin/Globulin Ratio 0.6 L Procalcitonin Adenovirus (PCR) B. pertussis DNA (PCR) B.parapertussis DNA PCR C. pneumoniae DNA (PCR) Coronavirus OC43 (PCR) Coronavirus HKU1 (PCR) Coronavirus 229E (PCR) COVID-19 Eval Order SARS-CoV-2 (PCR) Coronavirus NL63 (PCR) Human Metapneumovir PCR Influenza Type A (PCR) Influenza Type B (PCR) M. pneumoniae (PCR) Parainfluenza 1 (PCR) Parainfluenza 2 (PCR) Parainfluenza 3 (PCR) Parainfluenza 4 (PCR) RSV (PCR) Entero/Rhino (PCR) 03/31/21 03/31/21 03/31/21 13:00 13:56 14:08 WBC RBC Hgb POC Hgb 8.5 L Hct POC Hct 25 L MCV MCH MCHC RDW Std Deviation RDW Coeff of Saumya Plt Count MPV Immature Gran % (Auto) Neut % (Auto) Lymph % (Auto) [place] % (Auto) Eos % (Auto) Baso % (Auto) Neut # (Auto) Lymph # (Auto) [place] # (Auto) Eos # (Auto) Baso # (Auto) Immature Gran # (Auto) D-Dimer ABG pH Cancelled ABG pCO2 Cancelled ABG pO2 Cancelled ABG HCO3 Cancelled ABG O2 Saturation Cancelled ABG Base Excess Cancelled Guille Test Cancelled Barometric Pressure Cancelled Oxygen Given Cancelled POC Sodium 131 L Sodium POC Potassium 4.4 Potassium POC Chloride 95 L Chloride Carbon Dioxide POC Total CO2 22 L Anion Gap POC Anion Gap 19.0 POC BUN 116 H* BUN Creatinine POC Creatinine 19.8 H* Est Cr Clr Drug Dosing Est GFR ( Amer) Est GFR (Non-Af Amer) BUN/Creatinine Ratio Glucose POC Glucose (other) 67 L* Lactate Calcium POC Ioniz Calcium Ludivina 1.13 Total Bilirubin AST ALT Alkaline Phosphatase Troponin I 0.101 H* C-Reactive Protein 22.60 H NT-Pro-B Natriuret Pep Total Protein Albumin Globulin Albumin/Globulin Ratio Procalcitonin Adenovirus (PCR) B. pertussis DNA (PCR) B.parapertussis DNA PCR C. pneumoniae DNA (PCR) Coronavirus OC43 (PCR) Coronavirus HKU1 (PCR) Coronavirus 229E (PCR) COVID-19 Eval Order SARS-CoV-2 (PCR) Coronavirus NL63 (PCR) Human Metapneumovir PCR Influenza Type A (PCR) Influenza Type B (PCR) M. pneumoniae (PCR) Parainfluenza 1 (PCR) Parainfluenza 2 (PCR) Parainfluenza 3 (PCR) Parainfluenza 4 (PCR) RSV (PCR) Entero/Rhino (PCR) 03/31/21 03/31/21 03/31/21 14:16 14:59 14:59 WBC RBC Hgb POC Hgb Hct POC Hct MCV MCH MCHC RDW Std Deviation RDW Coeff of Saumya Plt Count MPV Immature Gran % (Auto) Neut % (Auto) Lymph % (Auto) [place] % (Auto) Eos % (Auto) Baso % (Auto) Neut # (Auto) Lymph # (Auto) [place] # (Auto) Eos # (Auto) Baso # (Auto) Immature Gran # (Auto) D-Dimer ABG pH ABG pCO2 ABG pO2 ABG HCO3 ABG O2 Saturation ABG Base Excess Guille Test Barometric Pressure Oxygen Given POC Sodium Sodium POC Potassium Potassium POC Chloride Chloride Carbon Dioxide POC Total CO2 Anion Gap POC Anion Gap POC BUN BUN Creatinine POC Creatinine Est Cr Clr Drug Dosing Est GFR ( Amer) Est GFR (Non-Af Amer) BUN/Creatinine Ratio Glucose POC Glucose (other) Lactate 1.0 Calcium POC Ioniz Calcium Ludivina Total Bilirubin AST ALT Alkaline Phosphatase Troponin I C-Reactive Protein NT-Pro-B Natriuret Pep Total Protein Albumin Globulin Albumin/Globulin Ratio Procalcitonin Adenovirus (PCR) Not Detected B. pertussis DNA (PCR) Not Detected B.parapertussis DNA PCR Not Detected C. pneumoniae DNA (PCR) Not Detected Coronavirus OC43 (PCR) Not Detected Coronavirus HKU1 (PCR) Not Detected Coronavirus 229E (PCR) Not Detected COVID-19 Eval Order RESPNP at [facility] SARS-CoV-2 (PCR) Not Detected Coronavirus NL63 (PCR) Not Detected Human Metapneumovir PCR Not Detected Influenza Type A (PCR) Not Detected Influenza Type B (PCR) Not Detected M. pneumoniae (PCR) Not Detected Parainfluenza 1 (PCR) Not Detected Parainfluenza 2 (PCR) Not Detected Parainfluenza 3 (PCR) Not Detected Parainfluenza 4 (PCR) Not Detected RSV (PCR) Not Detected Entero/Rhino (PCR) Not Detected 03/31/21 17:07 WBC RBC Hgb POC Hgb Hct POC Hct MCV MCH MCHC RDW Std Deviation RDW Coeff of Saumya Plt Count MPV Immature Gran % (Auto) Neut % (Auto) Lymph % (Auto) [place] % (Auto) Eos % (Auto) Baso % (Auto) Neut # (Auto) Lymph # (Auto) [place] # (Auto) Eos # (Auto) Baso # (Auto) Immature Gran # (Auto) D-Dimer ABG pH ABG pCO2 ABG pO2 ABG HCO3 ABG O2 Saturation ABG Base Excess Guille Test Barometric Pressure Oxygen Given POC Sodium Sodium POC Potassium Potassium POC Chloride Chloride Carbon Dioxide POC Total CO2 Anion Gap POC Anion Gap POC BUN BUN Creatinine POC Creatinine Est Cr Clr Drug Dosing Est GFR ( Amer) Est GFR (Non-Af Amer) BUN/Creatinine Ratio Glucose POC Glucose (other) Lactate Calcium POC Ioniz Calcium Ludivina Total Bilirubin AST ALT Alkaline Phosphatase Troponin I C-Reactive Protein NT-Pro-B Natriuret Pep Total Protein Albumin Globulin Albumin/Globulin Ratio Procalcitonin 5.58 H Adenovirus (PCR) B. pertussis DNA (PCR) B.parapertussis DNA PCR C. pneumoniae DNA (PCR) Coronavirus OC43 (PCR) Coronavirus HKU1 (PCR) Coronavirus 229E (PCR) COVID-19 Eval Order SARS-CoV-2 (PCR) Coronavirus NL63 (PCR) Human Metapneumovir PCR Influenza Type A (PCR) Influenza Type B (PCR) M. pneumoniae (PCR) Parainfluenza 1 (PCR) Parainfluenza 2 (PCR) Parainfluenza 3 (PCR) Parainfluenza 4 (PCR) RSV (PCR) Entero/Rhino (PCR) PG Care Time/CCT Total # of Minutes Spent Total Time Spent with Patient: Total time spent is greater than 50% in coordination of care (as documented) at patient's floor/unit and/or counseling patient: Coding Level of Care Code 52086 Inpt Consult Level 5 Diagnoses ESRD (end stage renal disease) on dialysis N18.6; Z99.2 Multifocal pneumonia J18.9 Volume overload E87.70 Anemia D64.9
[2021-03-31] MEDS ORDERED: ONDANSETRON INJ 2 MG/ML 2 ML VIAL ONE (18:25)
[2021-03-31] MEDS ORDERED: ONDANSETRON INJ 2 MG/ML 2 ML VIAL IV PRN (18:47)
[2021-03-31] MEDS ORDERED: ACETAMINOPHEN 325 MG TAB PO PRN (18:47)
[2021-03-31] MEDS ORDERED: DEXTROSE 50% 50 ML SYRINGE IV ONE (21:19)
[2021-03-31] MEDS ORDERED: ICU PROTOCOL FOR HYPERGLYCEMIA PRN (22:05)
[2021-03-31] MEDS ORDERED: GLUCAGON FOR INJ 1 MG VIAL SQ PRN (22:05)
[2021-03-31] MEDS ORDERED: GLUCOSE 10 TABS/TUBE PO PRN (22:05)
[2021-03-31] MEDS ORDERED: CARBOHYDRATES FOR HYPOGLYCEMIA PO PRN (22:05)
[2021-03-31] MEDS ORDERED: DEXTROSE 50% 50 ML SYRINGE IV PRN (22:05)
[2021-03-31] MEDS ORDERED: GLUCOSE 40% GEL 15 GM TUBE PO PRN (22:05)
--- NOTE | 2021-03-31 22:08 | Critical Care Consultation ---
Date of Consultation March 31, 2021 Assessment & Plan (1) Admitted to intensive care unit: Reason Critically Ill: 61-year-old male with acute hypoxic respiratory failure in the setting of pulmonary edema with possible concerns for multifocal pneumonia requiring close monitoring for possible need for airway intervention if patient were to fail noninvasive techniques. NEURO - * CAM ICU: NEGATIVE CARDIAC/VASCULAR - * CHF exacerbation: * Chest x-ray favors substantial pulmonary edema. Patient is showing great improvement with noninvasives as well as volume removal via hemodialysis. * BMP markedly elevated. * Patient will benefit from hemodialysis with fluid removal. Blood pressure does not allow for the administration of nitrates. * NTEMI: * Likely demand in the setting of CHF and respiratory failure. * Previous troponins have been slightly elevated, however there has been a slight bump today. * Will trend troponins. * Patient without chest pain at this time. * EKG shows paced rhythm. * Monitor on telemetry. RESPIRATORY - * Acute hypoxic respiratory failure: * In the setting of pulmonary edema with possible multifocal pneumonia. * Favors predominance of pulmonary edema as patient has improved with noninvasives and hemodialysis. * Titrate down BiPAP settings as tolerated. * Low threshold for intubation if he were to fail noninvasives. * Repeat a.m. chest x-ray status post overnight BiPAP/hemodialysis. * Agree with broad-spectrum antibiotic coverage given elevated white count and procalcitonin with recent hospitalization and the chest x-ray with possible infiltrative changes. GI/NUTRITION - * N.p.o. overnight well utilizing BiPAP. RENAL/LYTES - * End-stage renal disease: * Patient unable to perform peritoneal dialysis last night. * Now requiring hemodialysis. * Will defer to nephrology for ongoing management. - * Patient appears to be anuric ENDO - * No history of diabetes or thyroid disease. * BSGs per unit protocol. ISS --> gtt per unit policy. HEME - * Anemia of chronic disease: * Stable H&H today * Thrombocytopenia: * Appears consistent with prior admissions. ID - * ?? Multifocal pneumonia: * Agree with broad-spectrum antibiotic coverage in the recently hospitalized patient. * Repeat chest x-ray after hemodialysis and fluid removal to assess for ongoing infiltrative changes. * Patient with elevated procalcitonin. * Blood cultures pending. LINES/IV ACCESS - * PIVs x1 DVT PROPHYLAXIS - * SCDs CODE STATUS - * Patient agreeable to intubation if necessary. * Otherwise declines chest compressions, defibrillation, or ACLS medications. I have personally spent 32 minutes of critical care time in the direct management of this patient. This is a life/limb threatening event. This includes time spent evaluating patient, direct bedside care, chart review, placing orders, interpretation of diagnostic studies, discussion with consultants, patient, and family members, as well as other required patient management activities. This time is exclusive of all separately billable procedures, and teaching time and separate from and in addition to any other critical care service time. Thank you for allowing us to participate in the care of this patient. Please refer to my attending physician's documentation for any further recommendations. (2) Acute hypoxemic respiratory failure: (3) Multifocal pneumonia: (4) Acute pulmonary edema: (5) Thrombocytopenia: (6) Anemia: (7) ESRD (end stage renal disease) on dialysis: History of Present Illness Attending Physician: Rosina Crowe, History of Present Illness Patient is a 61-year-old male with a significant past medical history of severe aortic stenosis status post TAVR, coronary artery disease, diastolic heart failure, end-stage renal disease on peritoneal dialysis nightly, history of lung CA status post lobectomy, hypertension, hyperlipidemia, peripheral arterial disease, recent pacemaker placement on 03/25, with recent presentations to the emergency department with near syncope events. Patient developed shortness of breath shortly after the time of discharge from this institution during recent hospitalization. The patient actually reports that he was so short of breath last night that he was unable to perform his regularly scheduled peritoneal dialysis. He did attempt dialysis this morning but was unsuccessful. Upon evaluation in the emergency department, the patient was noted to have infiltrative changes on his chest x-ray concerning for pulmonary edema versus multifocal pneumonia. He was started on broad-spectrum antibiotics and placed on BiPAP. Patient is currently receiving hemodialysis for the first time through his mature fistula to the LEFT upper extremity. Apparently, the patient has required increasing noninvasive positive pressure ventilatory techniques with settings of 12/7 and 100%. Received a call from hospitalist VERITO with concerns for progression towards possible need for intubation if respiratory status were to decline further. Upon assessment at bedside, the patient is awake, alert, and oriented. He has recently completed hemodialysis. He states that he was having pain in his lungs, but reports that that has been ongoing for the last few days. He states that he feels much better than his initial presentation to the emergency department. He states that the BiPAP is uncomfortable, however he does admit that it helps him breathe more comfortably. He does complain of some shortness of breath, but reports that this has improved since presentation. He was previously having pain at the pocket site of his RIGHT chest pacemaker site. He reports that is improved. He denies any redness or warmth to touch this area. He denies any redness, warmth, or discharge in his peritoneal site. Patient currently denies any headaches, dizziness, lightheadedness, palpitations, hemoptysis, nausea, vomiting, or abdominal discomfort. Patient does complain of some posterior neck pain which she reports he is experienced previously with his history of spinal stenosis. Allergies Allergy/AdvReac Type Severity Reaction Status Date / Time mercury (elemental) Allergy Intermediate Rash Verified 03/31/21 15:04 NSAIDS (Non-Steroidal Allergy Intermediate not to Verified 03/31/21 15:04 Anti-Inflamma take d/t Kidney disease lisinopril AdvReac Intermediate COUGH Verified 03/31/21 15:04 Home Medications Medication Instructions Recorded Confirmed Type amlodipine 10 mg tablet 10 mg PO QAM 05/06/19 03/31/21 History trazodone 50 mg tablet 100 mg PO HS PRN tab 05/06/19 03/31/21 History calcitriol 0.25 mcg capsule 0.5 mcg PO QAM 06/11/20 03/31/21 History allopurinol 100 mg tablet 100 mg PO QAM 06/30/20 03/31/21 History furosemide 80 mg tablet 80 mg PO QAM 06/30/20 03/31/21 History omeprazole 40 mg capsule,delayed 40 mg PO BID 06/30/20 03/31/21 History release albuterol sulfate 90 mcg/actuation 2 puff INHALATION Q4 PRN 09/26/20 03/31/21 History aerosol inhaler (Ventolin HFA) aspirin 81 mg tablet,delayed 81 mg PO QAM 09/26/20 03/31/21 History release atorvastatin 40 mg tablet (Lipitor) 40 mg PO QAM 09/26/20 03/31/21 History bupropion HCl 150 mg 24 hr tablet, 150 mg PO QAM 09/26/20 03/31/21 History extended release clopidogrel 75 mg tablet 75 mg PO QAM 09/26/20 03/31/21 History escitalopram oxalate 20 mg tablet 20 mg PO QAM 09/26/20 03/31/21 History vit B complx, C-iron 8 mg-folic 1 tab PO QAM 09/26/20 03/31/21 History acid 800 mcg-D3 1,000 unit-zinc tablet (ProRenal) gentamicin 0.1 % topical cream 1 applic TOPICAL DAILY #30 g 03/10/21 03/31/21 Rx isosorbide mononitrate 30 mg 30 mg PO QAM #30 tab 03/22/21 03/31/21 Rx tablet,extended release 24 hr bisacodyl 5 mg tablet,delayed 5 mg PO DAILY PRN #30 tab 03/27/21 03/31/21 Rx release (Gentle Laxative (bisacodyl)) oxycodone-acetaminophen 5 mg-325 1 tab PO Q8H PRN #12 tab 03/27/21 03/31/21 Rx mg tablet tamsulosin 0.4 mg capsule 0.4 mg PO DAILY 03/28/21 03/31/21 History carvedilol 12.5 mg tablet 12.5 mg PO BID 30 Days #60 tab 03/29/21 03/31/21 Rx ropinirole 0.25 mg tablet 0.25 mg PO HS 03/31/21 03/31/21 History Patient History Medical History Anemia AV fistula "L side " Bradycardia Cardiac murmur HX OF TAVR SEP 2019 SECONDARY TO SEVERE Carotid artery stenosis RIGHT ICA= <50%; LEFT ICA= 50-69% Complete heart block Dialysis patient X 4 YRS-PERITONEAL DIALYSIS Q HS X 8 HRS Dyslipidemia Elevated troponin ESRD (end stage renal disease) on dialysis Fitting and adjustment of peritoneal dialysis catheter PLACEMENT OF-IN PLACE GERD (gastroesophageal reflux disease) Gout Hiatal hernia History of lung cancer NON SMALL CANCER RLL-07/2019 [facility] [place] HTN (hypertension) Kidney donor Near syncope Pericardial effusion s/p pericardiocentesis Peritoneal dialysis status Spinal stenosis NO NECK OR BACK SURGERY Surgical History AV fistula CREATION OF IN LEFT WRIST History of colonoscopy History of lung surgery RLL 07/2019 History of nephrectomy, unilateral "Kidney donor "1992 S/P femoral-popliteal bypass surgery S/P TAVR (transcatheter aortic valve replacement) Family History Brother Family history of diabetes mellitus Brother Family history of diabetes mellitus Sister Family history of diabetes mellitus Mother Family history of diabetes mellitus Social History Smoking Status: Former smoker Tobacco Type: Smokeless Tobacco (Dip or Chew) Second Hand Exposure: No; Hx Alcohol Use: No Hx Substance Use: Yes Last Used Substance: Days (ago) Preferred Language: Turkmen Communication Ability: Effective Visual Impairment: No Limitations Forester Aide Required: No Beliefs That Will Affect Care: None Current Living Situation: Significant Other Feels Safe at Home: Yes Assistive Devices: Denture - Upper, Denture - Lower and Glasses Review of Systems Review of Systems: A complete 10 point review of systems was reviewed with the patient with pertinent positives and negatives as per history of present illness. All else were negative. Physical Exam Physical Exam: VITAL SIGNS - Vital signs and nursing notes were reviewed. GENERAL - 61-year-old male appearing his stated age who is in no acute distress. Communicates well with provider and answers questions appropriately. HEAD - NC/AT. EYES - PERRL with EOMI bilaterally. Sclera anicteric. EARS - No deformities of external structures noted on gross examination bilaterally. NOSE - Midline and without cyanosis. No epistaxis or purulent drainage noted. MOUTH/OROPHARYNX - Without perioral cyanosis. BiPAP mask in place. NECK - Neck with FROM. LUNGS - Ecchymosis noted to the RIGHT sided chest wall surrounding the site of recent PPM. Chest wall symmetric without accessory muscle use, intercostals retractions, or central cyanosis. Slight tachypnea. Bibasilar rales noted. CARDIAC - RRR with S1/S2. No murmur, rubs, or gallops appreciated. No reproducible tenderness to palpation appreciated over the anterior chest wall. ABDOMEN - Abdominal contour flat without pulsations or visible masses. BS normoactive all four quadrants. No tenderness, palpable masses, hepatosplenomegaly, or ascites noted. PD site clean, dry, and intact without erythema, warmth, or TTP. EXTREMITIES - No clubbing or peripheral cyanosis. No pretibial edema present. +3/5 radial and dorsalis pedis pulses palpated throughout. +5/5 strength noted in UE/LE bilaterally. NEUROLOGIC - Cranial nerves II through XII grossly intact. PSYCH - A&Ox3 and cooperates fully with examiner. Pt is very pleasant and interacts well with examiner. Results & Data Results & Data ([facility]) Vital Signs (Past 12 Hours) Vital Signs Temp Pulse Pulse Resp BP BP Pulse Ox 03/31/21 21:30 37.2 C 86 124/76 03/31/21 21:00 86 101/72 03/31/21 20:45 86 95/69 L 03/31/21 20:30 85 106/68 03/31/21 20:15 84 121/76 03/31/21 20:00 83 132/71 03/31/21 19:45 82 121/61 03/31/21 19:40 81 35 H 100 03/31/21 19:30 81 124/77 03/31/21 19:15 82 117/71 03/31/21 18:54 36.8 C 83 40 H 111/66 98 03/31/21 18:45 36.8 C 84 03/31/21 18:44 88 33 H 90 03/31/21 18:42 87 24 114/86 03/31/21 18:00 82 22 114/73 96 03/31/21 17:41 85 36 H 91 03/31/21 17:31 86 24 103/61 92 03/31/21 17:00 81 23 99/64 L 91 03/31/21 16:30 82 24 111/70 94 03/31/21 16:00 83 24 114/74 91 03/31/21 15:54 92 03/31/21 15:53 78 L 03/31/21 15:34 86 22 122/61 98 03/31/21 15:20 89 96 03/31/21 15:01 88 24 126/76 95 03/31/21 15:00 88 L 03/31/21 14:30 89 24 128/80 92 03/31/21 14:21 87 23 99 03/31/21 14:00 88 21 108/69 86 L 03/31/21 13:30 88 33 H 108/70 89 L 03/31/21 13:20 36.8 C 90 26 H 123/68 03/31/21 12:50 89 23 123/68 88 L Coding Level of Care Code Critical Care 1st 30-74 mins Diagnoses Admitted to intensive care unit Z78.9 Acute hypoxemic respiratory failure J96.01 Multifocal pneumonia J18.9 Acute pulmonary edema J81.0 Thrombocytopenia D69.6 Anemia D64.9 Anemia type: unspecified type ESRD (end stage renal disease) on dialysis N18.6; Z99.2 Time Spent (min) 32 (1) Anemia Anemia type: unspecified type Qualified Code(s): D64.9 - Anemia, unspecified
[2021-04-01] MEDS: guaiFENesin 600 MG TABCR PO SCH ×3 (00:22→20:20)
[2021-04-01] MEDS ORDERED: PIPERACILLIN/TAZOBACTAM 4.5 GM in DEXTROSE 5% 100 ML IV SCH (03:00)
[2021-04-01] MEDS ORDERED: ALBUTEROL HFA 8 GM INHALER INH PRN (04:59)
[2021-04-01 05:00] LABS: Hematocrit (blood only) 26.9 % (42-52); Hemoglobin 9.1 g/dL (14.0-18.0); Mean Corpuscular Hemoglobin 31.1 pg (25-34); Mean Corpuscular Hgb Conc 33.8 g/dL (32-36); Mean Corpuscular Volume 91.8 fL (80-100); Mean Platelet Volume 10.1 fL (7.4-10.4); Platelet Count 119 K/uL (130-400); RDW Coefficient of Variation 14.9 % (11.5-14.5); RDW Standard Deviation 50.7 fL (36.4-46.3); Red Blood Count 2.93 M/uL (4.7-6.1); White Blood Count 9.77 K/uL (4.8-10.8)
[2021-04-01] MEDS: oxyCODONE/ACETAMINOPHEN 5mg/325mg TAB PO PRN ×3 (05:29→22:23)
[2021-04-01 05:41] LABS: Alanine Aminotransferase < 6 U/L (12-78); Albumin Globulin Ratio 0.5 (0.9-2); Albumin Level 2.4 gm/dl (3.4-5.0); Alkaline Phosphatase 137 U/L (45-117); Aspartate Aminotransferase 20 U/L (15-37); BUN Creatinine Ratio 5.4 (10-20); Bilirubin,Total 0.5 mg/dl (0.2-1); Blood Urea Nitrogen 70 mg/dl (7-18); Carbon Dioxide 25 mmol/L (21-32); Chloride 101 mmol/L (98-107); Est GFR (African American) 4.2 ml/min; Est GFR (Non-African American) 3.6 ml/min; Globulin 4.5 gm/dl (2.5-4.0); Glucose 70 mg/dl (70-99); Magnesium 2.3 mg/dl (1.8-2.4); Phosphorus 8.5 mg/dl (2.5-4.9); Potassium 4.5 mmol/L (3.5-5.1); Sodium 134 mmol/L (136-145); Total Protein 6.9 gm/dl (6.4-8.2); Troponin I 0.098 ng/ml (0-0.045)
--- NOTE | 2021-04-01 06:55 | Ultrasound Report ---
ULTRASOUND BILATERAL LOWER EXTREMITY VENOUS CLINICAL HISTORY: Hypoxia. Clinical concern for deep venous thrombosis. COMPARISON STUDY: No priors. TECHNIQUE: Portable real-time, grayscale, and color Doppler sonography of the deep veins of the right and left lower extremity was performed from the inguinal crease to the calf. Compression and augment ation were utilized. FINDINGS: There is no sonographic evidence of deep venous thrombosis identified in the right or left lower extremity. The common femoral, superficial femoral, and popliteal veins are patent and normally compressible bilaterally. The greater saphenous vein and the profunda femoris vein at the junction w ith the common femoral vein are clear in both legs. The visualized calf veins are patent bilaterally. IMPRESSION: There is no sonographic evidence of deep venous thrombosis identified in the right or lef t lower extremity. ACT 112: Negative or not required by law. Electronically signed by: Julien Mcdonald M.D. 04/01/2021 6:54 AM
[2021-04-01] MEDS: ASPIRIN 81 MG ECTAB PO SCH (08:35)
[2021-04-01] MEDS: PANTOprazole 40 MG TAB PO SCH ×2 (08:35→20:21)
[2021-04-01] MEDS: ATORVASTATIN 40 MG TAB PO SCH (08:35)
[2021-04-01] MEDS: buPROPion XL 150 MG TABCR PO SCH (08:35)
[2021-04-01] MEDS: CLOPIDOGREL BISULFATE 75 MG TAB PO SCH (08:35)
[2021-04-01] MEDS: ESCITALOPRAM OXALATE 20 MG TAB PO SCH (08:35)
[2021-04-01] MEDS: CALCITRIOL 0.25 MCG CAPSULE PO SCH (08:35)
--- NOTE | 2021-04-01 08:39 | XRay Report ---
SINGLE VIEW CHEST CLINICAL HISTORY: Hypoxia. FINDINGS: An AP, portable, upright chest radiograph is compared to study dated 03/31/2021 and correlat ed with chest CT dated 03/28/2021. A 2-lead cardiac pacemaker is unchanged in position. The heart is e nlarged noting atherosclerotic calcification of the thoracic aorta. There is evidence of previous car diac valve surgery. The pulmonary vasculature is congested. Diffuse bilateral airspace opacities are seen throughout both lungs. This has modestly cleared from yesterday. There is a small right pleural effusion. No pneumothorax is seen. The skeletal structures are osteopenic. The bony thorax is grossly intact. A surgical clip is noted in the upper abdomen. IMPRESSION: 1. Cardiomegaly and cardiac pacemaker with evidence of congestive failure. 2. Diffuse bilateral airspace opacities could represent pulmonary edema and/or multifocal pneumonia. This appears modestly cleared from yesterday. 3. Small right pleural effusion with associated basilar consolidation ACT 112: Negative or not required by law. Electronically signed by: Julien Mcdonald M.D. 04/01/2021 8:38 AM
--- NOTE | 2021-04-01 08:58 | Critical Care Progress Note ---
Date of Service April 01, 2021 Assessment & Plan (1) Admitted to intensive care unit: Plan: Reason Critically Ill: 61-year-old male with acute hypoxic respiratory failure in the setting of pulmonary edema with possible concerns for multifocal pneumonia requiring close monitoring for possible need for airway intervention if patient were to fail noninvasive techniques. NEURO - * CAM ICU: NEGATIVE CARDIAC/VASCULAR - * CHF exacerbation: Responding well to dialysis. Oxygen demands improved substantially after receiving HD last night. RESPIRATORY - * Acute hypoxic respiratory failure: Secondary to pulmonary edema. Infection difficult to rule out. Continue empiric broad-spectrum antibiotics. Chest x- ray appears improved post dialysis. GI/NUTRITION -advance diet as tolerated. RENAL/LYTES - * End-stage renal disease: * Patient unable to perform peritoneal dialysis last night. * Now requiring hemodialysis. * Will defer to nephrology for ongoing management. - * Patient appears to be anuric ENDO - * No history of diabetes or thyroid disease. * BSGs per unit protocol. ISS --> gtt per unit policy. HEME - * Anemia of chronic disease: * Stable H&H today * Thrombocytopenia: * Appears consistent with prior admissions. ID -blood cultures pending. Continue broad-spectrum antibiotic at this time. LINES/IV ACCESS - * PIVs x1 DVT PROPHYLAXIS - * SCDs CODE STATUS -okay for intubation. Patient is stable for downgrade out of the ICU. (2) Acute hypoxemic respiratory failure: (3) Multifocal pneumonia: (4) Acute pulmonary edema: (5) Thrombocytopenia: (6) Anemia: (7) ESRD (end stage renal disease) on dialysis: Admission and Anticipated Discharge Date Admission Date: March 31, 2021 Subjective Patient seen and examined this morning. Underwent HD yesterday. Feeling much less short of breath. Denies chest pain. No coughing. Review of Systems Review of Systems: All systems reviewed & are unremarkable except as noted in HPI & below Physical Exam Physical Exam: VITAL SIGNS - Vital signs and nursing notes were reviewed. GENERAL - 61-year-old male appearing his stated age who is in no acute distress. Communicates well with provider and answers questions appropriately. HEAD - NC/AT. EYES - PERRL with EOMI bilaterally. Sclera anicteric. EARS - No deformities of external structures noted on gross examination bilaterally. NOSE - Midline and without cyanosis. No epistaxis or purulent drainage noted. MOUTH/OROPHARYNX - Without perioral cyanosis. BiPAP mask in place. NECK - Neck with FROM. LUNGS - Ecchymosis noted to the RIGHT sided chest wall surrounding the site of recent PPM. Chest wall symmetric without accessory muscle use, intercostals retractions, or central cyanosis. Slight tachypnea. Bibasilar rales noted. CARDIAC - RRR with S1/S2. No murmur, rubs, or gallops appreciated. No reproducible tenderness to palpation appreciated over the anterior chest wall. ABDOMEN - Abdominal contour flat without pulsations or visible masses. BS normoa ctive all four quadrants. No tenderness, palpable masses, hepatosplenomegaly, or ascites noted. PD site clean, dry, and intact without erythema, warmth, or TTP. EXTREMITIES - No clubbing or peripheral cyanosis. No pretibial edema present. +3/5 radial and dorsalis pedis pulses palpated throughout. +5/5 strength noted in UE/LE bilaterally. NEUROLOGIC - Cranial nerves II through XII grossly intact. PSYCH - A&Ox3 and cooperates fully with examiner. Pt is very pleasant and interacts well with examiner. Results & Data Results & Data ([facility]) Vital Signs (Past 12 Hours) Vital Signs Temp Pulse Pulse Resp BP BP Pulse Ox 04/01/21 06:07 84 23 111/71 91 04/01/21 04:59 82 29 H 105/60 92 04/01/21 04:00 98.4 F 04/01/21 02:59 82 23 111/67 93 04/01/21 02:28 84 22 104/65 95 04/01/21 01:58 84 25 H 110/64 99 04/01/21 01:29 87 25 H 102/70 97 04/01/21 00:58 89 28 H 119/67 99 04/01/21 00:28 83 24 115/74 95 04/01/21 00:20 98.8 F 03/31/21 23:58 86 26 H 124/69 99 03/31/21 23:28 85 27 H 116/76 96 03/31/21 22:58 84 27 H 122/68 95 03/31/21 22:28 82 27 H 93/58 L 100 03/31/21 22:05 86 03/31/21 22:01 86 36 H 102/56 L 100 03/31/21 21:30 99.0 F 86 124/76 03/31/21 21:13 87 35 H 124/76 99 03/31/21 21:00 86 34 H 101/72 93 vital signs, imaging personally reviewed Coding Level of Care Code 64120 Subseq Hosp Care Lvl 2 Diagnoses Admitted to intensive care unit Z78.9 Acute hypoxemic respiratory failure J96.01 Multifocal pneumonia J18.9 Acute pulmonary edema J81.0 Thrombocytopenia D69.6 Anemia D64.9 Anemia type: unspecified type ESRD (end stage renal disease) on dialysis N18.6; Z99.2 (1) Anemia Anemia type: unspecified type Qualified Code(s): D64.9 - Anemia, unspecified
[2021-04-01] MEDS ORDERED: NON-FORMULARY MEDICATION (Vit B,C-Iron Fum-Fa-D3-Zinc Ox [Prorenal] 8 mg iron-800 mcg-1,00 PO SCH (09:00)
--- NOTE | 2021-04-01 09:23 | Nephrology Progress Note ---
Date of Service April 01, 2021 Assessment & Plan (1) ESRD (end stage renal disease) on dialysis: Plan: HD completed overnight. AVF functioning well with 16 g needle. Orders for a second treatment with additional 2 L UF as tolerated entered today. Orders entered into EMR and reviewed with nurse. Repeat labs tomorrow AM. Document I/O's. Medications are appropriately dosed for kidney function. (2) Multifocal pneumonia: Plan: Management per primary team. COVID negative. Zosyn renally dosed. (3) Volume overload: Plan: Improving with HD. (4) Anemia: Plan: Chronic, stable. Epogen 4000 units and Venofer 100 mg IV with HD today. Admission and Anticipated Discharge Date Admission Date: March 31, 2021 Subjective Patient seen and examined this morning. Underwent HD yesterday evening with net UF 2.2 L. Dyspnea improved. No fevers or chills. No chest pain. Review of Systems Constitutional: no weight loss, no weight gain and no problem reported Eyes: no problem reported Ear, Nose, Mouth, Throat: no problem reported Respiratory: no problem reported Cardiovascular: no problem reported Gastrointestinal: no problem reported Musculoskeletal: no problem reported Integumentary: no problem reported Neurologic: no problem reported Psychiatric: no problem reported Endocrine: no problem reported Hematologic / Lymphatic: no problem reported Physical Exam Constitutional: well developed; no acute distress and not ill appearing Eyes: no scleral abnormality and no corneal abnormality ENMT: Mouth: no oral mucosal abnormality and oral mucous membranes not dry Neck: normal visual inspection and trachea midline Respiratory: no audible wheezes Auscultation: lungs clear to auscultation bilaterally Cardiovascular: Rate/Rhythm: regular rate Heart Sounds: normal S1, normal S2 and + murmur Extremities: + AV fistula; no edema Gastrointestinal (Abdomen): Inspection/Auscultation: + abdomen distended P ercussion/Palpation: abdomen soft; abdomen nontender Musculoskeletal: Extremities: no cyanosis and no clubbing Skin: normal turgor; no lesions Neurologic: Motor/Sensory: no tremor and no asterixis Psychiatric: Orientation: alert and oriented x 3 Results & Data ([facility]) Vital Signs (Past 12 Hours) Vital Signs Temp Pulse Pulse Resp BP BP Pulse Ox 04/01/21 06:07 84 23 111/71 91 04/01/21 04:59 82 29 H 105/60 92 04/01/21 04:00 36.9 C 04/01/21 02:59 82 23 111/67 93 04/01/21 02:28 84 22 104/65 95 04/01/21 01:58 84 25 H 110/64 99 04/01/21 01:29 87 25 H 102/70 97 04/01/21 00:58 89 28 H 119/67 99 04/01/21 00:28 83 24 115/74 95 04/01/21 00:20 37.1 C 03/31/21 23:58 86 26 H 124/69 99 03/31/21 23:28 85 27 H 116/76 96 03/31/21 22:58 84 27 H 122/68 95 03/31/21 22:28 82 27 H 93/58 L 100 03/31/21 22:05 86 03/31/21 22:01 86 36 H 102/56 L 100 03/31/21 21:30 37.2 C 86 124/76 Laboratory Results Laboratory Results - last 24 hr 03/31/21 03/31/21 03/31/21 00:05 13:00 13:00 WBC 14.92 H RBC 2.97 L Hgb 9.1 L POC Hgb Hct 26.6 L POC Hct MCV 89.6 MCH 30.6 MCHC 34.2 RDW Std Deviation 48.7 H RDW Coeff of Saumya 14.8 H Plt Count 129 L MPV 11.6 H Immature Gran % (Auto) 0.4 Neut % (Auto) 86.4 Lymph % (Auto) 6.0 Letcher % (Auto) 7.0 Eos % (Auto) 0.1 Baso % (Auto) 0.1 Neut # (Auto) 12.89 H Lymph # (Auto) 0.89 L Letcher # (Auto) 1.04 H Eos # (Auto) 0.02 Baso # (Auto) 0.02 Immature Gran # (Auto) 0.06 H D-Dimer 1270 H* ABG pH ABG pCO2 ABG pO2 ABG HCO3 ABG O2 Saturation ABG Base Excess Guille Test Barometric Pressure Oxygen Given POC Sodium Sodium POC Potassium Potassium POC Chloride Chloride Carbon Dioxide POC Total CO2 Anion Gap POC Anion Gap POC BUN BUN Creatinine POC Creatinine Est Cr Clr Drug Dosing Est GFR ( Amer) Est GFR (Non-Af Amer) BUN/Creatinine Ratio Glucose POC Glucose POC Glucose (other) Lactate Calcium POC Ioniz Calcium Ludivina Phosphorus Magnesium Total Bilirubin AST ALT Alkaline Phosphatase Troponin I C-Reactive Protein NT-Pro-B Natriuret Pep Total Protein Albumin Globulin Albumin/Globulin Ratio Procalcitonin Nasal Screen MRSA (PCR) Negative Adenovirus (PCR) B. pertussis DNA (PCR) B.parapertussis DNA PCR C. pneumoniae DNA (PCR) Coronavirus OC43 (PCR) Coronavirus HKU1 (PCR) Coronavirus 229E (PCR) COVID-19 Eval Order SARS-CoV-2 (PCR) Coronavirus NL63 (PCR) Human Metapneumovir PCR Influenza Type A (PCR) Influenza Type B (PCR) M. pneumoniae (PCR) Parainfluenza 1 (PCR) Parainfluenza 2 (PCR) Parainfluenza 3 (PCR) Parainfluenza 4 (PCR) RSV (PCR) Entero/Rhino (PCR) 03/31/21 03/31/21 03/31/21 13:00 13:00 13:56 WBC RBC Hgb POC Hgb 8.5 L Hct POC Hct 25 L MCV MCH MCHC RDW Std Deviation RDW Coeff of Saumya Plt Count MPV Immature Gran % (Auto) Neut % (Auto) Lymph % (Auto) Letcher % (Auto) Eos % (Auto) Baso % (Auto) Neut # (Auto) Lymph # (Auto) Letcher # (Auto) Eos # (Auto) Baso # (Auto) Immature Gran # (Auto) D-Dimer ABG pH ABG pCO2 ABG pO2 ABG HCO3 ABG O2 Saturation ABG Base Excess Guille Test Barometric Pressure Oxygen Given POC Sodium 131 L Sodium 129 L POC Potassium 4.4 Potassium 4.3 POC Chloride 95 L Chloride 96 L Carbon Dioxide 22 POC Total CO2 22 L Anion Gap 11.0 POC Anion Gap 19.0 POC BUN 116 H* BUN 100 H Creatinine 17.10 H* POC Creatinine 19.8 H* Est Cr Clr Drug Dosing 3.8 Est GFR ( Amer) 3.0 Est GFR (Non-Af Amer) 2.6 BUN/Creatinine Ratio 5.8 L Glucose 76 POC Glucose POC Glucose (other) 67 L* Lactate Calcium 9.0 POC Ioniz Calcium Ludivina 1.13 Phosphorus Magnesium Total Bilirubin 0.5 AST 22 ALT < 6 L Alkaline Phosphatase 126 H Troponin I 0.101 H* C-Reactive Protein 22.60 H NT-Pro-B Natriuret Pep > 10533 H Total Protein 6.7 Albumin 2.5 L Globulin 4.2 H Albumin/Globulin Ratio 0.6 L Procalcitonin Nasal Screen MRSA (PCR) Adenovirus (PCR) B. pertussis DNA (PCR) B.parapertussis DNA PCR C. pneumoniae DNA (PCR) Coronavirus OC43 (PCR) Coronavirus HKU1 (PCR) Coronavirus 229E (PCR) COVID-19 Eval Order SARS-CoV-2 (PCR) Coronavirus NL63 (PCR) Human Metapneumovir PCR Influenza Type A (PCR) Influenza Type B (PCR) M. pneumoniae (PCR) Parainfluenza 1 (PCR) Parainfluenza 2 (PCR) Parainfluenza 3 (PCR) Parainfluenza 4 (PCR) RSV (PCR) Entero/Rhino (PCR) 03/31/21 03/31/21 03/31/21 14:08 14:16 14:59 WBC RBC Hgb POC Hgb Hct POC Hct MCV MCH MCHC RDW Std Deviation RDW Coeff of Saumya Plt Count MPV Immature Gran % (Auto) Neut % (Auto) Lymph % (Auto) Letcher % (Auto) Eos % (Auto) Baso % (Auto) Neut # (Auto) Lymph # (Auto) Letcher # (Auto) Eos # (Auto) Baso # (Auto) Immature Gran # (Auto) D-Dimer ABG pH Cancelled ABG pCO2 Cancelled ABG pO2 Cancelled ABG HCO3 Cancelled ABG O2 Saturation Cancelled ABG Base Excess Cancelled Guille Test Cancelled Barometric Pressure Cancelled Oxygen Given Cancelled POC Sodium Sodium POC Potassium Potassium POC Chloride Chloride Carbon Dioxide POC Total CO2 Anion Gap POC Anion Gap POC BUN BUN Creatinine POC Creatinine Est Cr Clr Drug Dosing Est GFR ( Amer) Est GFR (Non-Af Amer) BUN/Creatinine Ratio Glucose POC Glucose POC Glucose (other) Lactate 1.0 Calcium POC Ioniz Calcium Ludivina Phosphorus Magnesium Total Bilirubin AST ALT Alkaline Phosphatase Troponin I C-Reactive Protein NT-Pro-B Natriuret Pep Total Protein Albumin Globulin Albumin/Globulin Ratio Procalcitonin Nasal Screen MRSA (PCR) Adenovirus (PCR) B. pertussis DNA (PCR) B.parapertussis DNA PCR C. pneumoniae DNA (PCR) Coronavirus OC43 (PCR) Coronavirus HKU1 (PCR) Coronavirus 229E (PCR) COVID-19 Eval Order RESPNP at [facility] SARS-CoV-2 (PCR) Coronavirus NL63 (PCR) Human Metapneumovir PCR Influenza Type A (PCR) Influenza Type B (PCR) M. pneumoniae (PCR) Parainfluenza 1 (PCR) Parainfluenza 2 (PCR) Parainfluenza 3 (PCR) Parainfluenza 4 (PCR) RSV (PCR) Entero/Rhino (PCR) 03/31/21 03/31/21 03/31/21 14:59 17:07 21:14 WBC RBC Hgb POC Hgb Hct POC Hct MCV MCH MCHC RDW Std Deviation RDW Coeff of Saumya Plt Count MPV Immature Gran % (Auto) Neut % (Auto) Lymph % (Auto) Letcher % (Auto) Eos % (Auto) Baso % (Auto) Neut # (Auto) Lymph # (Auto) Letcher # (Auto) Eos # (Auto) Baso # (Auto) Immature Gran # (Auto) D-Dimer ABG pH ABG pCO2 ABG pO2 ABG HCO3 ABG O2 Saturation ABG Base Excess Guille Test Barometric Pressure Oxygen Given POC Sodium Sodium POC Potassium Potassium POC Chloride Chloride Carbon Dioxide POC Total CO2 Anion Gap POC Anion Gap POC BUN BUN Creatinine POC Creatinine Est Cr Clr Drug Dosing Est GFR ( Amer) Est GFR (Non-Af Amer) BUN/Creatinine Ratio Glucose POC Glucose 59 L* POC Glucose (other) Lactate Calcium POC Ioniz Calcium Ludivina Phosphorus Magnesium Total Bilirubin AST ALT Alkaline Phosphatase Troponin I C-Reactive Protein NT-Pro-B Natriuret Pep Total Protein Albumin Globulin Albumin/Globulin Ratio Procalcitonin 5.58 H Nasal Screen MRSA (PCR) Adenovirus (PCR) Not Detected B. pertussis DNA (PCR) Not Detected B.parapertussis DNA PCR Not Detected C. pneumoniae DNA (PCR) Not Detected Coronavirus OC43 (PCR) Not Detected Coronavirus HKU1 (PCR) Not Detected Coronavirus 229E (PCR) Not Detected COVID-19 Eval Order SARS-CoV-2 (PCR) Not Detected Coronavirus NL63 (PCR) Not Detected Human Metapneumovir PCR Not Detected Influenza Type A (PCR) Not Detected Influenza Type B (PCR) Not Detected M. pneumoniae (PCR) Not Detected Parainfluenza 1 (PCR) Not Detected Parainfluenza 2 (PCR) Not Detected Parainfluenza 3 (PCR) Not Detected Parainfluenza 4 (PCR) Not Detected RSV (PCR) Not Detected Entero/Rhino (PCR) Not Detected 03/31/21 03/31/21 04/01/21 21:15 21:37 00:11 WBC RBC Hgb POC Hgb Hct POC Hct MCV MCH MCHC RDW Std Deviation RDW Coeff of Saumya Plt Count MPV Immature Gran % (Auto) Neut % (Auto) Lymph % (Auto) Letcher % (Auto) Eos % (Auto) Baso % (Auto) Neut # (Auto) Lymph # (Auto) Letcher # (Auto) Eos # (Auto) Baso # (Auto) Immature Gran # (Auto) D-Dimer ABG pH ABG pCO2 ABG pO2 ABG HCO3 ABG O2 Saturation ABG Base Excess Guille Test Barometric Pressure Oxygen Given POC Sodium Sodium POC Potassium Potassium POC Chloride Chloride Carbon Dioxide POC Total CO2 Anion Gap POC Anion Gap POC BUN BUN Creatinine POC Creatinine Est Cr Clr Drug Dosing Est GFR ( Amer) Est GFR (Non-Af Amer) BUN/Creatinine Ratio Glucose POC Glucose 62 L* 82 76 POC Glucose (other) Lactate Calcium POC Ioniz Calcium Ludivina Phosphorus Magnesium Total Bilirubin AST ALT Alkaline Phosphatase Troponin I C-Reactive Protein NT-Pro-B Natriuret Pep Total Protein Albumin Globulin Albumin/Globulin Ratio Procalcitonin Nasal Screen MRSA (PCR) Adenovirus (PCR) B. pertussis DNA (PCR) B.parapertussis DNA PCR C. pneumoniae DNA (PCR) Coronavirus OC43 (PCR) Coronavirus HKU1 (PCR) Coronavirus 229E (PCR) COVID-19 Eval Order SARS-CoV-2 (PCR) Coronavirus NL63 (PCR) Human Metapneumovir PCR Influenza Type A (PCR) Influenza Type B (PCR) M. pneumoniae (PCR) Parainfluenza 1 (PCR) Parainfluenza 2 (PCR) Parainfluenza 3 (PCR) Parainfluenza 4 (PCR) RSV (PCR) Entero/Rhino (PCR) 04/01/21 04/01/21 04/01/21 04:48 04:48 04:48 WBC 9.77 RBC 2.93 L Hgb 9.1 L POC Hgb Hct 26.9 L POC Hct MCV 91.8 MCH 31.1 MCHC 33.8 RDW Std Deviation 50.7 H RDW Coeff of Saumya 14.9 H Plt Count 119 L MPV 10.1 Immature Gran % (Auto) Neut % (Auto) Lymph % (Auto) Letcher % (Auto) Eos % (Auto) Baso % (Auto) Neut # (Auto) Lymph # (Auto) Letcher # (Auto) Eos # (Auto) Baso # (Auto) Immature Gran # (Auto) D-Dimer ABG pH ABG pCO2 ABG pO2 ABG HCO3 ABG O2 Saturation ABG Base Excess Guille Test Barometric Pressure Oxygen Given POC Sodium Sodium 134 L POC Potassium Potassium 4.5 POC Chloride Chloride 101 Carbon Dioxide 25 POC Total CO2 Anion Gap 8.0 POC Anion Gap POC BUN BUN 70 H Creatinine 13.10 H* D POC Creatinine Est Cr Clr Drug Dosing 5.0 Est GFR ( Amer) 4.2 Est GFR (Non-Af Amer) 3.6 BUN/Creatinine Ratio 5.4 L Glucose 70 POC Glucose POC Glucose (other) Lactate Calcium 9.0 POC Ioniz Calcium Ludivina Phosphorus 8.5 H Magnesium 2.3 Total Bilirubin 0.5 AST 20 ALT < 6 L Alkaline Phosphatase 137 H Troponin I 0.098 H* C-Reactive Protein NT-Pro-B Natriuret Pep Total Protein 6.9 Albumin 2.4 L Globulin 4.5 H Albumin/Globulin Ratio 0.5 L Procalcitonin 7.09 H Nasal Screen MRSA (PCR) Adenovirus (PCR) B. pertussis DNA (PCR) B.parapertussis DNA PCR C. pneumoniae DNA (PCR) Coronavirus OC43 (PCR) Coronavirus HKU1 (PCR) Coronavirus 229E (PCR) COVID-19 Eval Order SARS-CoV-2 (PCR) Coronavirus NL63 (PCR) Human Metapneumovir PCR Influenza Type A (PCR) Influenza Type B (PCR) M. pneumoniae (PCR) Parainfluenza 1 (PCR) Parainfluenza 2 (PCR) Parainfluenza 3 (PCR) Parainfluenza 4 (PCR) RSV (PCR) Entero/Rhino (PCR) PG Care Time/CCT Total # of Minutes Spent Total Time Spent with Patient: Total time spent is greater than 50% in coordination of care (as documented) at patient's floor/unit and/or counseling patient: Coding Level of Care Code 76192 Subseq Hosp Care Lvl 3 Diagnoses ESRD (end stage renal disease) on dialysis N18.6; Z99.2 Multifocal pneumonia J18.9 Volume overload E87.70 Anemia D64.9 Anemia type: unspecified type (1) Anemia Anemia type: unspecified type Qualified Code(s): D64.9 - Anemia, unspecified
[2021-04-01] MEDS ORDERED: traZODone HCL 100 MG TAB PO PRN (09:51)
[2021-04-01] MEDS ORDERED: EPOETIN ALFA 4,000 UNIT/ML VIAL IV SCH (11:00)
[2021-04-01] MEDS ORDERED: IRON SUCROSE 100 MG in SYRINGE 0 ML IV SCH (11:00)
[2021-04-01] MEDS: TAMSULOSIN HCL 0.4 MG CAP PO SCH (11:37)
[2021-04-01 12:32] LABS: iSTAT Arterial Blood Gas pCO2 36 mmHg (35-46); iSTAT Arterial Blood Gas pH 7.36 (7.35-7.45); iSTAT Hematocrit 25 % (42-52); iSTAT Hemoglobin 8.5 g/dl (14.0-18.0); iSTAT Potassium 4.4 mmol/L (3.3-5.0); iSTAT Sodium 130 mmol/L (135-144)
[2021-04-01 12:33] LABS: iSTAT Arterial Blood Gas HCO3 21 meg/L (19-24); iSTAT Arterial Blood Gas pO2 72 mmHg (80-95); iSTAT Carbon Dioxide 22 mmol/L (24-31); iSTAT Sample Type Arterial
[2021-04-01] MEDS: CEFEPIME 1,000 MG in SYRINGE 0 ML IV SCH (13:53)
[2021-04-01 15:55] LABS: Appearance Urine Clear (Clear); Bacteria Urine Automated Negative (Negative); Bilirubin Urine Negative (Negative); Blood Urine Trace (Negative); Color Urine Yellow; Epithelial Cell Urine Auto 20-30 /lpf (0-5); Glucose Urine UA Negative (Negative); Ketones Urine Negative (Negative); Leukocyte Esterase Urine Negative (Negative); Nitrite Urine Negative (Negative); Protein Urine 3+ (Negative); RBC Urine Automated 0-4 /hpf (0-4); Specific Gravity Urine 1.016 (1.000-1.030); Urobilinogen Urine Negative (Negative); pH Urine 5.5 (4.5-7.5)
--- NOTE | 2021-04-01 16:40 | Hospitalist Progress Note ---
Date of Service April 01, 2021 Assessment & Plan (1) Acute hypoxemic respiratory failure: Plan: 2/2 fluid overload from ESRD and missed dialysis sessions. Hemodialysis overnight with 2.2L ultrafiltrate removed. Patient is feeling much better today and on minimal oxygen supplementation-not on oxygen at home. REcent echo reveals good cardiac function and didn't present with heart failure syndrome. This is all likely related to fluid overload from renal disease. Min urine output. Cont dialysis per nephrology. (2) Multifocal pneumonia: Plan: - Possible in the setting of multiple hospitalizations recently, HCAP ? - Follow lactate and procal, sputum culture if pt begins to produce sputum however currently has dry cough which is likely more so due to volume overload. - CXR reviewed - Continue IV abx for [id number]/stop in next 24 hours if he is still doing well. (3) ESRD (end stage renal disease) on dialysis: Plan: -History of solitary kidney s/p kidney donor in 1992, on peritoneal dialysis x5 years, routinely performs PD at home nightly with 2500 mL out. Missed session prior to admission due to increased fatigue and lethargy. Cont per Nephrology (4) Peripheral arterial disease: Plan: chronic, cont current medical management (5) Anemia in chronic kidney disease (CKD): Plan: Epogen, iron supplementation per nephrology (6) Aortic valve stenosis, severe: Plan: s/p TAVR (7) Gout: Plan: Cont allopurinol per home regimen. (8) DVT prophylaxis: Plan: heparin no CPR but intubation ok Dispo-to PCU from ICU status today. Rosina Crowe DO [facility] Hospitalist Admission and Anticipated Discharge Date Admission Date: March 31, 2021 Subjective 61 yo M presented with acute respiratory failure s/p hemodialysis with fluid removed overnight breathing is almost to baseline and he denies cough, fevers, chills Currently on the peritoneal dialysis. Denies any issues. Review of Systems Review of Systems: All systems were reviewed and negative except as indicated in HPI above. Physical Exam Physical Exam: General: awake, alert, NAD Head: Normocephalic, atraumatic ENT: mucous membranes moist Chest: min crackles, no wheezes or rhonchi. Cardiac: Regular rate and rhythm, extremities are warm and well-perfused. 3/6 murmur heard across precordium. Abdominal: + PD catheter present, no surrounding erythema, nondistended, nontender to palpation, no rebound or guarding Extremities: Normal inspection, no peripheral edema or erythema, calfs nontender to palpation Psych: Normal mood and affect Neuro: AAO x 3, strength intact bilaterally and rated 5/5, no motor deficits, speech is clear, no peripheral sensory deficits Results & Data Results & Data ([facility]) Vital Signs (Past 12 Hours) Vital Signs Temp Pulse Pulse Resp BP BP Pulse Ox 04/01/21 12:00 37.2 C 75 04/01/21 11:02 75 24 107/65 94 04/01/21 11:00 37.1 C 76 22 107/65 04/01/21 10:02 84 22 94/56 L 89 L 04/01/21 10:00 37.1 C 68 04/01/21 09:30 84 23 101/59 L 91 04/01/21 09:00 94 04/01/21 08:32 81 21 106/48 L 88 L 04/01/21 08:00 84 04/01/21 07:30 79 14 104/65 93 04/01/21 07:00 37.1 C 80 20 106/72 94 04/01/21 06:07 84 23 111/71 91 04/01/21 04:59 82 29 H 105/60 92 Laboratory Results Short CBC 04/01/21 Range/Units 04:48 WBC 9.77 (4.8-10.8) K/uL Hgb 9.1 L (14.0-18.0) g/dL Hct 26.9 L (42-52) % Plt Count 119 L (130-400) K/uL BMP 04/01/21 04:48 Sodium 134 L Potassium 4.5 Chloride 101 Carbon Dioxide 25 BUN 70 H Creatinine 13.10 H* D Glucose 70 Calcium 9.0 Cardiac Enzymes 04/01/21 Range/Units 04:48 Troponin I 0.098 H* (0-0.045) ng/ml Liver Function 04/01/21 Range/Units 04:48 Total Bilirubin 0.5 (0.2-1) mg/dl AST 20 (15-37) U/L ALT < 6 L (12-78) U/L Alkaline Phosphatase 137 H (45-117) U/L Albumin 2.4 L (3.4-5.0) gm/dl Urine 04/01/21 Range/Units 15:28 Urine Color Yellow Urine Appearance Clear (Clear) Urine pH 5.5 (4.5-7.5) Ur Specific Arthur 1.016 (1.000-1.030) Urine Protein 3+ H (Negative) Urine Glucose (UA) Negative (Negative) Medications Administered Current Inpatient Medications Acetaminophen (Acetaminophen 325 Mg Tab) 650 mg PO Q4H PRN PRN Reason: Moderate Pain Stop: 04/30/21 18:46 Albuterol (Albuterol Hfa 8 Gm Inhaler) 2 puffs INH Q4 PRN PRN Reason: Shortness Of Breath Or Wheezin Stop: 05/01/21 04:58 Allopurinol (Allopurinol 100 Mg Tab) 100 mg PO [facility] Stop: 05/02/21 08:59 Amlodipine Besylate (Amlodipine Besylate 5 Mg Tab) 10 mg PO [facility] Stop: 05/02/21 08:59 Aspirin (Aspirin 81 Mg Ectab) 81 mg PO [facility] Stop: 05/01/21 08:59 Last Admin: 04/01/21 08:35 Dose: 81 mg Documented by: Atorvastatin Calcium (Atorvastatin 40 Mg Tab) 40 mg PO [facility] Stop: 05/01/21 08:59 Last Admin: 04/01/21 08:35 Dose: 40 mg Documented by: Bupropion HCl (Bupropion Xl 150 Mg Tabcr) 150 mg PO [facility] Stop: 05/01/21 08:59 Last Admin: 04/01/21 08:35 Dose: 150 mg Documented by: Calcitriol (Calcitriol 0.25 Mcg Capsule) 0.5 mcg PO [facility] Stop: 05/01/21 08:59 Last Admin: 04/01/21 08:35 Dose: 0.5 mcg Documented by: Carvedilol (Carvedilol 12.5 Mg Tab) 12.5 mg PO BID [facility] Stop: 05/01/21 20:59 Clopidogrel Bisulfate (Clopidogrel Bisulfate 75 Mg Tab) 75 mg PO [facility] Stop: 05/01/21 08:59 Last Admin: 04/01/21 08:35 Dose: 75 mg Documented by: Dextrose (Dextrose 50% 50 Ml Syringe) 25 - 50 ml IV UD PRN; Protocol PRN Reason: Hypoglycemia Protocol Stop: 04/30/21 22:04 Epoetin Fernando (Epoetin Fernando 4,000 Unit/Ml Vial) 4,000 units IV 1100 [facility] Stop: 04/01/21 18:00 Last Admin: 04/01/21 11:03 Dose: 4,000 units Documented by: Escitalopram Oxalate (Escitalopram Oxalate 20 Mg Tab) 20 mg PO QAM [facility] Stop: 05/01/21 08:59 Last Admin: 04/01/21 08:35 Dose: 20 mg Documented by: Glucagon (Glucagon For Inj 1 Mg Vial) 1 mg SQ UD PRN; Protocol PRN Reason: Hypoglycemia Protocol Stop: 04/30/21 22:04 Glucose (Glucose 10 Tabs/Tube) 4 - 8 tabs PO UD PRN; Protocol PRN Reason: Hypoglycemia Protocol Stop: 04/30/21 22:04 Glucose (Glucose 40% Gel 15 Gm Tube) 15 - 30 gm PO UD PRN; Protocol PRN Reason: Hypoglycemia Protocol Stop: 04/30/21 22:04 Guaifenesin (Guaifenesin 600 Mg Tabcr) 1,200 mg PO Q12 [facility] Stop: 04/30/21 20:59 Last Admin: 04/01/21 08:34 Dose: 1,200 mg Documented by: Cefepime HCl 1,000 mg/ Syringe 11.3 mls @ 5.5 mls/min IV DAILY@1400 BENNIE; Protocol Stop: 04/08/21 13:59 Last Admin: 04/01/21 13:53 Dose: 5.5 mls/min Documented by: Miscellaneous (Icu Protocol For Hyperglycemia) 1 ea N/A PRN PRN; Protocol PRN Reason: Hyperglycemia Protocol Stop: 04/02/21 22:04 Miscellaneous (Carbohydrates For Hypoglycemia ) 15 - 30 gm PO UD PRN PRN Reason: Hypoglycemia Protocol Stop: 04/30/21 22:04 Ondansetron HCl (Ondansetron Inj 2 Mg/Ml 2 Ml Vial) 4 mg IV Q4H PRN PRN Reason: Nausea And Vomiting Stop: 04/30/21 18:46 Oxycodone/Acetaminophen (Oxycodone/Acetaminophen 5mg/325mg Tab) 1 tab PO Q8H PRN PRN Reason: pain Stop: 04/15/21 04:58 Last Admin: 04/01/21 15:17 Dose: 1 tab Documented by: Pantoprazole Sodium (Pantoprazole 40 Mg Tab) 40 mg PO BID [facility] Stop: 05/01/21 08:59 Last Admin: 04/01/21 08:35 Dose: 40 mg Documented by: Ropinirole HCl (Ropinirole Hcl 0.25 Mg Tablet) 0.25 mg PO HS BENNIE Stop: 05/01/21 20:59 Tamsulosin HCl (Tamsulosin Hcl 0.4 Mg Cap) 0.4 mg PO DAILY BENNIE Stop: 05/01/21 10:29 Last Admin: 04/01/21 11:37 Dose: 0.4 mg Documented by: Trazodone HCl (Trazodone Hcl 100 Mg Tab) 100 mg PO HS PRN PRN Reason: sleep Stop: 05/01/21 09:50
[2021-04-01] MEDS: rOPINIRole HCL 0.25 MG TABLET PO SCH (20:20)
[2021-04-01] MEDS: carvediloL 12.5 MG TAB PO SCH (20:20)
[2021-04-02 05:05] LABS: Hematocrit (blood only) 24.8 % (42-52); Hemoglobin 8.5 g/dL (14.0-18.0); Mean Corpuscular Hemoglobin 31.6 pg (25-34); Mean Corpuscular Hgb Conc 34.3 g/dL (32-36); Mean Corpuscular Volume 92.2 fL (80-100); Mean Platelet Volume 10.4 fL (7.4-10.4); Platelet Count 123 K/uL (130-400); RDW Standard Deviation 50.8 fL (36.4-46.3); Red Blood Count 2.69 M/uL (4.7-6.1); White Blood Count 7.42 K/uL (4.8-10.8)
--- NOTE | 2021-04-02 05:44 | Electrocardiogram Report ---
Test Reason : Blood Pressure : / mmHG Vent. Rate : 080 BPM Atrial Rate : 080 BPM P-R Int : 196 ms QRS Dur : 194 ms QT Int : 488 ms P-R-T Axes : 000 -30 150 degrees QTc Int : 562 ms Atrial-sensed ventricular-paced rhythm Abnormal ECG When compared with ECG of 31-MAR-2021 13:47, Vent. rate has decreased BY 8 BPM Confirmed by George Peace ([id number]) on 04/02/2021 5:44:34 AM Referred By: REFERRED SELF Confirmed By:George Peace
[2021-04-02 05:46] LABS: Alanine Aminotransferase < 6 U/L (12-78); Albumin Globulin Ratio 0.5 (0.9-2); Albumin Level 2.2 gm/dl (3.4-5.0); Alkaline Phosphatase 158 U/L (45-117); Aspartate Aminotransferase 17 U/L (15-37); BUN Creatinine Ratio 6.3 (10-20); Bilirubin,Total 0.7 mg/dl (0.2-1); Blood Urea Nitrogen 86 mg/dl (7-18); Carbon Dioxide 24 mmol/L (21-32); Chloride 98 mmol/L (98-107); Creatinine Clr Calc Pharmacy 4.8 ml/min; Est GFR (Non-African American) 3.4 ml/min; Globulin 4.2 gm/dl (2.5-4.0); Glucose 78 mg/dl (70-99); Potassium 4.1 mmol/L (3.5-5.1); Sodium 133 mmol/L (136-145); Total Protein 6.4 gm/dl (6.4-8.2)
[2021-04-02] MEDS: ATORVASTATIN 40 MG TAB PO SCH (07:54)
[2021-04-02] MEDS: CALCITRIOL 0.25 MCG CAPSULE PO SCH (07:54)
[2021-04-02] MEDS: CLOPIDOGREL BISULFATE 75 MG TAB PO SCH (07:54)
[2021-04-02] MEDS: buPROPion XL 150 MG TABCR PO SCH (07:54)
[2021-04-02] MEDS: carvediloL 12.5 MG TAB PO SCH ×2 (07:55→20:25)
[2021-04-02] MEDS: ASPIRIN 81 MG ECTAB PO SCH (07:55)
[2021-04-02] MEDS: PANTOprazole 40 MG TAB PO SCH ×2 (07:55→20:25)
[2021-04-02] MEDS: ESCITALOPRAM OXALATE 20 MG TAB PO SCH (07:55)
[2021-04-02] MEDS: TAMSULOSIN HCL 0.4 MG CAP PO SCH (07:55)
[2021-04-02] MEDS: allopurinoL 100 MG TAB PO SCH (07:55)
[2021-04-02] MEDS: amLODIPine BESYLATE 5 MG TAB PO SCH (07:56)
[2021-04-02] MEDS: oxyCODONE/ACETAMINOPHEN 5mg/325mg TAB PO PRN ×2 (08:02→16:33)
--- NOTE | 2021-04-02 09:23 | Nephrology Progress Note ---
Date of Service April 02, 2021 Assessment & Plan (1) ESRD (end stage renal disease) on dialysis: Plan: CCPD preformed without complications yesterday. Net UF 1.1 L. AVF infiltrated but good thrill and bruit today with small proximal hematoma. Orders a 2L x 2.5% dwell entered today. Medications are appropriately dosed for kidney function. Plan to resume home PD Rx tonight. (2) Anemia: Plan: Chronic, stable. Epogen 4000 units provided yesterday. Admission and Anticipated Discharge Date Admission Date: March 31, 2021 Subjective No acute events overnight. Net UF with PD 1.1 L. Breathing comfortably. No complications with PD. Review of Systems Review of Systems: All systems reviewed & are unremarkable except as noted in HPI & below Physical Exam Constitutional: well developed; no acute distress and not ill appearing Eyes: no scleral abnormality and no corneal abnormality ENMT: Mouth: no oral mucosal abnormality and oral mucous membranes not dry Neck: normal visual inspection and trachea midline Respiratory: no audible wheezes Auscultation: lungs clear to auscultation bilaterally Cardiovascular: Rate/Rhythm: regular rate Heart Sounds: normal S1, normal S2 and + murmur Extremities: + AV fistula; no edema Gastrointestinal (Abdomen): Inspection/Auscultation: + abdomen distended Percussion/Palpation: abdomen soft; abdomen nontender Musculoskeletal: Extremities: no cyanosis and no clubbing Skin: normal turgor; no lesions Neurologic: Motor/Sensory: no tremor and no asterixis Psychiatric: Orientation: alert and oriented x 3 Results & Data ([facility]) Vital Signs (Past 12 Hours) Vital Signs Temp Pulse Resp BP Pulse Ox 04/02/21 09:09 36.8 C 80 20 04/02/21 07:00 36.8 C 73 20 124/63 96 04/02/21 04:00 36.6 C 69 20 119/67 96 04/02/21 00:21 36.9 C 70 24 110/69 100 Laboratory Results Laboratory Results - last 24 hr 03/31/21 04/01/21 04/01/21 15:25 15:13 15:28 WBC RBC Hgb POC Hgb 8.5 L Hct POC Hct 25 L MCV MCH MCHC RDW Std Deviation RDW Coeff of Saumya Plt Count MPV Specimen Type Arterial POC pH 7.36 POC pCO2 36 POC pO2 72 L POC HCO3 21 POC Total CO2 22 L POC Base Excess -5.0 POC ABG O2 Sat 94.0 End Tidal CO2 POC Sodium 130 L Sodium POC Potassium 4.4 Potassium Chloride Carbon Dioxide Anion Gap BUN Creatinine Est Cr Clr Drug Dosing Est GFR ( Amer) Est GFR (Non-Af Amer) BUN/Creatinine Ratio Glucose POC Glucose 114 H Calcium Total Bilirubin AST ALT Alkaline Phosphatase Total Protein Albumin Globulin Albumin/Globulin Ratio Urine Color Yellow Urine Appearance Clear Urine pH 5.5 Ur Specific [place] 1.016 Urine Protein 3+ H Urine Glucose (UA) Negative Urine Ketones Negative Urine Blood Trace H Urine Nitrite Negative Urine Bilirubin Negative Urine Urobilinogen Negative Ur Leukocyte Esterase Negative Urine WBC (Auto) 1-5 Urine RBC (Auto) 0-4 U Hyaline Cast (Auto) 1-5 U Epithel Cells (Auto) 20-30 H Urine Bacteria (Auto) Negative Urine Yeast Not Reportable 04/02/21 04/02/21 04:58 04:58 WBC 7.42 RBC 2.69 L Hgb 8.5 L POC Hgb Hct 24.8 L POC Hct MCV 92.2 MCH 31.6 MCHC 34.3 RDW Std Deviation 50.8 H RDW Coeff of Saumya 15.0 H Plt Count 123 L MPV 10.4 Specimen Type POC pH POC pCO2 POC pO2 POC HCO3 POC Total CO2 POC Base Excess POC ABG O2 Sat End Tidal CO2 POC Sodium Sodium 133 L POC Potassium Potassium 4.1 Chloride 98 Carbon Dioxide 24 Anion Gap 11.0 BUN 86 H Creatinine 13.70 H* D Est Cr Clr Drug Dosing 4.8 Est GFR ( Amer) 4.0 Est GFR (Non-Af Amer) 3.4 BUN/Creatinine Ratio 6.3 L Glucose 78 POC Glucose Calcium 9.0 Total Bilirubin 0.7 AST 17 ALT < 6 L Alkaline Phosphatase 158 H Total Protein 6.4 Albumin 2.2 L Globulin 4.2 H Albumin/Globulin Ratio 0.5 L Urine Color Urine Appearance Urine pH Ur Specific [place] Urine Protein Urine Glucose (UA) Urine Ketones Urine Blood Urine Nitrite Urine Bilirubin Urine Urobilinogen Ur Leukocyte Esterase Urine WBC (Auto) Urine RBC (Auto) U Hyaline Cast (Auto) U Epithel Cells (Auto) Urine Bacteria (Auto) Urine Yeast PG Care Time/CCT Total # of Minutes Spent Total Time Spent with Patient: Total time spent is greater than 50% in coordination of care (as documented) at patient's floor/unit and/or counseling patient: Coding Level of Care Code 22005 Subseq Hosp Care Lvl 3 Diagnoses ESRD (end stage renal disease) on dialysis N18.6; Z99.2 Anemia D64.9 Anemia type: unspecified type (1) Anemia Anemia type: unspecified type Qualified Code(s): D64.9 - Anemia, unspecified
--- NOTE | 2021-04-02 13:32 | Electrocardiogram Report ---
Test Reason : Blood Pressure : / mmHG Vent. Rate : 066 BPM Atrial Rate : 066 BPM P-R Int : 172 ms QRS Dur : 204 ms QT Int : 530 ms P-R-T Axes : 019 -64 106 degrees QTc Int : 555 ms Atrial-sensed ventricular-paced rhythm Abnormal ECG When compared with ECG of 01-APR-2021 05:55, Vent. rate has decreased BY 14 BPM Confirmed by Addy Ang ([id number]) on 04/02/2021 1:31:39 PM Referred By: REFERRED SELF Confirmed By:Addy Ang
[2021-04-02] MEDS: CEFEPIME 1,000 MG in SYRINGE 0 ML IV SCH (13:59)
[2021-04-02] MEDS: HEPARIN SOD 5,000 UNIT/0.5 ML VIAL SQ SCH ×2 (13:59→20:26)
--- NOTE | 2021-04-02 18:48 | Hospitalist Progress Note ---
Date of Service April 02, 2021 Assessment & Plan (1) Acute hypoxemic respiratory failure: (2) Multifocal pneumonia: (3) ESRD (end stage renal disease) on dialysis: Plan: 61-year-old male with PMH of chronic diastolic heart failure [2020 ECHO 65 to 70% EF], bicuspid aortic valve, status post TAVR, complete heart block s/p recent PPM, nonobstructive CAD, PAD status post surgery, HTN, HLD, ESRD on PD with solitary kidney, NSCLC status post surgery 2 years ago, chronic anemia [baseline hemoglobin 12] and past tobacco use came in 03/31 with worsening shortness of breath for 1 day prior to arrival. Recently admitted from March 25 for complete heart block status post PPM and then again March 28 for lightheaded and dizziness for orthostasis due to volume depletion from PT and suspected overmedication with antihypertensive medications. Coreg was reduced in half from 25 mg twice daily. Is being managed for the following: #. Acute hypoxic respiratory failure #. ESRD on PD #. Chronic diastolic HF SaO2 62 to 65% on room air at PCP visit from where he was sent to ER. He was in 80s on 2 L oxygen in the ER and then was ordered BiPAP. Admitting chest x-ray concerning for volume overload versus pna. Likely secondary to fluid overload from missed dialysis session. Does not appear to be acute exacerbation of CHF. Status post hemodialysis with 2.2 L ultrafiltrate removed. Plan to resume home PD treatment tonight. Patient is feeling much better, on room air. #. Multifocal pneumonia: Possible in the setting of multiple hospitalizations recently, HCAP ? WBC elevated to around 14,000 at one time with pro-Winston of 5.58 which trended up to 7.09 while in hospital Patient doing well clinically, no cough. Patient on cefepime from 04/01, will put him on oral ATB from [facility] for 3 more days and then stop. #. ESRD on PD History of solitary kidney s/p kidney donor in 1992, on peritoneal dialysis x5 years, routinely performs PD at home nightly with 2500 mL out. Missed session prior to admission due to increased fatigue and lethargy. Cont per Nephrology #. Other chronic medical conditions: Peripheral arterial disease, anemia and chronic disease, aortic stenosis, gout Continue with home medications; Epogen, iron supplementation per nephrology; status post TAVR; continue with allopurinol #. DVT prophylaxis: On Heparin No CPR but intubation okay. Disposition: PT/OT recommending home. Likely DC to home tomorrow if no new issues arises. Admission and Anticipated Discharge Date Admission Date: March 31, 2021 Subjective Patient was lying semiupright in bed, on room air, NAD, no acute issues overnight. Patient states that he feels well. Denies any headache/dizziness/chest pain/sore throat/cough/palpitations/belly pain/acute changes in bowel bladder habit. Has bruits present over right chest where the pacer was recently placed. No signs of infection. Has peritoneal dialysis catheter on left abdomen. No signs of infection at the port of entry. Physical Exam Physical Exam: GENERAL: Alert and oriented x3. NAD, on RA. HEENT: No pallor, no icterus. Pupils equal, round and reactive to light. Oral mucosa moist. NECK: No JVD, no neck masses. Chest: Right chest has bruise, recently placed pacer. HEART: S1 and S2 heard. Regular rate and rhythm. No murmur, no gallop. RESPIRATORY SYSTEM: Normal AP diameter. No accessory muscle use. No wheezing, no crackles. ABDOMEN: Soft, bowel sounds present, nontender, no distention. PD catheter over the left abdomen. No signs of infections at port of entry. CENTRAL NERVOUS SYSTEM: No facial droop. Speech is clear. Obeys simple commands. Moves extremities. EXTREMITIES: No edema, no erythema seen. Results & Data Results & Data ([facility]) Vital Signs (Past 12 Hours) Vital Signs Temp Pulse Resp BP Pulse Ox 04/02/21 15:26 36.5 C 68 20 122/69 96 04/02/21 14:25 36.7 C 63 16 04/02/21 12:00 36.6 C 68 20 112/67 99 04/02/21 11:12 98 04/02/21 11:00 99 04/02/21 10:45 36.8 C 67 18 124/63 04/02/21 09:09 36.8 C 80 20 04/02/21 07:00 36.8 C 73 20 124/63 96
[2021-04-02] MEDS: rOPINIRole HCL 0.25 MG TABLET PO SCH (20:25)
[2021-04-03] MEDS: oxyCODONE/ACETAMINOPHEN 5mg/325mg TAB PO PRN ×2 (00:20→08:57)
[2021-04-03 05:51] LABS: Hematocrit (blood only) 25.8 % (42-52); Hemoglobin 8.7 g/dL (14.0-18.0); Mean Corpuscular Hemoglobin 30.9 pg (25-34); Mean Corpuscular Hgb Conc 33.7 g/dL (32-36); Mean Corpuscular Volume 91.5 fL (80-100); Mean Platelet Volume 10.3 fL (7.4-10.4); Platelet Count 152 K/uL (130-400); RDW Coefficient of Variation 14.4 % (11.5-14.5); RDW Standard Deviation 48.1 fL (36.4-46.3); Red Blood Count 2.82 M/uL (4.7-6.1); White Blood Count 7.89 K/uL (4.8-10.8)
[2021-04-03 06:33] LABS: Alanine Aminotransferase < 6 U/L (12-78); Albumin Globulin Ratio 0.6 (0.9-2); Albumin Level 2.2 gm/dl (3.4-5.0); Alkaline Phosphatase 150 U/L (45-117); Aspartate Aminotransferase 18 U/L (15-37); BUN Creatinine Ratio 6.7 (10-20); Bilirubin,Total 0.8 mg/dl (0.2-1); Blood Urea Nitrogen 85 mg/dl (7-18); Calcium 8.8 mg/dl (8.5-10.1); Carbon Dioxide 22 mmol/L (21-32); Chloride 96 mmol/L (98-107); Creatinine Clr Calc Pharmacy 5.6 ml/min; Est GFR (African American) 4.3 ml/min; Est GFR (Non-African American) 3.7 ml/min; Glucose 87 mg/dl (70-99); Sodium 132 mmol/L (136-145); Total Protein 6.2 gm/dl (6.4-8.2)
[2021-04-03] MEDS ORDERED: AMOXICILLIN/CLAVULANATE 500 MG TAB PO PRN (08:31)
[2021-04-03 08:35] LABS: Potassium 3.4 mmol/L (3.5-5.1)
[2021-04-03] MEDS: CALCITRIOL 0.25 MCG CAPSULE PO SCH (08:58)
[2021-04-03] MEDS: ESCITALOPRAM OXALATE 20 MG TAB PO SCH (08:58)
[2021-04-03] MEDS: TAMSULOSIN HCL 0.4 MG CAP PO SCH (08:58)
[2021-04-03] MEDS: PANTOprazole 40 MG TAB PO SCH (08:58)
[2021-04-03] MEDS: CLOPIDOGREL BISULFATE 75 MG TAB PO SCH (08:58)
[2021-04-03] MEDS: carvediloL 12.5 MG TAB PO SCH (08:58)
[2021-04-03] MEDS: ATORVASTATIN 40 MG TAB PO SCH (08:59)
[2021-04-03] MEDS: HEPARIN SOD 5,000 UNIT/0.5 ML VIAL SQ SCH (08:59)
[2021-04-03] MEDS: amLODIPine BESYLATE 5 MG TAB PO SCH (08:59)
[2021-04-03] MEDS: buPROPion XL 150 MG TABCR PO SCH (08:59)
[2021-04-03] MEDS: ASPIRIN 81 MG ECTAB PO SCH (08:59)
[2021-04-03] MEDS: allopurinoL 100 MG TAB PO SCH (08:59)
[2021-04-03] MEDS ORDERED: AMOXICILLIN/CLAVULANATE 500 MG TAB PO SCH (09:00)
--- NOTE | 2021-04-03 09:24 | Nephrology Progress Note ---
Date of Service April 03, 2021 Assessment & Plan (1) ESRD (end stage renal disease) on dialysis: Plan: CCPD preformed without complications overnight. Volume status acceptable. BP controlled. Medications are appropriately dosed for kidney function. Plan to continue home PD Rx tonight. (2) Anemia: Plan: Chronic, stable. Epogen 4000 units provided 04/01. (3) Hypertension: Plan: BP controlled with amlodipine and carvedilol. Tolerating therapy well. (4) Secondary hyperparathyroidism: Plan: Continue calcitriol 0.5 daily. Admission and Anticipated Discharge Date Admission Date: March 31, 2021 Subjective No acute events overnight. No complaints this AM. PD performed overnight without complications. Review of Systems Constitutional: no weight loss, no weight gain and no problem reported Eyes: no problem reported Ear, Nose, Mouth, Throat: no problem reported Respiratory: no problem reported Cardiovascular: no problem reported Gastrointestinal: no problem reported Musculoskeletal: no problem reported Integumentary: no problem reported Neurologic: no problem reported Psychiatric: no problem reported Endocrine: no problem reported Hematologic / Lymphatic: no problem reported Physical Exam Constitutional: well developed; no acute distress and not ill appearing Eyes: no scleral abnormality and no corneal abnormality ENMT: Mouth: no oral mucosal abnormality and oral mucous membranes not dry Neck: normal visual inspection and trachea midline Respiratory: no audible wheezes Auscultation: lungs clear to auscultation bilaterally and + rales (left base) Cardiovascular: Rate/Rhythm: regular rate Heart Sounds: normal S1, normal S2 and + murmur Extremities: + AV fistula; no edema Gastrointestinal (Abdomen): Inspection/Auscultation: + abdomen distended Percussion/Palpation: abdomen soft; abdomen nontender Musculoskeletal: Extremities: no cyanosis and no clubbing Skin: normal turgor; no lesions Neurologic: Motor/Sensory: no tremor and no asterixis Psychiatric: Orientation: alert and oriented x 3 [facility] & [facility]) Vital Signs (Past 12 Hours) Vital Signs Temp Pulse Resp BP Pulse Ox 04/03/21 03:12 36.8 C 67 16 123/73 97 04/02/21 22:57 36.9 C 73 20 122/83 96 Laboratory Results Laboratory Results - last 24 hr 04/03/21 04/03/21 05:20 05:20 WBC 7.89 RBC 2.82 L Hgb 8.7 L Hct 25.8 L MCV 91.5 MCH 30.9 MCHC 33.7 RDW Std Deviation 48.1 H RDW Coeff of Saumya 14.4 Plt Count 152 MPV 10.3 Sodium 132 L Potassium 3.4 L D Chloride 96 L Carbon Dioxide 22 Anion Gap 14.0 H BUN 85 H Creatinine 12.80 H* D Est Cr Clr Drug Dosing 5.6 Est GFR ( Amer) 4.3 Est GFR (Non-Af Amer) 3.7 BUN/Creatinine Ratio 6.7 L Glucose 87 Calcium 8.8 Total Bilirubin 0.8 AST 18 ALT < 6 L Alkaline Phosphatase 150 H Total Protein 6.2 L Albumin 2.2 L Globulin 4.0 Albumin/Globulin Ratio 0.6 L PG Care Time/CCT Total # of Minutes Spent Total Time Spent with Patient: Total time spent is greater than 50% in coordination of care (as documented) at patient's floor/unit and/or counseling patient: Coding Level of Care Code 50025 Subseq Hosp Care Lvl 3 Diagnoses ESRD (end stage renal disease) on dialysis N18.6; Z99.2 Anemia D64.9 Anemia type: unspecified type Hypertension I10 Secondary hyperparathyroidism N25.81 (1) Anemia Anemia type: unspecified type Qualified Code(s): D64.9 - Anemia, unspecified
--- NOTE | 2021-04-03 13:34 | Discharge Summary ---
Date of Service April 03, 2021 Admission HPI Per Admitting Provider This is a 61 yo M with PMHx of chronic diastolic heart failure (EF 65 to 70%, TTE 2020), bicuspid aortic valve, aortic stenosis status post TAVR, complete heart block status post recent PPM, history nonobstructive CAD, PAD status post surgery, hypertension, hyperlipidemia, ESRD on PD with solitary kidney, NSCLC status post surgery 2 years ago, chronic anemia (baseline hemoglobin of 12), past tobacco abuse. He was recently admitted here from March 252020 for complete heart block status post PPM, then again from March 28 for lightheaded and dizziness for orthostasis due to volume depletion from peritoneal dialsysis, and suspected over medication with antihypertensive medications. Coreg was reduced in half from 25 mg BID. Pt represents today with worsening shortness of breath which started yesterday. He typically does his own peritoneal dialysis at night with 2500 mL bags, but was unable to do this last night due to worsening fatigue, generalized malaise. This morning he felt worse and completed PD with 2000 mL off. He went to see his PCP, during this visit found to be hypoxic with O2 sats in the 62 to 65%. Patient was placed on 2 L in the ER with sats improved into the high 80s and sent to the ER. Here in ER with sats in the 90s, BiPAP has been ordered by ER provider and pt is much improved on this. He is awake and alert and able to answer all my questions, follow commands, sitting up at the side of bed. He is tolerating BiPAP without any difficulty. He lives at home with significant other, and grandson. Chest x-ray is concerning for volume overload and possible multifocal pneumonia. BNP = 3500, D-dimer elevated 1270, WBC = 14.92, lactate is pending and will add on a procalcitonin. Creatinine of 17.1, BUN of 100, will consult nephrology for recommendations. Admission Exam Per Admitting Provider General: awake, alert, appears ill but tolerating BiPAP without difficulty, sitting up at side of the bed. Head: Normocephalic, atraumatic ENT: PERRL, EOMI, no pharyngeal exudate, mucous membranes moist Chest:Diminished breath sounds throughout, +crackles, on bipap, + dry cough with deep breaths, no wheeze or rales Cardiac: Regular rate and rhythm, + paced on monitor, no murmur, no JVD, normal peripheral pulses, good capillary refill Abdominal: NABS x 4 quadrants, soft, + PD catheter present, no surrounding erythema, nondistended, nontender to palpation, no rebound or guarding Extremities: Normal inspection, no peripheral edema or erythema, calfs nontender to palpation Psych: Normal mood and affect Neuro: AAO x 3, strength intact bilaterally and rated 5/5, no motor deficits, speech is clear, no peripheral sensory deficits Principal Diagnosis Acute hypoxemic respiratory failure secondary to volume overload Possible multifocal pneumonia Discharge Exam GENERAL: Alert and oriented x3. NAD, on RA. HEENT: No pallor, no icterus. Pupils equal, round and reactive to light. Oral mucosa moist. NECK: No JVD, no neck masses. Chest: Right chest has bruise, recently placed pacer. HEART: S1 and S2 heard. Regular rate and rhythm. No murmur, no gallop. RESPIRATORY SYSTEM: Normal AP diameter. No accessory muscle use. No wheezing, no crackles. ABDOMEN: Soft, bowel sounds present, nontender, no distention. PD catheter over the left abdomen. No signs of infections at port of entry. CENTRAL NERVOUS SYSTEM: No facial droop. Speech is clear. Obeys simple commands. Moves extremities. EXTREMITIES: No edema, no erythema seen. Discharge Data Allergies Allergy/AdvReac Type Severity Reaction Status Date / Time mercury (elemental) Allergy Intermediate Rash Verified 03/31/21 15:04 NSAIDS (Non-Steroidal Allergy Intermediate not to Verified 03/31/21 15:04 Anti-Inflamma take d/t Kidney disease lisinopril AdvReac Intermediate COUGH Verified 03/31/21 15:04 Consultations 03/31/21 14:28 ED Decision to Admit Stat 03/31/21 15:22 Consult Nephrology Routine 03/31/21 19:11 Consult [employer] Routine Ordered Studies 03/31/21 13:35 US venous doppler [facility] Urgent Hospital Course (1) Acute hypoxemic respiratory failure: (2) Multifocal pneumonia: (3) ESRD (end stage renal disease) on dialysis: 61-year-old male with PMH of chronic diastolic heart failure [2020 ECHO 65 to 70% EF], bicuspid aortic valve, status post TAVR, complete heart block s/p recent PPM, nonobstructive CAD, PAD status post surgery, HTN, HLD, ESRD on PD with solitary kidney, NSCLC status post surgery 2 years ago, chronic anemia [baseline hemoglobin 12] and past tobacco use came in 03/31 with worsening shortness of breath for 1 day prior to arrival. Recently admitted from March 25 for complete heart block status post PPM and then again March 28 for lightheaded and dizziness for orthostasis due to volume depletion from PT and suspected overmedication with antihypertensive medications. Coreg was reduced in half from 25 mg twice daily. Is being managed for the following: #. Acute hypoxic respiratory failure #. ESRD on PD #. Chronic diastolic HF SaO2 62 to 65% on room air at PCP visit from where he was sent to ER. He was in 80s on 2 L oxygen in the ER and then was ordered BiPAP. Admitting chest x-ray concerning for volume overload versus pna. Likely secondary to fluid overload from missed dialysis session. Does not appear to be acute exacerbation of CHF. Status post hemodialysis with 2.2 L ultrafiltrate removed. Home PD resumed while inpatient. Patient getting discharged to home with self-care. Advised to continue peritoneal dialysis as directed. #. Multifocal pneumonia: Possible in the setting of multiple hospitalizations recently, HCAP ? WBC elevated to around 14,000 at one time with pro-[place] of 5.58 which trended up to 7.09 while in hospital Patient doing well clinically, no cough. Patient on cefepime from 04/01, will put him on oral ATB from [facility] for 3 more days and then stop. Patient aware to take 2 and half days of oral antibiotic after discharge. #. ESRD on PD History of solitary kidney s/p kidney donor in 1992, on peritoneal dialysis x5 years, routinely performs PD at home nightly with 2500 mL out. Missed session prior to admission due to increased fatigue and lethargy. Cont per Nephrology #. Other chronic medical conditions: Peripheral arterial disease, anemia and chronic disease, aortic stenosis, gout Continue with home medications; Epogen, iron supplementation per nephrology; status post TAVR; continue with allopurinol #. DVT prophylaxis: On Heparin No CPR but intubation okay. Patient discharged to home with following instructions: Take your medications as prescribed. Complete 2 and half days of antibiotic for pneumonia to complete the course. Follow-up with your PCP within 1 weeks time. Continue with your peritoneal dialysis as directed. Total Time Total Time Spent Total Time Spent (In Minutes): 35 Discharge Plan Discharge Items Patient Disposition: Home - Self-Care Reason For Visit: SHORTNESS OF BREATH, VOLUME OVERLOAD Discharge Diagnosis: Acute hypoxemic respiratory failure secondary to volume overload Possible multifocal pneumonia Activity: Resume your previous activity Non-emergency contact: Primary Care Provider Call non-emergency contact if: you have any medication questions Follow-up/Referrals: Sundar Ruiz DO [Primary Care Provider] - Diet: Heart Healthy Addtl Attending Provider Instructions: Take your medications as prescribed. Complete 2 and half days of antibiotic for pneumonia to complete the course. Follow-up with your PCP within 1 weeks time. Continue with your peritoneal dialysis as directed. Pending Studies at Discharge: Yes Studies:: Blood culture from 03/31 Stand-Alone Forms: My [employer], Smoking Cessation Medications and DC Order Prescriptions: New amoxicillin-pot clavulanate 500-125 mg Tablet 1 tab PO QAM 2 Days Qty: 2 RF: 0 amoxicillin-pot clavulanate 500-125 mg Tablet 1 tab PO DAILY@1800 3 Days Qty: 3 RF: 0 Continued amlodipine 10 mg tablet 10 mg PO QAM RF: 0 trazodone 50 mg tablet 100 mg PO HS PRN (Reason: sleep) RF: 0 gentamicin 0.1 % cream 1 applic topical DAILY Qty: 30 RF: 1 isosorbide mononitrate 30 mg tablet extended release 24 hr 30 mg PO QAM Qty: 30 RF: 11 atorvastatin [Lipitor] 40 mg tablet 40 mg PO QAM RF: 0 aspirin 81 mg Tablet,Delayed Release (Dr/Ec) 81 mg PO QAM RF: 0 albuterol sulfate [Ventolin HFA] 90 mcg/actuation HFA aerosol inhaler 2 puff INHALATION Q4 PRN (Reason: Shortness Of Breath Or Wheezing) RF: 0 bupropion HCl 150 mg tablet extended release 24 hr 150 mg PO QAM RF: 0 escitalopram oxalate 20 mg tablet 20 mg PO QAM RF: 0 clopidogrel 75 mg tablet 75 mg PO QAM RF: 0 ProRenal 8 mg iron-800 mcg-1,000 unit Tablet 1 tab PO QAM RF: 0 calcitriol 0.25 mcg capsule 0.5 mcg PO QAM RF: 0 furosemide 80 mg Tablet 80 mg PO QAM RF: 0 omeprazole 40 mg Capsule,Delayed Release(Dr/Ec) 40 mg PO BID RF: 0 allopurinol 100 mg Tablet 100 mg PO QAM RF: 0 ropinirole 0.25 mg tablet 0.25 mg PO HS RF: 0 bisacodyl [Gentle Laxative (bisacodyl)] 5 mg Tablet,Delayed Release (Dr/Ec) 5 mg PO DAILY PRN (Reason: constipation) Qty: 30 RF: 0 oxycodone-acetaminophen 5-325 mg tablet 1 tab PO Q8H PRN (Reason: pain) Qty: 12 RF: 0 tamsulosin 0.4 mg capsule 0.4 mg PO DAILY RF: 0 carvedilol 12.5 mg Tablet 12.5 mg PO BID 30 Days Qty: 60 RF: 0 Discharge Orders: Discharge Order (Routine); Ordered 04/03/21 Ordered By: Doretha Campbell Admission Data Admit Date/Time: 03/31/21 15:22 Attending Provider: Doretha Campbell Admit Provider: Rosina Crowe Primary Care Provider: Sundar Ruiz Other Providers: Rosina Crowe ; Braulio Kilgore ; José Victoria Other Interventions: Discharge Summary Assessment (RN) Last Done: 04/03/21 11:42
--- NOTE | 2021-04-26 06:39 | Coding Query ---
CODING QUERY To promote full compliance with coding requirements relating to patient care, provider participation is requested in all cases of office machine servicer apprentice uncertainty. Please assist us with the question(s) below: Coding Question(s): Per documentation, patient has ESRD and on Peritoneal Dialysis. But documentation also states, patient was given Hemodialysis. Please clarify dialysis type below: ( ) Patient was given Hemodialysis during the stay ( ) Patient was given Peritoneal Dialysis during the stay ( x) Other Please Explain: Pt was given HD initially and later on resumed his home PD during the stay. Thank you Socrates Olguin Principal Diagnosis: "that condition established after study, to be chiefly responsible for occasioning the admission of the patient to the hospital for care." Co-Existing Principal Diagnosis: "when two or more diagnoses equally meet the criteria for principal diagnosis as determined by the circumstances of admission, diagnostic work up, and/or therapy provided, and the Alphabetic Index, Tabular List, or another coding guideline does not provide sequencing direction, any one of the diagnoses may be sequenced first." "When the physician has documented what appears to be a current diagnosis in the body of the record, but has not included the diagnosis in the final diagnostic statement, the physician should be asked whether the diagnosis should be added." (Source Coding [facility] 2 QTR90. p3-4) RUIZ
== END 2021-04-03 13:17 | disposition home or self-care (01) | DRG 640 ==
LOC: ED 12:39 → 1E 15:22 → SUATTDRO 15:22 → 1E 18:42

== ENCOUNTER 2021-06-09 15:19 | Inpatient (IN) ==
[2021-06-09] MEDS ORDERED: SODIUM CHLORIDE 0.9% 500 ML IV STA (15:32)
[2021-06-09] MEDS ORDERED: CALCIUM GLUCONATE 1,000 MG/60 ML BAG IV STA (15:35)
--- NOTE | 2021-06-09 15:40 | Emergency Department Note ---
Impression & Plan Acute hypoxemic respiratory failure, Elevated troponin I level ED Provider Note NAME: ANCA MACHADO AGE: 61 SEX: M : 1960 ARRIVES VIA: Ambulance INFORMANT: Patient, ED PROVIDER(S): Kenn Steiner MD Chief Complaint: HPI: Patient did have a recent cardiology consultation back in March due to concern for near syncope. Patient does have a known history of TAVR and stage renal disease on at home peritoneal dialysis. Patient did present due to concern for chest pain he describes as burning and nonradiating but with associated nausea and diaphoresis. Patient denies any fevers or chills. Patient has had associated shortness of breath. Patient states he is compliant with his medications as well as his home peritoneal dialysis. Patient states he was in the bathroom at [facility] just to use the restroom when he developed this chest discomfort. Patient was given aspirin in route. Hypotensive at the time of arrival but not requiring oxygen but still with pain. Patient is on aspirin and Plavix. Patient denies any prior history of DVT or PE. Patient is vaccinated for Covid. ROS: See HPI for pertinent positives and negatives. A total of 10 systems were reviewed and otherwise negative. Past medical history: See below Surgical history: See below Social history: See below Physical Exam: GENERAL: Comfortable in appearance, nasal cannula in place. EYE EXAM: Normal conjunctiva. PERRL, no anisocoria and EOM's grossly intact w/o pain. NECK: Supple, no nuchal rigidity, no adenopathy, non-tender. No signs of meningismus. LUNGS: Clear to auscultation. Normal chest wall mechanics. HEART: NSR, no MRG. ABDOMEN: Abdomen soft, non-tender, normo-active bowel sounds, no masses, no rebound or guarding. BACK: No CVA TTP. SKIN: No rashes and no bruising. UPPER EXTREMITIES: Upper extremities are grossly normal. LOWER EXTREMITIES: Grossly normal, no edema. NEURO EXAM: A&O x3, cranial nerves II-XII grossly intact, normal speech, moves all 4 extremities on command w/o issue. Differential diagnoses: Cardiac ischemia, aortic dissection, pulmonary embolism, pneumothorax, pneumonia, pericarditis, myocarditis, esophageal rupture, GERD, cholecystitis, pancreatitis, musculoskeletal, as well as other pathologies. Course: Patient was seen and evaluated the bedside. Full history physical exam was performed. EKG interpreted by me A sensed V paced rhythm, rate of 100, wide QRS with left bundle branch block pattern throughout, peaked T's throughout. Bundle branch block appears grossly u nchanged from prior. A sensed V paced rhythm from 04/02/2021. Patient's prehospital EKG did show a sinus tachycardia he did have depressions in the lateral leads. Patient did have prior EKGs as recently as March 26 which did show some lateral depressions. Imaging Studies: See Below Cardiac monitoring: An order was placed for continuous cardiac monitoring. The monitor shows a rate of 82 with sinus rhythm. MDM: Patient did present due to concern for chest pain and shortness of breath. Bloo d work was obtained. The patient's prehospital EKG did show some lateral depressions. The patient's emergency department EKG showed some peaked T's but was a sensed with a V paced rhythm. Patient already received aspirin en route. Given the EKG findings and peritoneal dialysis I was concerned about hyperkalemia so a [id number] BMP was completed. Calcium ordered. Potassium was normal. No nitro given initially as the patient did have hypotension. I did speak with the on-call billing manager, Dr. Arnold, who did review the EKGs and stated that this may be related to LVH or even due to the pacemaker. They did not think that the patient warranted Action Finisher given these findings acutely. The patient does have a white count of 11 with a hemoglobin of 9 which is chronic and stable. Patient did have increasing oxygen requirements. I did perform a bedside ultrasound which showed diffuse B-lines throughout. No obvious pericardial effusion. IVC was not plethoric. I was concerned of acute pulmonary edema. Patient was placed on BiPAP. Lasix avoided initially due to concern for borderline hypotension. Upon reassessment the patient is felt significantly improved and had improvement in the patient's breathing. Pacemaker was interrogated did not show any acute issue with the pacemaker very mild thrombocytopenia at 126. Kidney function with creatinine greater than 14. Patient potassium is normal. Patient's troponin is 0.2. The patient did have elevations in troponin during the most recent admission for which the patient did require to be dialyzed. I did speak with the on-call hospitalist Jennifer Duran PA-C. Patient to be admitted by Dr. Dennison. I did speak with the on-call executive pastry chef Dr. Kilgore who did evaluate the patient as well and was setting up the patient for peritoneal dialysis. After further discussion with the inpatient hospitalist a CT angiography was performed to rule out dissection or PE. Heparin held until completion of the study. Patient CT angiography was completed. No evidence of dissection or PE. Heparin started and the patient was admitted to the medicine service. Critical Care: I have personally spent 67 minutes of critical care time in direct management of this patient. This includes bedside care, interpretation of diagnostic studies, and testing, discussion with consultants, patient, and family members, and other require inpatient management activities. This 67 minutes is in excess of all separately billable procedures. Past Med/Surg History Medical History Anemia AV fistula "L side " Bradycardia Cardiac murmur HX OF TAVR SEP 2019 SECONDARY TO SEVERE Carotid artery stenosis RIGHT ICA= <50%; LEFT ICA= 50-69% Complete heart block Dialysis patient X 4 YRS-PERITONEAL DIALYSIS Q HS X 8 HRS Dyslipidemia Elevated troponin ESRD (end stage renal disease) on dialysis Fitting and adjustment of peritoneal dialysis catheter PLACEMENT OF-IN PLACE GERD (gastroesophageal reflux disease) Gout Hiatal hernia History of lung cancer NON SMALL CANCER RLL-07/2019 [facility] [place] HTN (hypertension) Kidney donor Near syncope Pericardial effusion s/p pericardiocentesis Peritoneal dialysis status Spinal stenosis NO NECK OR BACK SURGERY Surgical History AV fistula CREATION OF IN LEFT WRIST History of colonoscopy History of lung surgery RLL 07/2019 History of nephrectomy, unilateral "Kidney donor "1992 S/P femoral-popliteal bypass surgery S/P TAVR (transcatheter aortic valve replacement) Family History Brother Family history of diabetes mellitus Brother Family history of diabetes mellitus Sister Family history of diabetes mellitus Mother Family history of diabetes mellitus Social History Smoking Status: Never smoker Tobacco Type: Smokeless Tobacco (Dip or Chew) Second Hand Exposure: No; Do You Dip or Chew Tobacco: Yes; Hx Alcohol Use: No Hx Substance Use: No Preferred Language: Filipino Communication Ability: Effective Visual Impairment: No Limitations Equity Holder Required: No Beliefs That Will Affect Care: None Current Living Situation: Significant Other Feels Safe at Home: Yes Safety Concerns: Feels Safe At This Time Assistive Devices: None Allergies Allergies Allergy/AdvReac Type Severity Reaction Status Date / Time mercury (elemental) Allergy Intermediate Rash Verified 06/09/21 16:08 NSAIDS (Non-Steroidal Allergy Intermediate not to Verified 06/09/21 16:08 Anti-Inflamma take d/t Kidney disease lisinopril AdvReac Intermediate COUGH Verified 06/09/21 16:08 Home Meds Home Medications Medication Instructions Recorded Confirmed amlodipine 10 mg tablet 10 mg PO QAM 05/06/19 06/09/21 trazodone 50 mg tablet 100 mg PO HS PRN tab 05/06/19 06/09/21 furosemide 80 mg tablet 80 mg PO QAM 06/30/20 06/09/21 omeprazole 40 mg capsule,delayed 40 mg PO BID 06/30/20 06/09/21 release aspirin 81 mg tablet,delayed 81 mg PO QAM 09/26/20 06/09/21 release atorvastatin 40 mg tablet (Lipitor) 40 mg PO QAM 09/26/20 06/09/21 bupropion HCl 150 mg 24 hr tablet, 150 mg PO QAM 09/26/20 06/09/21 extended release clopidogrel 75 mg tablet 37.5 mg PO [facility] 09/26/20 06/09/21 escitalopram oxalate 20 mg tablet 20 mg PO QAM 09/26/20 06/09/21 vit B complx, C-iron 8 mg-folic 1 tab PO QAM 09/26/20 06/09/21 acid 800 mcg-D3 1,000 unit-zinc tablet (ProRenal) tamsulosin 0.4 mg capsule 0.4 mg PO DAILY 03/28/21 06/09/21 bisacodyl 5 mg tablet,delayed 5 mg PO DAILY 06/09/21 06/09/21 release (Gentle Laxative (bisacodyl)) calcitriol 0.5 mcg capsule 0.5 mcg PO DAILY 06/09/21 06/09/21 dutasteride 0.5 mg capsule 0.5 mg PO DAILY 06/09/21 06/09/21 isosorbide mononitrate 30 mg 30 mg PO UD 06/09/21 06/09/21 tablet,extended release 24 hr isosorbide mononitrate 60 mg 60 mg PO UD 06/09/21 06/09/21 tablet,extended release 24 hr metoprolol succinate 25 mg 25 mg PO BID 06/09/21 06/09/21 tablet,extended release 24 hr mirtazapine 15 mg tablet 22.5 mg PO HS 06/09/21 06/09/21 ropinirole 2 mg tablet 3 mg PO HS 06/09/21 06/09/21 sucroferric oxyhydroxide 500 mg 1,000 mg PO TIDM 06/09/21 06/09/21 chewable tablet (Velphoro) Previous Rx's Medication Instructions Recorded gentamicin 0.1 % topical cream 1 applic TOPICAL DAILY #30 g 03/10/21 allopurinol 100 mg tablet 100 mg PO QAM #90 tab 04/28/21 Results & Data (ED) Vital Signs Vital Signs - 24 hr 06/09/21 15:20 06/09/21 15:28 06/09/21 15:30 Pulse Rate 97 H 94 H Pulse Rate [Right Finger] Pulse Rate from SpO2 Sensor 98 H Pulse Rhythm Regular Pulse Strength Normal Respiratory Rate 15 20 Respiratory Effort / Characteristics Non-Labored Spontaneous Respiratory Depth Normal Respiratory Pattern Regular Blood Pressure 86/55 L Blood Pressure Mean 65 Blood Pressure Position Sitting Pulse Oximetry 88 L 91 88 L Oxygen Delivery Method Room Air Room Air Oxygen Flow Rate 0 Fraction of Inspired Oxygen Sepsis Recent Fever Within 48 Hours No Sepsis New/Unexplained Change in Mental Status No Sepsis Action Taken by Nursing No Action Required Oxygen Flow Rate - Titration 2 Pulse Oximetry Post Tiitration 94 06/09/21 15:38 06/09/21 15:45 06/09/21 15:50 Pulse Rate 94 H 93 H 96 H Pulse Rate [Right Finger] Pulse Rate from SpO2 Sensor 91 H 96 H Pulse Rhythm Regular Pulse Strength Respiratory Rate 33 H 23 Respiratory Effort / Characteristics Respiratory Depth Respiratory Pattern Blood Pressure 99/63 L Blood Pressure Mean 75 Blood Pressure Position Pulse Oximetry 94 92 91 Oxygen Delivery Method Room Air Nasal Cannula Oxygen Flow Rate 2 4 Fraction of Inspired Oxygen Sepsis Recent Fever Within 48 Hours Sepsis New/Unexplained Change in Mental Status Sepsis Action Taken by Nursing Oxygen Flow Rate - Titration Pulse Oximetry Post Tiitration 06/09/21 15:55 06/09/21 16:00 06/09/21 16:08 Pulse Rate 107 H 95 H 88 Pulse Rate [Right Finger] Pulse Rate from SpO2 Sensor 107 H 95 H Pulse Rhythm Pulse Strength Respiratory Rate 22 28 H 26 H Respiratory Effort / Characteristics Spontaneous Respiratory Depth Respiratory Pattern Regular Blood Pressure 99/78 L Blood Pressure Mean 85 Blood Pressure Position Pulse Oximetry 88 L 93 98 Oxygen Delivery Method Nasal Cannula Nasal Cannula Oxygen Flow Rate 4 4 Fraction of Inspired Oxygen 65 Sepsis Recent Fever Within 48 Hours Sepsis New/Unexplained Change in Mental Status Sepsis Action Taken by Nursing Oxygen Flow Rate - Titration Pulse Oximetry Post Tiitration 06/09/21 16:11 06/09/21 16:15 06/09/21 16:30 Pulse Rate 88 90 Pulse Rate [Right Finger] 88 Pulse Rate from SpO2 Sensor 88 90 Pulse Rhythm Pulse Strength Respiratory Rate 26 H 27 H 16 Respiratory Effort / Characteristics Spontaneous Respiratory Depth Respiratory Pattern Blood Pressure 101/65 92/63 L Blood Pressure Mean 77 72 Blood Pressure Position Pulse Oximetry 100 99 99 Oxygen Delivery Method BiPAP Oxygen Flow Rate Fraction of Inspired Oxygen 65 Sepsis Recent Fever Within 48 Hours Sepsis New/Unexplained Change in Mental Status Sepsis Action Taken by Nursing Oxygen Flow Rate - Titration Pulse Oximetry Post Tiitration 06/09/21 16:45 06/09/21 17:00 06/09/21 17:30 Pulse Rate 90 89 87 Pulse Rate [Right Finger] Pulse Rate from SpO2 Sensor 90 88 87 Pulse Rhythm Pulse Strength Respiratory Rate 18 20 22 Respiratory Effort / Characteristics Respiratory Depth Respiratory Pattern Blood Pressure 90/61 L 94/57 L 106/60 Blood Pressure Mean 70 69 75 Blood Pressure Position Pulse Oximetry 99 99 100 Oxygen Delivery Method BiPAP Oxygen Flow Rate Fraction of Inspired Oxygen Sepsis Recent Fever Within 48 Hours Sepsis New/Unexplained Change in Mental Status Sepsis Action Taken by Nursing Oxygen Flow Rate - Titration Pulse Oximetry Post Tiitration Home Medications Current Medication List: was personally reviewed by me Laboratory Data Attestation: I reviewed the patient's lab results. Result diagrams: 06/09/21 15:05 06/09/21 15:05 Lab Results 06/09/21 06/09/21 06/09/21 Range/Units 15:05 15:05 15:05 WBC 11.12 H (4.8-10.8) K/uL RBC 2.90 L (4.7-6.1) M/uL Hgb 9.2 L (14.0-18.0) g/dL POC Hgb (14.0-18.0) g/dl Hct 26.6 L (42-52) % POC Hct (42-52) % MCV 91.7 (80-100) fL MCH 31.7 (25-34) pg MCHC 34.6 (32-36) g/dL RDW Std Deviation 44.9 (36.4-46.3) fL RDW Coeff of Saumya 13.5 (11.5-14.5) % Plt Count 126 L (130-400) K/uL MPV 10.7 H (7.4-10.4) fL Immature Gran % (Auto) 0.4 % Neut % (Auto) 80.0 % Lymph % (Auto) 9.3 % Marin % (Auto) 8.5 % Eos % (Auto) 1.6 % Baso % (Auto) 0.2 % Neut # (Auto) 8.90 H (1.4-6.5) K/uL Lymph # (Auto) 1.03 L (1.2-3.4) K/uL Marin # (Auto) 0.94 H (0.11-0.59) K/uL Eos # (Auto) 0.18 (0-0.5) K/uL Baso # (Auto) 0.02 (0-0.2) K/uL Immature Gran # (Auto) 0.05 H (0.00-0.02) K/uL PT 10.7 (9.0-12.0) Seconds INR 1.1 (0.9-1.1) APTT 25.4 (21.0-31.0) Seconds PTT Ratio 1.0 POC Sodium (135-144) mmol/L Sodium 132 L (136-145) mmol/L POC Potassium (3.3-5.0) mmol/L Potassium 3.6 (3.5-5.1) mmol/L POC Chloride (101-112) mmol/L Chloride 92 L (98-107) mmol/L Carbon Dioxide 24 (21-32) mmol/L POC Total CO2 (24-31) mmol/L Anion Gap 16.0 H (3-11) POC Anion Gap (16-25) mmol/L POC BUN (7-18) mg/dl BUN 56 H (7-18) mg/dl Creatinine 14.20 H* (0.6-1.4) mg/dl POC Creatinine (0.6-1.3) mg/dl Est Cr Clr Drug Dosing 5.3 ml/min Est GFR ( Amer) 3.8 ml/min Est GFR (Non-Af Amer) 3.3 ml/min BUN/Creatinine Ratio 3.9 L (10-20) Glucose 116 H (70-99) mg/dl POC Glucose (other) (70-99) mg/dl Calcium 9.2 (8.5-10.1) mg/dl POC Ioniz Calcium Ludivina (1.12-1.32) mmol/l Total Bilirubin 0.9 (0.2-1) mg/dl AST 26 (15-37) U/L ALT 18 (12-78) U/L Alkaline Phosphatase 98 (45-117) U/L Troponin I 0.222 H* (0-0.045) ng/ml NT-Pro-B Natriuret Pep > 30854 H (0-900) pg/ml Total Protein 6.9 (6.4-8.2) gm/dl Albumin 2.6 L (3.4-5.0) gm/dl Globulin 4.3 H (2.5-4.0) gm/dl Albumin/Globulin Ratio 0.6 L (0.9-2) Lipase 415 H (73-393) U/L COVID-19 Eval Order SARS-CoV-2 (PCR) (Negative) 06/09/21 06/09/21 06/09/21 Range/Units 15:39 15:45 15:45 WBC (4.8-10.8) K/uL RBC (4.7-6.1) M/uL Hgb (14.0-18.0) g/dL POC Hgb 9.2 L (14.0-18.0) g/dl Hct (42-52) % POC Hct 27 L (42-52) % MCV (80-100) fL MCH (25-34) pg MCHC (32-36) g/dL RDW Std Deviation (36.4-46.3) fL RDW Coeff of Saumya (11.5-14.5) % Plt Count (130-400) K/uL MPV (7.4-10.4) fL Immature Gran % (Auto) % Neut % (Auto) % Lymph % (Auto) % Marin % (Auto) % Eos % (Auto) % Baso % (Auto) % Neut # (Auto) (1.4-6.5) K/uL Lymph # (Auto) (1.2-3.4) K/uL Marin # (Auto) (0.11-0.59) K/uL Eos # (Auto) (0-0.5) K/uL Baso # (Auto) (0-0.2) K/uL Immature Gran # (Auto) (0.00-0.02) K/uL PT (9.0-12.0) Seconds INR (0.9-1.1) APTT (21.0-31.0) Seconds PTT Ratio POC Sodium 133 L (135-144) mmol/L Sodium (136-145) mmol/L POC Potassium 3.5 (3.3-5.0) mmol/L Potassium (3.5-5.1) mmol/L POC Chloride 95 L (101-112) mmol/L Chloride (98-107) mmol/L Carbon Dioxide (21-32) mmol/L POC Total CO2 23 L (24-31) mmol/L Anion Gap (3-11) POC Anion Gap 20.0 (16-25) mmol/L POC BUN 50 H (7-18) mg/dl BUN (7-18) mg/dl Creatinine (0.6-1.4) mg/dl POC Creatinine 14.8 H* (0.6-1.3) mg/dl Est Cr Clr Drug Dosing ml/min Est GFR ( Amer) ml/min Est GFR (Non-Af Amer) ml/min BUN/Creatinine Ratio (10-20) Glucose (70-99) mg/dl POC Glucose (other) 90 (70-99) mg/dl Calcium (8.5-10.1) mg/dl POC Ioniz Calcium Ludivina 1.07 L (1.12-1.32) mmol/l Total Bilirubin (0.2-1) mg/dl AST (15-37) U/L ALT (12-78) U/L Alkaline Phosphatase (45-117) U/L Troponin I (0-0.045) ng/ml NT-Pro-B Natriuret Pep (0-900) pg/ml Total Protein (6.4-8.2) gm/dl Albumin (3.4-5.0) gm/dl Globulin (2.5-4.0) gm/dl Albumin/Globulin Ratio (0.9-2) Lipase (73-393) U/L COVID-19 Eval Order Covid19 at [facility] SARS-CoV-2 (PCR) NEGATIVE (Negative) Administered Medications Discontinued Medications Albuterol (Albut/Ipratrop 3mg/0.5mg Neb 3 Ml Vial) 3 ml NEB NOW STA Stop: 06/09/21 16:00 Last Admin: 06/09/21 16:11 Dose: 3 ml Documented by: [id number] Fentanyl Citrate (Fentanyl Citrate 100 Mcg/2 Ml Vial) 25 mcg IV NOW ONE Stop: 06/09/21 15:54 Last Admin: 06/09/21 15:58 Dose: 25 mcg Documented by: [id number] Furosemide (Furosemide 40 Mg/4 Ml Vial) 40 mg IV NOW STA Stop: 06/09/21 18:52 Last Admin: 06/09/21 18:59 Dose: 40 mg Documented by: [id number] Heparin Sodium/Dextrose (Heparin 48067 Unit/500 Ml D5w) Confirm Administered Dose 25,000 units IV .STK-MED ONE Stop: 06/09/21 19:14 Last Admin: 06/09/21 19:22 Dose: 1,200 units Documented by: [id number] Cosigned by: [id number] Sodium Chloride (Nss) 500 mls @ 999 mls/hr IV .Q31M STA Stop: 06/09/21 16:02 Last Infusion: 06/09/21 16:11 Dose: 0 mls/hr Documented by: [id number] Admin: 06/09/21 15:40 Dose: 999 mls/hr Documented by: [id number] Calcium Gluconate () 1,000 mg in 60 mls @ 240 mls/hr IV NOW STA Stop: 06/09/21 15:49 Last Admin: 06/09/21 15:50 Dose: Not Given Documented by: [id number] Famotidine (Pepcid 20mg Iv Push) 20 mg in 5 mls @ 2.5 mls/min IV NOW STA Stop: 06/09/21 15:54 Last Admin: 06/09/21 15:57 Dose: 2.5 mls/min Documented by: [id number] Sodium Chloride (Nss 1000ml) 250 mls @ 999 mls/hr IV .Q16M ONE Stop: 06/09/21 16:14 Last Infusion: 06/09/21 16:20 Dose: 0 mls/hr Documented by: [id number] Admin: 06/09/21 16:04 Dose: 999 mls/hr Documented by: [id number] Ioversol (Optiray 320 125ml) 118 ml IV ONCE ONE Stop: 06/09/21 18:43 Last Admin: 06/09/21 18:43 Dose: 118 ml Documented by: [id number] Imaging Data Radiologist's Impression: Chest X-Ray 06/09/21 15:32 XR chest 1V portable CLINICAL HISTORY: Atypical chest pain TECHNIQUE: Single frontal radiograph of the chest was obtained. Comparison: Comparison is made to chest one view 04/01/2021 FINDINGS: No lines and tubes are seen. Cardiomegaly is noted. Redemonstration of right greater than left lower lung airspace opacities. Stable small right pleural effusion. IMPRESSION: Right greater than left lower lung airspace opacities are unchanged. Stable cardiomegaly. Small right pleural effusion is unchanged. ACT 112: Negative or not required by law. Electronically signed by: Dixon Way M.D. 06/09/2021 4:16 PM Discharge Plan Visit Data Chief Complaint: Chest Pain Stated Complaint: chest pain ED Provider: Kenn Steiner Discharge Problem: Acute hypoxemic respiratory failure, Elevated troponin I level Patient Disposition: Admitted As Inpatient Discharge Instructions Interventions: ED Discharge Assessment Last Done: 06/09/21 19:36
[2021-06-09 15:41] LABS: Basophils # (auto) 0.02 K/uL (0-0.2); Basophils % (auto) 0.2 %; Eosinophils # (auto) 0.18 K/uL (0-0.5); Eosinophils % (auto) 1.6 %; Hematocrit (blood only) 26.6 % (42-52); Hemoglobin 9.2 g/dL (14.0-18.0); Immature Granulocytes # (auto) 0.05 K/uL (0.00-0.02); Immature Granulocytes % (auto) 0.4 %; Lymphocytes # (auto) 1.03 K/uL (1.2-3.4); Lymphocytes % (auto) 9.3 %; Mean Corpuscular Hemoglobin 31.7 pg (25-34); Mean Corpuscular Hgb Conc 34.6 g/dL (32-36); Mean Corpuscular Volume 91.7 fL (80-100); Mean Platelet Volume 10.7 fL (7.4-10.4); Monocytes # (auto) 0.94 K/uL (0.11-0.59); Monocytes % (auto) 8.5 %; Platelet Count 126 K/uL (130-400); RDW Coefficient of Variation 13.5 % (11.5-14.5); RDW Standard Deviation 44.9 fL (36.4-46.3); White Blood Count 11.12 K/uL (4.8-10.8)
[2021-06-09 15:51] LABS: INR 1.1 (0.9-1.1); Partial Thromboplastin Time 25.4 Seconds (21.0-31.0); Prothrombin Time 10.7 Seconds (9.0-12.0)
[2021-06-09 15:52] LABS: iSTAT Creatinine 14.8 mg/dl (0.6-1.3); iSTAT Hemoglobin 9.2 g/dl (14.0-18.0); iSTAT Ionized Calcium 1.07 mmol/l (1.12-1.32); iSTAT Potassium 3.5 mmol/L (3.3-5.0)
[2021-06-09] MEDS ORDERED: FAMOTIDINE 20MG IV PUSH 20 MG/5 ML SYR IV STA (15:53)
[2021-06-09] MEDS ORDERED: fentaNYL citrate 100 MCG/2 ML VIAL IV ONE (15:53)
[2021-06-09] MEDS ORDERED: ALBUT/IPRATROP 3MG/0.5MG NEB 3 ML VIAL NEB STA (15:59)
[2021-06-09] MEDS ORDERED: SODIUM CHLORIDE 0.9% 1000ML 250 ML IV ONE (15:59)
--- NOTE | 2021-06-09 16:18 | XRay Report ---
XR chest 1V portable CLINICAL HISTORY: Atypical chest pain TECHNIQUE: Single frontal radiograph of the chest was obtained. Comparison: Comparison is made to chest one view 04/01/2021 FINDINGS: No lines and tubes are seen. Cardiomegaly is noted. Redemonstration of right greater than left lower lung airspace opacities. Stable small right pleural effusion. IMPRESSION: Right greater than left lower lung airspace opacities are unchanged. Stable cardiomegaly. Small right pleural effusion is unchanged. ACT 112: Negative or not required by law. Electronically signed by: Dixon Way M.D. 06/09/2021 4:16 PM
[2021-06-09 16:32] LABS: Alanine Aminotransferase 18 U/L (12-78); Albumin Globulin Ratio 0.6 (0.9-2); Albumin Level 2.6 gm/dl (3.4-5.0); Alkaline Phosphatase 98 U/L (45-117); Aspartate Aminotransferase 26 U/L (15-37); BUN Creatinine Ratio 3.9 (10-20); Bilirubin,Total 0.9 mg/dl (0.2-1); Blood Urea Nitrogen 56 mg/dl (7-18); Calcium 9.2 mg/dl (8.5-10.1); Carbon Dioxide 24 mmol/L (21-32); Chloride 92 mmol/L (98-107); Creatinine Clr Calc Pharmacy 5.3 ml/min; Est GFR (African American) 3.8 ml/min; Est GFR (Non-African American) 3.3 ml/min; Globulin 4.3 gm/dl (2.5-4.0); Glucose 116 mg/dl (70-99); Lipase 415 U/L (73-393); Potassium 3.6 mmol/L (3.5-5.1); Sodium 132 mmol/L (136-145); Total Protein 6.9 gm/dl (6.4-8.2); Troponin I 0.222 ng/ml (0-0.045)
[2021-06-09 16:47] LABS: NT Pro B Type Natriuretic Pept > 35000 pg/ml (0-900)
--- NOTE | 2021-06-09 18:07 | History & Physical Report ---
Date of Service June 09, 2021 Assessment & Plan (1) Chest pain: (2) Volume overload: (3) ESRD (end stage renal disease) on dialysis: (4) Hx of cardiac pacemaker: Plan: Volume overload, ESRD on PD Chest x-ray with pulmonary vascular congestion, and significantly elevated proBNP >35,000 -Consulted nephrology, Dr. Kilgore - plan for urgent PD dialysis and volume management -Ordered IV Lasix one dose in the meantime, however patient reports he does not make much urine -We will rule out any infectious etiology, ordered blood cultures, urine culture, also will obtain culture from peritoneal fluid once available -White blood cell count only mildly elevated, therefore infectious etiology does not seem as likely -We will likely start empiric antibiotics, once cultures obtained (plan for quick de-escalation of antibiotics if cultures negative) Acute respiratory failure, due to volume overload - Requiring Bipap at this time, tolerating well, able to speak in full sentences - pt does not require supplemental O2 at baseline - Expect to wean off BiPAP soon after volume removal by dialysis Chest pain, elevated troponin, hx of pacemaker Troponin elevated at 0.22, in the setting of end-stage renal disease ER physician discussed with cardiology, it was suggested to start IV heparin Chest discomfort seems to be secondary to volume overload and therefore dialysis and fluid removal recommended Discussed in detail with nephrology and ER physician, given lower blood pressure and chest discomfort, obtained CTA to rule out dissection CTA negative for PE or aortic dissection, this was also discussed with radiologist Plan to start IV heparin Hx of complete heart block, s/p pacemaker insertion for third-degree AV block which required right ventricular lead revision. Last echo on 03/29 - focused - did not show any pericardial effusion LVEF 65 to 70% Echo completed on 03/25 -normal LV chamber size with moderate concentric LV H. Normal LV systolic function EF 65 to 70%. No segmental LV wall motion abnormalities noted. Grade 1 diastolic dysfunction. There is a bioprosthetic aortic valve. The prosthetic aortic valve appears to open well. The gradient is normal for this prosthetic aortic valve. Doppler evidence of regurg is probably normal for this prosthetic aortic valve. No pericardial effusion. Plan to continue home medications, however will hold some antihypertensives if blood pressure still on lower side in the morning Close hemodynamic monitoring on telemetry overnight Cardiology also consulted ESRD on PD w/ solitary kidney -History of solitary kidney s/p kidney donor in 1992 -on peritoneal dialysis, routinely performs PD at home -Nephrology consulted as above DVT PPx: IV heparin History of Present Illness Chief Complaint: Chest pain Primary Care Provider: Sundar Ruiz DO Pt is a 61 yo male with ESRD on PD with solitary kidney, chronic diastolic heart failure (EF 65 to 70%, TTE 2020), bicuspid aortic valve, aortic stenosis status post TAVR, complete heart block status post recent PPM, history of nonobstructive CAD, PAD status post surgery, hypertension, hyperlipidemia,NSCLC s/p surgery, chronic anemia, past tobacco abuse who presents with chest pain. Pt reports he has been having chest tightness, especially in the morning and when lying down, for the past 2 days. Today he was in [employer], in the bathroom, when he developed more significant chest discomfort and therefore presented to the ER. In the ER troponin was elevated at 0.22, EKGs obtained, ER physician discussed with the creative services writer, Dr. Arnold. Per ER physician, Dr. Arnold suggested that we could consider IV heparin. Chest x-ray concerning for pulmonary vascular congestion, proBNP significantly elevated. In the past patient required urgent dialysis, to manage volume and presented with similar symptoms. Nephrology, Dr. Kilgore contacted. In the ER, patient was started on BiPAP. Currently laying in bed, somewhat restless, however awake alert and answering questions appropriately and t olerating BiPAP well. He continues to have some chest discomfort. Dr. Kilgore also at the bedside during my evaluation. He is arranging urgent PD dialysis. Discussed that patient's blood pressure has been on the lower side, and asked ER physician for CTA to rule out possible dissection, as patient continues to have chest discomfort, and is slightly hypotensive. CTA negative for dissection, or CT PE - this was also discussed w/ radiologist. Blood cultures, urine culture ordered. Discussed with Dr. Kilgore, that we will also obtain culture from peritoneal dialysis fluid once available. Plan for urgent dialysis, and starting IV heparin. Cardiology consult was also placed. Allergies Allergy/AdvReac Type Severity Reaction Status Date / Time mercury (elemental) Allergy Intermediate Rash Verified 06/09/21 16:08 NSAIDS (Non-Steroidal Allergy Intermediate not to Verified 06/09/21 16:08 Anti-Inflamma take d/t Kidney disease lisinopril AdvReac Intermediate COUGH Verified 06/09/21 16:08 Home Medications Medication Instructions Recorded Confirmed Type amlodipine 10 mg tablet 10 mg PO QAM 05/06/19 06/09/21 History trazodone 50 mg tablet 100 mg PO HS PRN tab 05/06/19 06/09/21 History furosemide 80 mg tablet 80 mg PO QAM 06/30/20 06/09/21 History omeprazole 40 mg capsule,delayed 40 mg PO BID 06/30/20 06/09/21 History release aspirin 81 mg tablet,delayed 81 mg PO QAM 09/26/20 06/09/21 History release atorvastatin 40 mg tablet (Lipitor) 40 mg PO QAM 09/26/20 06/09/21 History bupropion HCl 150 mg 24 hr tablet, 150 mg PO QAM 09/26/20 06/09/21 History extended release clopidogrel 75 mg tablet 37.5 mg PO QAM 09/26/20 06/09/21 History escitalopram oxalate 20 mg tablet 20 mg PO QAM 09/26/20 06/09/21 History vit B complx, C-iron 8 mg-folic 1 tab PO QAM 09/26/20 06/09/21 History acid 800 mcg-D3 1,000 unit-zinc tablet (ProRenal) gentamicin 0.1 % topical cream 1 applic TOPICAL DAILY #30 g 03/10/21 06/09/21 Rx tamsulosin 0.4 mg capsule 0.4 mg PO DAILY 03/28/21 06/09/21 History allopurinol 100 mg tablet 100 mg PO QAM #90 tab 04/28/21 06/09/21 Rx bisacodyl 5 mg tablet,delayed 5 mg PO DAILY 06/09/21 06/09/21 History release (Gentle Laxative (bisacodyl)) calcitriol 0.5 mcg capsule 0.5 mcg PO DAILY 06/09/21 06/09/21 History dutasteride 0.5 mg capsule 0.5 mg PO DAILY 06/09/21 06/09/21 History isosorbide mononitrate 30 mg 30 mg PO UD 06/09/21 06/09/21 History tablet,extended release 24 hr isosorbide mononitrate 60 mg 60 mg PO UD 06/09/21 06/09/21 History tablet,extended release 24 hr metoprolol succinate 25 mg 25 mg PO BID 06/09/21 06/09/21 History tablet,extended release 24 hr mirtazapine 15 mg tablet 22.5 mg PO HS 06/09/21 06/09/21 History ropinirole 2 mg tablet 3 mg PO HS 06/09/21 06/09/21 History sucroferric oxyhydroxide 500 mg 1,000 mg PO TIDM 06/09/21 06/09/21 History chewable tablet (Velphoro) Past Med/Surg History Medical History Anemia AV fistula "L side " Bradycardia Cardiac murmur HX OF TAVR SEP 2019 SECONDARY TO SEVERE Carotid artery stenosis RIGHT ICA= <50%; LEFT ICA= 50-69% Complete heart block Dialysis patient X 4 YRS-PERITONEAL DIALYSIS Q HS X 8 HRS Dyslipidemia Elevated troponin ESRD (end stage renal disease) on dialysis Fitting and adjustment of peritoneal dialysis catheter PLACEMENT OF-IN PLACE GERD (gastroesophageal reflux disease) Gout Hiatal hernia History of lung cancer NON SMALL CANCER RLL-07/2019 [facility] [place] HTN (hypertension) Kidney donor Near syncope Pericardial effusion s/p pericardiocentesis Peritoneal dialysis status Spinal stenosis NO NECK OR BACK SURGERY Surgical History AV fistula CREATION OF IN LEFT WRIST History of colonoscopy History of lung surgery RLL 07/2019 History of nephrectomy, unilateral "Kidney donor "1993 S/P femoral-popliteal bypass surgery S/P TAVR (transcatheter aortic valve replacement) Family History Brother Family history of diabetes mellitus Brother Family history of diabetes mellitus Sister Family history of diabetes mellitus Mother Family history of diabetes mellitus Social History Smoking Status: Never smoker Tobacco Type: Smokeless Tobacco (Dip or Chew) Second Hand Exposure: No; Do You Dip or Chew Tobacco: Yes; Hx Alcohol Use: No Hx Substance Use: No Preferred Language: Greenlandic Communication Ability: Effective Visual Impairment: No Limitations Asbestos Siding Installer Required: No Beliefs That Will Affect Care: None Current Living Situation: Significant Other Feels Safe at Home: Yes Safety Concerns: Feels Safe At This Time Assistive Devices: None Review of Systems Constitutional: as per Subjective / HPI Eyes: no problem reported Ear, Nose, Mouth, Throat: no problem reported Respiratory: + dyspnea Cardiovascular: + chest pain and + orthopnea Gastrointestinal: no abdominal pain Genitourinary: no dysuria Musculoskeletal: no problem reported Integumentary: no problem reported Neurologic: no problem reported Psychiatric: no problem reported Endocrine: no problem reported Hematologic / Lymphatic: no problem reported Allergy / Immunological: no problem reported Physical Exam Constitutional: WD/WN, vitals as above (on Bipap) Eyes: PERRL, conjunctivae normal, anicteric sclerae ENMT: external ear and nose normal, oropharynx normal Neck: normal visual inspection Respiratory: on Bipap, no accessory muscle use, speaking in full sentences without difficulty, only mild rhonchi/crackles noted bilaterally no wheezing Cardiovascular: RRR, no murmur, no edema Chest (Breasts): Chest: + pacemaker Gastrointestinal (Abdomen): Inspection/Auscultation: normal bowel sounds; abdomen not distended and no abdominal edema PD catheter, without any surrounding erythema, soft, nontender Musculoskeletal: Head/Neck/Chest: normocephalic, head atraumatic and neck supple Skin: no rashes, warm and dry Neurologic: PERRL, EOMI, accommodation nl, no face palsy, no dysarthria Psychiatric: A+Ox3, euthymic affect Genitourinary: no CVA tenderness Lymphatic: no lymphedema Results & Data Results & Data ([facility]) Vital Signs (Past 12 Hours) Vital Signs Pulse Pulse Resp BP Pulse Ox 06/09/21 17:30 87 22 106/60 100 06/09/21 17:00 89 20 94/57 L 99 06/09/21 16:45 90 18 90/61 L 99 06/09/21 16:30 90 16 92/63 L 99 06/09/21 16:15 88 27 H 101/65 99 06/09/21 16:11 88 26 H 100 06/09/21 16:08 88 26 H 98 06/09/21 16:00 95 H 28 H 99/78 L 93 06/09/21 15:55 107 H 22 88 L 06/09/21 15:50 96 H 23 91 06/09/21 15:45 93 H 33 H 99/63 L 92 06/09/21 15:38 94 H 94 06/09/21 15:30 94 H 20 86/55 L 88 L 06/09/21 15:28 97 H 15 91 06/09/21 15:20 88 L Laboratory Results 06/09/21 06/09/21 06/09/21 Range/Units 21:21 21:21 15:45 WBC (4.8-10.8) K/uL RBC (4.7-6.1) M/uL Hgb (14.0-18.0) g/dL POC Hgb (14.0-18.0) g/dl Hct (42-52) % POC Hct (42-52) % MCV (80-100) fL MCH (25-34) pg MCHC (32-36) g/dL RDW Std Deviation (36.4-46.3) fL RDW Coeff of Saumya (11.5-14.5) % Plt Count (130-400) K/uL MPV (7.4-10.4) fL Immature Gran % (Auto) % Neut % (Auto) % Lymph % (Auto) % [place] % (Auto) % Eos % (Auto) % Baso % (Auto) % Neut # (Auto) (1.4-6.5) K/uL Lymph # (Auto) (1.2-3.4) K/uL [place] # (Auto) (0.11-0.59) K/uL Eos # (Auto) (0-0.5) K/uL Baso # (Auto) (0-0.2) K/uL Immature Gran # (Auto) (0.00-0.02) K/uL PT (9.0-12.0) Seconds INR (0.9-1.1) APTT (21.0-31.0) Seconds PTT Ratio POC Sodium (135-144) mmol/L Sodium (136-145) mmol/L POC Potassium (3.3-5.0) mmol/L Potassium (3.5-5.1) mmol/L POC Chloride (101-112) mmol/L Chloride (98-107) mmol/L Carbon Dioxide (21-32) mmol/L POC Total CO2 (24-31) mmol/L Anion Gap (3-11) POC Anion Gap (16-25) mmol/L POC BUN (7-18) mg/dl BUN (7-18) mg/dl Creatinine (0.6-1.4) mg/dl POC Creatinine (0.6-1.3) mg/dl Est Cr Clr Drug Dosing ml/min Est GFR ( Amer) ml/min Est GFR (Non-Af Amer) ml/min BUN/Creatinine Ratio (10-20) Glucose (70-99) mg/dl POC Glucose (other) (70-99) mg/dl Lactate Pending Calcium (8.5-10.1) mg/dl POC Ioniz Calcium Ludivina (1.12-1.32) mmol/l Magnesium Pending Total Bilirubin (0.2-1) mg/dl AST (15-37) U/L ALT (12-78) U/L Alkaline Phosphatase (45-117) U/L Troponin I Pending (0-0.045) ng/ml NT-Pro-B Natriuret Pep (0-900) pg/ml Total Protein (6.4-8.2) gm/dl Albumin (3.4-5.0) gm/dl Globulin (2.5-4.0) gm/dl Albumin/Globulin Ratio (0.9-2) Lipase (73-393) U/L COVID-19 Eval Order SARS-CoV-2 (PCR) NEGATIVE (Negative) 06/09/21 06/09/21 06/09/21 Range/Units 15:45 15:39 15:05 WBC (4.8-10.8) K/uL RBC (4.7-6.1) M/uL Hgb (14.0-18.0) g/dL POC Hgb 9.2 L (14.0-18.0) g/dl Hct (42-52) % POC Hct 27 L (42-52) % MCV (80-100) fL MCH (25-34) pg MCHC (32-36) g/dL RDW Std Deviation (36.4-46.3) fL RDW Coeff of Saumya (11.5-14.5) % Plt Count (130-400) K/uL MPV (7.4-10.4) fL Immature Gran % (Auto) % Neut % (Auto) % Lymph % (Auto) % [place] % (Auto) % Eos % (Auto) % Baso % (Auto) % Neut # (Auto) (1.4-6.5) K/uL Lymph # (Auto) (1.2-3.4) K/uL [place] # (Auto) (0.11-0.59) K/uL Eos # (Auto) (0-0.5) K/uL Baso # (Auto) (0-0.2) K/uL Immature Gran # (Auto) (0.00-0.02) K/uL PT (9.0-12.0) Seconds INR (0.9-1.1) APTT (21.0-31.0) Seconds PTT Ratio POC Sodium 133 L (135-144) mmol/L Sodium 132 L (136-145) mmol/L POC Potassium 3.5 (3.3-5.0) mmol/L Potassium 3.6 (3.5-5.1) mmol/L POC Chloride 95 L (101-112) mmol/L Chloride 92 L (98-107) mmol/L Carbon Dioxide 24 (21-32) mmol/L POC Total CO2 23 L (24-31) mmol/L Anion Gap 16.0 H (3-11) POC Anion Gap 20.0 (16-25) mmol/L POC BUN 50 H (7-18) mg/dl BUN 56 H (7-18) mg/dl Creatinine 14.20 H* (0.6-1.4) mg/dl POC Creatinine 14.8 H* (0.6-1.3) mg/dl Est Cr Clr Drug Dosing 5.3 ml/min Est GFR ( Amer) 3.8 ml/min Est GFR (Non-Af Amer) 3.3 ml/min BUN/Creatinine Ratio 3.9 L (10-20) Glucose 116 H (70-99) mg/dl POC Glucose (other) 90 (70-99) mg/dl Lactate Calcium 9.2 (8.5-10.1) mg/dl POC Ioniz Calcium Ludivina 1.07 L (1.12-1.32) mmol/l Magnesium Total Bilirubin 0.9 (0.2-1) mg/dl AST 26 (15-37) U/L ALT 18 (12-78) U/L Alkaline Phosphatase 98 (45-117) U/L Troponin I 0.222 H* (0-0.045) ng/ml NT-Pro-B Natriuret Pep > 69277 H (0-900) pg/ml Total Protein 6.9 (6.4-8.2) gm/dl Albumin 2.6 L (3.4-5.0) gm/dl Globulin 4.3 H (2.5-4.0) gm/dl Albumin/Globulin Ratio 0.6 L (0.9-2) Lipase 415 H (73-393) U/L COVID-19 Eval Order Covid19 at [facility] SARS-CoV-2 (PCR) (Negative) 06/09/21 06/09/21 Range/Units 15:05 15:05 WBC 11.12 H (4.8-10.8) K/uL RBC 2.90 L (4.7-6.1) M/uL Hgb 9.2 L (14.0-18.0) g/dL POC Hgb (14.0-18.0) g/dl Hct 26.6 L (42-52) % POC Hct (42-52) % MCV 91.7 (80-100) fL MCH 31.7 (25-34) pg MCHC 34.6 (32-36) g/dL RDW Std Deviation 44.9 (36.4-46.3) fL RDW Coeff of Saumya 13.5 (11.5-14.5) % Plt Count 126 L (130-400) K/uL MPV 10.7 H (7.4-10.4) fL Immature Gran % (Auto) 0.4 % Neut % (Auto) 80.0 % Lymph % (Auto) 9.3 % [place] % (Auto) 8.5 % Eos % (Auto) 1.6 % Baso % (Auto) 0.2 % Neut # (Auto) 8.90 H (1.4-6.5) K/uL Lymph # (Auto) 1.03 L (1.2-3.4) K/uL [place] # (Auto) 0.94 H (0.11-0.59) K/uL Eos # (Auto) 0.18 (0-0.5) K/uL Baso # (Auto) 0.02 (0-0.2) K/uL Immature Gran # (Auto) 0.05 H (0.00-0.02) K/uL PT 10.7 (9.0-12.0) Seconds INR 1.1 (0.9-1.1) APTT 25.4 (21.0-31.0) Seconds PTT Ratio 1.0 POC Sodium (135-144) mmol/L Sodium (136-145) mmol/L POC Potassium (3.3-5.0) mmol/L Potassium (3.5-5.1) mmol/L POC Chloride (101-112) mmol/L Chloride (98-107) mmol/L Carbon Dioxide (21-32) mmol/L POC Total CO2 (24-31) mmol/L Anion Gap (3-11) POC Anion Gap (16-25) mmol/L POC BUN (7-18) mg/dl BUN (7-18) mg/dl Creatinine (0.6-1.4) mg/dl POC Creatinine (0.6-1.3) mg/dl Est Cr Clr Drug Dosing ml/min Est GFR ( Amer) ml/min Est GFR (Non-Af Amer) ml/min BUN/Creatinine Ratio (10-20) Glucose (70-99) mg/dl POC Glucose (other) (70-99) mg/dl Lactate Calcium (8.5-10.1) mg/dl POC Ioniz Calcium Ludivina (1.12-1.32) mmol/l Magnesium Total Bilirubin (0.2-1) mg/dl AST (15-37) U/L ALT (12-78) U/L Alkaline Phosphatase (45-117) U/L Troponin I (0-0.045) ng/ml NT-Pro-B Natriuret Pep (0-900) pg/ml Total Protein (6.4-8.2) gm/dl Albumin (3.4-5.0) gm/dl Globulin (2.5-4.0) gm/dl Albumin/Globulin Ratio (0.9-2) Lipase (73-393) U/L COVID-19 Eval Order SARS-CoV-2 (PCR) (Negative) Diagnostic Findings CXR FINDINGS: No lines and tubes are seen. Cardiomegaly is noted. Redemonstration of right greater than left lower lung airspace opacities. Stable small right pleural effusion. IMPRESSION: Right greater than left lower lung airspace opacities are unchanged. Stable cardiomegaly. Small right pleural effusion is unchanged. CTA FINDINGS: There is trace pneumoperitoneum which has improved. This may be secondary to the patient's known peritoneal catheter as seen on a prior KUB. The visualized liver, spleen, and adrenal glands are unremarkable. There are trace pleural effusions. Interval progression of the mediastinal and bilateral hilar lymphadenopathy. Normal esophagus. No evidence for an aortic dissection. Of note, the descending thoracic aorta is not opacified due to the timing of contrast. There is a normal caliber thoracic aorta. An aortic valve stent is noted. The heart remains mildly enlarged. Pericardial thickening has improved/resolved. Postoperative changes consistent with a prior right lower lobectomy with chronic pleural thickening and scarlike densities within the right lung posteriorly. This remains unchanged. Mitral annulus calcifications are noted. Right-sided pacemaker. No filling defects within the pulmonary arteries to suggest a pulmonary embolus. No fractures within the visualized osseous structures. Diffuse interlobular septal thickening with scattered groundglass densities consistent with moderate pulmonary edema. No pneumothorax. The central airways are patent. Small patchy densities within the lungs posteriorly are nonspecific but favor dependent change/atelectasis. IMPRESSION: 1. No evidence for pulmonary embolus. 2. Diffuse interlobular septal thickening with scattered groundglass densities. This is consistent with moderate pulmonary edema. 3. Cardiomegaly and trace bilateral pleural effusions. 4. Prior right lower lobectomy. Stable scarlike densities and pleural thickening within the right lung posteriorly. 5. Trace hemoperitoneum which has improved. This may be secondary to the patient's known peritoneal catheter. 6. Additional findings as described above. Code Status & VTE Plan VTE Prophylaxis Plan VTE Prophylaxis will be ordered: Yes
[2021-06-09] MEDS ORDERED: OPTIRAY 320 125ml IV ONE (18:42)
[2021-06-09] MEDS ORDERED: FUROSEMIDE 40 MG/4 ML VIAL IV STA (18:51)
--- NOTE | 2021-06-09 18:58 | CT Scan Report ---
CHEST CTA for PULMONARY ARTERIES CT DOSE: 458.44 mGy.cm HISTORY: Shortness of breath. TECHNIQUE: Multiaxial CT images of the chest were performed following the intravenous administration of contrast to evaluate the pulmonary arteries. Maximal intensity projection images were also obtaine d. A dose lowering technique was utilized adhering to the principles of ALARA. COMPARISON STUDY: Chest CT 03/28/2021. KUB 09/26/2020. FINDINGS: There is trace pneumoperitoneum which has improved. This may be secondary to the patient's known peritoneal catheter as seen on a prior KUB. The visualized liver, spleen, and adrenal glands ar e unremarkable. There are trace pleural effusions. Interval progression of the mediastinal and bilate ral hilar lymphadenopathy. Normal esophagus. No evidence for an aortic dissection. Of note, the desce nding thoracic aorta is not opacified due to the timing of contrast. There is a normal caliber thorac ic aorta. An aortic valve stent is noted. The heart remains mildly enlarged. Pericardial thickening h as improved/resolved. Postoperative changes consistent with a prior right lower lobectomy with chroni c pleural thickening and scarlike densities within the right lung posteriorly. This remains unchanged . Mitral annulus calcifications are noted. Right-sided pacemaker. No filling defects within the pulmo nary arteries to suggest a pulmonary embolus. No fractures within the visualized osseous structures. Diffuse interlobular septal thickening with scattered groundglass densities consistent with moderate pulmonary edema. No pneumothorax. The central airways are patent. Small patchy densities within the l ungs posteriorly are nonspecific but favor dependent change/atelectasis. IMPRESSION: 1. No evidence for pulmonary embolus. 2. Diffuse interlobular septal thickening with scattered groundglass densities. This is consistent wi th moderate pulmonary edema. 3. Cardiomegaly and trace bilateral pleural effusions. 4. Prior right lower lobectomy. Stable scarlike densities and pleural thickening within the right diann g posteriorly. 5. Trace hemoperitoneum which has improved. This may be secondary to the patient's known peritoneal c atheter. 6. Additional findings as described above. ACT 112: Negative or not required by law. Electronically signed by: Mesfin Deluca M.D. 06/09/2021 6:56 PM
[2021-06-09] MEDS ORDERED: HEPARIN 25000 UNIT/500 ML D5W IV ONE (19:13)
[2021-06-09] MEDS ORDERED: HEPARIN SODIUM/DEXTROSE 25,000 UNITS/500 ML BAG IV SCH (19:30)
[2021-06-09] MEDS ORDERED: Heparin IV Adult Wt-Based Standard *NO* Bolus Protocol IV SCH (20:30)
--- NOTE | 2021-06-09 20:31 | Nephrology Consultation ---
Date of Consultation June 09, 2021 Assessment & Plan (1) ESRD (end stage renal disease) on dialysis: Emergent PD coordinated for hypoxia and volume overload. Orders entered into the EMR and discussed with the dialysis nurse. CCPD tonight with 5 x 2.5 L exchanges or split bath 2.5/4.25%. Last fill of 2 L. Exit site clean. Routine exit site care to be provided. Medications appropriately dosed for kidney dysfunction. (2) Anemia in chronic kidney disease (CKD): Chronic, stable. Maintained on Micera as outpatient. (3) Acute hypoxemic respiratory failure: Plan of care discussed with the Dr. Steiner in the ER and the admitting hospitalist. History of Present Illness Reason for Consultation: ESRD on dialysis Requesting Physician: Kaiden Dennison MD Attending Physician: Kaiden Dennison MD History of Present Illness Mr. John Hung is a 61 year male with ESRD due to hypertensive nephrosclerosis. In 1994 he donated his R kidney to his sister. In 12/27 he progressed to ESRD and was started on NCCPD. His current dialysis regimen consists of NCCPD 5 exchanges/night, 2.5L fill volume, 90 min dwell. LBO 2L fill, 4 hour dwell. EDW is 70kg. Mr. Hung was recently admitted to [facility] in March with heart block requiring pacemaker placement. He was discharged home and returned to the hospital with dizziness and presyncope. At that time, it was felt that he had developed orthostasis due to aggressive UF with PD. Note that in February amlodipine was reduced by Dr. Lomeli due to hypotension. Coreg was reduced in half from 25 mg BID. Unfortunately, John was then admitted for a 3rd time within a ~1 month with shortness of breath due to fluid retention from missed HD. John had been doing reasonably well since that time but started to experience notable dyspnea with exertion and activity limiting fatigue within the past week. Yesterday, he started to experience some chest pain and discomfort. This has progressively worsened over the past 48 hours. Symptoms notably progressed whole John was at [facility] today. He reports associated lightheadedness and dizziness prompting him to the come to the ER. John continued to endorse chest pain during my discussion with him in the ER. He describes a burning sensation across the front of his chest. He denies similar pain in the past. BIPAP placed in the ER for respiratory distress and hypoxia. There have been no recent complications with PD. John has been using 1.5% dextrose. Typical UF is ~2 L. 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 Presumed viral # PVD - bilateral iliac artery stenosis s/p MANAGER CAREER 05/03 [place] # Lyme disease 05/31 # Hep C s/p 12 weeks Zepatier therapy. Post treatment PCR negative 2016 # HTN # Gout # [place] # RLS Allergies Allergy/AdvReac Type Severity Reaction Status Date / Time mercury (elemental) Allergy Intermediate Rash Verified 06/09/21 16:08 NSAIDS (Non-Steroidal Allergy Intermediate not to Verified 06/09/21 16:08 Anti-Inflamma take d/t Kidney disease lisinopril AdvReac Intermediate COUGH Verified 06/09/21 16:08 Home Medications Medication Instructions Recorded Confirmed Type amlodipine 10 mg tablet 10 mg PO QAM 05/06/19 06/09/21 History trazodone 50 mg tablet 100 mg PO HS PRN tab 05/06/19 06/09/21 History furosemide 80 mg tablet 80 mg PO QAM 06/30/20 06/09/21 History omeprazole 40 mg capsule,delayed 40 mg PO BID 06/30/20 06/09/21 History release aspirin 81 mg tablet,delayed 81 mg PO QAM 09/26/20 06/09/21 History release atorvastatin 40 mg tablet (Lipitor) 40 mg PO QAM 09/26/20 06/09/21 History bupropion HCl 150 mg 24 hr tablet, 150 mg PO QAM 09/26/20 06/09/21 History extended release clopidogrel 75 mg tablet 37.5 mg PO QAM 09/26/20 06/09/21 History escitalopram oxalate 20 mg tablet 20 mg PO QAM 09/26/20 06/09/21 History vit B complx, C-iron 8 mg-folic 1 tab PO QAM 09/26/20 06/09/21 History acid 800 mcg-D3 1,000 unit-zinc tablet (ProRenal) gentamicin 0.1 % topical cream 1 applic TOPICAL DAILY #30 g 03/10/21 06/09/21 Rx tamsulosin 0.4 mg capsule 0.4 mg PO DAILY 03/28/21 06/09/21 History allopurinol 100 mg tablet 100 mg PO QAM #90 tab 04/28/21 06/09/21 Rx bisacodyl 5 mg tablet,delayed 5 mg PO DAILY 06/09/21 06/09/21 History release (Gentle Laxative (bisacodyl)) calcitriol 0.5 mcg capsule 0.5 mcg PO DAILY 06/09/21 06/09/21 History dutasteride 0.5 mg capsule 0.5 mg PO DAILY 06/09/21 06/09/21 History isosorbide mononitrate 30 mg 30 mg PO UD 06/09/21 06/09/21 History tablet,extended release 24 hr isosorbide mononitrate 60 mg 60 mg PO UD 06/09/21 06/09/21 History tablet,extended release 24 hr metoprolol succinate 25 mg 25 mg PO BID 06/09/21 06/09/21 History tablet,extended release 24 hr mirtazapine 15 mg tablet 22.5 mg PO HS 06/09/21 06/09/21 History ropinirole 2 mg tablet 3 mg PO HS 06/09/21 06/09/21 History sucroferric oxyhydroxide 500 mg 1,000 mg PO TIDM 06/09/21 06/09/21 History chewable tablet (Velphoro) Patient History Medical History Anemia AV fistula "L side " Bradycardia Cardiac murmur HX OF TAVR SEP 2019 SECONDARY TO SEVERE Carotid artery stenosis RIGHT ICA= <50%; LEFT ICA= 50-69% Complete heart block Dialysis patient X 4 YRS-PERITONEAL DIALYSIS Q HS X 8 HRS Dyslipidemia Elevated troponin ESRD (end stage renal disease) on dialysis Fitting and adjustment of peritoneal dialysis catheter PLACEMENT OF-IN PLACE GERD (gastroesophageal reflux disease) Gout Hiatal hernia History of lung cancer NON SMALL CANCER RLL-07/2019 [facility] HTN (hypertension) Kidney donor Near syncope Pericardial effusion s/p pericardiocentesis Peritoneal dialysis status Spinal stenosis NO NECK OR BACK SURGERY Surgical History AV fistula CREATION OF IN LEFT WRIST History of colonoscopy History of lung surgery RLL 07/2019 History of nephrectomy, unilateral "Kidney donor "1992 S/P femoral-popliteal bypass surgery S/P TAVR (transcatheter aortic valve replacement) Family History Brother Family history of diabetes mellitus Brother Family history of diabetes mellitus Sister Family history of diabetes mellitus Mother Family history of diabetes mellitus Social History Smoking Status: Never smoker Tobacco Type: Smokeless Tobacco (Dip or Chew) Second Hand Exposure: No; Do You Dip or Chew Tobacco: Yes; Hx Alcohol Use: No Hx Substance Use: No Preferred Language: Lebanese Communication Ability: Effective Visual Impairment: No Limitations Physical Optics Teacher Required: No Beliefs That Will Affect Care: None Current Living Situation: Significant Other Feels Safe at Home: Yes Safety Concerns: Feels Safe At This Time Assistive Devices: None Review of Systems Review of Systems: All systems reviewed & are unremarkable except as noted in HPI & below Physical Exam Constitutional: well developed; no acute distress Eyes: no scleral abnormality and no corneal abnormality ENMT: Mouth: no oral mucosal abnormality and oral mucous membranes not dry Neck: normal visual inspection and trachea midline Respiratory: normal respiratory effort Auscultation: + diminished lung sounds and + rales (few right base) Cardiovascular: Rate/Rhythm: regular rate Heart Sounds: normal S1 and normal S2 Extremities: + AV fistula; no edema Musculoskeletal: Extremities: no cyanosis and no clubbing Skin: normal turgor; no lesions Neurologic: Motor/Sensory: no tremor and no asterixis Psychiatric: Orientation: alert and oriented x 3 Results & Data ([facility]) Vital Signs (Past 12 Hours) Vital Signs Temp Pulse Pulse Resp BP BP Pulse Ox 06/09/21 20:00 36.0 C L 83 19 110/70 95 06/09/21 19:30 83 22 97/70 L 06/09/21 19:00 87 21 107/68 96 06/09/21 18:50 88 39 H 109/72 99 06/09/21 17:30 87 22 106/60 100 06/09/21 17:00 89 20 94/57 L 99 06/09/21 16:45 90 18 90/61 L 99 06/09/21 16:30 90 16 92/63 L 99 06/09/21 16:15 88 27 H 101/65 99 06/09/21 16:11 88 26 H 100 06/09/21 16:08 88 26 H 98 06/09/21 16:00 95 H 28 H 99/78 L 93 06/09/21 15:55 107 H 22 88 L 06/09/21 15:50 96 H 23 91 06/09/21 15:45 93 H 33 H 99/63 L 92 06/09/21 15:38 94 H 94 06/09/21 15:30 94 H 20 86/55 L 88 L 06/09/21 15:28 97 H 15 91 06/09/21 15:20 88 L Laboratory Results Laboratory Results - last 24 hr 06/09/21 06/09/21 06/09/21 15:05 15:05 15:05 WBC 11.12 H RBC 2.90 L Hgb 9.2 L POC Hgb Hct 26.6 L POC Hct MCV 91.7 MCH 31.7 MCHC 34.6 RDW Std Deviation 44.9 RDW Coeff of Saumya 13.5 Plt Count 126 L MPV 10.7 H Immature Gran % (Auto) 0.4 Neut % (Auto) 80.0 Lymph % (Auto) 9.3 [place] % (Auto) 8.5 Eos % (Auto) 1.6 Baso % (Auto) 0.2 Neut # (Auto) 8.90 H Lymph # (Auto) 1.03 L [place] # (Auto) 0.94 H Eos # (Auto) 0.18 Baso # (Auto) 0.02 Immature Gran # (Auto) 0.05 H PT 10.7 INR 1.1 APTT 25.4 PTT Ratio 1.0 POC Sodium Sodium 132 L POC Potassium Potassium 3.6 POC Chloride Chloride 92 L Carbon Dioxide 24 POC Total CO2 Anion Gap 16.0 H POC Anion Gap POC BUN BUN 56 H Creatinine 14.20 H* POC Creatinine Est Cr Clr Drug Dosing 5.3 Est GFR ( Amer) 3.8 Est GFR (Non-Af Amer) 3.3 BUN/Creatinine Ratio 3.9 L Glucose 116 H POC Glucose (other) Calcium 9.2 POC Ioniz Calcium Ludivina Total Bilirubin 0.9 AST 26 ALT 18 Alkaline Phosphatase 98 Troponin I 0.222 H* NT-Pro-B Natriuret Pep > 90678 H Total Protein 6.9 Albumin 2.6 L Globulin 4.3 H Albumin/Globulin Ratio 0.6 L Lipase 415 H COVID-19 Eval Order SARS-CoV-2 (PCR) 06/09/21 06/09/21 06/09/21 15:39 15:45 15:45 WBC RBC Hgb POC Hgb 9.2 L Hct POC Hct 27 L MCV MCH MCHC RDW Std Deviation RDW Coeff of Saumya Plt Count MPV Immature Gran % (Auto) Neut % (Auto) Lymph % (Auto) [place] % (Auto) Eos % (Auto) Baso % (Auto) Neut # (Auto) Lymph # (Auto) [place] # (Auto) Eos # (Auto) Baso # (Auto) Immature Gran # (Auto) PT INR APTT PTT Ratio POC Sodium 133 L Sodium POC Potassium 3.5 Potassium POC Chloride 95 L Chloride Carbon Dioxide POC Total CO2 23 L Anion Gap POC Anion Gap 20.0 POC BUN 50 H BUN Creatinine POC Creatinine 14.8 H* Est Cr Clr Drug Dosing Est GFR ( Amer) Est GFR (Non-Af Amer) BUN/Creatinine Ratio Glucose POC Glucose (other) 90 Calcium POC Ioniz Calcium Ludivina 1.07 L Total Bilirubin AST ALT Alkaline Phosphatase Troponin I NT-Pro-B Natriuret Pep Total Protein Albumin Globulin Albumin/Globulin Ratio Lipase COVID-19 Eval Order Covid19 at [facility] SARS-CoV-2 (PCR) NEGATIVE PG Care Time/CCT Total # of Minutes Spent Total Time Spent with Patient: Total time spent is greater than 50% in coordination of care (as documented) at patient's floor/unit and/or counseling patient: Coding Level of Care Code 56407 Inpt Consult Level 4 Diagnoses Anemia in chronic kidney disease (CKD) N18.9; D63.1 Acute hypoxemic respiratory failure J96.01 ESRD (end stage renal disease) on dialysis N18.6; Z99.2
[2021-06-09] MEDS ORDERED: traMADol HCL 50 MG TABLET PO PRN (20:58)
[2021-06-09] MEDS ORDERED: ACETAMINOPHEN 325 MG TAB PO PRN (20:58)
[2021-06-09] MEDS ORDERED: HYDROmorphone INJ 0.5 MG/0.5 ML SYR IV PRN (20:58)
[2021-06-09] MEDS ORDERED: MoRPHine SULFATE 2 MG/ML CARP IV PRN (20:58)
[2021-06-09] MEDS ORDERED: oxyCODONE HCL IR 5 MG TAB (IMMEDIATE RELEASE) PO PRN (20:59)
[2021-06-09] MEDS ORDERED: ISOSORBIDE MONO EXTENDED REL 30 MG TABCR PO SCH (21:00)
[2021-06-09] MEDS ORDERED: METOPROLOL SUCC 25MG EXT REL TAB PO SCH (21:00)
[2021-06-09] MEDS ORDERED: ISOSORBIDE MONO EXTENDED REL 60 MG TABCR PO SCH (21:00)
--- NOTE | 2021-06-09 21:09 | Communication Note ---
Date of Service: June 09, 2021 ARI DEVI CALLED at 9:10 PM. As per RN account, patient complaining of shortness of breath. Patient subsequently became unresponsive with agonal respiration and no pulse. CPR, defibrillation, ACLS medications administered as per protocol. Patient intubated by ED provider, Dr. Longoria. No ROSC after CPR duration of almost 20 minutes leading to termination of efforts. Patient pronounced at 9:25 PM. Ree Izabel Millard (patient girlfriend currently en route to the hospital) updated of developments over the phone.
[2021-06-09] MEDS ORDERED: CALCIUM CHLORIDE 10% 10 ML SYR IV ONE (21:24)
[2021-06-09] MEDS ORDERED: SODIUM BICARB 8.4% INJ 50 MEQ/50 ML SYR IV ONE (21:24)
[2021-06-09] MEDS ORDERED: PANTOprazole 40 MG TAB PO SCH (21:30)
--- NOTE | 2021-06-09 21:33 | Emergency Department Note ---
ED Visit Note I was called to the patient's inpatient room after the patient suffered a cardiac arrest. Initially he was a code purple followed by a CODE BLUE. The patient went into wide-complex tachycardia. He was defibrillated after he lost consciousness. CPR was begun immediately. ACLS protocol was in effect. He was being bagged by respiratory. The patient was receiving ALS medications. The admitting team approached the bedside. The patient was intubated by myself in the usual fashion. Endotracheal Intubation Indication cardiac arrest. The patient was on 100% oxygen via NRB prior to the procedure. Suction, airway equipment, RSI drugs, respiratory equipment, and appropriate personnel were prepared prior to the initiation of the procedure. A time out was taken. The airway was easily visualized utilizing a glide scope. A 8.0 size ETT tube was placed atraumatically to 25 cm using standard technique. The cuff inflated without signs of malfunction. There were bilateral breath sounds, positive colormetric change, no gastric sounds, a good capnography waveform, and post procedure pulse oximetry was not available. There were no complications. .
--- NOTE | 2021-06-09 21:44 | Death Pronouncement Note ---
Date of Service June 09, 2021 Pronouncement Note Admission Date Admission Date: June 09, 2021 Date and Time of Date of : 05/12/21 Time of : 21:25 Contributing Factors (1) ESRD (end stage renal disease) on dialysis: (2) Anemia in chronic kidney disease (CKD): (3) Acute hypoxemic respiratory failure: Summary Additional details: Discharge summary and certificate to be completed by Dr. Dennison. Additional Data Confirmation of : no pulse, no respirations, no heart sounds and pupils fixed and dilated Family: contacted Attending physician: Kaiden Dennison MD Was code activated?: Yes Autopsy requested?: Yes crime scene examiner notified?: Yes
[2021-06-09 22:00] LABS: Magnesium 2.5 mg/dl (1.8-2.4); Troponin I 0.259 ng/ml (0-0.045)
--- NOTE | 2021-06-10 06:16 | Electrocardiogram Report ---
Test Reason : Blood Pressure : / mmHG Vent. Rate : 100 BPM Atrial Rate : 100 BPM P-R Int : 192 ms QRS Dur : 188 ms QT Int : 430 ms P-R-T Axes : 000 -68 103 degrees QTc Int : 554 ms Poor data quality, interpretation may be adversely affected Atrial-sensed ventricular-paced rhythm Abnormal ECG When compared with ECG of 02-APR-2021 05:00, Vent. rate has increased BY 34 BPM Confirmed by George Peace ([id number]) on 06/10/2021 6:15:34 AM Referred By: REFERRED SELF Confirmed By:George Peace
--- NOTE | 2021-06-10 06:54 | Discharge Summary ---
Date of Service June 10, 2021 Admission HPI Per Admitting Provider Pt is a 61 yo male with ESRD on PD with solitary kidney, chronic diastolic heart failure (EF 65 to 70%, TTE 2020), bicuspid aortic valve, aortic stenosis status post TAVR, complete heart block status post recent PPM, history of nonobstructive CAD, PAD status post surgery, hypertension, hyperlipidemia,NSCLC s/p surgery, chronic anemia, past tobacco abuse who presents with chest pain. Pt reports he has been having chest tightness, especially in the morning and when lying down, for the past 2 days. Today he was in [employer], in the bathroom, when he developed more significant chest discomfort and therefore p resented to the ER. In the ER troponin was elevated at 0.22, EKGs obtained, ER physician discussed with the city superintendent, Dr. Arnold. Per ER physician, Dr. Arnold suggested that we could consider IV heparin. Chest x-ray concerning for pulmonary vascular congestion, proBNP significantly elevated. In the past patient required urgent dialysis, to manage volume and presented with similar symptoms. Nephrology, Dr. Kilgore contacted. In the ER, patient was started on BiPAP. Currently laying in bed, somewhat restless, however awake alert and answering questions appropriately and tolerating BiPAP well. He continues to have some chest discomfort. Dr. Kilgore also at the bedside during my evaluation. He is arranging urgent PD dialysis. Discussed that patient's blood pressure has been on the lower side, and asked ER physician for CTA to rule out possible dissection, as patient continues to have chest discomfort, and is slightly hypotensive. CTA negative for dissection, or CT PE - this was also discussed w/ radiologist. Blood cultures, urine culture ordered. Discussed with Dr. Kilgore, that we will also obtain culture from peritoneal dialysis fluid once available. Plan for urgent dialysis, and starting IV heparin. Cardiology consult was also placed. Admission Exam Per Admitting Provider Constitutional: WD/WN, vitals as above (on Bipap) Eyes: PERRL, conjunctivae normal, anicteric sclerae ENMT: external ear and nose normal, oropharynx normal Neck: normal visual inspection Respiratory: on Bipap, no accessory muscle use, speaking in full sentences without difficulty, only mild rhonchi/crackles noted bilaterally no wheezing Cardiovascular: RRR, no murmur, no edema Chest (Breasts): Chest: + pacemaker Gastrointestinal (Abdomen): Inspection/Auscultation: normal bowel sounds; abdomen not distended and no abdominal edema PD catheter, without any surrounding erythema, soft, nontender Musculoskeletal: Head/Neck/Chest: normocephalic, head atraumatic and neck supple Skin: no rashes, warm and dry Neurologic: PERRL, EOMI, accommodation nl, no face palsy, no dysarthria Psychiatric: A+Ox3, euthymic affect Genitourinary: no CVA tenderness Lymphatic: no lymphedema Principal Diagnosis NSTEMI / ACS Acute respiratory failure secondary to Fluid overload secondary to end stage renal disease on PD in the setting of solitary kidney Hx of Coronary artery disease Hx of PAD Hx of aortic stenosis status post TAVR Hx of complete heart block status post PPM Discharge Exam Confirmation of : no pulse, no respirations, no heart sounds and pupils fixed and dilated, by Dr. Landa Discharge Data Allergies Allergy/AdvReac Type Severity Reaction Status Date / Time mercury (elemental) Allergy Intermediate Rash Verified 06/09/21 16:08 NSAIDS (Non-Steroidal Allergy Intermediate not to Verified 06/09/21 16:08 Anti-Inflamma take d/t Kidney disease lisinopril AdvReac Intermediate COUGH Verified 06/09/21 16:08 Consultations 06/09/21 17:09 ED Decision to Admit Stat 06/09/21 17:31 Consult Nephrology Stat 06/09/21 18:05 Consult Cardiology Routine Ordered Studies 06/09/21 18:18 CT angio chest PE protocol Stat IMPRESSION: 1. No evidence for pulmonary embolus. 2. Diffuse interlobular septal thickening with scattered groundglass densities. This is consistent with moderate pulmonary edema. 3. Cardiomegaly and trace bilateral pleural effusions. 4. Prior right lower lobectomy. Stable scarlike densities and pleural thickening within the right lung posteriorly. 5. Trace hemoperitoneum which has improved. This may be secondary to the patient's known peritoneal catheter. 6. Additional findings as described above. Hospital Course (1) Chest pain: (1) Chest pain: (2) Volume overload: (3) ESRD (end stage renal disease) on dialysis: (4) Hx of cardiac pacemaker: Plan: Volume overload, ESRD on PD Chest x-ray with pulmonary vascular congestion, and significantly elevated proBNP >35,000 -Consulted nephrology, Dr. Kilgore - plan for urgent PD dialysis and volume sallie shante -Ordered IV Lasix one dose in the meantime, however patient reports he does not make much urine -We will rule out any infectious etiology, ordered blood cultures, urine culture, also will obtain culture from peritoneal fluid once available -White blood cell count only mildly elevated, therefore infectious etiology does not seem as likely -We will likely start empiric antibiotics, once cultures obtained (plan for quick de-escalation of antibiotics if cultures negative) Acute respiratory failure, due to volume overload - Requiring Bipap at this time, tolerating well, able to speak in full sentences - pt does not require supplemental O2 at baseline - Expect to wean off BiPAP soon after volume removal by dialysis Chest pain, elevated troponin, hx of pacemaker Troponin elevated at 0.22, in the setting of end-stage renal disease ER physician discussed with cardiology, it was suggested to start IV heparin Chest discomfort seems to be secondary to volume overload and therefore dialysis and fluid removal recommended Discussed in detail with nephrology and ER physician, given lower blood pressure and chest discomfort, obtained CTA to rule out dissection CTA negative for PE or aortic dissection, this was also discussed with radiologist Plan to start IV heparin Hx of complete heart block, s/p pacemaker insertion for third-degree AV block which required right ventricular lead revision. Last echo on 03/29 - focused - did not show any pericardial effusion LVEF 65 to 70% Echo completed on 03/25 -normal LV chamber size with moderate concentric LV H. Normal LV systolic function EF 65 to 70%. No segmental LV wall motion abnormalities noted. Grade 1 diastolic dysfunction. There is a bioprosthetic aortic valve. The prosthetic aortic valve appears to open well. The gradient is normal for this prosthetic aortic valve. Doppler evidence of regurg is probably normal for this prosthetic aortic valve. No pericardial effusion. Plan to continue home medications, however will hold some antihypertensives if blood pressure still on lower side in the morning Close hemodynamic monitoring on telemetry overnight Cardiology also consulted ESRD on PD w/ solitary kidney -History of solitary kidney s/p kidney donor in 1992 -on peritoneal dialysis, routinely performs PD at home -Nephrology consulted as above DVT PPx: IV heparin Update: Pt was started on IV heparin and PD dialysis however later in the evening pt became more short of breath and felt chest pain, code purple and then code blue was called as pt became unresponsive. Pt was intubated by the ED physician and ACLS protocol was followed. Unfortunately pt at 9:25 PM on 07/10/2021. Family was notified. Please refer to director hydrogen storage engineering physician's note and ER physician's note for further detail. Total Time Total Time Spent Total Time Spent (In Minutes): 0 Discharge Plan Discharge Items Patient Disposition: Other Date/Time: 06/09/21 21:25
[2021-06-10] MEDS ORDERED: CALCITRIOL 0.25 MCG CAPSULE PO SCH (09:00)
[2021-06-10] MEDS ORDERED: FUROSEMIDE 80 MG TAB PO SCH (09:00)
[2021-06-10] MEDS ORDERED: amLODIPine BESYLATE 5 MG TAB PO SCH (09:00)
[2021-06-10] MEDS ORDERED: CLOPIDOGREL BISULFATE 75 MG TAB PO SCH (09:00)
[2021-06-10] MEDS ORDERED: NEPHROCAPS PO SCH (09:00)
[2021-06-10] MEDS ORDERED: buPROPion XL 150 MG TABCR PO SCH (09:00)
[2021-06-10] MEDS ORDERED: ATORVASTATIN 40 MG TAB PO SCH (09:00)
[2021-06-10] MEDS ORDERED: ASPIRIN 81 MG ECTAB PO SCH (09:00)
[2021-06-10] MEDS ORDERED: ESCITALOPRAM OXALATE 20 MG TAB PO SCH (09:00)
== END 2021-06-09 21:25 | disposition expired | DRG 313 ==
LOC: ED 15:19 → 2S 17:46